=== PATIENT | female | born 1960 | race Caucasian/White ===

== ENCOUNTER 2016-09-01 09:23 | Day surgery (SDC) | payer BC ==
[2016-08-29 14:42] VITALS: BMI 29.2
[~2016-09-01 09:23] MED LIST: LACTATED RINGERS 1,000 ML IV SCH
[2016-09-01] MEDS ORDERED: LIDOCAINE 1% 20 ML VIAL (10MG/ML) FOR IV START INTRADERMA ONE (09:30)
[2016-09-01] MEDS ORDERED: LACTATED RINGERS 1,000 ML IV ONE (09:33)
[2016-09-01 09:34] VITALS: TEMP 97.8
[2016-09-01] MEDS ORDERED: LIDOCAINE 1% INJ 10MG/ML (20 ML MDV) ONE (10:17)
[2016-09-01] MEDS ORDERED: PROPOFOL 10 MG/ML 20 ML VIAL IV ONE (10:17)
--- NOTE | 2016-09-01 10:27 | P.GSHP ---
History of Present Illness H&P Date: 09/01/16 Chief Complaint: Change in bowel habits Patient here today for colonoscopy. She has been having thinner stools with some constipation. She underwent a recent exploratory laparotomy with lysis of adhesions in February of last year for adhesions. No rectal bleeding or melena. No family history of colon cancer. Last colonoscopy at age 39. Past Medical History Past Medical History: Hypertension, Osteoarthritis (OA), Thyroid Disorder Additional Past Medical History / Comment(s): change in bowel habits, hx. small bowel obstruction in February 2016 History of Any Multi-Drug Resistant Organisms: None Reported Past Surgical History: Back Surgery, Breast Surgery, Hysterectomy Additional Past Surgical History / Comment(s): neck surgery cervical decompression and neck fusion, lumbar laminectomy right breast biopsy, colonoscopy, laparoscopy & lysis of adhesions February 2016 Past Anesthesia/Blood Transfusion Reactions: Motion Sickness, Postoperative Nausea & Vomiting (PONV) Past Psychological History: No Psychological Hx Reported Smoking Status: Never smoker Past Alcohol Use History: None Reported Past Drug Use History: None Reported - Past Family History Mother Family Medical History: GI Bleed, Hypertension, Thyroid Disorder Father Family Medical History: Cancer, Coronary Artery Disease (CAD), CVA/TIA, Diabetes Mellitus, Neurologic Disorder Brother(s) Family Medical History: Hypertension Sister(s) Family Medical History: Hypertension, Thyroid Disorder Daughter(s) Family Medical History: No Reported History Son(s) Family Medical History: No Reported History Medications and Allergies Home Medications Medication Instructions Recorded Confirmed Type Cyanocobalamin [Vitamin B-12] 500 mcg PO DAILY 01/06/15 09/01/16 History Cyclobenzaprine [Flexeril] 10 mg PO TID PRN 01/06/15 09/01/16 History Levothyroxine Sodium [Synthroid] 75 mcg PO DAILY 01/06/15 09/01/16 History Multivitamins, Thera [Multivitamin] 1 tab PO DAILY 01/06/15 09/01/16 History [place]-3 Fatty Acids/Fish Oil [Fish 1 cap PO DAILY 01/06/15 09/01/16 History Oil 1,000 mg Softgel] Potassium Gluconate 99 mg PO DAILY 01/06/15 09/01/16 History amLODIPine BESYLATE/BENAZEPRIL 1 cap PO DAILY 01/06/15 09/01/16 History [Lotrel 5-10 mg Capsule] Hydrochlorothiazide [Hydrodiuril] 25 mg PO DAILY 08/29/16 09/01/16 History L.acidoph,Paracasei, B.lactis 1 each PO DAILY 08/29/16 09/01/16 History [Probiotic] Allergies Allergy/AdvReac Type Severity Reaction Status Date / Time No Known Allergies Allergy Verified 08/29/16 14:39 Surgical - Exam Vital Signs Temp Pulse Resp BP Pulse Ox 97.8 F 89 18 144/71 97 09/01/16 09:33 09/01/16 09:33 09/01/16 09:33 09/01/16 09:33 09/01/16 09:33 Physical exam: General: Well-developed, well-nourished HEENT: Normocephalic, sclerae nonicteric Abdomen: Nontender, nondistended Extremities: No edema Neuro: Alert and oriented Assessment and Plan (1) Change in bowel habits Narrative/Plan: Will proceed with colonoscopy at this time. Risks of bleeding about perforation were discussed. She understands and wishes to proceed. Status: Acute
--- NOTE | 2016-09-01 10:51 | P.PCN ---
Date of Procedure: 09/01/16 Procedure(s) Performed: PREOPERATIVE DIAGNOSIS: Change in bowel habits POSTOPERATIVE DIAGNOSIS: Tortuous colon PROCEDURE: Colonoscopy ANESTHESIA: MAC SURGEON: Bertin Gomez M.D. SPECIMENS: None ENDOSCOPIC PROCEDURE: The patient was placed on the endoscopy table in the left decubitus position. The Olympus colonoscope was inserted into the anus and passed under direct visualization to the base of the cecum. The appendiceal orifice was visualized. From that point the scope was slowly withdrawn inspecting all surfaces carefully. There were no neoplastic inflammatory or polypoid lesions throughout the cecum, ascending, transverse, descending, sigmoid and rectum. There was no diverticulosis noted. The patient 's colon was quite tortuous. Digital rectal examination was normal. The patient was taken to the recovery room in stable condition per anesthesia guidelines. RECOMMENDATIONS: Increase fiber. Follow-up colonoscopy in 10 years.
[2016-09-01 10:56] VITALS: RESP 16
[2016-09-01 11:20] VITALS: BP 114/77; PULSE 66
== END 2016-09-01 11:44 | disposition home or self-care (01) ==
LOC: ORWHC2ENDO 09:23
PROVIDERS: ATTEND Surgery
DX: K63.89 Other specified diseases of intestine (principal); I10 Essential (primary) hypertension; E07.9 Disorder of thyroid, unspecified; Z79.899 Other long term (current) drug therapy; Z90.710 Acquired absence of both cervix and uterus; Z98.1 Arthrodesis status; Z82.49 Family history of ischemic heart disease and other diseases of the circulatory system
CPT/HCPCS: 45378; J2001; J2704; 99153

== ENCOUNTER → 2016-09-04 | Outpatient (CLI) | payer BC ==
--- NOTE | 2016-09-04 16:50 | US ---
EXAMINATION TYPE: US mass soft tissue chest/back DATE OF EXAM: 09/04/2016 3:43 PM COMPARISON: NONE CLINICAL HISTORY: Pt states palpable rt lower flank area x 1 1/2 yrs TECHNOLOGIST IMPRESSION: Targeted ultrasound shows no solid or cystic mass or abnormal fluid collect ion visualized at pt's area of concern right flank. Comparative images of left flank appear similar. IMPRESSION: As above.
== END | disposition home or self-care (01) ==
LOC: RADUSWWP 15:15
PROVIDERS: ATTEND Family Medicine
DX: D17.9 Benign lipomatous neoplasm, unspecified (principal)

== ENCOUNTER → 2016-10-25 | Outpatient (CLI) | payer BC | END | disposition home or self-care (01) | LOC: RADECHMAIN 11:51 | PROVIDERS: ATTEND Family Medicine | DX: R00.2 Palpitations (principal) | CPT/HCPCS: 93270; 93271 ==

== ENCOUNTER → 2017-01-02 | Outpatient (CLI) | payer BC ==
[2017-01-02 08:29] LABS: ALT 32 U/L (9-52); AST 33 U/L (14-36); Alkaline Phosphatase 123 U/L (38-126); Anion Gap 11 mmol/L; Blood Urea Nitrogen 21 mg/dL (7-17); Calcium 9.6 mg/dL (8.4-10.2); Carbon Dioxide 31 mmol/L (22-30); Chloride 100 mmol/L (98-107); Glucose 100 mg/dL (74-99); Non-African American GFR(MDRD) >60 (>60 ml/min/1.73 sqM); Sodium 142 mmol/L (137-145); Total Bilirubin 0.6 mg/dL (0.2-1.3); Total Protein 8.2 g/dL (6.3-8.2)
== END | disposition home or self-care (01) ==
LOC: LABWHC1 06:56
PROVIDERS: ATTEND Internal Medicine
DX: I50.9 Heart failure, unspecified (principal)
CPT/HCPCS: 36415; 80053; 83880

== ENCOUNTER → 2017-01-30 | Outpatient (CLI) | payer BC ==
--- NOTE | 2017-01-30 18:36 | US ---
EXAMINATION TYPE: US venous doppler duplex LE DATE OF EXAM: 01/30/2017 6:15 PM COMPARISON: NONE CLINICAL HISTORY: R60.9 Edema. Edema bilateral legs, insufficiency SIDE PERFORMED: Bilateral LOWER EXTREMITY VENOUS INSUFFICIENCY SIDE PERFORMED: bilateral 1) Color flow is present and patency is documented in the following vessels. No DVT or SVT is noted . ? EIV ? Common Femoral Vein ? Deep Femoral Vein ? Femoral Vein ? Popliteal Vein ? Proximal Calf Veins ? Greater Saph Vein ? Upper Small Saph Vein 2) There is venous reflux noted at the following venous levels: no reflux noted IMPRESSION: TECHNIQUE: The lower extremity deep venous system is examined utilizing real time linear array sonog serge with graded compression, doppler sonography and color-flow sonography. VESSELS IMAGED: External Iliac Vein (EIV) Common Femoral Vein Deep Femoral Vein Greater Saphenous Vein * Femoral Vein Popliteal Vein Small Saphenous Vein * Proximal Calf Veins (* superficial vessels) Right Leg: Left Leg: IMPRESSION: Normal exam. No evidence of deep venous thrombosis. No evidence of reflux and venous insu fficiency.
== END | disposition home or self-care (01) ==
LOC: RADUSMAIN 17:33
PROVIDERS: ATTEND Internal Medicine
DX: R60.9 Edema, unspecified (principal); M79.604 Pain in right leg; M79.605 Pain in left leg
CPT/HCPCS: 93970

== ENCOUNTER → 2017-01-31 | Outpatient (CLI) | payer BC ==
[2017-01-31 11:43] LABS: Hemoglobin A1C 5.7 % (4.2-6.1)
[2017-01-31 11:45] LABS: Cholesterol 258 mg/dL (<200); HDL Cholesterol 68 mg/dL (40-60); Triglycerides 94 mg/dL (<150)
[2017-01-31 11:51] LABS: Rheumatoid Factor, Qnt <9 IU/mL (<12)
[2017-01-31 12:45] LABS: ANA w/Reflex to Titer NEGATIVE (NEGATIVE)
== END | disposition home or self-care (01) ==
LOC: LABWHC1 06:54
PROVIDERS: ATTEND Family Medicine
DX: E03.9 Hypothyroidism, unspecified (principal); R73.9 Hyperglycemia, unspecified; E78.5 Hyperlipidemia, unspecified
CPT/HCPCS: 36415; 80061; 83036; 84439; 84443; 84481; 85652; 86038; 86225; 86376; 86431; 86800

== ENCOUNTER → 2017-05-26 | Outpatient (CLI) | payer BC | END | disposition home or self-care (01) | LOC: LABWHC1 07:28 | PROVIDERS: ATTEND Family Medicine | DX: E78.5 Hyperlipidemia, unspecified (principal); E03.9 Hypothyroidism, unspecified | CPT/HCPCS: 36415; 80061; 84439; 84443; 84450; 84460 ==

== ENCOUNTER → 2017-06-14 | Outpatient (CLI) | payer BC ==
--- NOTE | 2017-06-15 07:11 | XR ---
EXAMINATION TYPE: XR abdomen 1V DATE OF EXAM: 06/14/2017 COMPARISON: 03/06/2016 HISTORY: Pain and constipation TECHNIQUE: One view abdominal series FINDINGS: The osseous structures are intact. The bowel gas pattern is nonspecific. Occasional air-fluid level noted. Arthropathy of the hips noted. Lung bases are clear. IMPRESSION: 1. Nonspecific abdomen. Bowel gas pattern is nonspecific with occasional air-fluid level. Ileus or e nteritis in the differential diagnosis. Partial obstruction felt less likely. Correlate clinically.
== END ==
LOC: RADXRMAIN 17:27
PROVIDERS: ATTEND Family Medicine
DX: K59.00 Constipation, unspecified (principal)
CPT/HCPCS: 74000

== ENCOUNTER → 2017-07-05 | Outpatient (CLI) | payer BC ==
--- NOTE | 2017-07-05 10:03 | CT ---
EXAMINATION TYPE: CT Enterography DATE OF EXAM: 07/05/2017 COMPARISON: 03/05/2016 HISTORY: 57-year-old female with abdominal bloating with cramping TECHNIQUE: Contiguous axial scanning of the abdomen and pelvis performed without and with IV Contrast , patient injected with 100 mL of Omnipaque 350. Arterial phase and portal venous phase imaging was p erformed. Patient ingested 3 bottles of Volumen. Coronal/sagittal reconstructions performed. CT DLP: 2220 mGycm Automated exposure control for dose reduction was used. FINDINGS: Heart is normal size with trace anterior basilar pericardial fluid. Small hiatal hernia. Some scarrin g at the peripheral left base without pleural effusion. No focal liver lesion or biliary ductal dilatation. The portal venous system is patent. Gallbladder, adrenal glands, and pancreas appear within normal limits. Stable 1.4 cm hypodense lesion lateral lower pole of the spleen shows progressive enhancement on delayed images, possible hemangiom a. Subcentimeter hypodensities in both kidneys, some of which may be larger/new on the right are too sma ll for accurate CT characterization, likely cysts. A couple cysts in the left kidney are slightly larger such as at the lower pole measuring 2.7 cm vers us 2.5 cm, previously. Of note, there is a heterogeneous exophytic fat density mass from the left renal upper pole measuring 6.6 X 4.8 cm, axial image 18 and sagittal image 71 versus 6.8 cm, previously. Internal strandy densi ties are present. There is a claw sign with the kidney, a renal lesion such as an AML is suggested. Additional heterogeneous fat density lesion at the lower pole may also be arising from the kidney and measures 2.9 x 3.0 cm versus 2.5 x 2.1 cm, previously in 2016. Given growth, retroperitoneal locatio n, and no clear claw sign, follow-up is recommended. Prominent fluid-filled small bowel loops relating to ingested Volumen. Some densities in right pelvic small bowel loops and within the cecum likely related to ingested medi cation tablets. There is combination of liquid and solid stool in the right hemicolon likely due to o ral contrast ingestion and moderate stool seen within the left hemicolon. There is no comb sign, abnormal wall thickening, or ileal hyperemia identified. The appendix is not clearly identified. There is a small right periumbilical Pineda hernia involving proximal third transverse colon. No obs tructive changes. Difficult to exclude some mild adjacent inflammation in the subcutaneous fat. No mesenteric or retroperitoneal lymphadenopathy seen. Bladder is urine distended. There seems to be pelvic floor relaxation with the bladder neck located b elow the popliteal coccygeal line. Uterus surgically absent. Neither ovary clearly seen. No abnormal fluid collection the pelvis or pelvic lymphadenopathy. Bones: Laminectomy changes in the lumbar spine. There is some interbody ankylosis of T11-T12. No osse ous destructive process. IMPRESSION: 1. NO SPECIFIC FINDINGS OF INFLAMMATORY ENTERITIS. NO BOWEL OBSTRUCTION. 2. EXOPHYTIC FAT DENSITY MASS MEASURING UP TO 6.6 CM IN THE UPPER POLE LEFT KIDNEY IS UNCHANGED. AN A ML IS SUSPECTED. NOTE THAT AML's LARGER THAN 4 CM ARE AT GREATER RISK FOR SPONTANEOUS HEMORRHAGE. 3. SLIGHTLY ENLARGING FAT DENSITY LESION IN THE LOWER LEFT RETROPERITONEUM BELOW THE KIDNEY MEASURES 2.9 X 2.0 CM VERSUS 2.5 X 2.1 CM IN 2016. A SECOND EXOPHYTIC AML IS SUSPECTED. HOWEVER, OTHER FATTY R ETROPERITONEAL LESION SUCH A LIPOSARCOMA IS NOT EXCLUDED FROM THE DIFFERENTIAL AT THIS TIME. 6 MON TH FOLLOW-UP CAN BE PERFORMED. 4. SMALL RIGHT-SIDED PERIUMBILICAL, PROBABLE INCISIONAL, PINEDA HERNIA INVOLVING A SHORT SEGMENT OF TRANSVERSE COLON. NO OBSTRUCTIVE CHANGES. THERE MAY BE MILD ADJACENT INFLAMMATION. CORRELATE FOR ANY FOCAL PAIN HERE. 5. PELVIC FLOOR RELAXATION WITH THE BLADDER NECK LOCATED BELOW THE PUBOCOCCYGEAL LINE. 6. SMALL HIATAL HERNIA.
== END | disposition home or self-care (01) ==
LOC: RADCTMAIN 07:15
PROVIDERS: ATTEND Internal Medicine Gastroenterology
DX: N28.89 Other specified disorders of kidney and ureter (principal); K44.9 Diaphragmatic hernia without obstruction or gangrene
CPT/HCPCS: 74177; Q9967

== ENCOUNTER → 2017-07-12 | Outpatient (CLI) | payer BC ==
--- NOTE | 2017-07-13 11:09 | MM ---
Reason for exam: screening (asymptomatic). Last mammogram was performed 1 year and 3 months ago. History: Patient is postmenopausal. Family history of breast cancer in paternal grandmother at age 65. Reductions of both breasts, February 2005. Benign excisional biopsy of the right breast, 1979. Took estrogen for 9 years 7 months beginning at age 41. Physical Findings: A clinical breast exam by your physician is recommended on an annual basis and results should be correlated with mammographic findings. MG 3D Screening Mammo W/Cad Bilateral CC and MLO view(s) were taken. Prior study comparison: April 14, 2016, bilateral MG 3d screening mammo w/cad. February 23, 2015, bilateral MG screening mammo w CAD. There are scattered fibroglandular densities. No suspicious abnormality. No significant changes when compared with prior studies. ASSESSMENT: Negative, BI-RAD 1 RECOMMENDATION: Routine screening mammogram of both breasts in 1 year.
== END | disposition home or self-care (01) ==
LOC: RADMAMWWP 09:23
PROVIDERS: ATTEND Family Medicine
DX: Z12.31 Encounter for screening mammogram for malignant neoplasm of breast (principal)
CPT/HCPCS: 77063; G0202

== ENCOUNTER 2017-08-21 20:45 | Emergency (ER) | payer BC ==
[2017-08-21] MEDS ORDERED: HYDROcodone/APAP 5-325MG 1 EACH TAB PO STA (20:57)
--- NOTE | 2017-08-21 20:59 | ED ---
Upper Extremity HPI - General Stated Complaint: wrist injury Time Seen by Provider: 08/21/17 20:50 - History of Present Illness Initial Comments: 57-year-old female patient presents to the emergency department today with complaints of left wrist pain after a fall. Patient states that she was up on a chair approximately 3 feet off the ground when she fell. States that she did fall on outstretched wrist. He states that she did ice the wrist however the pain persisted so she presented here for evaluation. States she did strike her head. She denies any loss of consciousness with this. Denies any headache, neck pain, or back pain. She denies any other injuries. She is able to ambulate. Patient denies any headache, neck pain, back pain, chest pain, shortness of breath, dizziness, weakness, visual disturbance, abdominal pain, nausea, vomiting, or difficulties with bowel movements or urination. - Related Data Home Medications Medication Instructions Recorded Confirmed Cyanocobalamin [Vitamin B-12] 500 mcg PO DAILY 01/06/15 09/01/16 Cyclobenzaprine [Flexeril] 10 mg PO TID PRN 01/06/15 09/01/16 Levothyroxine Sodium [Synthroid] 75 mcg PO DAILY 01/06/15 09/01/16 Multivitamins, Thera [Multivitamin 1 tab PO DAILY 01/06/15 09/01/16 (formulary)] [place]-3 Fatty Acids/Fish Oil [Fish 1 cap PO DAILY 01/06/15 09/01/16 Oil 1,000 mg Softgel] Potassium Gluconate 99 mg PO DAILY 01/06/15 09/01/16 amLODIPine BESYLATE/BENAZEPRIL 1 cap PO DAILY 01/06/15 09/01/16 [Lotrel 5-10 mg Capsule] Hydrochlorothiazide [Hydrodiuril] 25 mg PO DAILY 08/29/16 09/01/16 L.acidoph,Paracasei, B.lactis 1 each PO DAILY 08/29/16 09/01/16 [Probiotic] Previous Rx's Medication Instructions Recorded Hydrocodone/Acetaminophen [[place] 1 tab PO Q6HR PRN #20 tab 08/21/17 5-325] Allergies Allergy/AdvReac Type Severity Reaction Status Date / Time No Known Allergies Allergy Verified 08/21/17 20:55 Review of Systems ROS Statement: Those systems with pertinent positive or pertinent negative responses have been documented in the HPI. ROS Other: All systems not noted in ROS Statement are negative. Past Medical History Past Medical History: GERD/Reflux, Hypertension, Osteoarthritis (OA), Thyroid Disorder History of Any Multi-Drug Resistant Organisms: None Reported Past Surgical History: Back Surgery, Breast Surgery, Hysterectomy Additional Past Surgical History / Comment(s): neck surgery cervical decompression and neck fusion, lumbar laminectomy right breast lumpectomy benign reasons colonoscopy at age 44 completed hysterectomy Past Anesthesia/Blood Transfusion Reactions: Postoperative Nausea & Vomiting ( PONV) Past Psychological History: No Psychological Hx Reported Smoking Status: Never smoker Past Alcohol Use History: None Reported Past Drug Use History: None Reported - Past Family History Mother Family Medical History: GI Bleed, Hypertension, Thyroid Disorder Father Family Medical History: Cancer, Coronary Artery Disease (CAD), CVA/TIA, Diabetes Mellitus, Neurologic Disorder Brother(s) Family Medical History: Hypertension Sister(s) Family Medical History: Hypertension, Thyroid Disorder Daughter(s) Family Medical History: No Reported History Son(s) Family Medical History: No Reported History General Exam General appearance: alert, in no apparent distress, other (This is a well- developed, well-nourished adult female patient in no acute distress. Vital signs upon presentation are temperature 97.2F oral, pulse 87, respirations 18, blood pressure 160/71, pulse ox 98% on room air.) Eye exam: Present: normal appearance, PERRL, EOMI. Absent: scleral icterus, conjunctival injection, nystagmus, periorbital swelling ENT exam: Present: normal exam, normal oropharynx, mucous membranes moist, TM's normal bilaterally Neck exam: Present: normal inspection, full ROM, other (Nontender, no step-off, no deformity to firm midline palpation of the posterior cervical spine. Full range of motion without pain or limitation.). Absent: tenderness, meningismus, lymphadenopathy Respiratory exam: Present: normal lung sounds bilaterally. Absent: respiratory distress, wheezes, rales, rhonchi, stridor Cardiovascular Exam: Present: regular rate, normal rhythm, normal heart sounds. Absent: systolic murmur, diastolic murmur, rubs, gallop, clicks GI/Abdominal exam: Present: soft, normal bowel sounds. Absent: distended, tenderness, guarding, rebound, rigid Extremities exam: Present: tenderness (Wrist on the left wrist.), normal capillary refill, other (There is tissue swelling and probable deformity of the left wrist. Radial pulses 2+ and equal bilaterally. Skin is pink, warm, and dry. Cap refills less than 3 seconds.). Absent: full ROM (Decreased range of motion of the left wrist due to increased pain with movement.), pedal edema, joint swelling, calf tenderness Back exam: Present: normal inspection, other (Nontender, no step-off, no deformity to firm midline palpation of the thoracic and lumbar vertebrae. Full range of motion without pain or limitation.). Absent: vertebral tenderness Neurological exam: Present: alert, oriented X3, CN II-XII intact Psychiatric exam: Present: normal affect, normal mood Skin exam: Present: warm, dry, intact, normal color. Absent: rash Course Vital Signs 08/21/17 20:56 Temperature 97.2 F L Pulse Rate 87 Respiratory 18 Rate Blood Pressure 160/71 O2 Sat by Pulse 98 Oximetry Procedures - Orthopedic Splinting/Casting Injury #1 Side: left Upper Extremity Injury Location: short arm, wrist Upper Extremity Immobilizer: volar splint Additional Comments: Neurovascular status intact after splint application. Skin is pink, warm, and dry. Cap refill is less than 3 seconds. Patient denies numbness or tingling. Medical Decision Making - Medical Decision Making 57-year-old female patient percents to the emergency department today for evaluation of left wrist pain after a fall from a chair. Physical examination did reveal some mild deformity and soft tissue swelling of the left wrist. Neurovascular status was intact. X-ray did reveal a mildly displaced radial head fracture and a nondisplaced distal ulnar fracture. Patient was placed in a short arm volar splint. Neurovascular is intact after splint application. She'll be discharged with a prescription of pain medication. She is educated regarding icing and elevation. She is instructed to follow-up with the orthopedic physician as soon as possible. She requests Dr. Wallace. She is instructed to return here immediately for any new, worsening, or concerning symptoms. She verbalizes understanding and agrees with this plan. - Radiology Data Radiology results: report reviewed, image reviewed 3 views of the left wrist are obtained and showed mildly displaced transverse distal radius fracture entering the distal radial ulnar joint. The lateral view shows only minimal apex volar angulation. The oblique view shows involvement of the radiocarpal joint medially. There is also a nondisplaced vertically oriented oblique fracture of the distal ulna medially. Impression by Dr. Kiya Zarco shows distal radius complex fracture. Nondisplaced distal ulna fracture. Disposition Clinical Impression: Distal radial fracture, Distal end of ulna fracture, closed Disposition: HOME SELF-CARE Condition: Good Instructions: Wrist Fracture in Adults (ED), Splint Care (ED) Additional Instructions: Rest, ice, elevate the left. Apply ice 20 minutes at a time at least 4 times daily. Take medications as directed. Follow-up with the orthopedic physician as soon as possible. Return here immediately for any new, worsening, or concerning symptoms. Prescriptions: Hydrocodone/Acetaminophen [[place] 5-325] 1 tab PO Q6HR PRN #20 tab PRN Reason: Pain Referrals: Edmar Crsos DO [Primary Care Provider] - 1-2 days Dereje Wallace DO [Doctor of Osteopathic Medicine] - 1-2 days Time of Disposition: 21:40
[2017-08-21 21:03] VITALS: BP 160/71; PULSE 87; RESP 18; TEMP 97.2
--- NOTE | 2017-08-21 21:33 | XR ---
PROCEDURE: XR wrist complete LT DATE AND TIME: 08/21/2017 9:12 PM REFERRING PHYSICIAN: Citlaly Terrazas CLINICAL INDICATION: PHH, Pain TECHNIQUE: Department protocol. COMPARISON: 06/19/2016 FINDINGS: There is a mildly displaced transverse distal radius fracture entering the distal radioulnar joint. T he lateral view shows only minimal apex volar angulation. The oblique view shows involvement of the r adiocarpal joint medially. There is also a nondisplaced vertically-oriented oblique fracture of the distal ulna medially. IMPRESSION: DISTAL RADIUS COMPLEX FRACTURE. NONDISPLACED DISTAL ULNA FRACTURE.
== END 2017-08-21 21:46 | disposition home or self-care (01) ==
LOC: EC 20:45
DX: S52.502A Unspecified fracture of the lower end of left radius, initial encounter for closed fracture (principal); S52.602A Unspecified fracture of lower end of left ulna, initial encounter for closed fracture; I10 Essential (primary) hypertension; E07.9 Disorder of thyroid, unspecified; Z79.899 Other long term (current) drug therapy; W07.XXXA Fall from chair, initial encounter; Y93.89 Activity, other specified
CPT/HCPCS: 29125; 99283

== ENCOUNTER → 2017-11-29 | Outpatient (CLI) | payer BC ==
--- NOTE | 2017-11-29 23:28 | CT ---
EXAMINATION TYPE: CT abdomen pelvis wo con DATE OF EXAM: 11/29/2017 COMPARISON: 03/05/2016 HISTORY: 57-year-old female with abdominal pain, hernia repair 2 months ago. Nausea and reflux CT DLP: 379.9 mGycm. Automated exposure control for dose reduction was used. TECHNIQUE: Contiguous axial scanning of the abdomen and pelvis without IV contrast. Coronal and sagit bill reconstructions performed. FINDINGS: Heart is normal size without pericardial effusion. Band of atelectasis or scarring at the peripheral left base. No pleural effusion. Tiny hiatal hernia. Noncontrast appearance of the liver, gallbladder, adrenal glands, right kidney, spleen, and pancreas show no gross abnormality. Exophytic fat density lesion from the upper pole of the left kidney measures approximately 6.3 x 3.2 cm versus 6.6 x 3.4 cm on 03/05/2016, not significantly changed. However, a fluid density nodule withi n this lesion is larger measuring 1.7 cm versus 1.1 cm on 03/05/2016. Second exophytic fat density les ion below the left kidney measures 2.6 cm versus 2.5 cm on 03/05/2016, not significantly changed. No dilated small bowel, free fluid, or free air. No mesenteric or retroperitoneal lymphadenopathy see n. Postsurgical changes with a mesh repair along the ventral abdominal wall. There is mild soft tissue t hickening in this region likely postsurgical scar. No significant stool burden. Mild sigmoid diverticulosis. Bladder is markedly urine distended measuring 12.8 cm craniocaudal. Pelvic floor relaxation again dem onstrated. No abnormal fluid collection in the pelvis or pelvic lymphadenopathy seen. Uterus surgical ly absent. Bones: Mild degenerative changes of the hips. Postlaminectomy changes L4-S1. 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 IMPRESSION: 1. Ventral abdominal wall mesh repair with some associated scarring. 2. 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 However, a cystic nodule within is larger measuring 1.7 cm versus 1.1 cm on 03/05/2016. This is of questionable clinical significance. Consider a one-year follow-up to reassess. 3. Second fat density lesion lower pole left kidney measures 2.6 cm, unchanged from 03/05/2016 sugges ting a second AML. 4. Marked urinary bladder distention measuring up to 12.8 cm craniocaudal. Correlate to ensure that this represents voluntary retention. Redemonstrated pelvic floor relaxation. 5. Segmentation anomalies of T10 and T11 vertebra partially visualized.
== END | disposition home or self-care (01) ==
LOC: RADCTMAIN 16:20
PROVIDERS: ATTEND Family Medicine
DX: C92.00 Acute myeloblastic leukemia, not having achieved remission (principal); N28.89 Other specified disorders of kidney and ureter; N32.89 Other specified disorders of bladder; L90.5 Scar conditions and fibrosis of skin; Z98.890 Other specified postprocedural states
CPT/HCPCS: 74176

== ENCOUNTER → 2018-02-25 | Outpatient (CLI) | payer BC ==
--- NOTE | 2018-02-26 00:19 | MR ---
EXAMINATION TYPE: MR wrist LT wo con DATE OF EXAM: 02/25/2018 COMPARISON: NONE HISTORY: Pain and swelling Standard multiplanar, multisequence MRI departmental protocol Multiplanar, multisequence images of the left wrist were acquired. FINDINGS: There is narrowing of the radiocarpal joint space with mild spurring. There is narrowing of the scaphoid lunate joint space. There is some deformity of the distal radius related to old healed fracture. The triangular cartilage appears intact. The flexor and extensor tendons of the wrist appea r intact. Ulnar styloid process appears intact. There is some edema and cystic change in both sides o f the scaphoid trapezium joint space. I see no acute fracture. 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 Osteoarthritis in the scapholunate joint. Oste oarthritis in this [place] trapezium joint with subchondral cystic change and edema. Small wrist mary nt effusion. There is satisfactory healing of the distal radius fracture compared to 08/21/2017 exam.
== END | disposition home or self-care (01) ==
LOC: RADMRIMAIN 20:46
PROVIDERS: ATTEND Family Medicine
DX: M19.032 Primary osteoarthritis, left wrist (principal); S52.502A Unspecified fracture of the lower end of left radius, initial encounter for closed fracture; M25.832 Other specified joint disorders, left wrist; R60.0 Localized edema

== ENCOUNTER 2018-03-16 10:57 | Inpatient (IN) | payer BC ==
[2018-03-16] MEDS ORDERED: MORPHINE SULFATE 4 MG/ML SYRINGE IV STA (11:31)
[2018-03-16] MEDS ORDERED: PANTOPRAZOLE 40 MG/10 ML VIAL IVP STA (11:31)
[2018-03-16] MEDS ORDERED: ACETAMINOPHEN IV (For NPO) 1,000 MG in EMPTY BAG 1 BAG IVPB STA (11:31)
[2018-03-16] MEDS ORDERED: SODIUM CHLORIDE 0.9% 1,000 ML IV STA (11:31)
[2018-03-16] MEDS ORDERED: ONDANSETRON 4 MG/2 ML VIAL IVP STA (11:31)
--- NOTE | 2018-03-16 11:47 | ED ---
General Adult HPI - General Chief complaint: Abdominal Pain Stated complaint: Abd Pain Time Seen by Provider: 03/16/18 11:31 Source: patient, RN notes reviewed, old records reviewed Mode of arrival: ambulatory Limitations: no limitations - History of Present Illness Initial comments: This is a 58-year-old female the ER today. This patient presents for evaluation regards to abdominal pain. Patient admits to abdominal pain fevers of nausea and vomiting. Patient has positive history of bowel issue, hysterectomy, small bowel obstruction, otherwise no significant debris medical history. No recent travel history no diarrhea, no vomiting blood or stool with blood.. - Related Data Home Medications Medication Instructions Recorded Confirmed Cyanocobalamin [Vitamin B-12] 500 mcg PO DAILY 01/06/15 09/01/16 Cyclobenzaprine [Flexeril] 10 mg PO TID PRN 01/06/15 09/01/16 Levothyroxine Sodium [Synthroid] 75 mcg PO DAILY 01/06/15 09/01/16 Multivitamins, Thera [Multivitamin 1 tab PO DAILY 01/06/15 09/01/16 (formulary)] [place]-3 Fatty Acids/Fish Oil [Fish 1 cap PO DAILY 01/06/15 09/01/16 Oil 1,000 mg Softgel] Potassium Gluconate 99 mg PO DAILY 01/06/15 09/01/16 amLODIPine BESYLATE/BENAZEPRIL 1 cap PO DAILY 01/06/15 09/01/16 [Lotrel 5-10 mg Capsule] Hydrochlorothiazide [Hydrodiuril] 25 mg PO DAILY 08/29/16 09/01/16 L.acidoph,Paracasei, B.lactis 1 each PO DAILY 08/29/16 09/01/16 [Probiotic] Previous Rx's Medication Instructions Recorded Hydrocodone/Acetaminophen [[place] 1 tab PO Q6HR PRN #20 tab 08/21/17 5-325] Allergies Allergy/AdvReac Type Severity Reaction Status Date / Time No Known Allergies Allergy Verified 03/16/18 11:22 Review of Systems ROS Statement: Those systems with pertinent positive or pertinent negative responses have been documented in the HPI. ROS Other: All systems not noted in ROS Statement are negative. Past Medical History Past Medical History: GERD/Reflux, Hypertension, Osteoarthritis (OA), Thyroid Disorder Additional Past Medical History / Comment(s): twisted colon History of Any Multi-Drug Resistant Organisms: None Reported Past Surgical History: Back Surgery, Breast Surgery, Hysterectomy Additional Past Surgical History / Comment(s): neck surgery cervical decompression and neck fusion, lumbar laminectomy right breast lumpectomy benign reasons colonoscopy at age 44 completed hysterectomy, colon surgery fot twisting Past Anesthesia/Blood Transfusion Reactions: Postoperative Nausea & Vomiting ( PONV) Past Psychological History: No Psychological Hx Reported Smoking Status: Never smoker Past Alcohol Use History: None Reported Past Drug Use History: None Reported - Past Family History Mother Family Medical History: GI Bleed, Hypertension, Thyroid Disorder Father Family Medical History: Cancer, Coronary Artery Disease (CAD), CVA/TIA, Diabetes Mellitus, Neurologic Disorder Brother(s) Family Medical History: Hypertension Sister(s) Family Medical History: Hypertension, Thyroid Disorder Daughter(s) Family Medical History: No Reported History Son(s) Family Medical History: No Reported History General Exam Limitations: no limitations General appearance: alert, in no apparent distress Head exam: Present: atraumatic, normocephalic, normal inspection Eye exam: Present: normal appearance, PERRL, EOMI. Absent: scleral icterus, conjunctival injection, periorbital swelling ENT exam: Present: normal exam, mucous membranes moist Neck exam: Present: normal inspection. Absent: tenderness, meningismus, lymphadenopathy Respiratory exam: Present: normal lung sounds bilaterally. Absent: respiratory distress, wheezes, rales, rhonchi, stridor Cardiovascular Exam: Present: regular rate, normal rhythm, normal heart sounds. Absent: systolic murmur, diastolic murmur, rubs, gallop, clicks GI/Abdominal exam: Present: soft, normal bowel sounds. Absent: distended, tenderness, guarding, rebound, rigid Extremities exam: Present: normal inspection, full ROM, normal capillary refill. Absent: tenderness, pedal edema, joint swelling, calf tenderness Back exam: Present: normal inspection Neurological exam: Present: alert, oriented X3, CN II-XII intact Psychiatric exam: Present: normal affect, normal mood Skin exam: Present: warm, dry, intact, normal color. Absent: rash Course Vital Signs 03/16/18 03/16/18 11:20 12:23 Temperature 98.3 F Pulse Rate 101 H 85 Respiratory 18 20 Rate Blood Pressure 132/60 107/56 O2 Sat by Pulse 95 95 Oximetry - Reevaluation(s) Reevaluation #1: 03/16/18 13:45 Patient has adequate pain control currently Medical Decision Making - Medical Decision Making 58 female the ER with severe abdominal pain, elevated white count may be ileitis , patient be placed on antibiotics likely just underlying small bowel obstruction secondary to prior surgeries. Patient be admitted for nothing by mouth IV fluids resuscitation - Lab Data Result diagrams: 03/16/18 12:10 03/16/18 12:10 Lab Results 03/16/18 03/16/18 03/16/18 Range/Units 12:10 12:10 12:10 WBC 26.4 H* (3.8-10.6) k/uL RBC 4.97 (3.80-5.40) m/uL Hgb 14.2 (11.4-16.0) gm/dL Hct 42.0 (34.0-46.0) % MCV 84.4 (80.0-100.0) fL MCH 28.6 (25.0-35.0) pg MCHC 33.9 (31.0-37.0) g/dL RDW 13.7 (11.5-15.5) % Plt Count 310 (150-450) k/uL Neutrophils % (Manual) 85 % Lymphocytes % (Manual) 8 % Monocytes % (Manual) 6 % Eosinophils % (Manual) 1 % Neutrophils # (Manual) 22.44 H (1.3-7.7) k/uL Lymphocytes # (Manual) 2.11 (1.0-4.8) k/uL Monocytes # (Manual) 1.58 H (0-1.0) k/uL Eosinophils # (Manual) 0.26 (0-0.7) k/uL Nucleated RBCs 0 (0-0) /100 WBC Toxic Granulation Present Polychromasia Present Sodium 132 L (137-145) mmol/L Potassium 3.8 (3.5-5.1) mmol/L Chloride 93 L (98-107) mmol/L Carbon Dioxide 25 (22-30) mmol/L Anion Gap 14 mmol/L BUN 21 H (7-17) mg/dL Creatinine 0.70 (0.52-1.04) mg/dL Est GFR (CKD-EPI)AfAm >90 (>60 ml/min/1.73 sqM) Est GFR (CKD-EPI)NonAf >90 (>60 ml/min/1.73 sqM) Glucose 124 H (74-99) mg/dL Plasma Lactic Acid [place] (0.7-2.0) mmol/L Calcium 9.6 (8.4-10.2) mg/dL Total Bilirubin 0.7 (0.2-1.3) mg/dL AST 29 (14-36) U/L ALT 40 (9-52) U/L Alkaline Phosphatase 179 H (38-126) U/L Total Creatine Kinase 34 (30-135) U/L CK-MB (CK-2) 1.2 (0.0-2.4) ng/mL CK-MB (CK-2) Rel Index 3.5 Troponin I <0.012 (0.000-0.034) ng/mL Total Protein 7.2 (6.3-8.2) g/dL Albumin 4.2 (3.5-5.0) g/dL Amylase 53 (30-110) U/L Lipase 44 (23-300) U/L Urine Color Urine Appearance (Clear) Urine pH (5.0-8.0) Ur Specific [place] (1.001-1.035) Urine Protein (Negative) Urine Glucose (UA) (Negative) Urine Ketones (Negative) Urine Blood (Negative) Urine Nitrite (Negative) Urine Bilirubin (Negative) Urine Urobilinogen (<2.0) mg/dL Ur Leukocyte Esterase (Negative) Urine RBC (0-5) /hpf Urine WBC (0-5) /hpf Urine Bacteria (None) /hpf 03/16/18 03/16/18 Range/Units 12:10 13:05 WBC (3.8-10.6) k/uL RBC (3.80-5.40) m/uL Hgb (11.4-16.0) gm/dL Hct (34.0-46.0) % MCV (80.0-100.0) fL MCH (25.0-35.0) pg MCHC (31.0-37.0) g/dL RDW (11.5-15.5) % Plt Count (150-450) k/uL Neutrophils % (Manual) % Lymphocytes % (Manual) % Monocytes % (Manual) % Eosinophils % (Manual) % Neutrophils # (Manual) (1.3-7.7) k/uL Lymphocytes # (Manual) (1.0-4.8) k/uL Monocytes # (Manual) (0-1.0) k/uL Eosinophils # (Manual) (0-0.7) k/uL Nucleated RBCs (0-0) /100 WBC Toxic Granulation Polychromasia Sodium (137-145) mmol/L Potassium (3.5-5.1) mmol/L Chloride (98-107) mmol/L Carbon Dioxide (22-30) mmol/L Anion Gap mmol/L BUN (7-17) mg/dL Creatinine (0.52-1.04) mg/dL Est GFR (CKD-EPI)AfAm (>60 ml/min/1.73 sqM) Est GFR (CKD-EPI)NonAf (>60 ml/min/1.73 sqM) Glucose (74-99) mg/dL Plasma Lactic Acid [place] 1.1 (0.7-2.0) mmol/L Calcium (8.4-10.2) mg/dL Total Bilirubin (0.2-1.3) mg/dL AST (14-36) U/L ALT (9-52) U/L Alkaline Phosphatase (38-126) U/L Total Creatine Kinase (30-135) U/L CK-MB (CK-2) (0.0-2.4) ng/mL CK-MB (CK-2) Rel Index Troponin I (0.000-0.034) ng/mL Total Protein (6.3-8.2) g/dL Albumin (3.5-5.0) g/dL Amylase (30-110) U/L Lipase (23-300) U/L Urine Color Yellow Urine Appearance Clear (Clear) Urine pH 6.5 (5.0-8.0) Ur Specific [place] >1.050 H (1.001-1.035) Urine Protein 1+ H (Negative) Urine Glucose (UA) Negative (Negative) Urine Ketones Trace H (Negative) Urine Blood Negative (Negative) Urine Nitrite Negative (Negative) Urine Bilirubin Negative (Negative) Urine Urobilinogen <2.0 (<2.0) mg/dL Ur Leukocyte Esterase Negative (Negative) Urine RBC 1 (0-5) /hpf Urine WBC 5 (0-5) /hpf Urine Bacteria Rare H (None) /hpf - Radiology Data Radiology results: report reviewed (CT abdomen pelvis positive SBO), image reviewed Disposition Clinical Impression: Abdominal pain, SBO (small bowel obstruction) Disposition: ADMITTED IP TO THIS [facility] Condition: Good Is patient prescribed a controlled substance at d/c from ED?: No Referrals: Edmar Cross DO [Primary Care Provider] - 1-2 days
[2018-03-16] MEDS: SODIUM CHLORIDE 0.9% 1,000 ML IV STA ×3 (12:12→18:21)
[2018-03-16 12:40] LABS: ALT 40 U/L (9-52); AST 29 U/L (14-36); Albumin 4.2 g/dL (3.5-5.0); Alkaline Phosphatase 179 U/L (38-126); Amylase 53 U/L (30-110); Anion Gap 14 mmol/L; Blood Urea Nitrogen 21 mg/dL (7-17); Calcium 9.6 mg/dL (8.4-10.2); Carbon Dioxide 25 mmol/L (22-30); Chloride 93 mmol/L (98-107); Glucose 124 mg/dL (74-99); Lipase 44 U/L (23-300); Potassium 3.8 mmol/L (3.5-5.1); Sodium 132 mmol/L (137-145); Total Bilirubin 0.7 mg/dL (0.2-1.3); Total Protein 7.2 g/dL (6.3-8.2)
[2018-03-16 12:48] LABS: HGB 14.2 gm/dL (11.4-16.0); MCH 28.6 pg (25.0-35.0); MCHC 33.9 g/dL (31.0-37.0); MCV 84.4 fL (80.0-100.0); Mean Platelet Volume 6.7; Platelet Count 310 k/uL (150-450); RBC 4.97 m/uL (3.80-5.40); RDW 13.7 % (11.5-15.5)
[2018-03-16 12:53] LABS: WBC 26.4 k/uL (3.8-10.6)
[2018-03-16 13:00] LABS: Creatine Kinase 34 U/L (30-135)
[2018-03-16 13:02] LABS: Eosinophils # (M) 0.26 k/uL (0-0.7); Lymphocytes # (M) 2.11 k/uL (1.0-4.8); Monocytes # (M) 1.58 k/uL (0-1.0); Neutrophils # (M) 22.44 k/uL (1.3-7.7); Neutrophils % (M) 85 %; Nucleated Red Blood Cells 0 /100 WBC (0-0); Total Cells Counted 100
[2018-03-16 13:03] LABS: Polychromasia Present
[2018-03-16 13:04] LABS: Toxic Granulation Present
[2018-03-16 13:12] LABS: Creatine Kinase MB 1.2 ng/mL (0.0-2.4); Troponin I <0.012 ng/mL (0.000-0.034)
[2018-03-16 13:18] LABS: Appearance,Urine Clear (Clear); Bacteria,Urine Rare /hpf; Bilirubin,Urine Negative (Negative); Blood,Urine Negative (Negative); Color,Urine Yellow; Glucose,Urine (UA) Negative (Negative); Ketones,Urine Trace (Negative); Leukocyte Esterase,Urine Negative (Negative); Nitrite,Urine Negative (Negative); PH, Urine 6.5 (5.0-8.0); Protein,Urine 1+ (Negative); RBC,Urine 1 /hpf (0-5); Urobilinogen,Urine <2.0 mg/dL (<2.0); WBC,Urine 5 /hpf (0-5)
--- NOTE | 2018-03-16 13:19 | CT ---
EXAMINATION TYPE: CT abdomen pelvis w con DATE OF EXAM: 03/16/2018 REFERENCE: Previous study dated 11/29/2017. HISTORY: abdominal pain HISTORY: Patient complains of RUQ pain, nausea, vomiting, bloating, and constipation. REFERENCE: NONE CT DLP: 516 mGy Automated exposure control for dose reduction was used. TECHNIQUE: Helical acquisition through the abdomen and pelvis was obtained following the oral ingesti on of without Oral Contrast and following intravenous administration of 100 mL of Isovue 300. The graham a was reformatted in axial, coronal and sagittal projections. FINDINGS: There are areas of platelike atelectasis at the lung bases. There is no pleural or pericar dial fluid. Heart size is upper limits of normal. Within the abdomen, the liver is upper limits of normal in size measuring just over 17 cm. The spleen is normal. The gallbladder is unremarkable. Both adrenal glands appear normal. There is a simple appearing, 2.6 cm cyst in the lower pole of the left kidney. There is a smaller les ion measuring 7 mm the mid polar region of the right kidney, too small to accurately characterize. The pancreas is unremarkable. There are dilated loops of small bowel throughout the abdomen without a definite transition point. Th ere are air-fluid levels present. There is some fecal isolation of the distal small bowel. The colon is collapsed. There is no significant retroperitoneal, iliac or inguinal adenopathy. The bladder is unremarkable. The uterus and ovaries are not visualized. There is a lamellated calcification in what appears to be the distal small bowel. This has not change d appreciably from the previous study. It is several inches away from the ileocecal valve. There is no free fluid and no free air. There is mild facet arthropathy in the lower lumbar spine. IMPRESSION: 1. DISTAL SMALL BOWEL OBSTRUCTION. THE PRESENCE OF A CALCIFICATION WHICH IS LAMELLATED IN THE DISTAL ILEUM RAISES A POSSIBILITY OF GALLSTONE ILEUS BUT THERE ARE NO OTHER FINDINGS CONSISTENT W ITH GALLSTONE ILEUS. 2. PLATELIKE ATELECTASIS, BOTH LUNG BASES. 3. STABLE, 2.6 CM CYST IN THE LOWER POLE OF THE LEFT KIDNEY. 4. MILD DEGENERATIVE CHANGES WITHIN THE SPINE.
[2018-03-16 13:23] LABS: Specific Gravity,Urine >1.050 (1.001-1.035)
[2018-03-16] MEDS ORDERED: SODIUM CHLORIDE 0.9% 1,000 ML IV ONE (13:40)
[2018-03-16] MEDS ORDERED: AMPICILLIN-SULBACTAM 3 GM in SODIUM CHLORIDE 0.9% 100 ML IVPB STA (13:45)
[2018-03-16 15:13] VITALS: BMI 31.1
[2018-03-16] MEDS: ONDANSETRON 4 MG/2 ML VIAL IVP PRN (18:18)
[2018-03-16] MEDS: MORPHINE SULFATE 4 MG/ML SYRINGE IVP PRN (18:30)
[2018-03-16] MEDS: AMPICILLIN-SULBACTAM 3 GM in SODIUM CHLORIDE 0.9% 100 ML IVPB SCH (19:52)
[2018-03-17] MEDS: MORPHINE SULFATE 4 MG/ML SYRINGE IVP PRN ×2 (01:42→21:30)
[2018-03-17] MEDS: ONDANSETRON 4 MG/2 ML VIAL IVP PRN ×2 (01:42→19:14)
[2018-03-17] MEDS: AMPICILLIN-SULBACTAM 3 GM in SODIUM CHLORIDE 0.9% 100 ML IVPB SCH ×4 (01:42→21:29)
[2018-03-17] MEDS: PANTOPRAZOLE 40 MG/10 ML VIAL IVP SCH (08:24)
[2018-03-17] MEDS: ENOXAPARIN 40 MG/0.4 ML SYRINGE SQ SCH (08:25)
--- NOTE | 2018-03-17 09:15 | P.GSHP ---
History of Present Illness H&P Date: 03/17/18 Chief Complaint: Abdominal pain, nausea This a 58-year-old female who presented to the emergency room with complaints of abdominal pain and nausea. She is workup found have evidence of a small bowel obstruction CAT scan. The patient has a previous history of small bowel obstruction. She underwent exploratory laparotomy lysis of adhesions with Dr. Starks several years ago. She also had a ventral hernia repair by Dr. Starks. The patient describes crampy abdominal pain. She's had a nasogastric tube placed since last night. She's had no flatus. Past Medical History Past Medical History: GERD/Reflux, Hypertension, Osteoarthritis (OA), Thyroid Disorder Additional Past Medical History / Comment(s): Small bowel obstruction February 2016 and February 2018 History of Any Multi-Drug Resistant Organisms: None Reported Past Surgical History: Back Surgery, Breast Surgery, Hysterectomy Additional Past Surgical History / Comment(s): neck surgery cervical decompression and neck fusion, lumbar laminectomy right breast lumpectomy benign reasons colonoscopy at age 44 completed hysterectomy, laparoscopic followed by laparotomy and lysis of adhesions in February 2016 Past Anesthesia/Blood Transfusion Reactions: Postoperative Nausea & Vomiting ( PONV) Past Psychological History: No Psychological Hx Reported Smoking Status: Never smoker Past Alcohol Use History: None Reported Past Drug Use History: None Reported - Past Family History Mother Family Medical History: GI Bleed, Hypertension, Thyroid Disorder Additional Family Medical History / Comment(s): Mother has history of diverticular disease. Father Family Medical History: Cancer, Coronary Artery Disease (CAD), CVA/TIA, Diabetes Mellitus, Neurologic Disorder Additional Family Medical History / Comment(s): Other has history of prostate cancer and previous CVA and neuropathy. Brother(s) Family Medical History: Hypertension Sister(s) Family Medical History: Hypertension, Thyroid Disorder Daughter(s) Family Medical History: No Reported History Additional Family Medical History / Comment(s): Obstructive sleep apnea Son(s) Family Medical History: No Reported History Medications and Allergies Home Medications Medication Instructions Recorded Confirmed Type Cyanocobalamin [Vitamin B-12] 500 mcg PO DAILY 01/06/15 03/16/18 History Levothyroxine Sodium [Synthroid] 75 mcg PO DAILY 01/06/15 03/16/18 History Multivitamins, Thera [Multivitamin 1 tab PO DAILY 01/06/15 03/16/18 History (formulary)] [place]-3 Fatty Acids/Fish Oil [Fish 1 cap PO DAILY 01/06/15 03/16/18 History Oil 1,000 mg Softgel] Potassium Gluconate 99 mg PO DAILY 01/06/15 03/16/18 History amLODIPine BESYLATE/BENAZEPRIL 1 cap PO DAILY 01/06/15 03/16/18 History [Lotrel 5-10 mg Capsule] Hydrochlorothiazide [Hydrodiuril] 25 mg PO DAILY 08/29/16 03/16/18 History L.acidoph,Paracasei, B.lactis 1 cap PO DAILY 08/29/16 03/16/18 History [Probiotic] Allergies Allergy/AdvReac Type Severity Reaction Status Date / Time No Known Allergies Allergy Verified 03/16/18 14:09 Surgical - Exam Vital Signs Temp Pulse Resp BP Pulse Ox 98.3 F 101 H 18 132/60 95 03/16/18 11:20 03/16/18 11:20 03/16/18 11:20 03/16/18 11:20 03/16/18 11:20 - General well developed, no distress - Eyes PERRL - ENT normal pinna - Neck no masses - Respiratory normal expansion - Cardiovascular Rhythm: regular - Abdomen Minimal tenderness no rebound or guarding Abdomen: soft Results - Labs 03/16/18 12:10 03/16/18 12:10 Abnormal Lab Results - Last 24 Hours (Table) 03/16/18 03/16/18 03/16/18 Range/Units 12:10 12:10 13:05 WBC 26.4 H* (3.8-10.6) k/uL Neutrophils # (Manual) 22.44 H (1.3-7.7) k/uL Monocytes # (Manual) 1.58 H (0-1.0) k/uL Sodium 132 L (137-145) mmol/L Chloride 93 L (98-107) mmol/L BUN 21 H (7-17) mg/dL Glucose 124 H (74-99) mg/dL Alkaline Phosphatase 179 H (38-126) U/L Ur Specific [place] >1.050 H (1.001-1.035) Urine Protein 1+ H (Negative) Urine Ketones Trace H (Negative) Urine Bacteria Rare H (None) /hpf Microbiology - Last 24 Hours (Table) 03/16/18 13:05 Urine Culture - Preliminary Urine,Catheterized Diabetes panel 03/16/18 Range/Units 12:10 Sodium 132 L (137-145) mmol/L Potassium 3.8 (3.5-5.1) mmol/L Chloride 93 L (98-107) mmol/L Carbon Dioxide 25 (22-30) mmol/L BUN 21 H (7-17) mg/dL Creatinine 0.70 (0.52-1.04) mg/dL Glucose 124 H (74-99) mg/dL Calcium 9.6 (8.4-10.2) mg/dL AST 29 (14-36) U/L ALT 40 (9-52) U/L Alkaline Phosphatase 179 H (38-126) U/L Total Protein 7.2 (6.3-8.2) g/dL Albumin 4.2 (3.5-5.0) g/dL Calcium panel 03/16/18 Range/Units 12:10 Calcium 9.6 (8.4-10.2) mg/dL Albumin 4.2 (3.5-5.0) g/dL Pituitary panel 03/16/18 Range/Units 12:10 Sodium 132 L (137-145) mmol/L Potassium 3.8 (3.5-5.1) mmol/L Chloride 93 L (98-107) mmol/L Carbon Dioxide 25 (22-30) mmol/L BUN 21 H (7-17) mg/dL Creatinine 0.70 (0.52-1.04) mg/dL Glucose 124 H (74-99) mg/dL Calcium 9.6 (8.4-10.2) mg/dL Adrenal panel 03/16/18 Range/Units 12:10 Sodium 132 L (137-145) mmol/L Potassium 3.8 (3.5-5.1) mmol/L Chloride 93 L (98-107) mmol/L Carbon Dioxide 25 (22-30) mmol/L BUN 21 H (7-17) mg/dL Creatinine 0.70 (0.52-1.04) mg/dL Glucose 124 H (74-99) mg/dL Calcium 9.6 (8.4-10.2) mg/dL Total Bilirubin 0.7 (0.2-1.3) mg/dL AST 29 (14-36) U/L ALT 40 (9-52) U/L Alkaline Phosphatase 179 H (38-126) U/L Total Protein 7.2 (6.3-8.2) g/dL Albumin 4.2 (3.5-5.0) g/dL Assessment and Plan Plan: Small bowel obstruction. Patient's CAT scan was reviewed. There is questionable gallstone in the small bowel. Patient will continue NG tube decompression. Dr. Gomez will reevaluate her in the a.m.
[2018-03-17] MEDS: D5-0.9% NACL WITH KCL 20 MEQ/L 1,000 ML IV SCH ×2 (10:40→21:03)
[2018-03-17] MEDS: LEVOTHYROXINE IVP 100 MCG/5 ML VIAL IV SCH (10:40)
--- NOTE | 2018-03-17 10:52 | P.HPIM ---
History of Present Illness H&P Date: 03/17/18 This is a 58-year-old female patient of Dr. Cross and also Dr. Gomez with past medical history of hypertension, hypothyroidism, hysterectomy for benign reasons, previous small bowel obstruction secondary to intra- abdominal adhesions status post diagnostic laparoscopic followed by laparotomy and lysis of adhesions in February 2016. She has also had robotic incisional hernia repair done by Dr. Mack at [place] in September. Patient states that she had sudden onset of severe abdominal pain with nausea and vomiting and low- grade fever off and on up to 100.4 since Sunday. She states she was not passing gas and was not having a bowel movement. Patient came into [facility] emergency center for evaluation. She was afebrile, vital signs stable. She presented with leukocytosis of 26.4, creatinine 0.7 and BUN 21. Hemoglobin 14.2. Lactic acid 1.1, troponin negative. Urinalysis was clear with nitrate and leukoesterase negative. She underwent a CAT scan of the abdomen and pelvis with contrast that revealed distal small bowel obstruction, possibility of gallstone ileus, platelike atelectasis in both lung bases, stable cyst in the left kidney, degenerative changes within the spine. Patient was started on Unasyn, Zofran for nausea and morphine for pain control and admitted under the care of Dr. Uriarte. Patient is currently nothing by mouth with NG tube in place with a large amount of return fluid. Review of Systems All systems: negative Constitutional: Reports chills, Reports fever, Reports poor appetite Eyes: denies blurred vision, denies pain Ears, nose, mouth and throat: Denies dental pain, Denies headache, Denies mouth pain, Denies sore throat Cardiovascular: Denies chest pain, Denies decreased exercise tolerance, Denies dyspnea on exertion, Denies edema, Denies leg edema, Denies shortness of breath Respiratory: Denies cough, Denies cough with sputum, Denies dyspnea, Denies excessive sputum, Denies hemoptysis, Denies home oxygen, Denies wheezing Gastrointestinal: Reports abdominal pain, Reports bloating, Reports loss of appetite, Reports nausea, Reports vomiting, Denies diarrhea Genitourinary: Denies dysuria, Denies hematuria Musculoskeletal: Denies myalgias Integumentary: Denies pruritus, Denies rash Neurological: Denies numbness, Denies weakness Psychiatric: Denies anxiety, Denies depression Endocrine: Denies fatigue, Denies weight change Past Medical History Past Medical History: GERD/Reflux, Hypertension, Osteoarthritis (OA), Thyroid Disorder Additional Past Medical History / Comment(s): Small bowel obstruction February 2016 and February 2018 History of Any Multi-Drug Resistant Organisms: None Reported Past Surgical History: Back Surgery, Breast Surgery, Hysterectomy Additional Past Surgical History / Comment(s): neck surgery cervical decompression and neck fusion, lumbar laminectomy right breast lumpectomy benign reasons colonoscopy at age 44 completed hysterectomy, laparoscopic followed by laparotomy and lysis of adhesions by Dr. Gomez in February 2016, robotic incisional hernia repair done by Dr. Mack at [place] in September Past Anesthesia/Blood Transfusion Reactions: Postoperative Nausea & Vomiting ( PONV) Past Psychological History: No Psychological Hx Reported Smoking Status: Never smoker Past Alcohol Use History: None Reported Past Drug Use History: None Reported - Past Family History Mother Family Medical History: GI Bleed, Hypertension, Thyroid Disorder Additional Family Medical History / Comment(s): Mother has history of diverticular disease. Father Family Medical History: Cancer, Coronary Artery Disease (CAD), CVA/TIA, Diabetes Mellitus, Neurologic Disorder Additional Family Medical History / Comment(s): Other has history of prostate cancer and previous CVA and neuropathy. Brother(s) Family Medical History: Hypertension Sister(s) Family Medical History: Hypertension, Thyroid Disorder Daughter(s) Family Medical History: No Reported History Additional Family Medical History / Comment(s): Obstructive sleep apnea Son(s) Family Medical History: No Reported History Medications and Allergies Home Medications Medication Instructions Recorded Confirmed Type Cyanocobalamin [Vitamin B-12] 500 mcg PO DAILY 01/06/15 03/16/18 History Levothyroxine Sodium [Synthroid] 75 mcg PO DAILY 01/06/15 03/16/18 History Multivitamins, Thera [Multivitamin 1 tab PO DAILY 01/06/15 03/16/18 History (formulary)] Staples-3 Fatty Acids/Fish Oil [Fish 1 cap PO DAILY 01/06/15 03/16/18 History Oil 1,000 mg Softgel] Potassium Gluconate 99 mg PO DAILY 01/06/15 03/16/18 History amLODIPine BESYLATE/BENAZEPRIL 1 cap PO DAILY 01/06/15 03/16/18 History [Lotrel 5-10 mg Capsule] Hydrochlorothiazide [Hydrodiuril] 25 mg PO DAILY 08/29/16 03/16/18 History L.acidoph,Paracasei, B.lactis 1 cap PO DAILY 08/29/16 03/16/18 History [Probiotic] Allergies Allergy/AdvReac Type Severity Reaction Status Date / Time No Known Allergies Allergy Verified 03/16/18 14:09 Physical Exam Vitals: Vital Signs Temp Pulse Pulse Resp BP BP Pulse Ox 03/17/18 05:17 98.2 F 90 16 108/58 91 L 03/17/18 00:00 16 03/16/18 20:59 98.2 F 87 16 107/55 90 L 03/16/18 16:40 74 20 03/16/18 15:21 98 F 74 20 111/63 93 L 03/16/18 13:59 98.1 F 97 16 117/65 98 03/16/18 12:23 85 20 107/56 95 03/16/18 11:20 98.3 F 101 H 18 132/60 95 Intake and Output 03/16/18 03/17/18 03/17/18 22:59 06:59 14:59 Intake Total 1000 Output Total 650 Balance 350 Intake: Intake, IV Titration 1000 Amount Ampicillin-Sulbactam 3 gm 200 In Sodium Chloride 0.9% 100 ml @ 100 mls/hr IVPB Q6H [facility] Rx#:[id number] Sodium Chloride 0.9% 1, 800 000 ml @ 100 mls/hr IV . Q10H [facility] Rx#:[id number] Output: Gastric Drainage 650 Other: Voiding Method Toilet # Voids 1 2 Gen: This is a 58-year-old female. She is in bed and appears to be comfortable and in no acute distress. HEENT: Head is atraumatic, normocephalic. Pupils equal, round. Sclerae is anicteric. NG tube in place NECK: Supple. No JVD. No lymphadenopathy. No thyromegaly. LUNGS: Clear to auscultation. No wheezes or rhonchi. No intercostal retractions. HEART: Regular rate and rhythm. No murmur. ABDOMEN: Soft. Bowel sounds absent. No masses. Generalized mild tenderness. EXTREMITIES: No pedal edema. No calf tenderness. Dorsalis pedis palpable bilaterally. NEUROLOGICAL: Patient is awake, alert and oriented x3. Cranial nerves 2 through 12 are grossly intact. Results CBC & Chem 7: 03/16/18 12:10 03/16/18 12:10 Labs: Abnormal Lab Results - Last 24 Hours (Table) 03/16/18 03/16/18 03/16/18 Range/Units 12:10 12:10 13:05 WBC 26.4 H* (3.8-10.6) k/uL Neutrophils # (Manual) 22.44 H (1.3-7.7) k/uL Monocytes # (Manual) 1.58 H (0-1.0) k/uL Sodium 132 L (137-145) mmol/L Chloride 93 L (98-107) mmol/L BUN 21 H (7-17) mg/dL Glucose 124 H (74-99) mg/dL Alkaline Phosphatase 179 H (38-126) U/L Ur Specific [place] >1.050 H (1.001-1.035) Urine Protein 1+ H (Negative) Urine Ketones Trace H (Negative) Urine Bacteria Rare H (None) /hpf Microbiology - Last 24 Hours (Table) 03/16/18 13:05 Urine Culture - Preliminary Urine,Catheterized Thrombosis Risk Factor Assmnt - DVT/VTE Prophylaxis DVT/VTE Prophylaxis: Pharmacologic Prophylaxis ordered - Choose All That Apply Each Factor Represents 1 point: Age 41-60 years Thrombosis Risk Factor Assessment Total Risk Factor Score: 1 Thrombosis Risk Factor Assessment Level: Low Risk Assessment and Plan Plan: 1. Small bowel obstruction which/mL gallstone of small bowel. Continue conservative management, NG tube continue Zofran for nausea, morphine for pain, IV fluids. Continue Unasyn. 2. Hypertension. Patient is normally on Lotrel and hydrochlorothiazide. These are on hold. Patient currently on hypotensive side. 3. Hypothyroidism. Patient is normally on levothyroxine 75 g daily. This will be switched over to IV at 37.5 g daily. 4. Vitamin B12 deficiency and chronic anemia.. 5. Pulmonary prophylaxis and atelectasis. Incentive spirometry. 6. GI prophylaxis. Protonix. 7. DVT prophylaxis. Lovenox. Patient will be admitted to the hospital for a minimum of 2 night stay. Discharge plan: Return home Impression and plan of care have been directed as dictated by the signing physician. Tomasa Chi nurse practitioner acting as scribe for signing physician.
[2018-03-18] MEDS: AMPICILLIN-SULBACTAM 3 GM in SODIUM CHLORIDE 0.9% 100 ML IVPB SCH ×4 (02:10→20:56)
[2018-03-18] MEDS: MORPHINE SULFATE 4 MG/ML SYRINGE IVP PRN ×5 (03:11→23:07)
[2018-03-18] MEDS: D5-0.9% NACL WITH KCL 20 MEQ/L 1,000 ML IV SCH ×3 (03:17→17:42)
[2018-03-18 05:49] LABS: HCT 29.9 % (34.0-46.0); MCV 85.1 fL (80.0-100.0); Mean Platelet Volume 7.5; Platelet Count 316 k/uL (150-450); RBC 3.51 m/uL (3.80-5.40); RDW 14.2 % (11.5-15.5); WBC 12.3 k/uL (3.8-10.6)
[2018-03-18 05:53] LABS: HGB 10.2 gm/dL (11.4-16.0)
[2018-03-18 05:59] LABS: ALT 29 U/L (9-52); AST 16 U/L (14-36); Albumin 2.9 g/dL (3.5-5.0); Alkaline Phosphatase 104 U/L (38-126); Anion Gap 5 mmol/L; Blood Urea Nitrogen 12 mg/dL (7-17); Calcium 7.9 mg/dL (8.4-10.2); Carbon Dioxide 28 mmol/L (22-30); Chloride 107 mmol/L (98-107); Glucose 133 mg/dL (74-99); Magnesium 2.3 mg/dL (1.6-2.3); Phosphorus 2.1 mg/dL (2.5-4.5); Potassium 3.9 mmol/L (3.5-5.1); Sodium 140 mmol/L (137-145); Total Bilirubin 0.2 mg/dL (0.2-1.3); Total Protein 5.3 g/dL (6.3-8.2)
[2018-03-18] MEDS: ENOXAPARIN 40 MG/0.4 ML SYRINGE SQ SCH (08:30)
[2018-03-18] MEDS: LEVOTHYROXINE IVP 100 MCG/5 ML VIAL IV SCH (08:30)
[2018-03-18] MEDS: PANTOPRAZOLE 40 MG/10 ML VIAL IVP SCH (08:30)
[2018-03-18] MEDS: ONDANSETRON 4 MG/2 ML VIAL IVP PRN ×2 (12:07→17:43)
--- NOTE | 2018-03-18 13:59 | P.PN ---
Subjective Progress Note Date: 03/18/18 This is a 58-year-old female patient of Dr. Cross and also Dr. Gomez with past medical history of hypertension, hypothyroidism, hysterectomy for benign reasons, previous small bowel obstruction secondary to intra- abdominal adhesions status post diagnostic laparoscopic followed by laparotomy and lysis of adhesions in February 2016. She has also had robotic incisional hernia repair done by Dr. Mack at [place] in September. Patient states that she had sudden onset of severe abdominal pain with nausea and vomiting and low- grade fever off and on up to 100.4 since Sunday. She states she was not passing gas and was not having a bowel movement. Patient came into [facility] emergency center for evaluation. She was afebrile, vital signs stable. She presented with leukocytosis of 26.4, creatinine 0.7 and BUN 21. Hemoglobin 14.2. Lactic acid 1.1, troponin negative. Urinalysis was clear with nitrate and leukoesterase negative. She underwent a CAT scan of the abdomen and pelvis with contrast that revealed distal small bowel obstruction, possibility of gallstone ileus, platelike atelectasis in both lung bases, stable cyst in the left kidney, degenerative changes within the spine. Patient was started on Unasyn, Zofran for nausea and morphine for pain control and admitted under the care of Dr. Uriarte. Patient is currently nothing by mouth with NG tube in place with a large amount of return fluid. 03/18: Patient remains with NG tube in place draining dark green liquid. We have asked for repeat abdominal x-ray. Patient is using her incentive spirometry at 1250 ML's. Objective - Vital Signs Vital signs: Vital Signs Temp 97.8 F 03/18/18 05:00 Pulse 94 03/18/18 08:00 Resp 16 03/18/18 08:00 BP 139/71 03/18/18 05:00 Pulse Ox 91 L 03/18/18 05:00 Intake & Output 03/17/18 03/18/18 03/18/18 18:59 06:59 18:59 Intake Total 1070 Output Total 50 650 750 Balance -50 420 -750 Intake: Intake, IV Titration 950 Amount Ampicillin-Sulbactam 3 gm 100 In Sodium Chloride 0.9% 100 ml @ 100 mls/hr IVPB Q6H [facility] Rx#:[id number] D5-0.9% NaCl with KCl 20 850 Meq/l 1,000 ml @ 125 mls/ hr IV .Q8H [facility] Rx#: [id number] Oral 120 Output: Gastric Drainage 650 750 Stool 50 Other: Voiding Method Toilet Toilet Toilet # Voids 2 4 - Exam Gen: This is a 58-year-old female. She is in bed and appears to be comfortable and in no acute distress. HEENT: Head is atraumatic, normocephalic. Pupils equal, round. Sclerae is anicteric. NG tube in place NECK: Supple. No JVD. No lymphadenopathy. No thyromegaly. LUNGS: Clear to auscultation. No wheezes or rhonchi. No intercostal retractions. HEART: Regular rate and rhythm. No murmur. ABDOMEN: Soft. Bowel sounds absent. No masses. Generalized mild tenderness. EXTREMITIES: No pedal edema. No calf tenderness. Dorsalis pedis palpable bilaterally. NEUROLOGICAL: Patient is awake, alert and oriented x3. Cranial nerves 2 through 12 are grossly intact. - Labs CBC & Chem 7: 03/18/18 05:37 03/18/18 05:37 Labs: Abnormal Lab Results - Last 24 Hours (Table) 03/18/18 03/18/18 Range/Units 05:37 05:37 WBC 12.3 H (3.8-10.6) k/uL RBC 3.51 L (3.80-5.40) m/uL Hgb 10.2 L D (11.4-16.0) gm/dL Hct 29.9 L (34.0-46.0) % Glucose 133 H (74-99) mg/dL Calcium 7.9 L (8.4-10.2) mg/dL Phosphorus 2.1 L (2.5-4.5) mg/dL Total Protein 5.3 L (6.3-8.2) g/dL Albumin 2.9 L (3.5-5.0) g/dL Microbiology - Last 24 Hours (Table) 03/16/18 13:05 Urine Culture - Final Urine,Catheterized Assessment and Plan Plan: 1. Small bowel obstruction with questionable gallstones in the small bowel. Continue conservative management, NG tube continue Zofran for nausea, morphine for pain, IV fluids. Continue Unasyn. Repeat abdominal x-rays. 2. Hypertension. Patient is normally on Lotrel and hydrochlorothiazide. These are on hold. Patient currently on hypotensive side. 3. Hypothyroidism. Patient is normally on levothyroxine 75 g daily. This will be switched over to IV at 37.5 g daily. 4. Vitamin B12 deficiency and chronic anemia.. 5. Pulmonary prophylaxis and atelectasis. Incentive spirometry. 6. GI prophylaxis. Protonix. 7. DVT prophylaxis. Lovenox. Discharge plan: Return home Impression and plan of care have been directed as dictated by the signing physician. Tomasa Chi nurse practitioner acting as scribe for signing physician.
--- NOTE | 2018-03-18 15:08 | XR ---
EXAMINATION TYPE: XR abdomen 1V DATE OF EXAM: 03/18/2018 CLINICAL DATA: 58-year-old female small bowel obstruction, [facility] COMPARISON: 06/14/2017 FINDINGS: Lung bases excluded. NG tube is satisfactory in the stomach. Nonobstructive bowel gas pattern. Scatte red mild stool in the left side of the abdomen. Air extends distally into the rectum. No suspicious calcifications. IMPRESSION: Nonobstructive bowel gas pattern. Only mild stool on the left. NG tube is satisfactory.
--- NOTE | 2018-03-18 17:47 | P.PN ---
Subjective Progress Note Date: 03/18/18 Principal diagnosis: Small bowel obstruction Patient is well known to our service. She underwent previous exploratory laparotomy with lysis of adhesions in 2016 for small bowel obstruction related to adhesions. She says that over the last 6 months she has had intermittent episodes of bloating and nausea and pain. She describes her stools as being less frequent. She did have a colonoscopy last year that was normal. She underwent a robotic repair of a incisional hernia at [facility] earlier this year. It sounds like her symptoms did proceed that operative intervention. She came to the hospital with complaints of intractable nausea, vomiting, bloating and concern regarding recurrent obstruction. CAT scan shows an area of calcification thought to be present just proximal to the distal small bowel obstruction. No evidence of pneumobilia or right upper quadrant inflammation is seen. The patient has no history of known gallbladder problems. Today's x-rays show improvement. Her white blood cell count was elevated although improved today. She is afebrile. Some mild tachycardia. Objective - Vital Signs Vital signs: Vital Signs Temp 98.2 F 03/18/18 14:40 Pulse 105 H 03/18/18 15:40 Resp 18 03/18/18 15:40 BP 178/77 03/18/18 14:40 Pulse Ox 90 L 03/18/18 14:40 Intake & Output 03/17/18 03/18/18 03/18/18 18:59 06:59 18:59 Intake Total 1070 Output Total 50 650 775 Balance -50 420 -775 Intake: Intake, IV Titration 950 Amount Ampicillin-Sulbactam 3 gm 100 In Sodium Chloride 0.9% 100 ml @ 100 mls/hr IVPB Q6H [facility] Rx#:[id number] D5-0.9% NaCl with KCl 20 850 Meq/l 1,000 ml @ 125 mls/ hr IV .Q8H [facility] Rx#: [id number] Oral 120 Output: Gastric Drainage 650 750 Stool 50 25 Other: Voiding Method Toilet Toilet Toilet # Voids 2 4 3 - Exam Abdomen: Soft, mild distention, mild right-sided tenderness - Labs CBC & Chem 7: 03/18/18 05:37 03/18/18 05:37 Labs: Abnormal Lab Results - Last 24 Hours (Table) 03/18/18 03/18/18 Range/Units 05:37 05:37 WBC 12.3 H (3.8-10.6) k/uL RBC 3.51 L (3.80-5.40) m/uL Hgb 10.2 L D (11.4-16.0) gm/dL Hct 29.9 L (34.0-46.0) % Glucose 133 H (74-99) mg/dL Calcium 7.9 L (8.4-10.2) mg/dL Phosphorus 2.1 L (2.5-4.5) mg/dL Total Protein 5.3 L (6.3-8.2) g/dL Albumin 2.9 L (3.5-5.0) g/dL Microbiology - Last 24 Hours (Table) 03/16/18 13:05 Urine Culture - Final Urine,Catheterized Assessment and Plan (1) SBO (small bowel obstruction) Narrative/Plan: Clinical scenario discussed in detail with the patient. At this time we'll proceed with small bowel series to evaluate for distal small bowel foreign body or obstruction. Further recommendations will follow. Keep the NG tube to suction for now. Current Visit: Yes Status: Acute Code(s): K56.609 - UNSP INTESTNL OBST, UNSP TO PARTIAL VERSUS COMPLETE OBST SNOMED Code(s): 522503505
[2018-03-19] MEDS: AMPICILLIN-SULBACTAM 3 GM in SODIUM CHLORIDE 0.9% 100 ML IVPB SCH ×4 (02:03→20:41)
[2018-03-19] MEDS: D5-0.9% NACL WITH KCL 20 MEQ/L 1,000 ML IV SCH ×3 (02:55→17:19)
[2018-03-19] MEDS: ENOXAPARIN 40 MG/0.4 ML SYRINGE SQ SCH (10:37)
[2018-03-19] MEDS: LEVOTHYROXINE IVP 100 MCG/5 ML VIAL IV SCH (10:38)
[2018-03-19] MEDS: PANTOPRAZOLE 40 MG/10 ML VIAL IVP SCH (10:38)
[2018-03-19 11:23] LABS: HCT 32.4 % (34.0-46.0); HGB 10.5 gm/dL (11.4-16.0); MCH 28.2 pg (25.0-35.0); MCHC 32.5 g/dL (31.0-37.0); MCV 86.8 fL (80.0-100.0); Mean Platelet Volume 6.9; Platelet Count 333 k/uL (150-450); RBC 3.73 m/uL (3.80-5.40); RDW 14.5 % (11.5-15.5); WBC 14.4 k/uL (3.8-10.6)
[2018-03-19 11:42] LABS: ALT 31 U/L (9-52); AST 22 U/L (14-36); Albumin 3.5 g/dL (3.5-5.0); Alkaline Phosphatase 121 U/L (38-126); Anion Gap 8 mmol/L; Blood Urea Nitrogen 6 mg/dL (7-17); Calcium 8.7 mg/dL (8.4-10.2); Carbon Dioxide 27 mmol/L (22-30); Chloride 106 mmol/L (98-107); Glucose 107 mg/dL (74-99); Potassium 4.2 mmol/L (3.5-5.1); Sodium 141 mmol/L (137-145); Total Bilirubin 0.3 mg/dL (0.2-1.3); Total Protein 6.2 g/dL (6.3-8.2)
--- NOTE | 2018-03-19 12:08 | P.PN ---
Subjective Progress Note Date: 03/19/18 This is a 58-year-old female patient of Dr. Cross and also Dr. Gomez with past medical history of hypertension, hypothyroidism, hysterectomy for benign reasons, previous small bowel obstruction secondary to intra- abdominal adhesions status post diagnostic laparoscopic followed by laparotomy and lysis of adhesions in February 2016. She has also had robotic incisional hernia repair done by Dr. Mack at [place] in September. Patient states that she had sudden onset of severe abdominal pain with nausea and vomiting and low- grade fever off and on up to 100.4 since Sunday. She states she was not passing gas and was not having a bowel movement. Patient came into [facility] emergency center for evaluation. She was afebrile, vital signs stable. She presented with leukocytosis of 26.4, creatinine 0.7 and BUN 21. Hemoglobin 14.2. Lactic acid 1.1, troponin negative. Urinalysis was clear with nitrate and leukoesterase negative. She underwent a CAT scan of the abdomen and pelvis with contrast that revealed distal small bowel obstruction, possibility of gallstone ileus, platelike atelectasis in both lung bases, stable cyst in the left kidney, degenerative changes within the spine. Patient was started on Unasyn, Zofran for nausea and morphine for pain control and admitted under the care of Dr. Uriarte. Patient is currently nothing by mouth with NG tube in place with a large amount of return fluid. 03/18: Patient remains with NG tube in place draining dark green liquid. We have asked for repeat abdominal x-ray. Patient is using her incentive spirometry at 1250 ML's. 03/19: Patient has been afebrile. Noted the patient drop her pulse ox in the 80s and is on O2 at 2 L nasal cannula. Patient denies any shortness of breath. She did have a bowel movement this morning. NG tube remains in place with decreased output. IV fluids will be decreased to 75 mL. Patient is stating that she is having trouble using the incentive spirometry. Slight elevated heart rate. She is scheduled for small bowel follow-through today. Objective - Vital Signs Vital signs: Vital Signs Temp 98.1 F 03/19/18 05:30 Pulse 76 03/19/18 05:30 Resp 16 03/19/18 05:30 BP 147/71 03/19/18 05:30 Pulse Ox 93 L 03/19/18 05:30 Intake & Output 03/18/18 03/19/18 03/19/18 18:59 06:59 18:59 Output Total 1200 550 Balance -1200 -550 Output: Gastric Drainage 1175 550 Stool 25 Other: Voiding Method Toilet Toilet Toilet # Voids 3 1 # Bowel Movements 1 - Exam Gen: This is a 58-year-old female. She is in bed and appears to be comfortable and in no acute distress. HEENT: Head is atraumatic, normocephalic. Pupils equal, round. Sclerae is anicteric. NG tube in place NECK: Supple. No JVD. No lymphadenopathy. No thyromegaly. LUNGS: Clear to auscultation. No wheezes or rhonchi. No intercostal retractions. HEART: Regular rate and rhythm. No murmur. ABDOMEN: Soft. Bowel sounds absent. No masses. Generalized mild tenderness. EXTREMITIES: No pedal edema. No calf tenderness. Dorsalis pedis palpable bilaterally. NEUROLOGICAL: Patient is awake, alert and oriented x3. Cranial nerves 2 through 12 are grossly intact. - Labs CBC & Chem 7: 03/19/18 10:58 03/19/18 10:58 Assessment and Plan Plan: 1. Small bowel obstruction with questionable gallstones in the small bowel. Continue conservative management, NG tube continue Zofran for nausea, morphine for pain, IV fluids. Continue Unasyn. Small bowel follow-through. IV fluids decreased to 75 mL per hour.. 2. Hypertension. Patient is normally on Lotrel and hydrochlorothiazide. These are on hold. Patient currently on hypotensive side. 3. Hypothyroidism. Patient is normally on levothyroxine 75 g daily. This will be switched over to IV at 37.5 g daily. 4. Vitamin B12 deficiency and chronic anemia.. 5. Pulmonary prophylaxis and atelectasis. Incentive spirometry. 6. GI prophylaxis. Protonix. 7. DVT prophylaxis. Lovenox. Discharge plan: Return home Impression and plan of care have been directed as dictated by the signing physician. Tomasa Chi nurse practitioner acting as scribe for signing physician.
[2018-03-19] MEDS: MORPHINE SULFATE 4 MG/ML SYRINGE IVP PRN ×2 (13:42→20:41)
--- NOTE | 2018-03-19 13:52 | FL ---
EXAMINATION TYPE: FL small bowel follow through DATE OF EXAM: 03/19/2018 1:32 PM COMPARISON: CT abdomen 03/16/2018 and abdomen plain film of 03/18/2018 HISTORY: Abdominal Pain Pulmonary film of the abdomen demonstrates NG tube. Small bowel loops appear to be improved with rega rds to overall caliber. There is vague calcific density right lower quadrant just caudal to the right SI joint measuring 1.7 cm. The patient ingested thin liquid barium without difficulty. Small bowel follow-through was performed with transit time of 4 hours 45 minutes. No evidence for intrinsic or extrinsic mass. No filling d efect identified at this time corresponding to the aforementioned calcification. There is thickening of the terminal ileum which may reflect changes of terminal ileitis. Remaining Small bowel loops appe ar to be of normal caliber and demonstrate normal mucosal fold pattern. IMPRESSION: 1. Normal small bowel transit time with the normalization of the small bowel loops relative to the pr ior study. No definitive filling defect is reproduced at this time. There is narrowing at the termina l ileum which could reflect changes of the terminal ileitis or Crohn's disease.
--- NOTE | 2018-03-19 16:30 | P.PN ---
Subjective Progress Note Date: 03/19/18 Principal diagnosis: Small bowel obstruction Patient feels better today. She is having some bowel movements. Small bowel series was performed. These films were reviewed with Dr. Oakley. There was evidence of some narrowing of the terminal ileum however no definite obstruction is seen. There is no small bowel foreign body identified at this time. Passage into the colon was appreciated. Patient has no family history of inflammatory bowel disease. Objective - Vital Signs Vital signs: Vital Signs Temp 98.5 F 03/19/18 15:00 Pulse 93 03/19/18 15:00 Resp 18 03/19/18 15:00 BP 156/73 03/19/18 15:00 Pulse Ox 95 03/19/18 15:05 Intake & Output 03/18/18 03/19/18 03/19/18 18:59 06:59 18:59 Intake Total 400 Output Total 1200 550 Balance -1200 -550 400 Intake: Intake, IV Titration 400 Amount Ampicillin-Sulbactam 3 gm 100 In Sodium Chloride 0.9% 100 ml @ 100 mls/hr IVPB Q6H [facility] Rx#:[id number] D5-0.9% NaCl with KCl 20 300 Meq/l 1,000 ml @ 75 mls/ hr IV .[id number] [facility] Rx#: [id number] Output: Gastric Drainage 1175 550 Stool 25 Other: Voiding Method Toilet Toilet Toilet # Voids 3 1 2 # Bowel Movements 1 1 - Exam Abdomen: Soft, nondistended, mild right mid abdominal tenderness - Labs CBC & Chem 7: 03/19/18 10:58 03/19/18 10:58 Labs: Abnormal Lab Results - Last 24 Hours (Table) 03/19/18 03/19/18 Range/Units 10:58 10:58 WBC 14.4 H (3.8-10.6) k/uL RBC 3.73 L (3.80-5.40) m/uL Hgb 10.5 L (11.4-16.0) gm/dL Hct 32.4 L (34.0-46.0) % BUN 6 L (7-17) mg/dL Glucose 107 H (74-99) mg/dL Total Protein 6.2 L (6.3-8.2) g/dL Assessment and Plan (1) SBO (small bowel obstruction) Narrative/Plan: Case was discussed with the patient after the study was completed. We'll remove the nasogastric tube at this time and start clears. I will consult GI to evaluate for possible Crohn's disease. Will tentatively plan outpatient MR enterography to better evaluate the terminal ileum and to reevaluate for small bowel foreign body. Current Visit: Yes Status: Acute Code(s): K56.609 - UNSP INTESTNL OBST, UNSP TO PARTIAL VERSUS COMPLETE OBST SNOMED Code(s): 429788644
[2018-03-20] MEDS: AMPICILLIN-SULBACTAM 3 GM in SODIUM CHLORIDE 0.9% 100 ML IVPB SCH ×4 (02:32→19:48)
[2018-03-20] MEDS: MORPHINE SULFATE 4 MG/ML SYRINGE IVP PRN ×2 (05:34→13:02)
[2018-03-20 08:09] LABS: HCT 30.1 % (34.0-46.0); HGB 9.6 gm/dL (11.4-16.0); MCH 27.5 pg (25.0-35.0); Mean Platelet Volume 6.4; Platelet Count 362 k/uL (150-450); RDW 14.3 % (11.5-15.5); WBC 11.7 k/uL (3.8-10.6)
[2018-03-20] MEDS: LEVOTHYROXINE IVP 100 MCG/5 ML VIAL IV SCH (08:25)
[2018-03-20] MEDS: D5-0.9% NACL WITH KCL 20 MEQ/L 1,000 ML IV SCH (08:25)
[2018-03-20 08:26] LABS: ALT 35 U/L (9-52); AST 22 U/L (14-36); Alkaline Phosphatase 105 U/L (38-126); Anion Gap 8 mmol/L; Blood Urea Nitrogen 5 mg/dL (7-17); Calcium 8.3 mg/dL (8.4-10.2); Carbon Dioxide 26 mmol/L (22-30); Chloride 103 mmol/L (98-107); Glucose 109 mg/dL (74-99); Magnesium 1.8 mg/dL (1.6-2.3); Potassium 3.9 mmol/L (3.5-5.1); Sodium 137 mmol/L (137-145); Total Bilirubin 0.3 mg/dL (0.2-1.3); Total Protein 5.5 g/dL (6.3-8.2)
[2018-03-20] MEDS: PANTOPRAZOLE 40 MG/10 ML VIAL IVP SCH (08:26)
[2018-03-20] MEDS: ENOXAPARIN 40 MG/0.4 ML SYRINGE SQ SCH (08:26)
--- NOTE | 2018-03-20 09:59 | P.CONS ---
History of Present Illness - Reason for Consult Consult date: 03/20/18 Partial small bowel obstruction evaluation for inflammatory bowel disease Requesting physician: Bertin Gomez - History of Present Illness 58-year-old female with no personal or familial history of inflammatory bowel disease presented with acute partial small bowel obstruction. She has a past medical history of abdominal hernia, hysterectomy, GERD, hypertension, osteoarthritis, and previous partial small bowel obstruction summer 2015 requiring exploratory surgery lysis of adhesions. CT of the abdomen at that time reported partial small bowel obstruction the mid to distal ileum. Prior to 2016 patient had no episodes of bowel obstructions or hospitalizations. No changes in bowel function. She reports undergoing a colonoscopy August 2016 that was reported as normal however according to Dr. Gomez's conversation with Dr. Arceo terminal ileum was not intubated. Prior to admission she was noticing more constipated features increased abdominal discomfort in the right lower quadrant, bloatedness nausea and vomiting. Denies fever chills hematemesis hematochezia or melena. Symptoms were similar to her hospitalization in 2016. Denies changes in vision, skin, or joints. CT abdomen and pelvis reported dilated loops of small bowel throughout the abdomen without a definite transition point. Some fecal isolation of the distal small bowel presence of a calcification which is laminated in the distal ileum raised the possibility of gallstone ileus but no other radiographic findings consistent with gallstone ileus. Gallbladder on CT appeared unremarkable. Small bowel follow-through yesterday reported normal transit time with normalization of the small bowel loops. No definite filling defect was reproducible. There was some narrowing at the terminal ileum which could reflect changes of terminal ileitis or Crohn's disease. Admission white count 26.4 presently 11.7. Hemoglobin of 14.2 presently 9.6. MCV 84-86. Platelet 362. LFTs within normal limits. She is presently feeling well passing flatus small bowel movement this morning NG tube was removed yesterday she was started on clear liquids; tolerating well. Review of Systems Constitutional: Denies fever, chills, sweats, weight gain, or loss. HEENT: Negative for migraines, blurred vision or loss, earaches, drainage, tinnitus, oral mucosal lesions, dysphagia, or odynophagia. CARDIAC: Negative for chest pain, arrhythmias, or palpitation. RESPIRATORY: Negative for shortness of breath, hemoptysis, cough, or sputum production. GI: See HPI for pertinent findings. : Negative for hematuria, urgency, frequency, polyuria, or dysuria. GYNc: Negative vaginal discharge. MUSCULOSKELETAL: Negative for muscle aches, swelling, arthritis, and arthralgias. NEUROLOGIC: Negative for stroke or TIA. ENDOCRINE: Negative for thyroid problems. SKIN: Negative for rash or itching. PSYCHIATRIC: Negative history for depression and anxiety Past Medical History Past Medical History: GERD/Reflux, Hypertension, Osteoarthritis (OA), Thyroid Disorder Additional Past Medical History / Comment(s): Small bowel obstruction February 2016 and February 2018 History of Any Multi-Drug Resistant Organisms: None Reported Past Surgical History: Back Surgery, Breast Surgery, Hysterectomy Additional Past Surgical History / Comment(s): neck surgery cervical decompression and neck fusion, lumbar laminectomy right breast lumpectomy benign reasons colonoscopy at age 44 completed hysterectomy, laparoscopic followed by laparotomy and lysis of adhesions by Dr. Gomez in February 2016, robotic incisional hernia repair done by Dr. Mack at [place] in September Past Anesthesia/Blood Transfusion Reactions: Postoperative Nausea & Vomiting ( PONV) Past Psychological History: No Psychological Hx Reported Smoking Status: Never smoker Past Alcohol Use History: None Reported Past Drug Use History: None Reported - Past Family History Mother Family Medical History: GI Bleed, Hypertension, Thyroid Disorder Additional Family Medical History / Comment(s): Mother has history of diverticular disease. Father Family Medical History: Cancer, Coronary Artery Disease (CAD), CVA/TIA, Diabetes Mellitus, Neurologic Disorder Additional Family Medical History / Comment(s): Other has history of prostate cancer and previous CVA and neuropathy. Brother(s) Family Medical History: Hypertension Sister(s) Family Medical History: Hypertension, Thyroid Disorder Daughter(s) Family Medical History: No Reported History Additional Family Medical History / Comment(s): Obstructive sleep apnea Son(s) Family Medical History: No Reported History Medications and Allergies Home Medications Medication Instructions Recorded Confirmed Type Cyanocobalamin [Vitamin B-12] 500 mcg PO DAILY 01/06/15 03/16/18 History Levothyroxine Sodium [Synthroid] 75 mcg PO DAILY 01/06/15 03/16/18 History Multivitamins, Thera [Multivitamin 1 tab PO DAILY 01/06/15 03/16/18 History (formulary)] [place]-3 Fatty Acids/Fish Oil [Fish 1 cap PO DAILY 01/06/15 03/16/18 History Oil 1,000 mg Softgel] Potassium Gluconate 99 mg PO DAILY 01/06/15 03/16/18 History amLODIPine BESYLATE/BENAZEPRIL 1 cap PO DAILY 01/06/15 03/16/18 History [Lotrel 5-10 mg Capsule] Hydrochlorothiazide [Hydrodiuril] 25 mg PO DAILY 08/29/16 03/16/18 History L.acidoph,Paracasei, B.lactis 1 cap PO DAILY 08/29/16 03/16/18 History [Probiotic] Allergies Allergy/AdvReac Type Severity Reaction Status Date / Time No Known Allergies Allergy Verified 03/16/18 14:09 Physical Exam Vitals: Vital Signs Temp Pulse Resp BP Pulse Ox 03/20/18 05:23 98.2 F 82 16 146/75 92 L 03/19/18 20:58 98.0 F 85 16 189/89 95 03/19/18 15:05 95 03/19/18 15:00 98.5 F 93 18 156/73 86 L Intake and Output 03/19/18 03/20/18 03/20/18 22:59 06:59 14:59 Other: Voiding Method Toilet Toilet # Voids 1 2 General appearance: The patient is alert, oriented, in no acute distress. HET: Head is normocephalic and atraumatic. Pupils are equal and reactive. Oropharynx is clear without lesions. Neck: Supple without lymphadenopathy. Trachea midline. Heart: S1 S2. Regular rate and rhythm. Lungs: No crackles or wheezes are heard. Abdomen: Soft, nontender, nondistended with bowel sounds. No peritoneal signs. No palpable organomegaly or masses. Extremities: Normal skin color and turgor. No cyanosis, rash, ulceration, clubbing, or edema. Radial and pedal pulses are 2/4 bilaterally. Neurological: No focal deficits. Strength and sensation are grossly intact. Results CBC & Chem 7: 03/25/18 08:17 03/25/18 08:17 Labs: Abnormal Lab Results - Last 24 Hours (Table) 03/19/18 03/19/18 03/20/18 Range/Units 10:58 10:58 07:34 WBC 14.4 H 11.7 H (3.8-10.6) k/uL RBC 3.73 L 3.50 L (3.80-5.40) m/uL Hgb 10.5 L 9.6 L (11.4-16.0) gm/dL Hct 32.4 L 30.1 L (34.0-46.0) % BUN 6 L (7-17) mg/dL Glucose 107 H (74-99) mg/dL Calcium (8.4-10.2) mg/dL Total Protein 6.2 L (6.3-8.2) g/dL Albumin (3.5-5.0) g/dL 03/20/18 Range/Units 07:34 WBC (3.8-10.6) k/uL RBC (3.80-5.40) m/uL Hgb (11.4-16.0) gm/dL Hct (34.0-46.0) % BUN 5 L (7-17) mg/dL Glucose 109 H (74-99) mg/dL Calcium 8.3 L (8.4-10.2) mg/dL Total Protein 5.5 L (6.3-8.2) g/dL Albumin 3.0 L (3.5-5.0) g/dL CT scan - abdomen: report reviewed (Dr. Arceo) Assessment and Plan (1) Abdominal pain Narrative/Plan: 58-year-old female with a history of partial small bowel obstruction summer 2015 status post exploratory laparotomy lysis of adhesions admitted with partial small bowel obstruction etiology unclear with features of terminal ileum narrowing, radiographic imaging could not exclude gallstone ileus possible bezoar secondary to presence of the calcification seen in the distal ileum. Follow-up small bowel follow-through reported normal transit time with no evidence of foreign body in the distal ileum however narrowing of the terminal ileum was identified possible reflective changes of terminal ileitis Crohn's disease. Current Visit: Yes Status: Acute Code(s): R10.9 - UNSPECIFIED ABDOMINAL PAIN SNOMED Code(s): 02537061 (2) Partial small bowel obstruction Current Visit: No Status: Acute Code(s): K56.69 - OTHER INTESTINAL OBSTRUCTION * DO NOT USE * SNOMED Code(s): 438729215 Plan: 1. MR enterography recommended prescription provided. Return to office 1-2 weeks after MRI is completed for reevaluation. Pending MRI results patient may require outpatient endoscopy screening. CRP/sed rate, pANCA/ASCA serology requested. Lactoferrin stool analysis. 2. Diet advancement per general surgery. Discharge per medicine and surgery. Follow-up with PCP/general surgery as advised. Thank you for this kind referral and the opportunity to participate in the care of your patient. This consultation was discussed with Dr. Arceo. The impression and plan of care have been directed as dictated.
[2018-03-20] MEDS ORDERED: FUROSEMIDE 10 MG/ML 2 ML VIAL IV ONE (11:37)
[2018-03-20] MEDS: LEVOTHYROXINE 75 MCG TAB PO SCH (11:43)
[2018-03-20] MEDS: LISINOPRIL 10 MG TAB PO SCH (11:43)
[2018-03-20] MEDS: LACTOBACILLUS ACIDOPH & BULGAR 1 EACH PACKET PO SCH (11:43)
[2018-03-20] MEDS: amLODIPine 5 MG TAB PO SCH (11:43)
[2018-03-20] MEDS: MULTIVITAMINS, THERA 1 EACH TAB PO SCH (11:44)
--- NOTE | 2018-03-20 12:32 | P.PN ---
Subjective Progress Note Date: 03/20/18 This is a 58-year-old female patient of Dr. Cross and also Dr. Gomez with past medical history of hypertension, hypothyroidism, hysterectomy for benign reasons, previous small bowel obstruction secondary to intra- abdominal adhesions status post diagnostic laparoscopic followed by laparotomy and lysis of adhesions in February 2016. She has also had robotic incisional hernia repair done by Dr. Mack at [place] in September. Patient states that she had sudden onset of severe abdominal pain with nausea and vomiting and low- grade fever off and on up to 100.4 since Sunday. She states she was not passing gas and was not having a bowel movement. Patient came into [facility] emergency center for evaluation. She was afebrile, vital signs stable. She presented with leukocytosis of 26.4, creatinine 0.7 and BUN 21. Hemoglobin 14.2. Lactic acid 1.1, troponin negative. Urinalysis was clear with nitrate and leukoesterase negative. She underwent a CAT scan of the abdomen and pelvis with contrast that revealed distal small bowel obstruction, possibility of gallstone ileus, platelike atelectasis in both lung bases, stable cyst in the left kidney, degenerative changes within the spine. Patient was started on Unasyn, Zofran for nausea and morphine for pain control and admitted under the care of Dr. Uriarte. Patient is currently nothing by mouth with NG tube in place with a large amount of return fluid. 03/18: Patient remains with NG tube in place draining dark green liquid. We have asked for repeat abdominal x-ray. Patient is using her incentive spirometry at 1250 ML's. 03/19: Patient has been afebrile. Noted the patient drop her pulse ox in the 80s and is on O2 at 2 L nasal cannula. Patient denies any shortness of breath. She did have a bowel movement this morning. NG tube remains in place with decreased output. IV fluids will be decreased to 75 mL. Patient is stating that she is having trouble using the incentive spirometry. Slight elevated heart rate. She is scheduled for small bowel follow-through today. 03/20: Dr. Gomez has had NG tube removed and started on clear liquids. GI consult was admitted to evaluate for possible Crohn's disease. Tentative plan for outpatient MR enterography to evaluate terminal ileum and reevaluate for small bowel foreign-body. Home medication list reviewed and patient placed back on some of her home meds. Patient has been ambulating well in the hallway. Her pulse ox did drop down to 88%. Her incentive spirometry is only 500 and then she developed pressure in the middle of her abdomen and pain in the right side. Repeat chest x-ray will be ordered. IV fluids have been discontinued and patient will be given 1 dose of IV Lasix. She does not appear to be hypoxic or in any respiratory distress. Objective - Vital Signs Vital signs: Vital Signs Temp 98.2 F 03/20/18 05:23 Pulse 82 03/20/18 05:23 Resp 16 03/20/18 05:23 BP 146/75 03/20/18 05:23 Pulse Ox 92 L 03/20/18 05:23 Intake & Output 03/19/18 03/20/18 03/20/18 18:59 06:59 18:59 Intake Total 400 Balance 400 Intake: Intake, IV Titration 400 Amount Ampicillin-Sulbactam 3 gm 100 In Sodium Chloride 0.9% 100 ml @ 100 mls/hr IVPB Q6H [facility] Rx#:[id number] D5-0.9% NaCl with KCl 20 300 Meq/l 1,000 ml @ 75 mls/ hr IV .[id number] [facility] Rx#: [id number] Other: Voiding Method Toilet Toilet # Voids 2 2 # Bowel Movements 1 - Exam Gen: This is a 58-year-old female. She is in bed and appears to be comfortable and in no acute distress. HEENT: Head is atraumatic, normocephalic. Pupils equal, round. Sclerae is anicteric. NECK: Supple. No JVD. No lymphadenopathy. No thyromegaly. LUNGS: Clear to auscultation. No wheezes or rhonchi. No intercostal retractions. HEART: Regular rate and rhythm. No murmur. ABDOMEN: Soft. Bowel sounds present. No masses. No tenderness. EXTREMITIES: No pedal edema. No calf tenderness. Dorsalis pedis palpable bilaterally. NEUROLOGICAL: Patient is awake, alert and oriented x3. Cranial nerves 2 through 12 are grossly intact. - Labs CBC & Chem 7: 03/20/18 07:34 03/20/18 07:34 Labs: Abnormal Lab Results - Last 24 Hours (Table) 07/24/18 07/24/18 07/25/18 Range/Units 10:58 10:58 07:34 WBC 14.4 H 11.7 H (3.8-10.6) k/uL RBC 3.73 L 3.50 L (3.80-5.40) m/uL Hgb 10.5 L 9.6 L (11.4-16.0) gm/dL Hct 32.4 L 30.1 L (34.0-46.0) % BUN 6 L (7-17) mg/dL Glucose 107 H (74-99) mg/dL Calcium (8.4-10.2) mg/dL Total Protein 6.2 L (6.3-8.2) g/dL Albumin (3.5-5.0) g/dL 03/20/18 Range/Units 07:34 WBC (3.8-10.6) k/uL RBC (3.80-5.40) m/uL Hgb (11.4-16.0) gm/dL Hct (34.0-46.0) % BUN 5 L (7-17) mg/dL Glucose 109 H (74-99) mg/dL Calcium 8.3 L (8.4-10.2) mg/dL Total Protein 5.5 L (6.3-8.2) g/dL Albumin 3.0 L (3.5-5.0) g/dL Assessment and Plan Plan: 1. Small bowel obstruction. Continue conservative management, NG tube removed , continue Zofran for nausea, morphine for pain, IV fluids. Continue Unasyn. Small bowel follow-through as above. IV fluids discontinued and one dose of IV Lasix. GI consult in place to evaluate for possible Crohn's disease. 2. Hypertension. Resume Lotrel and hold hydrochlorothiazide. 3. Hypothyroidism. Resume levothyroxine 75 g daily. 4. Vitamin B12 deficiency and chronic anemia.. 5. Pulmonary prophylaxis and atelectasis. Incentive spirometry. 6. Hypoxemia with no acute distress. Chest x-ray and IV Lasix given. Patient to increase use of incentive spirometry. 7. GI prophylaxis. Protonix. 8. DVT prophylaxis. Lovenox. Discharge plan: Return home Impression and plan of care have been directed as dictated by the signing physician. Tomasa Chi nurse practitioner acting as scribe for signing physician.
--- NOTE | 2018-03-20 12:37 | P.PN ---
Subjective Progress Note Date: 03/20/18 Principal diagnosis: Small bowel obstruction Patient still having some mild right-sided pain. She admits this pain is somewhat chronic in nature. White blood cell count is down today. C-reactive protein was quite elevated when drawn. GI evaluation noted and appreciated. Objective - Vital Signs Vital signs: Vital Signs Temp 98.2 F 03/20/18 05:23 Pulse 82 03/20/18 05:23 Resp 16 03/20/18 05:23 BP 146/75 03/20/18 05:23 Pulse Ox 92 L 03/20/18 05:23 Intake & Output 03/19/18 03/20/18 03/20/18 18:59 06:59 18:59 Intake Total 400 Balance 400 Weight 65.2 kg Intake: Intake, IV Titration 400 Amount Ampicillin-Sulbactam 3 gm 100 In Sodium Chloride 0.9% 100 ml @ 100 mls/hr IVPB Q6H [facility] Rx#:[id number] D5-0.9% NaCl with KCl 20 300 Meq/l 1,000 ml @ 75 mls/ hr IV .[id number] [facility] Rx#: [id number] Other: Voiding Method Toilet Toilet Toilet # Voids 2 2 # Bowel Movements 1 - Exam Abdomen: Soft, minimal distention, mild right-sided tenderness - Labs CBC & Chem 7: 03/20/18 07:34 03/20/18 07:34 Labs: Abnormal Lab Results - Last 24 Hours (Table) 03/20/18 03/20/18 03/20/18 Range/Units 07:34 07:34 07:34 WBC 11.7 H (3.8-10.6) k/uL RBC 3.50 L (3.80-5.40) m/uL Hgb 9.6 L (11.4-16.0) gm/dL Hct 30.1 L (34.0-46.0) % ESR 60 H (0-20) mm/hr BUN 5 L (7-17) mg/dL Glucose 109 H (74-99) mg/dL Calcium 8.3 L (8.4-10.2) mg/dL C-Reactive Protein (<10.0) mg/L Total Protein 5.5 L (6.3-8.2) g/dL Albumin 3.0 L (3.5-5.0) g/dL 03/20/ Range/Units 07:34 WBC (3.8-10.6) k/uL RBC (3.80-5.40) m/uL Hgb (11.4-16.0) gm/dL Hct (34.0-46.0) % ESR (0-20) mm/hr BUN (7-17) mg/dL Glucose (74-99) mg/dL Calcium (8.4-10.2) mg/dL C-Reactive Protein 175.9 H (<10.0) mg/L Total Protein (6.3-8.2) g/dL Albumin (3.5-5.0) g/dL Assessment and Plan (1) SBO (small bowel obstruction) Narrative/Plan: Will increase diet at this time. Ambulate. Current Visit: Yes Status: Acute Code(s): K56.609 - UNSP INTESTNL OBST, UNSP TO PARTIAL VERSUS COMPLETE OBST SNOMED Code(s): 149987839
--- NOTE | 2018-03-20 15:28 | XR ---
EXAMINATION TYPE: XR chest 2V DATE OF EXAM: 03/20/2018 COMPARISON: 03/12/2016 INDICATION: Hypoxia TECHNIQUE: Frontal and lateral views of the chest are obtained. FINDINGS: The heart size is normal. The pulmonary vasculature is prominent. There is diffuse increased lung markings. A left lower lobe infiltrate is present. Correlate for pulm onary edema. This may be improving at the left base. IMPRESSION: 1. Findings suggestive for pulmonary edema.
[2018-03-20] MEDS ORDERED: MORPHINE SULFATE 4 MG/ML SYRINGE ONE (22:20)
[2018-03-21] MEDS ORDERED: MORPHINE SULFATE 4 MG/ML SYRINGE ONE (02:25)
[2018-03-21] MEDS: AMPICILLIN-SULBACTAM 3 GM in SODIUM CHLORIDE 0.9% 100 ML IVPB SCH ×4 (05:18→20:30)
[2018-03-21] MEDS: D5-0.9% NACL WITH KCL 20 MEQ/L 1,000 ML IV SCH (05:18)
[2018-03-21] MEDS: LEVOTHYROXINE 75 MCG TAB PO SCH (06:15)
[2018-03-21] MEDS: LACTOBACILLUS ACIDOPH & BULGAR 1 EACH PACKET PO SCH (07:57)
[2018-03-21] MEDS: LISINOPRIL 10 MG TAB PO SCH (07:58)
[2018-03-21] MEDS: amLODIPine 5 MG TAB PO SCH (07:58)
[2018-03-21] MEDS: ENOXAPARIN 40 MG/0.4 ML SYRINGE SQ SCH (07:58)
[2018-03-21] MEDS: PANTOPRAZOLE 40 MG/10 ML VIAL IVP SCH (07:58)
--- NOTE | 2018-03-21 11:17 | P.PN ---
Subjective Progress Note Date: 03/21/18 Principal diagnosis: PSBO Increased abdominal pain right lower quadrant retroperitoneal region after diet advanced to yesterday. Very small bowel movement this morning. Reports pain 6 out of 10 presently. No nausea vomiting. Afebrile. CRP 175. Objective - Vital Signs Vital signs: Vital Signs Temp 98.1 F 03/21/18 05:00 Pulse 95 03/21/18 09:31 Resp 16 03/21/18 09:31 BP 163/63 03/21/18 05:00 Pulse Ox 94 L 03/21/18 05:00 Intake & Output 03/20/18 03/21/18 03/21/18 18:59 06:59 18:59 Intake Total 225 1790 Balance 225 1790 Weight 65.2 kg 65.2 kg Intake: Intake, IV Titration 225 Amount D5-0.9% NaCl with KCl 20 225 Meq/l 1,000 ml @ 75 mls/ hr IV .[id number] [facility] Rx#: [id number] Oral 1790 Other: Voiding Method Toilet Toilet Toilet # Voids 2 - Exam General appearance: The patient is alert, oriented, in no acute distress. HET: Head is normocephalic and atraumatic. Pupils are equal and reactive. Oropharynx is clear without lesions. Neck: Supple without lymphadenopathy. Trachea midline. Heart: S1 S2. Regular rate and rhythm. Lungs: No crackles or wheezes are heard. Abdomen: Soft, mildly bloated tenderness right lower quadrant with bowel sounds. No peritoneal signs. No palpable organomegaly or masses. Extremities: Normal skin color and turgor. No cyanosis, rash, ulceration, clubbing, or edema. Radial and pedal pulses are 2/4 bilaterally. Neurological: No focal deficits. Strength and sensation are grossly intact. - Labs CBC & Chem 7: 03/25/18 08:17 03/25/18 08:17 Labs: Abnormal Lab Results - Last 24 Hours (Table) 03/20/18 03/20/18 Range/Units 07:34 07:34 ESR 60 H (0-20) mm/hr C-Reactive Protein 175.9 H (<10.0) mg/L Assessment and Plan (1) Abdominal pain Narrative/Plan: 58-year-old female with a history of partial small bowel obstruction summer 2015 status post exploratory laparotomy lysis of adhesions admitted with partial small bowel obstruction etiology unclear with features of terminal ileum narrowing, radiographic imaging could not exclude gallstone ileus secondary to presence of the calcification seen in the distal ileum possible bezoar. Follow-up small bowel follow-through reported normal transit time with no evidence of foreign body in the distal ileum however narrowing of the terminal ileum was identified possible reflective changes of terminal ileitis Crohn's disease. Current Visit: Yes Status: Acute Code(s): R10.9 - UNSPECIFIED ABDOMINAL PAIN SNOMED Code(s): 62185353 (2) Partial small bowel obstruction Current Visit: No Status: Acute Code(s): K56.69 - OTHER INTESTINAL OBSTRUCTION * DO NOT USE * SNOMED Code(s): 100457127 (3) Elevated C-reactive protein (CRP) Current Visit: Yes Status: Acute Code(s): R79.82 - ELEVATED C-REACTIVE PROTEIN (CRP) SNOMED Code(s): 039522746405635 Plan: 1. Considering patient is having increased abdominal pain with diet advancement not passing much flatus or bowel movements as well as elevated CRP will proceed with inpatient MR enterography. Case was discussed with general surgeon and he is in agreement. Nothing by mouth except medications. We'll continue to follow with you. Assessment and plan a care discussed with Dr. Arceo
[2018-03-21] MEDS: POTASSIUM CHLORIDE ER 20 MEQ TAB.ER PO SCH (11:42)
[2018-03-21] MEDS: MULTIVITAMINS, THERA 1 EACH TAB PO SCH (11:42)
[2018-03-21] MEDS: MORPHINE SULFATE 4 MG/ML SYRINGE IVP PRN ×3 (12:39→20:47)
[2018-03-21] MEDS: FUROSEMIDE 10 MG/ML 2 ML VIAL IV SCH ×2 (12:43→20:30)
--- NOTE | 2018-03-21 13:05 | P.PN ---
Subjective Progress Note Date: 03/21/18 This is a 58-year-old female patient of Dr. Cross and also Dr. Gomez with past medical history of hypertension, hypothyroidism, hysterectomy for benign reasons, previous small bowel obstruction secondary to intra- abdominal adhesions status post diagnostic laparoscopic followed by laparotomy and lysis of adhesions in February 2016. She has also had robotic incisional hernia repair done by Dr. Mack at [place] in September. Patient states that she had sudden onset of severe abdominal pain with nausea and vomiting and low- grade fever off and on up to 100.4 since Sunday. She states she was not passing gas and was not having a bowel movement. Patient came into [facility] emergency center for evaluation. She was afebrile, vital signs stable. She presented with leukocytosis of 26.4, creatinine 0.7 and BUN 21. Hemoglobin 14.2. Lactic acid 1.1, troponin negative. Urinalysis was clear with nitrate and leukoesterase negative. She underwent a CAT scan of the abdomen and pelvis with contrast that revealed distal small bowel obstruction, possibility of gallstone ileus, platelike atelectasis in both lung bases, stable cyst in the left kidney, degenerative changes within the spine. Patient was started on Unasyn, Zofran for nausea and morphine for pain control and admitted under the care of Dr. Uriarte. Patient is currently nothing by mouth with NG tube in place with a large amount of return fluid. 03/18: Patient remains with NG tube in place draining dark green liquid. We have asked for repeat abdominal x-ray. Patient is using her incentive spirometry at 1250 ML's. 03/19: Patient has been afebrile. Noted the patient drop her pulse ox in the 80s and is on O2 at 2 L nasal cannula. Patient denies any shortness of breath. She did have a bowel movement this morning. NG tube remains in place with decreased output. IV fluids will be decreased to 75 mL. Patient is stating that she is having trouble using the incentive spirometry. Slight elevated heart rate. She is scheduled for small bowel follow-through today. 03/20: Dr. Gomez has had NG tube removed and started on clear liquids. GI consult was admitted to evaluate for possible Crohn's disease. Tentative plan for outpatient MR enterography to evaluate terminal ileum and reevaluate for small bowel foreign-body. Home medication list reviewed and patient placed back on some of her home meds. Patient has been ambulating well in the hallway. Her pulse ox did drop down to 88%. Her incentive spirometry is only 500 and then she developed pressure in the middle of her abdomen and pain in the right side. Repeat chest x-ray will be ordered. IV fluids have been discontinued and patient will be given 1 dose of IV Lasix. She does not appear to be hypoxic or in any respiratory distress. 03/21: Repeat pulse ox yesterday afternoon from her ear revealed 94-95%. Patient again has no respiratory distress. She states she is using her incentive spirometry but mostly only reaching 500 and sometimes up 1000. Her lower extremity edema is improved. We will continue her on IV Lasix and potassium. Chest x-ray from yesterday showed pulmonary edema. She continues to have right sided abdominal sharp pain that comes and goes and feels better when she applies pressure. She is currently tolerating a full liquid diet. C- reactive protein is elevated at 175.9, sed rate elevated at 60. Other lab work pending. GI has ordered MR enterography. Objective - Vital Signs Vital signs: Vital Signs Temp 98.1 F 03/21/18 05:00 Pulse 95 03/21/18 05:00 Resp 16 03/21/18 05:00 BP 163/63 03/21/18 05:00 Pulse Ox 94 L 03/21/18 05:00 Intake & Output 03/20/18 03/21/18 03/21/18 18:59 06:59 18:59 Intake Total 225 1790 Balance 225 1790 Weight 65.2 kg Intake: Intake, IV Titration 225 Amount D5-0.9% NaCl with KCl 20 225 Meq/l 1,000 ml @ 75 mls/ hr IV .[id number] [facility] Rx#: [id number] Oral 1790 Other: Voiding Method Toilet Toilet # Voids 2 - Exam Gen: This is a 58-year-old female. Patient walking in her room and appears to be comfortable and in no acute distress. HEENT: Head is atraumatic, normocephalic. Pupils equal, round. Sclerae is anicteric. NECK: Supple. No JVD. No lymphadenopathy. No thyromegaly. LUNGS: Clear to auscultation. No wheezes or rhonchi. No intercostal retractions. HEART: Regular rate and rhythm. No murmur. ABDOMEN: Soft. Bowel sounds present. No masses. No tenderness. EXTREMITIES: No pedal edema. No calf tenderness. Dorsalis pedis palpable bilaterally. NEUROLOGICAL: Patient is awake, alert and oriented x3. Cranial nerves 2 through 12 are grossly intact. - Labs CBC & Chem 7: 03/20/18 07:34 03/20/18 07:34 Labs: Abnormal Lab Results - Last 24 Hours (Table) 03/20/18 03/20/18 Range/Units 07:34 07:34 ESR 60 H (0-20) mm/hr C-Reactive Protein 175.9 H (<10.0) mg/L Assessment and Plan Plan: 1. Small bowel obstruction. Continue conservative management, NG tube removed , continue Zofran for nausea, morphine for pain, IV fluids. Continue Unasyn. Small bowel follow-through as above. Diet is full liquid.GI consult in place to evaluate for possible Crohn's disease. GI is planning for MR enterography. 2. Hypertension. Resume Lotrel and hold hydrochlorothiazide. 3. Hypothyroidism. Resume levothyroxine 75 g daily. 4. Vitamin B12 deficiency and chronic anemia.. 5. Pulmonary prophylaxis and atelectasis. Incentive spirometry. 6. Hypoxemia secondary to atelectasis and pulmonary edema from IV fluids. No history of heart failure. IV Lasix ordered. 7. GI prophylaxis. Protonix. 8. DVT prophylaxis. Lovenox. Discharge plan: Return home Impression and plan of care have been directed as dictated by the signing physician. Tomasa Chi nurse practitioner acting as scribe for signing physician.
[2018-03-21] MEDS ORDERED: GLUCAGON 1 MG/ML VIAL IM STA (13:36)
[2018-03-21 15:09] LABS: C-ANCA <1:20 Titer (<1:20); P-ANCA <1:20 Titer (<1:20)
--- NOTE | 2018-03-21 15:53 | MR ---
EXAMINATION TYPE: MR Enterography DATE OF EXAM: 03/21/2018 COMPARISON: CT abdomen pelvis dated 03/15/2018 and small bowel follow-through dated 03/19/2018. HISTORY: Abdominal pain; Gadavist 6.5ml, Volumen 350ml x 3 CONTRAST: Standard multiplanar, multisequence imaging of the abdomen is performed without and with IV contrast, patient is injected with 6.5ml mL intravenous Gadavist gadolinium contrast. Oral Volumen and Water w as given as per enterography protocol. FINDINGS: There is extensive motion artifact extremely limiting the examination. The previously seen lamellated calcified structure within the distal ileum on the low right hemipelvi s was present on exams dating back to 07/05/2017 and therefore findings are not compatible with gallst one ileus on the current examination this structure was not present on the exam of 03/05/2016. There is dilation of the small bowel throughout and although the small bowel has decreased in caliber from the prior most recent exams the distal ileum measures up to 5.1 cm and there is extensive surro unding mucosal enhancement and inflammatory fat stranding. No focal bowel wall thickening is apprecia tatiana. Enhancement and inflammatory fat stranding extend into the pelvis with likely reactive adjacent distal colonic enhancement. Additionally there is narrowing and stricturing at the terminal ileum wit h mucosal hyperemia and enhancement indicative of active acute inflammatory change. Fluid fluid level is noted of the distal ileum representing some internal debris. Or proximal small bowel loops are on ly upper limits of normal in size measuring up to 3.0 cm. There is diffuse moderate body wall edema. No cholelithiasis. Bilateral T2 hyperintense renal cysts a nd other renal lesions that are too small to accurately characterize are redemonstrated. Very minimal ductal prominence is seen within the liver. No focal hepatic lesion is identified. Spleen is grossly unremarkable. Ventral abdominal hernia repair is again seen. No gross evidence of greater than 1 cm short axis lymph node within the abdomen or pelvis. IMPRESSION: 1. Extensive inflammatory change in bowel wall hyperemia of the distal and terminal ileum with proxim al dilatation of the distal ileum secondary to an incompletely obstructive terminal ileal stricture m easuring approximately 3 cm in length. Evaluation for fistula is markedly limited secondary to extens cortney patient motion. 2. Foreign body within the distal ileum has retrospectively been present on prior exams dating back t o 07/05/2017 and could represent calcified ingested substance or calcified inspissated secretions with in a diverticulum. Considering its presence on retrospective exams gallstone ileus is excluded.
[2018-03-21] MEDS: ONDANSETRON 4 MG/2 ML VIAL IVP PRN (16:48)
--- NOTE | 2018-03-21 17:01 | P.PN ---
Subjective Progress Note Date: 03/21/18 Principal diagnosis: Small bowel obstruction Patient this morning was having increased pain. For that reason the MR enterography was completed. Case was reviewed with Dr. Ahmadi. Patient has evidence of a stricture at the terminal ileum with proximal small bowel dilation. The calcified intraluminal foreign body is present just proximal to the stricture site. This seems to be causing intermittent obstruction. There is inflammatory changes in the pelvis as well. Objective - Vital Signs Vital signs: Vital Signs Temp 98.0 F 03/21/18 16:49 Pulse 95 03/21/18 16:49 Resp 16 03/21/18 16:49 BP 134/86 03/21/18 16:49 Pulse Ox 97 03/21/18 16:49 Intake & Output 03/20/18 03/21/18 03/21/18 18:59 06:59 18:59 Intake Total 225 1790 Balance 225 1790 Weight 65.2 kg 65.2 kg Intake: Intake, IV Titration 225 Amount D5-0.9% NaCl with KCl 20 225 Meq/l 1,000 ml @ 75 mls/ hr IV .[id number] [facility] Rx#: [id number] Oral 1790 Other: Voiding Method Toilet Toilet Toilet # Voids 2 2 - Exam Abdomen: Soft, mild distention, mild right-sided tenderness - Labs CBC & Chem 7: 03/20/18 07:34 03/20/18 07:34 Labs: Abnormal Lab Results - Last 24 Hours (Table) 03/20/18 Range/Units 18:00 Stool Lactoferrin POSITIVE H (NEGATIVE) Assessment and Plan (1) SBO (small bowel obstruction) Narrative/Plan: MRI results reviewed with the patient. We'll discuss case further with GI but favor at this time probable exploratory laparotomy with resection of terminal ileum and removal small bowel foreign body. Risks of bleeding, infection, leak , abscess, fistula formation, recurrent obstruction, recurrent hernia, MO, PE, DVT, and were reviewed. She understands if we believe that is in her best interest to proceed.. Current Visit: Yes Status: Acute Code(s): K56.609 - UNSP INTESTNL OBST, UNSP TO PARTIAL VERSUS COMPLETE OBST SNOMED Code(s): 433871893
[2018-03-22] MEDS: MORPHINE SULFATE 4 MG/ML SYRINGE IVP PRN ×2 (02:57→08:35)
[2018-03-22] MEDS: AMPICILLIN-SULBACTAM 3 GM in SODIUM CHLORIDE 0.9% 100 ML IVPB SCH ×4 (02:59→21:01)
[2018-03-22] MEDS: LEVOTHYROXINE 75 MCG TAB PO SCH (06:07)
[2018-03-22 07:39] LABS: HCT 29.2 % (34.0-46.0); HGB 9.6 gm/dL (11.4-16.0); MCH 28.1 pg (25.0-35.0); MCHC 32.8 g/dL (31.0-37.0); MCV 85.6 fL (80.0-100.0); Mean Platelet Volume 6.5; Platelet Count 368 k/uL (150-450); RBC 3.41 m/uL (3.80-5.40); RDW 14.1 % (11.5-15.5); WBC 10.6 k/uL (3.8-10.6)
[2018-03-22 08:11] LABS: Anion Gap 12 mmol/L; Blood Urea Nitrogen 8 mg/dL (7-17); Carbon Dioxide 27 mmol/L (22-30); Chloride 96 mmol/L (98-107); Glucose 93 mg/dL (74-99); Potassium 3.7 mmol/L (3.5-5.1); Sodium 135 mmol/L (137-145)
[2018-03-22] MEDS: ENOXAPARIN 40 MG/0.4 ML SYRINGE SQ SCH (08:12)
[2018-03-22] MEDS: LACTOBACILLUS ACIDOPH & BULGAR 1 EACH PACKET PO SCH (08:14)
[2018-03-22] MEDS: PANTOPRAZOLE 40 MG/10 ML VIAL IVP SCH (08:15)
[2018-03-22] MEDS: amLODIPine 5 MG TAB PO SCH (08:15)
[2018-03-22] MEDS: POTASSIUM CHLORIDE ER 20 MEQ TAB.ER PO SCH (08:15)
[2018-03-22] MEDS: LISINOPRIL 10 MG TAB PO SCH (08:15)
[2018-03-22] MEDS: FUROSEMIDE 10 MG/ML 2 ML VIAL IV SCH ×2 (08:19→21:43)
[2018-03-22] MEDS: MULTIVITAMINS, THERA 1 EACH TAB PO SCH (11:38)
[2018-03-22] MEDS ORDERED: LACTATED RINGERS 1,000 ML IV ONE ×3 (12:57→18:15)
[2018-03-22] MEDS ORDERED: fentaNYL (PF) 50 MCG/ML 2 ML AMP IVP ONE ×2 (13:30→14:02)
[2018-03-22] MEDS ORDERED: MIDAZOLAM 2 MG/2 ML VIAL IVP ONE ×2 (13:30→14:02)
[2018-03-22] MEDS: ONDANSETRON 4 MG/2 ML VIAL IVP PRN (14:01)
[2018-03-22] MEDS ORDERED: DEXAMETHASONE SOD PHOSPHATE 10 MG/ML 1 ML VIAL IV ONE (14:01)
[2018-03-22] MEDS ORDERED: SCOPOLAMINE 1.5MG/72HR PATCH TRANSDERM ONE (14:02)
[2018-03-22 14:17] LABS: Saccharomyces cerevisiae IgA 3.2 UNITS (<=20)
[2018-03-22] MEDS ORDERED: diphenhydrAMINE 50 MG/ML 1 ML VIAL IVP PRN (14:19)
[2018-03-22] MEDS ORDERED: NALBUPHINE 10 MG/ML VIAL (10ML MDV) IV PRN (14:19)
[2018-03-22] MEDS ORDERED: NALOXONE 0.4 MG/ML 1 ML VIAL IV PRN (14:19)
[2018-03-22] MEDS ORDERED: HEPARIN SODIUM,PORCINE 5,000 UNIT/ML 1 ML VIAL SQ ONE (14:35)
[2018-03-22] MEDS ORDERED: fentaNYL (PF) 50 MCG/ML 2 ML AMP ONE (15:33)
[2018-03-22] MEDS ORDERED: LIDOCAINE 1% INJ 10MG/ML (20 ML MDV) ONE (15:33)
[2018-03-22] MEDS ORDERED: ePHEDrine SULFATE/0.9% NACL/PF 50 MG/5 ML SYRINGE IV ONE (15:33)
[2018-03-22] MEDS ORDERED: GLYCOPYRROLATE 0.2 MG/ML 2 ML VIAL ONE (15:33)
[2018-03-22] MEDS ORDERED: ROCURONIUM BROMIDE 10 MG/ML 10 ML VIAL IV ONE (15:33)
[2018-03-22] MEDS ORDERED: NEOSTIGMINE 1 MG/ML 10 ML VIAL ONE (15:33)
[2018-03-22] MEDS ORDERED: SUCCINYLCHOLINE CHLORIDE 100 MG/5 ML SYR IV ONE (15:33)
[2018-03-22] MEDS ORDERED: PHENYLEPHRINE-0.9% NACL SYG 1 MG/10 ML SYRINGE ONE (15:33)
[2018-03-22] MEDS ORDERED: PROPOFOL 10 MG/ML 20 ML VIAL IV ONE (15:33)
[2018-03-22] MEDS ORDERED: MIDAZOLAM 2 MG/2 ML VIAL ONE (15:33)
[2018-03-22] MEDS ORDERED: SODIUM CHLORIDE 0.9% 100 ML with ceFAZolin 2,000 MG IV ONE ×2 (16:00)
[2018-03-22] MEDS ORDERED: metroNIDAZOLE-NS PMX 500 MG in SALINE 1 100ML.BAG IVPB STA (16:01)
[2018-03-22] MEDS: ROPIVACAINE 300 MG, HYDROMORPHONE (PF) 5 MG in SODIUM CHLORIDE 0.9% 190 ML EPIDURAL PRN (19:24)
--- NOTE | 2018-03-22 19:55 | P.OP ---
Date of Procedure: 03/22/18 Procedure(s) Performed: PREOPERATIVE DIAGNOSIS: Distal small bowel stricture with obstruction POSTOPERATIVE DIAGNOSIS: Extensive intra-abdominal adhesions, pelvic abscess, terminal ileal stricture PROCEDURE: Exploratory laparotomy with extensive lysis of adhesions (90 minute) , resection terminal ileum and right colon with ileocolostomy SURGEON: Jason EBL: See anesthesia records ANESTHESIA: General COMPLICATIONS: None OPERATIVE PROCEDURE: Patient place never table in the supine position. The patient was placed under general anesthesia. The abdomen was prepped and draped in usual sterile fashion. The previous incision was re-incised. The subcutaneous fat was divided using cautery. The fascia was divided using both sharp dissection and cautery. There were adhesions to the recently placed subfascial mesh. The patient had extensive intra-abdominal adhesions with all bowel loops matted together. This required painstaking lysis of adhesions which took 90-120 minutes. In the pelvis the patient was noted to have inflammatory changes. As I was bluntly dissecting the small bowel loops from the pelvis I encountered an abscess cavity in the right hemipelvis. Cultures were taken. This appeared to be related to a perforation of the ileum in that location. The bezoar that was present on recent studies was removed. Once I had full mobilization of the bowel I decided to proceed with resection of the terminal ileum and right colon. The bowel was divided proximally and distally using a linear 75 stapler. The mesentery was divided using both 0 silk ties and the LigaSure device. A jgak-ys-jcbo anastomosis then took place by removing the antimesenteric staple line and firing the linear stapler along the antimesenteric border. The remaining defect was closed using a TX 60 device. The TX 60 stapling was imbricated using interrupted 3-0 GI silk sutures. A 3-0 GI silk crotch stitch was also placed. The abdomen was copiously irrigated with saline. No bleeding or further purulence was seen. It should be noted that the sigmoid colon was adjacent to the inflammatory changes although appeared free of any fistula, neoplastic, or stricture formation. The midline fascia was then reapproximated using 3 separate double-stranded #1 PDS sutures. The subcutaneous tissues were closed using 3-0 Vicryl sutures and the skin using monika. 3 separate Telfa beth were utilized. A sterile dressing was applied. DISPOSITION: Stable to recovery room
[2018-03-22] MEDS: FAMOTIDINE 20 MG/2 ML VIAL IV SCH (21:38)
[2018-03-23] MEDS: AMPICILLIN-SULBACTAM 3 GM in SODIUM CHLORIDE 0.9% 100 ML IVPB SCH ×4 (03:40→21:03)
[2018-03-23] MEDS: LEVOTHYROXINE 75 MCG TAB PO SCH (06:10)
--- NOTE | 2018-03-23 06:10 | P.PN ---
Subjective Progress Note Date: 03/22/18 This is a 58-year-old female patient of Dr. Cross and also Dr. Gomez with past medical history of hypertension, hypothyroidism, hysterectomy for benign reasons, previous small bowel obstruction secondary to intra- abdominal adhesions status post diagnostic laparoscopic followed by laparotomy and lysis of adhesions in February 2016. She has also had robotic incisional hernia repair done by Dr. Mack at [place] in September. Patient states that she had sudden onset of severe abdominal pain with nausea and vomiting and low- grade fever off and on up to 100.4 since Sunday. She states she was not passing gas and was not having a bowel movement. Patient came into [facility] emergency center for evaluation. She was afebrile, vital signs stable. She presented with leukocytosis of 26.4, creatinine 0.7 and BUN 21. Hemoglobin 14.2. Lactic acid 1.1, troponin negative. Urinalysis was clear with nitrate and leukoesterase negative. She underwent a CAT scan of the abdomen and pelvis with contrast that revealed distal small bowel obstruction, possibility of gallstone ileus, platelike atelectasis in both lung bases, stable cyst in the left kidney, degenerative changes within the spine. Patient was started on Unasyn, Zofran for nausea and morphine for pain control and admitted under the care of Dr. Uriarte. Patient is currently nothing by mouth with NG tube in place with a large amount of return fluid. 03/18: Patient remains with NG tube in place draining dark green liquid. We have asked for repeat abdominal x-ray. Patient is using her incentive spirometry at 1250 ML's. 03/19: Patient has been afebrile. Noted the patient drop her pulse ox in the 80s and is on O2 at 2 L nasal cannula. Patient denies any shortness of breath. She did have a bowel movement this morning. NG tube remains in place with decreased output. IV fluids will be decreased to 75 mL. Patient is stating that she is having trouble using the incentive spirometry. Slight elevated heart rate. She is scheduled for small bowel follow-through today. 03/20: Dr. Goemz has had NG tube removed and started on clear liquids. GI consult was admitted to evaluate for possible Crohn's disease. Tentative plan for outpatient MR enterography to evaluate terminal ileum and reevaluate for small bowel foreign-body. Home medication list reviewed and patient placed back on some of her home meds. Patient has been ambulating well in the hallway. Her pulse ox did drop down to 88%. Her incentive spirometry is only 500 and then she developed pressure in the middle of her abdomen and pain in the right side. Repeat chest x-ray will be ordered. IV fluids have been discontinued and patient will be given 1 dose of IV Lasix. She does not appear to be hypoxic or in any respiratory distress. 03/21: Repeat pulse ox yesterday afternoon from her ear revealed 94-95%. Patient again has no respiratory distress. She states she is using her incentive spirometry but mostly only reaching 500 and sometimes up 1000. Her lower extremity edema is improved. We will continue her on IV Lasix and potassium. Chest x-ray from yesterday showed pulmonary edema. She continues to have right sided abdominal sharp pain that comes and goes and feels better when she applies pressure. She is currently tolerating a full liquid diet. C- reactive protein is elevated at 175.9, sed rate elevated at 60. Other lab work pending. GI has ordered MRI enterography. 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 Evaluation for fistula is markedly limited secondary to extensive patient motion. Foreign body within the distal ileum has retrospectively been present on prior exams dating back to 07/05/2017 and could represent calcified ingested substance or calcified inspissated secretions within the diverticulum. Considering its presence on retrospective exams gallstone ileus is excluded. Dr. Gomez is planning for exploratory laparotomy with resection of the terminal ileum and remove small bowel foreign- body. Objective - Vital Signs Vital signs: Vital Signs Temp 98 F 03/22/18 06:07 Pulse 87 03/22/18 06:07 Resp 16 03/22/18 06:07 BP 138/63 03/22/18 06:07 Pulse Ox 92 L 03/22/18 06:07 Intake & Output 03/21/18 03/22/18 03/22/18 18:59 06:59 18:59 Intake Total 100 Balance 100 Weight 65.2 kg Intake: Intake, IV Titration 100 Amount Ampicillin-Sulbactam 3 gm 100 In Sodium Chloride 0.9% 100 ml @ 100 mls/hr IVPB Q6H [facility] Rx#:[id number] Other: Voiding Method Toilet Toilet Toilet # Voids 2 3 - Exam Gen: This is a 58-year-old female. Patient walking in her room and appears to be comfortable and in no acute distress. HEENT: Head is atraumatic, normocephalic. Pupils equal, round. Sclerae is anicteric. NECK: Supple. No JVD. No lymphadenopathy. No thyromegaly. LUNGS: Clear to auscultation. No wheezes or rhonchi. No intercostal retractions. HEART: Regular rate and rhythm. No murmur. ABDOMEN: Soft. Bowel sounds present. No masses. No tenderness. EXTREMITIES: No pedal edema. No calf tenderness. Dorsalis pedis palpable bilaterally. NEUROLOGICAL: Patient is awake, alert and oriented x3. Cranial nerves 2 through 12 are grossly intact. - Labs CBC & Chem 7: 03/22/18 07:21 03/22/18 07:21 Labs: Abnormal Lab Results - Last 24 Hours (Table) 03/20/18 03/22/18 03/22/18 Range/Units 18:00 07:21 07:21 RBC 3.41 L (3.80-5.40) m/uL Hgb 9.6 L (11.4-16.0) gm/dL Hct 29.2 L (34.0-46.0) % Sodium 135 L (137-145) mmol/L Chloride 96 L (98-107) mmol/L Calcium 8.0 L (8.4-10.2) mg/dL Stool Lactoferrin POSITIVE H (NEGATIVE) Assessment and Plan Plan: 1. Small bowel obstruction secondary to foreign body with plan for surgical intervention. Continue conservative management, NG tube removed, continue Zofran for nausea, morphine for pain, IV fluids. Continue Unasyn. Small bowel follow-through as above. GI consult in place to evaluate for possible Crohn's disease. MR enterography as above. Dr. Gomez is planning for exploratory laparotomy with resection of the terminal ileum and remove small bowel foreign- body 2. Hypertension. Resume Lotrel and hold hydrochlorothiazide. 3. Hypothyroidism. Resume levothyroxine 75 g daily. 4. Vitamin B12 deficiency and chronic anemia.. 5. Pulmonary prophylaxis and atelectasis. Incentive spirometry. 6. Hypoxemia secondary to atelectasis and pulmonary edema from IV fluids. No history of heart failure. IV Lasix ordered. 7. GI prophylaxis. Protonix. 8. DVT prophylaxis. Lovenox. Discharge plan: Return home Impression and plan of care have been directed as dictated by the signing physician. Tomasa Chi nurse practitioner acting as scribe for signing physician.
[2018-03-23 06:46] LABS: Basophils # (A) 0.1 k/uL (0-0.2); Basophils % (A) 0 %; Eosinophils % (A) 0 %; HCT 32.8 % (34.0-46.0); HGB 10.5 gm/dL (11.4-16.0); Lymphocytes # (A) 1.2 k/uL (1.0-4.8); Lymphocytes % (A) 5 %; MCH 27.9 pg (25.0-35.0); MCV 87.1 fL (80.0-100.0); Mean Platelet Volume 6.5; Monocytes # (A) 0.7 k/uL (0-1.0); Monocytes % (A) 3 %; Neutrophils # (A) 21.3 k/uL (1.3-7.7); Neutrophils % (A) 90 %; Platelet Count 489 k/uL (150-450); RBC 3.76 m/uL (3.80-5.40); RDW 14.4 % (11.5-15.5); WBC 23.7 k/uL (3.8-10.6)
[2018-03-23 07:09] LABS: Calcium 7.4 mg/dL (8.4-10.2); Potassium 4.4 mmol/L (3.5-5.1)
[2018-03-23] MEDS: LISINOPRIL 10 MG TAB PO SCH (08:10)
[2018-03-23] MEDS: amLODIPine 5 MG TAB PO SCH (08:10)
[2018-03-23] MEDS: ENOXAPARIN 40 MG/0.4 ML SYRINGE SQ SCH (08:30)
[2018-03-23] MEDS: FAMOTIDINE 20 MG/2 ML VIAL IV SCH ×2 (08:30→21:04)
[2018-03-23] MEDS ORDERED: PANTOPRAZOLE 40 MG TABLET PO SCH (09:00)
[2018-03-23] MEDS: POTASSIUM CHLORIDE ER 20 MEQ TAB.ER PO SCH (09:24)
[2018-03-23] MEDS: FUROSEMIDE 10 MG/ML 2 ML VIAL IV SCH ×2 (09:24→21:37)
[2018-03-23] MEDS ORDERED: DEXTROSE 5%-0.45% NACL 1,000 ML with POTASSIUM CHLORIDE 20 MEQ IV SCH ×2 (09:30)
--- NOTE | 2018-03-23 10:22 | P.PN ---
Subjective Progress Note Date: 03/23/18 Principal diagnosis: Small bowel obstruction Patient doing relatively well this morning. Pain is well-controlled. She did have an episode of hypotension but was found to have no fluids running for the majority of the evening. Nasogastric tube output is minimal. Labs reveal increased leukocytosis that is not surprising given the operative findings. Creatinine did climb somewhat to 1.5 today. Low-grade temp of 99.5. Objective - Vital Signs Vital signs: Vital Signs Temp 97.5 F L 03/23/18 07:49 Pulse 75 03/23/18 08:06 Resp 18 03/23/18 08:06 BP 86/53 03/23/18 08:06 Pulse Ox 96 03/23/18 08:06 Intake & Output 03/22/18 03/23/18 03/23/18 18:59 06:59 18:59 Intake Total 2700 340 Output Total 350 350 Balance 2350 -10 Intake: IV 2700 200 Ampicillin-Sulbactam 3 gm 200 In Sodium Chloride 0.9% 100 ml @ 100 mls/hr IVPB Q6H [facility] Rx#:[id number] Intake, IV Titration 140 Amount Lactated Ringers 1,000 ml 140 @ 0 mls/hr IV .[facility] Rx#:[id number] Output: Urine 350 Estimated Blood Loss 350 Other: Voiding Method Toilet Indwelling Catheter Indwelling Catheter # Voids 2 - Exam Abdomen: Soft, nondistended, incision clean and dry, mild tenderness - Labs CBC & Chem 7: 03/23/18 05:50 03/23/18 05:50 Labs: Abnormal Lab Results - Last 24 Hours (Table) 03/22/18 03/23/18 03/23/18 Range/Units 09:32 05:50 05:50 WBC 23.7 H (3.8-10.6) k/uL RBC 3.76 L (3.80-5.40) m/uL Hgb 10.5 L (11.4-16.0) gm/dL Hct 32.8 L (34.0-46.0) % Plt Count 489 H (150-450) k/uL Neutrophils # 21.3 H (1.3-7.7) k/uL BUN 18 H (7-17) mg/dL Creatinine 1.50 H (0.52-1.04) mg/dL Glucose 154 H (74-99) mg/dL Calcium 7.4 L (8.4-10.2) mg/dL Crossmatch See Detail Microbiology - Last 24 Hours (Table) 03/22/18 19:00 Gram Stain - Preliminary Peritoneal Fluid Body Fluid Culture - Preliminary 03/22/18 19:00 Anaerobic Culture - Preliminary Peritoneal Fluid Assessment and Plan (1) SBO (small bowel obstruction) Narrative/Plan: IV fluid bolus this morning. Continue nothing by mouth and nasogastric tube to suction. Repeat labs tomorrow. Continue antibiotics. Gradually increase activity. Keep epidural. Current Visit: Yes Status: Acute Code(s): K56.609 - UNSP INTESTNL OBST, UNSP TO PARTIAL VERSUS COMPLETE OBST SNOMED Code(s): 412142826
[2018-03-23] MEDS: D5-0.45% NACL WITH KCL 20MEQ/L 1,000 ML IV SCH ×2 (10:40→21:35)
[2018-03-23] MEDS: MULTIVITAMINS, THERA 1 EACH TAB PO SCH (10:41)
--- NOTE | 2018-03-23 12:13 | P.PN ---
Progress Note - Text Anesthesia POD 1. Status Post exploratory laparotomy, lysis of adhesions, and ileocolostomy under general endotracheal anesthesia with an epidrual catheter placed at approximately T10 for post surgical pain releif. VAS (1, 3) with Ropivicaine 0.12 % and Dilaudid 20 mcg / cc running at 7 cc / hr. Lower extremity strength ([]/4). Minimal sedation. Site looks OK.
--- NOTE | 2018-03-23 13:16 | P.PN ---
Subjective Progress Note Date: 03/23/18 Principal diagnosis: Severe abdominal pain, partial bowel obstruction, post exploratory surgery with right sided colectomy. Acute kidney injury, mild anemia. This is a 58-year-old female patient of Dr. Cross and also Dr. Gomez with past medical history of hypertension, hypothyroidism, hysterectomy for benign reasons, previous small bowel obstruction secondary to intra- abdominal adhesions status post diagnostic laparoscopic followed by laparotomy and lysis of adhesions in February 2016. She has also had robotic incisional hernia repair done by Dr. Mack at [place] in September. Patient states that she had sudden onset of severe abdominal pain with nausea and vomiting and low- grade fever off and on up to 100.4 since Sunday. She states she was not passing gas and was not having a bowel movement. Patient came into [facility] emergency center for evaluation. She was afebrile, vital signs stable. She presented with leukocytosis of 26.4, creatinine 0.7 and BUN 21. Hemoglobin 14.2. Lactic acid 1.1, troponin negative. Urinalysis was clear with nitrate and leukoesterase negative. She underwent a CAT scan of the abdomen and pelvis with contrast that revealed distal small bowel obstruction, possibility of gallstone ileus, platelike atelectasis in both lung bases, stable cyst in the left kidney, degenerative changes within the spine. Patient was started on Unasyn, Zofran for nausea and morphine for pain control and admitted under the care of Dr. Uriarte. Patient is currently nothing by mouth with NG tube in place with a large amount of return fluid. 03/18: Patient remains with NG tube in place draining dark green liquid. We have asked for repeat abdominal x-ray. Patient is using her incentive spirometry at 1250 ML's. 03/19: Patient has been afebrile. Noted the patient drop her pulse ox in the 80s and is on O2 at 2 L nasal cannula. Patient denies any shortness of breath. She did have a bowel movement this morning. NG tube remains in place with decreased output. IV fluids will be decreased to 75 mL. Patient is stating that she is having trouble using the incentive spirometry. Slight elevated heart rate. She is scheduled for small bowel follow-through today. 03/20: Dr. Gomez has had NG tube removed and started on clear liquids. GI consult was admitted to evaluate for possible Crohn's disease. Tentative plan for outpatient MR enterography to evaluate terminal ileum and reevaluate for small bowel foreign-body. Home medication list reviewed and patient placed back on some of her home meds. Patient has been ambulating well in the hallway. Her pulse ox did drop down to 88%. Her incentive spirometry is only 500 and then she developed pressure in the middle of her abdomen and pain in the right side. Repeat chest x-ray will be ordered. IV fluids have been discontinued and patient will be given 1 dose of IV Lasix. She does not appear to be hypoxic or in any respiratory distress. 03/21: Repeat pulse ox yesterday afternoon from her ear revealed 94-95%. Patient again has no respiratory distress. She states she is using her incentive spirometry but mostly only reaching 500 and sometimes up 1000. Her lower extremity edema is improved. We will continue her on IV Lasix and potassium. Chest x-ray from yesterday showed pulmonary edema. She continues to have right sided abdominal sharp pain that comes and goes and feels better when she applies pressure. She is currently tolerating a full liquid diet. C- reactive protein is elevated at 175.9, sed rate elevated at 60. Other lab work pending. GI has ordered MRI enterography. 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 Evaluation for fistula is markedly limited secondary to extensive patient motion. Foreign body within the distal ileum has retrospectively been present on prior exams dating back to 07/05/2017 and could represent calcified ingested substance or calcified inspissated secretions within the diverticulum. Considering its presence on retrospective exams gallstone ileus is excluded. Dr. Gomez is planning for exploratory laparotomy with resection of the terminal ileum and remove small bowel foreign- body. 03/23: Patient went for surgery yesterday with Dr. Starks ended up having right- sided partial colectomy with mild many adhesion and few complication during surgery. According to him highly suspected for Crohn disease of the biopsies back will continue current management for now. Also patient had acute kidney injury with creatinine climb up through the night will continue hydration continue to watch her urine output for now. Objective - Vital Signs Vital signs: Vital Signs Temp 97.5 F L 03/23/18 07:49 Pulse 75 03/23/18 08:06 Resp 18 03/23/18 08:06 BP 86/53 03/23/18 08:06 Pulse Ox 96 03/23/18 08:06 Intake & Output 03/22/18 03/23/18 03/23/18 18:59 06:59 18:59 Intake Total 2700 340 Output Total 350 350 Balance 2350 -10 Intake: IV 2700 200 Ampicillin-Sulbactam 3 gm 200 In Sodium Chloride 0.9% 100 ml @ 100 mls/hr IVPB Q6H [facility] Rx#:[id number] Intake, IV Titration 140 Amount Lactated Ringers 1,000 ml 140 @ 0 mls/hr IV .[facility] [facility] Rx#:[id number] Output: Urine 350 Estimated Blood Loss 350 Other: Voiding Method Toilet Indwelling Catheter # Voids 2 - Exam ROS: CONSTITUTIONAL: Well-developed no acute respiratory distress. EYES: No icterus sclerae, no conjunctivitis. EARS, NOSE, MOUTH, THROAT, and FACE: No sore throat, lymphadenopathy, carotid bruits or deformity. RESPIRATORY: No SOB cough or wheezes. CARDIOVASCULAR: No CP, Palpitation, PND, Orthopnea, or angina. GASTROINTESTINAL: Abdominal pain since her surgery, mild nausea with no vomiting. GENITOURINARY: Negative for Hematuria or UTI, no kidney stones. INTEGUMENT/BREAST: Negative for any muscular injury with mild osteoarthritis.. HEMATOLOGIC/LYMPHATIC: Negative for bleed or purpura. MUSCULOSKELTAL: Negative for Myalgia or arthralgia. NEURLOGICAL: No LOC, Sz or syncope, blurred vision dizziness or abnormality.. BEHAVIORAL/PSYCH: Negative. ENDOCRINE: Negative. Physical Exam: General Appearance: Alert, cooperative, no distress, appears stated age. Neck HEENT: Supple, no lymphadenopathy, no thyroid enlargement, no carotid bruits. Lungs: Clear to auscultation without crackles or wheezes no rhonchi, no deformity. Chest Wall: Decrease expansion with deep inspiration, lung decreased breaths on bilaterally with fine rhonchi. Heart: Regular rate and rhythm, S1, S2 normal, no murmur, rub or gallop. Back: Symmetric, no curvature, ROM normal, no CVA tenderness. Abdomen: Surgical site area looks fine with no sign of hematoma or infection, positive slight tenderness no rebound or rigidity no bowel sound. Extremities: Extremities normal, atraumatic, no cyanosis or edema. Pulses: 2+ and symmetric. Skin: Skin color, texture, tugor normal, no rashes or lesions. Neurologic: Alert oriented x3 cranial nerves II through XII intact, no motor deficit, no abnormal balance or gait. - Labs CBC & Chem 7: 03/23/18 05:50 03/23/18 05:50 Labs: Abnormal Lab Results - Last 24 Hours (Table) 03/22/18 03/23/18 03/23/18 Range/Units 09:32 05:50 05:50 WBC 23.7 H (3.8-10.6) k/uL RBC 3.76 L (3.80-5.40) m/uL Hgb 10.5 L (11.4-16.0) gm/dL Hct 32.8 L (34.0-46.0) % Plt Count 489 H (150-450) k/uL Neutrophils # 21.3 H (1.3-7.7) k/uL BUN 18 H (7-17) mg/dL Creatinine 1.50 H (0.52-1.04) mg/dL Glucose 154 H (74-99) mg/dL Calcium 7.4 L (8.4-10.2) mg/dL Crossmatch See Detail Microbiology - Last 24 Hours (Table) 03/22/18 19:00 Gram Stain - Preliminary Peritoneal Fluid Body Fluid Culture - Preliminary 03/22/18 19:00 Anaerobic Culture - Preliminary Peritoneal Fluid Assessment and Plan Plan: 1. Severe abdominal pain: Combination of small bowel obstruction along with adhesion along with possible if infection. Patient had intervention with exploratory surgery and found multiple adhesion along with bowel obstruction requiring her right-sided colectomy. 2. Small bowel obstruction secondary to foreign body with plan for surgical intervention. Continue conservative management, NG tube removed, continue Zofran for nausea, morphine for pain, IV fluids. Continue Unasyn. Small bowel follow-through as above. GI consult in place to evaluate for possible Crohn's disease. MR enterography as above. Dr. Gomez is planning for exploratory laparotomy with resection of the terminal ileum and remove small bowel foreign- body 3. Hypertension. Resume Lotrel and hold hydrochlorothiazide. If needed IV lisinopril can be used to control the blood pressure. 4. Hypothyroidism. Resume levothyroxine 75 g daily. If still nothing by mouth half dose of levothyroxine IV can be use. 5. Vitamin B12 deficiency and chronic anemia.. 6. Pulmonary prophylaxis and atelectasis. Incentive spirometry. 7. Hypoxemia secondary to atelectasis and pulmonary edema from IV fluids. No history of heart failure. IV Lasix ordered. 8. GI prophylaxis. Protonix. 9. DVT prophylaxis. Lovenox.
[2018-03-23 15:21] LABS: Albumin 2.3 g/dL (3.5-5.0); Potassium 4.4 mmol/L (3.5-5.1); Total Bilirubin 0.2 mg/dL (0.2-1.3); Total Protein 4.7 g/dL (6.3-8.2)
[2018-03-24] MEDS: AMPICILLIN-SULBACTAM 3 GM in SODIUM CHLORIDE 0.9% 100 ML IVPB SCH ×3 (02:20→14:06)
[2018-03-24] MEDS: D5-0.45% NACL WITH KCL 20MEQ/L 1,000 ML IV SCH ×2 (05:04→06:58)
[2018-03-24] MEDS: LEVOTHYROXINE 75 MCG TAB PO SCH (06:24)
[2018-03-24] MEDS: amLODIPine 5 MG TAB PO SCH (07:02)
[2018-03-24] MEDS: LISINOPRIL 10 MG TAB PO SCH (07:02)
[2018-03-24] MEDS: FAMOTIDINE 20 MG/2 ML VIAL IV SCH ×2 (07:03→21:39)
[2018-03-24] MEDS: ENOXAPARIN 40 MG/0.4 ML SYRINGE SQ SCH (07:04)
[2018-03-24] MEDS: FUROSEMIDE 10 MG/ML 2 ML VIAL IV SCH ×2 (08:40→21:50)
[2018-03-24] MEDS: ROPIVACAINE 300 MG, HYDROMORPHONE (PF) 5 MG in SODIUM CHLORIDE 0.9% 190 ML EPIDURAL PRN (09:10)
[2018-03-24 09:28] LABS: Albumin 2.4 g/dL (3.5-5.0); Calcium 7.1 mg/dL (8.4-10.2); Potassium 4.1 mmol/L (3.5-5.1); Total Bilirubin 0.2 mg/dL (0.2-1.3); Total Protein 4.8 g/dL (6.3-8.2)
[2018-03-24 09:32] LABS: Basophils % (A) 0 %; Eosinophils # (A) 0.1 k/uL (0-0.7); Eosinophils % (A) 1 %; HCT 26.6 % (34.0-46.0); HGB 8.4 gm/dL (11.4-16.0); Lymphocytes % (A) 7 %; MCH 27.8 pg (25.0-35.0); MCHC 31.7 g/dL (31.0-37.0); MCV 87.9 fL (80.0-100.0); Mean Platelet Volume 7.2; Monocytes # (A) 0.5 k/uL (0-1.0); Monocytes % (A) 4 %; Neutrophils # (A) 11.3 k/uL (1.3-7.7); Neutrophils % (A) 87 %; Platelet Count 410 k/uL (150-450); RBC 3.03 m/uL (3.80-5.40); RDW 14.7 % (11.5-15.5)
--- NOTE | 2018-03-24 10:07 | P.PN ---
Subjective Progress Note Date: 03/24/18 Principal diagnosis: Severe abdominal pain, partial bowel obstruction, post exploratory surgery with right sided colectomy. Acute kidney injury, mild anemia. Worsening kidney failure This is a 58-year-old female patient of Dr. Cross and also Dr. Gomez with past medical history of hypertension, hypothyroidism, hysterectomy for benign reasons, previous small bowel obstruction secondary to intra- abdominal adhesions status post diagnostic laparoscopic followed by laparotomy and lysis of adhesions in February 2016. She has also had robotic incisional hernia repair done by Dr. Mack at [place] in September. Patient states that she had sudden onset of severe abdominal pain with nausea and vomiting and low- grade fever off and on up to 100.4 since Sunday. She states she was not passing gas and was not having a bowel movement. Patient came into [facility] emergency center for evaluation. She was afebrile, vital signs stable. She presented with leukocytosis of 26.4, creatinine 0.7 and BUN 21. Hemoglobin 14.2. Lactic acid 1.1, troponin negative. Urinalysis was clear with nitrate and leukoesterase negative. She underwent a CAT scan of the abdomen and pelvis with contrast that revealed distal small bowel obstruction, possibility of gallstone ileus, platelike atelectasis in both lung bases, stable cyst in the left kidney, degenerative changes within the spine. Patient was started on Unasyn, Zofran for nausea and morphine for pain control and admitted under the care of Dr. Uriarte. Patient is currently nothing by mouth with NG tube in place with a large amount of return fluid. 03/18: Patient remains with NG tube in place draining dark green liquid. We have asked for repeat abdominal x-ray. Patient is using her incentive spirometry at 1250 ML's. 03/19: Patient has been afebrile. Noted the patient drop her pulse ox in the 80s and is on O2 at 2 L nasal cannula. Patient denies any shortness of breath. She did have a bowel movement this morning. NG tube remains in place with decreased output. IV fluids will be decreased to 75 mL. Patient is stating that she is having trouble using the incentive spirometry. Slight elevated heart rate. She is scheduled for small bowel follow-through today. 03/20: Dr. Gomez has had NG tube removed and started on clear liquids. GI consult was admitted to evaluate for possible Crohn's disease. Tentative plan for outpatient MR enterography to evaluate terminal ileum and reevaluate for small bowel foreign-body. Home medication list reviewed and patient placed back on some of her home meds. Patient has been ambulating well in the hallway. Her pulse ox did drop down to 88%. Her incentive spirometry is only 500 and then she developed pressure in the middle of her abdomen and pain in the right side. Repeat chest x-ray will be ordered. IV fluids have been discontinued and patient will be given 1 dose of IV Lasix. She does not appear to be hypoxic or in any respiratory distress. 03/21: Repeat pulse ox yesterday afternoon from her ear revealed 94-95%. Patient again has no respiratory distress. She states she is using her incentive spirometry but mostly only reaching 500 and sometimes up 1000. Her lower extremity edema is improved. We will continue her on IV Lasix and potassium. Chest x-ray from yesterday showed pulmonary edema. She continues to have right sided abdominal sharp pain that comes and goes and feels better when she applies pressure. She is currently tolerating a full liquid diet. C- reactive protein is elevated at 175.9, sed rate elevated at 60. Other lab work pending. GI has ordered MRI enterography. 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 Evaluation for fistula is markedly limited secondary to extensive patient motion. Foreign body within the distal ileum has retrospectively been present on prior exams dating back to 07/05/2017 and could represent calcified ingested substance or calcified inspissated secretions within the diverticulum. Considering its presence on retrospective exams gallstone ileus is excluded. Dr. Gomez is planning for exploratory laparotomy with resection of the terminal ileum and remove small bowel foreign- body. 03/23: Patient went for surgery yesterday with Dr. Starks ended up having right- sided partial colectomy with mild many adhesion and few complication during surgery. According to him highly suspected for Crohn disease of the biopsies back will continue current management for now. Also patient had acute kidney injury with creatinine climb up through the night will continue hydration continue to watch her urine output for now. 03/24: Patient is feeling slightly but better, much worse kidney function compared to yesterday despite the hydration full catheter she is not making much urine. We'll consult nephrology and if need urology can be involved especially of this is for any reason surgical-related complication. We discussed with Dr. Gomez whether patient need to go for a CAT scan of the abdomen for further diagnosis of the reason why this acute kidney failure to place beside having a prerenal condition with the complication related to sepsis , hypotension and, surgery. Nephrology were notified of the consult and if the general opinion that we need to see urology will do the consult Objective - Vital Signs Vital signs: Vital Signs Temp 98.0 F 03/24/18 05:41 Pulse 86 03/24/18 05:41 Resp 18 03/24/18 05:41 BP 86/48 03/24/18 05:41 Pulse Ox 96 03/24/18 05:41 Intake & Output 03/23/18 03/24/18 03/24/18 18:59 06:59 18:59 Intake Total 1534 1025 Output Total 950 100 Balance 584 925 Weight 65.2 kg Intake: IV 200 100 Ampicillin-Sulbactam 3 gm 200 100 In Sodium Chloride 0.9% 100 ml @ 100 mls/hr IVPB Q6H [facility] Rx#:[id number] Intake, IV Titration 1334 875 Amount D5-0.45% NaCl with KCl 750 875 20Meq/l 1,000 ml @ 125 mls/hr IV .Q8H [facility] Rx#: [id number] Ropivacaine 300 mg 84 Hydromorphone (Pf) 5 mg In Sodium Chloride 0.9% 190 ml @ Per Protocol EPIDURAL .Q0M PRN Rx#: [id number] Sodium Chloride 0.9% 100 500 ml @ 0 mls/hr IV [facility] with ceFAZolin 2,000 mg Rx#:[id number] Oral 0 50 Output: Gastric Drainage 100 Drainage 100 Right 100 Urine 850 Other: Voiding Method Indwelling Catheter Indwelling Catheter # Voids 1 1 - Exam ROS: CONSTITUTIONAL: Well-developed no acute respiratory distress. EYES: No icterus sclerae, no conjunctivitis. Still have an NG tube and EARS, NOSE, MOUTH, THROAT, and FACE: No sore throat, lymphadenopathy, carotid bruits or deformity. RESPIRATORY: No SOB cough or wheezes. CARDIOVASCULAR: No CP, Palpitation, PND, Orthopnea, or angina. GASTROINTESTINAL: Significant abdominal discomfort nausea. GENITOURINARY: Decreased urine output still have fully catheter and. INTEGUMENT/BREAST: Negative for any muscular injury with mild osteoarthritis.. HEMATOLOGIC/LYMPHATIC: Negative for bleed or purpura. MUSCULOSKELTAL: Negative for Myalgia or arthralgia. NEURLOGICAL: No LOC, Sz or syncope, blurred vision dizziness or abnormality.. BEHAVIORAL/PSYCH: Negative. ENDOCRINE: Negative. Physical Exam: General Appearance: Alert, cooperative, no distress, appears stated age. Neck HEENT: Supple, no lymphadenopathy, no thyroid enlargement, no carotid bruits. NG tube in. Lungs: Clear to auscultation without crackles or wheezes no rhonchi, no deformity. Chest Wall: Decrease expansion with deep inspiration, lung decreased breaths on bilaterally with fine rhonchi. Heart: Regular rate and rhythm, S1, S2 normal, no murmur, rub or gallop. Back: Symmetric, no curvature, ROM normal, no CVA tenderness. Abdomen: Surgical site area looks fine with no sign of hematoma or infection, positive slight tenderness no rebound or rigidity no bowel sound. Extremities: Extremities normal, atraumatic, no cyanosis or edema. Pulses: 2+ and symmetric. Skin: Skin color, texture, tugor normal, no rashes or lesions. Neurologic: Alert oriented x3 cranial nerves II through XII intact, no motor deficit, no abnormal balance or gait. - Labs CBC & Chem 7: 03/24/18 08:58 03/24/18 08:58 Labs: Abnormal Lab Results - Last 24 Hours (Table) 03/22/18 03/23/18 Range/Units 09:32 14:48 BUN 24 H (7-17) mg/dL Creatinine 2.20 H (0.52-1.04) mg/dL Glucose 150 H (74-99) mg/dL Calcium 7.0 L (8.4-10.2) mg/dL Total Protein 4.7 L (6.3-8.2) g/dL Albumin 2.3 L (3.5-5.0) g/dL Crossmatch See Detail Microbiology - Last 24 Hours (Table) 03/22/18 19:00 Gram Stain - Preliminary Peritoneal Fluid Body Fluid Culture - Preliminary Gram Neg Bacilli Assessment and Plan Plan: 1. Severe abdominal pain: Combination of small bowel obstruction along with adhesion along with possible if infection. Patient had intervention with exploratory surgery and found multiple adhesion along with bowel obstruction requiring her right-sided colectomy. Abdominal pain has improved, patient still using epidural for pain management currently. 2. Small bowel obstruction secondary post partial colectomy with right sided hemicolectomy, 3. Hypotension. Continue fluid resuscitation for now keep watching the blood pressure, hopefully improving the blood pressure will improve the kidney function as well. 4. Hypothyroidism. Resume levothyroxine 75 g daily. If still nothing by mouth half dose of levothyroxine IV can be use. 5. Vitamin B12 deficiency and chronic anemia.. 6. Pulmonary prophylaxis and atelectasis. Incentive spirometry. 7. Hypoxemia secondary to atelectasis and pulmonary edema from IV fluids. No history of heart failure. IV Lasix ordered. 8. GI prophylaxis. Protonix. 9. DVT prophylaxis. Lovenox. CODE STATUS: Full code.
[2018-03-24] MEDS ORDERED: SODIUM CHLORIDE 0.9% 500 ML IV ONE (10:32)
--- NOTE | 2018-03-24 10:39 | P.PN ---
Subjective Progress Note Date: 03/24/18 Principal diagnosis: Small bowel obstruction Patient with some relative hypotension. Today's white blood cell count improved to 13. Hemoglobin is 8.4. Creatinine yesterday when from 1.5-2.2 today is 2.3. Urine output has been adequate although somewhat on the low side. Nephrology was consulted and we have discussed the ongoing management. Patient's epidural catheter was decreased in rate and she started having some lower abdominal discomfort. Overall she says she feels relatively well however. Despite her hypotension she has been asymptomatic. Objective - Vital Signs Vital signs: Vital Signs Temp 98.0 F 03/24/18 05:41 Pulse 70 03/24/18 08:39 Resp 18 03/24/18 05:41 BP 84/53 03/24/18 08:39 Pulse Ox 96 03/24/18 05:41 Intake & Output 03/23/18 03/24/18 03/24/18 18:59 06:59 18:59 Intake Total 1534 1025 0 Output Total 950 100 Balance 584 925 0 Weight 65.2 kg Intake: IV 200 100 Ampicillin-Sulbactam 3 gm 200 100 In Sodium Chloride 0.9% 100 ml @ 100 mls/hr IVPB [facility]H [facility] Rx#:[id number] Intake, IV Titration 1334 875 0 Amount D5-0.45% NaCl with KCl 750 875 20Meq/l 1,000 ml @ 125 mls/hr IV .[facility] Rx#: [id number] Ropivacaine 300 mg 84 0 Hydromorphone (Pf) 5 mg In Sodium Chloride 0.9% 190 ml @ Per Protocol EPIDURAL .Q0M [facility]N Rx#: [id number] Sodium Chloride 0.9% 100 500 ml @ 0 mls/hr IV [facility] with ceFAZolin 2,000 mg Rx#:[id number] Oral 0 50 Output: Gastric Drainage 100 Drainage 100 Right 100 Urine 850 Other: Voiding Method Indwelling Catheter Indwelling Catheter # Voids 1 1 - Exam Abdomen: Soft, mild distention, mild incisional tenderness, dressing intact - Labs CBC & Chem 7: 03/24/18 08:58 03/24/18 08:58 Labs: Abnormal Lab Results - Last 24 Hours (Table) 03/22/18 03/23/18 03/24/18 Range/Units 09:32 14:48 08:58 WBC 13.0 H (3.8-10.6) k/uL RBC 3.03 L (3.80-5.40) m/uL Hgb 8.4 L D (11.4-16.0) gm/dL Hct 26.6 L (34.0-46.0) % Neutrophils # 11.3 H (1.3-7.7) k/uL BUN 24 H (7-17) mg/dL Creatinine 2.20 H (0.52-1.04) mg/dL Glucose 150 H (74-99) mg/dL Calcium 7.0 L (8.4-10.2) mg/dL Total Protein 4.7 L (6.3-8.2) g/dL Albumin 2.3 L (3.5-5.0) g/dL Crossmatch See Detail 03/24/18 Range/Units 08:58 WBC (3.8-10.6) k/uL RBC (3.80-5.40) m/uL Hgb (11.4-16.0) gm/dL Hct (34.0-46.0) % Neutrophils # (1.3-7.7) k/uL BUN 27 H (7-17) mg/dL Creatinine 2.30 H (0.52-1.04) mg/dL Glucose 124 H (74-99) mg/dL Calcium 7.1 L (8.4-10.2) mg/dL Total Protein 4.8 L (6.3-8.2) g/dL Albumin 2.4 L (3.5-5.0) g/dL Crossmatch Microbiology - Last 24 Hours (Table) 03/22/18 19:00 Gram Stain - Preliminary Peritoneal Fluid Body Fluid Culture - Preliminary Gram Neg Bacilli Assessment and Plan (1) SBO (small bowel obstruction) Narrative/Plan: Continue fluid hydration. Monitor labs. Continue IV antibiotics. Keep nothing by mouth with nasogastric tube to suction. Current Visit: Yes Status: Acute Code(s): K56.609 - UNSP INTESTNL OBST, UNSP TO PARTIAL VERSUS COMPLETE OBST SNOMED Code(s): 980092602
--- NOTE | 2018-03-24 10:44 | P.NPCON ---
History of Present Illness - Reason for Consult Consult date: 03/24/18 acute renal failure - Chief Complaint Acute kidney injury post bowel resection - History of Present Illness This is a 58-year-old female seen in consultation because of acute kidney injury. She has hypotension with blood pressure in the 70s to 80s since she underwent surgery late 03/22/2018 2 days ago. She was admitted with abdominal pain nausea vomiting and a low-grade fever and was found to have small bowel obstruction. She has had previous bowel obstruction and laparoscopic lysis of adhesion in 2015. Further she had robotic incisional hernia repair in September 2017. 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 She denies any fever chills. Fairly comfortable. Denies any significant abdominal pain. She has an NG tube suction. She has received IV fluids D5 half -normal saline with 20 of KCl at 1 25 mL an hour for the last 24 hours approximately. Her blood pressure is slightly better in the 100 range. She additionally received 500 mL of saline just a few minutes ago. Her urine output is down 200 mL for the last 8 hour shift Past Medical History Past Medical History: GERD/Reflux, Hypertension, Osteoarthritis (OA), Thyroid Disorder Additional Past Medical History / Comment(s): Small bowel obstruction February 2016 and February 2018 History of Any Multi-Drug Resistant Organisms: None Reported Past Surgical History: Back Surgery, Breast Surgery, Hysterectomy Additional Past Surgical History / Comment(s): neck surgery cervical decompression and neck fusion, lumbar laminectomy right breast lumpectomy benign reasons colonoscopy at age 44 completed hysterectomy, laparoscopic followed by laparotomy and lysis of adhesions by Dr. Gomez in February 2016, robotic incisional hernia repair done by Dr. Mack at [place] in September Past Anesthesia/Blood Transfusion Reactions: Postoperative Nausea & Vomiting ( PONV) Past Psychological History: No Psychological Hx Reported Smoking Status: Never smoker Past Alcohol Use History: None Reported Past Drug Use History: None Reported - Past Family History Mother Family Medical History: GI Bleed, Hypertension, Thyroid Disorder Additional Family Medical History / Comment(s): Mother has history of diverticular disease. Father Family Medical History: Cancer, Coronary Artery Disease (CAD), CVA/TIA, Diabetes Mellitus, Neurologic Disorder Additional Family Medical History / Comment(s): Other has history of prostate cancer and previous CVA and neuropathy. Brother(s) Family Medical History: Hypertension Sister(s) Family Medical History: Hypertension, Thyroid Disorder Daughter(s) Family Medical History: No Reported History Additional Family Medical History / Comment(s): Obstructive sleep apnea Son(s) Family Medical History: No Reported History Medications and Allergies Home Medications Medication Instructions Recorded Confirmed Type Cyanocobalamin [Vitamin B-12] 500 mcg PO DAILY 01/06/15 03/16/18 History Levothyroxine Sodium [Synthroid] 75 mcg PO DAILY 01/06/15 03/16/18 History Multivitamins, Thera [Multivitamin 1 tab PO DAILY 01/06/15 03/16/18 History (formulary)] [place]-3 Fatty Acids/Fish Oil [Fish 1 cap PO DAILY 01/06/15 03/16/18 History Oil 1,000 mg Softgel] Potassium Gluconate 99 mg PO DAILY 01/06/15 03/16/18 History amLODIPine BESYLATE/BENAZEPRIL 1 cap PO DAILY 01/06/15 03/16/18 History [Lotrel 5-10 mg Capsule] Hydrochlorothiazide [Hydrodiuril] 25 mg PO DAILY 08/29/16 03/16/18 History L.acidoph,Paracasei, B.lactis 1 cap PO DAILY 08/29/16 03/16/18 History [Probiotic] Allergies Allergy/AdvReac Type Severity Reaction Status Date / Time No Known Allergies Allergy Verified 03/16/18 14:09 Physical Exam Vitals: Vital Signs Temp Pulse Resp BP BP Pulse Ox 03/24/18 08:39 70 84/53 03/24/18 05:41 98.0 F 86 18 86/48 96 03/24/18 02:20 64 14 89/46 03/24/18 01:03 68 74/44 03/23/18 23:14 71 74/47 03/23/18 22:20 71 74/50 95 03/23/18 21:07 97.0 F L 73 16 70/38 97 03/23/18 18:23 67 17 92/59 96 03/23/18 14:53 97.8 F 72 16 88/52 95 03/23/18 12:39 72 16 88/52 95 Intake and Output 07/03/24/18 03/24/18 22:59 06:59 14:59 Intake Total 1025 0 Output Total 425 100 Balance -425 925 0 Intake: IV 100 Ampicillin-Sulbactam 3 gm 100 In Sodium Chloride 0.9% 100 ml @ 100 mls/hr IVPB Q6H [facility] Rx#:[id number] Intake, IV Titration 875 0 Amount D5-0.45% NaCl with KCl 875 20Meq/l 1,000 ml @ 125 mls/hr IV .Q8H [facility] Rx#: [id number] Ropivacaine 300 mg 0 Hydromorphone (Pf) 5 mg In Sodium Chloride 0.9% 190 ml @ Per Protocol EPIDURAL .Q0M PRN Rx#: [id number] Oral 50 Output: Gastric Drainage 100 Urine 425 Other: Voiding Method Indwelling Catheter # Voids 1 Weight 65.2 kg On examination is she is awake alert oriented comfortable doesn't seem to be in any pain of course she has epidural still being maintained. HEENT exam JVP is noted about 3-4 cm about sternal angle no nodes neck is supple no facial asymmetry Heart sounds are unremarkable for any murmur rub gallop Lungs are clear to auscultation but her air entry is less than optimal no dullness to percussion. There may be an occasional coarse crackle at bases Abdomen is soft and nontender bowel sounds are absent Extreme exam was no edema Neurologically awake alert oriented. She is warm to touch in spite of pressure being in the 100 range. Results - Lab Results Most recent lab results Calcium 7.1 mg/dL (8.4-10.2) L 03/24/18 08:58 Phosphorus 2.1 mg/dL (2.5-4.5) L 03/18/18 05:37 Magnesium 1.8 mg/dL (1.6-2.3) 03/20/18 07:34 03/24/18 08:58 03/24/18 08:58 Assessment and Plan Assessment: Impression 1. Acute kidney injury secondary to hypotension, possibly volume depletion versus vasodilatory state from sepsis. 2. Rule out acute MA although doubt it. 3. Possibility of ureteral injury considered but unlikely. 4. Status post small bowel obstruction from adhesions, postop laparotomy with extensive lysis of adhesion, resection of terminal ileum and right colon and ileocolic colostomy. 5. Pelvic abscess per surgical note. 6. Likely atelectasis causing coarse crackles 7. 2.6 and mL cyst lower pole of the left kidney and a 7 mm midpole her right kidney lesion noted before supposedly per patient Recommendation. 1. We will change IV fluids to Ringer's lactate at 150 an hour with careful monitoring of lung status. 2. Will obtain chest x-ray to make sure there is no congestive changes as she has few crackles at bases but she is not breathing deeply enough for me to be comfortable. 3. Obtain 1 set of troponin to make sure there is no myocardial infarction to explain her low blood pressure 4. Continue antibiotics as per surgical and primary care for the pelvic abscess 5. Hold any blood pressure medication including the lisinopril 6. Bolus with normal saline 500 mL. 7. Check serum magnesium. 8. If she does not respond with improvement in her blood pressure and urine output will proceed with ultrasound of the kidneys to ensure there is no hydronephrosis Thank you for this consultation and will continue to follow.
--- NOTE | 2018-03-24 11:02 | XR ---
EXAMINATION TYPE: XR chest 1V DATE OF EXAM: 03/24/2018 HISTORY: fluid overload. REFERENCE: Previous study dated 03/20/2018. FINDINGS: There is been a previous ACDF in the lower cervical spine. An NG tube is been passed and its tip is in the stomach. The heart is mildly enlarged. There is minimal atelectasis in the left midlung. The right lung is nydia ar. Pleural spaces are clear. IMPRESSION: 1. MILD CARDIOMEGALY. 2. PLATELIKE ATELECTASIS, LEFT MIDLUNG.
[2018-03-24] MEDS: LACTATED RINGERS 1,000 ML IV SCH ×2 (11:44→19:30)
--- NOTE | 2018-03-24 12:19 | P.PN ---
Progress Note - Text Anesthesia POD 2. Status Post exploratory laparotomy, lysis of adhesions, and ileocolostomy under general endotracheal anesthesia with an epidrual catheter placed at T10 for post surgical pain releif. VAS (0, 3) with Ropivicaine 0.1 % and Dilaudid 20 mcg / cc running at 7 cc / hr. Lower extremity strength (4/4). Minimal sedation. Site looks OK.
[2018-03-24] MEDS: MULTIVITAMINS, THERA 1 EACH TAB PO SCH (13:35)
[2018-03-24] MEDS: PIPERACILLIN-TAZOBACTAM 3.375 GM in DEXTROSE/WATER 1 50ML.BAG IVPB SCH (19:30)
[2018-03-24] MEDS ORDERED: PIPERACILLIN-TAZOBACTAM 3.375 GM VIAL IVPB SCH (20:00)
[2018-03-25] MEDS: LACTATED RINGERS 1,000 ML IV SCH ×4 (06:06→15:33)
[2018-03-25] MEDS: LEVOTHYROXINE 75 MCG TAB PO SCH (06:58)
[2018-03-25 08:45] LABS: Basophils % (A) 1 %; Eosinophils # (A) 0.2 k/uL (0-0.7); Eosinophils % (A) 2 %; HCT 24.6 % (34.0-46.0); HGB 7.9 gm/dL (11.4-16.0); Hypochromasia Slight; Lymphocytes # (A) 1.3 k/uL (1.0-4.8); Lymphocytes % (A) 16 %; MCH 28.7 pg (25.0-35.0); MCHC 32.3 g/dL (31.0-37.0); MCV 88.8 fL (80.0-100.0); Mean Platelet Volume 6.3; Monocytes # (A) 0.4 k/uL (0-1.0); Monocytes % (A) 5 %; Neutrophils % (A) 73 %; Platelet Count 396 k/uL (150-450); RBC 2.77 m/uL (3.80-5.40); RDW 14.7 % (11.5-15.5); WBC 8.2 k/uL (3.8-10.6)
[2018-03-25] MEDS: FUROSEMIDE 10 MG/ML 2 ML VIAL IV SCH ×2 (08:51→20:32)
[2018-03-25] MEDS: PIPERACILLIN-TAZOBACTAM 3.375 GM in DEXTROSE/WATER 1 50ML.BAG IVPB SCH ×2 (08:54→20:32)
[2018-03-25] MEDS: amLODIPine 5 MG TAB PO SCH (08:57)
[2018-03-25 08:58] LABS: ALT 38 U/L (9-52); AST 27 U/L (14-36); Albumin 2.2 g/dL (3.5-5.0); Alkaline Phosphatase 63 U/L (38-126); Anion Gap 4 mmol/L; Blood Urea Nitrogen 16 mg/dL (7-17); Calcium 7.5 mg/dL (8.4-10.2); Carbon Dioxide 26 mmol/L (22-30); Chloride 107 mmol/L (98-107); Glucose 90 mg/dL (74-99); Potassium 4.3 mmol/L (3.5-5.1); Sodium 137 mmol/L (137-145); Total Bilirubin <0.1 mg/dL (0.2-1.3); Total Protein 4.4 g/dL (6.3-8.2)
[2018-03-25] MEDS: FAMOTIDINE 20 MG/2 ML VIAL IV SCH ×2 (08:59→20:32)
[2018-03-25] MEDS: ENOXAPARIN 40 MG/0.4 ML SYRINGE SQ SCH (09:00)
--- NOTE | 2018-03-25 09:41 | P.PN ---
Progress Note - Text Anesthesia POD 3. Status Post exploratory laparotomy, lysis of adhesions, and ileocolostomy under general endotracheal anesthesia with an epidrual catheter placed at T10 for post surgical pain releif. VAS (0, 3) with Ropivicaine 0.1 % and Dilaudid 20 mcg / cc running at 7 cc / hr. Lower extremity strength (4/4). No sedation. Site looks OK. Plan to discontinue the epidural this morning and institute alternative analgesia.
--- NOTE | 2018-03-25 10:01 | P.PN ---
Subjective Patient is seen in follow-up for acute kidney injury. Renal function is improved with creatinine of 0.9 today. Patient presented with abdominal pain and was noted to have small bowel obstruction. She underwent exploratory laparotomy with resection of terminal ileum and right colon with ileocolostomy in March 22. She still has an NG tube in place. Denies abdominal pain. She is nonoliguric. Vital signs are stable. General: The patient appeared well nourished and normally developed. HEENT: Head exam is unremarkable. Neck is without jugular venous distension. NG tube in place. LUNGS: Lungs are clear to auscultation and percussion. Breath sounds decreased. HEART: Rate and Rhythm are regular. First and second heart sounds normal. No murmurs, rubs or gallops. ABDOMEN: Decreased bowel sounds. EXTREMITITES: No clubbing, cyanosis, or edema. Objective - Vital Signs Vital signs: Vital Signs Temp 97.1 F L 03/25/18 05:00 Pulse 77 03/25/18 05:00 Resp 16 03/25/18 05:00 BP 129/62 03/25/18 05:00 Pulse Ox 96 03/25/18 05:00 Intake & Output 03/24/18 03/25/18 03/25/18 18:59 06:59 18:59 Intake Total 1903.2 525 Output Total 1475 250 Balance 428.2 275 Weight 65.2 kg Intake: IV 200 Ampicillin-Sulbactam 3 gm 200 In Sodium Chloride 0.9% 100 ml @ 100 mls/hr IVPB Q6H [facility] Rx#:[id number] Intake, IV Titration 1703.2 525 Amount D5-0.45% NaCl with KCl 250 20Meq/l 1,000 ml @ 125 mls/hr IV .Q8H [facility] Rx#: [id number] Lactated Ringers 1,000 ml 450 525 @ 150 mls/hr IV .Q6H40M [facility] Rx#:[id number] Ropivacaine 300 mg 3.2 Hydromorphone (Pf) 5 mg In Sodium Chloride 0.9% 190 ml @ Per Protocol EPIDURAL .Q0M PRN Rx#: [id number] Sodium Chloride 0.9% 500 1000 ml @ 999 mls/hr IV .Q31M [facility] Rx#:[id number] Output: Gastric Drainage 50 Urine 1475 200 Other: Voiding Method Indwelling Catheter Indwelling Catheter # Voids 1 - Labs CBC & Chem 7: 03/25/18 08:17 03/25/18 08:17 Labs: Abnormal Lab Results - Last 24 Hours (Table) 03/25/18 03/25/18 Range/Units 08:17 08:17 RBC 2.77 L (3.80-5.40) m/uL Hgb 7.9 L (11.4-16.0) gm/dL Hct 24.6 L (34.0-46.0) % Calcium 7.5 L (8.4-10.2) mg/dL Total Bilirubin <0.1 L (0.2-1.3) mg/dL Total Protein 4.4 L (6.3-8.2) g/dL Albumin 2.2 L (3.5-5.0) g/dL Microbiology - Last 24 Hours (Table) 03/22/18 19:00 Gram Stain - Preliminary Peritoneal Fluid Body Fluid Culture - Preliminary Escherichia coli Pseudomonas aeruginosa Assessment and Plan Plan: Assessment: 1. Nonoliguric acute kidney injury mostly prerenal secondary to hypotension. Resolved. 2. Small bowel obstruction status post exploratory laparotomy with resection of terminal ileum and right colon with ileocolostomy in March 22. 3. Hypotension related to hypovolemia. Improved with IV fluids. Plan: Decrease rate of LR to 100 mL an hour. Avoid nephrotoxins. Continue to hold antihypertensives and diuretics for now. Repeat electrolytes in the morning.
[2018-03-25] MEDS: MULTIVITAMINS, THERA 1 EACH TAB PO SCH (12:14)
--- NOTE | 2018-03-25 12:34 | P.PN ---
Subjective Progress Note Date: 03/25/18 Principal diagnosis: Small bowel obstruction Patient doing well today. Pain is well controlled with epidural. Creatinine is back to normal. She did have a small amount of flatus. She has ambulated. White blood cell count normal. Hemoglobin 7.9. Objective - Vital Signs Vital signs: Vital Signs Temp 97.1 F L 03/25/18 05:00 Pulse 77 03/25/18 07:55 Resp 16 03/25/18 07:55 BP 129/62 03/25/18 05:00 Pulse Ox 96 03/25/18 05:00 Intake & Output 03/24/18 03/25/18 03/25/18 18:59 06:59 18:59 Intake Total 1903.2 525 196.8 Output Total 1475 250 Balance 428.2 275 196.8 Weight 65.2 kg 65.2 kg Intake: IV 200 Ampicillin-Sulbactam 3 gm 200 In Sodium Chloride 0.9% 100 ml @ 100 mls/hr IVPB Q6H [facility] Rx#:[id number] Intake, IV Titration 1703.2 525 196.8 Amount D5-0.45% NaCl with KCl 250 20Meq/l 1,000 ml @ 125 mls/hr IV .Q8H [facility] Rx#: [id number] Lactated Ringers 1,000 ml 450 525 @ 150 mls/hr IV .Q6H40M [facility] Rx#:[id number] Ropivacaine 300 mg 3.2 196.8 Hydromorphone (Pf) 5 mg In Sodium Chloride 0.9% 190 ml @ Per Protocol EPIDURAL .Q0M PRN Rx#: [id number] Sodium Chloride 0.9% 500 1000 ml @ 999 mls/hr IV .Q31M [facility] Rx#:[id number] Output: Gastric Drainage 50 Urine 1475 200 Other: Voiding Method Indwelling Catheter Indwelling Catheter Indwelling Catheter # Voids 1 - Exam Abdomen: Soft, nondistended, incision clean and dry - Labs CBC & Chem 7: 03/25/18 08:17 03/25/18 08:17 Labs: Abnormal Lab Results - Last 24 Hours (Table) 03/25/18 03/25/18 Range/Units 08:17 08:17 RBC 2.77 L (3.80-5.40) m/uL Hgb 7.9 L (11.4-16.0) gm/dL Hct 24.6 L (34.0-46.0) % Calcium 7.5 L (8.4-10.2) mg/dL Total Bilirubin <0.1 L (0.2-1.3) mg/dL Total Protein 4.4 L (6.3-8.2) g/dL Albumin 2.2 L (3.5-5.0) g/dL Microbiology - Last 24 Hours (Table) 03/22/18 19:00 Gram Stain - Preliminary Peritoneal Fluid Body Fluid Culture - Preliminary Escherichia coli Pseudomonas aeruginosa Assessment and Plan (1) SBO (small bowel obstruction) Narrative/Plan: Continue IV antibiotics. We'll remove epidural. Keep [place] for now. Ambulate. Keep nasogastric tube. Current Visit: Yes Status: Acute Code(s): K56.609 - UNSP INTESTNL OBST, UNSP TO PARTIAL VERSUS COMPLETE OBST SNOMED Code(s): 483616964
--- NOTE | 2018-03-25 15:20 | P.CONS ---
History of Present Illness - Reason for Consult Consult date: 03/25/18 Infection in the peritoneum - History of Present Illness This is a 58-year-old female patient who initially was admitted on March 16 with complaints of nausea vomiting, low-grade fever on and off and not passing gas and no bowel movement. She was treated for a small bowel obstruction which was found on CT of the abdomen and pelvis. Patient was treated with conservative management with NG tube and had initially large amount of return of fluid. She was gradually progressed to have NG tube removed and clear liquids were started. She underwent a small bowel follow- through and subsequently an MR enterography to evaluate the terminal ileum and small bowel foreign body. 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 Evaluation for fistula is markedly limited secondary to extensive patient motion. Foreign body within the distal ileum was retrospectively been present on prior exams dating back to 2016 and couldn't represent a calcified ingestion substance patient then went for exploratory laparotomy with extensive lysis of adhesions and resection of the terminal terminal ileum with Dr. Gomez on Sunday, March 22. Over the weekend, patient developed acute kidney injury with a rise in her creatinine to 2.3 and subsequently down to 0.9. She was followed by nephrology. She had hypotension over the weekend as well that is also resolved. Her white count jumped up to 23.7 and repeat today is at 8.2. Chest x-ray done on March 24 showed mild cardiomegaly with platelike atelectasis. She had a drop in her hemoglobin from 14-7.9 and has not been transfused. Patient is using incentive spirometry to but only reaching 500. The abdominal pain that she had prior to the surgery is now gone. She has a epidural in place which she expects to have removed today. She states she ambulated in the hallway twice yesterday. She is passing gas but no bowel movement at this time. As a Davis catheter in place and has been voiding adequately. Antibiotics have been changed from Unasyn to Zosyn. Peritoneal fluid culture is positive for E. coli and Pseudomonas. Review of Systems All systems: negative Constitutional: Denies chills, Denies fever, Denies poor appetite Eyes: denies blurred vision, denies pain Ears, nose, mouth and throat: Denies headache, Denies sore throat Cardiovascular: Denies chest pain, Denies dyspnea on exertion, Denies shortness of breath Respiratory: Denies cough Gastrointestinal: Denies abdominal pain, Denies diarrhea, Denies nausea, Denies vomiting Genitourinary: Denies dysuria, Denies hematuria Musculoskeletal: Denies myalgias Integumentary: Denies pruritus, Denies rash Neurological: Denies numbness, Denies weakness Psychiatric: Denies anxiety, Denies depression Endocrine: Denies fatigue, Denies weight change Past Medical History Past Medical History: GERD/Reflux, Hypertension, Osteoarthritis (OA), Thyroid Disorder Additional Past Medical History / Comment(s): Small bowel obstruction February 2016 and February 2018 History of Any Multi-Drug Resistant Organisms: None Reported Past Surgical History: Back Surgery, Breast Surgery, Hysterectomy Additional Past Surgical History / Comment(s): neck surgery cervical decompression and neck fusion, lumbar laminectomy right breast lumpectomy benign reasons colonoscopy at age 44 completed hysterectomy, laparoscopic followed by laparotomy and lysis of adhesions by Dr. Gomez in February 2016, robotic incisional hernia repair done by Dr. Mack at [place] in September, exploratory laparotomy with extensive lysis of adhesions, resection of terminal ileum done February [address] Gomez Past Anesthesia/Blood Transfusion Reactions: Postoperative Nausea & Vomiting ( PONV) Past Psychological History: No Psychological Hx Reported Smoking Status: Never smoker Past Alcohol Use History: None Reported Past Drug Use History: None Reported - Past Family History Mother Family Medical History: GI Bleed, Hypertension, Thyroid Disorder Additional Family Medical History / Comment(s): Mother has history of diverticular disease. Father Family Medical History: Cancer, Coronary Artery Disease (CAD), CVA/TIA, Diabetes Mellitus, Neurologic Disorder Additional Family Medical History / Comment(s): Other has history of prostate cancer and previous CVA and neuropathy. Brother(s) Family Medical History: Hypertension Sister(s) Family Medical History: Hypertension, Thyroid Disorder Daughter(s) Family Medical History: No Reported History Additional Family Medical History / Comment(s): Obstructive sleep apnea Son(s) Family Medical History: No Reported History Medications and Allergies Home Medications Medication Instructions Recorded Confirmed Type Cyanocobalamin [Vitamin B-12] 500 mcg PO DAILY 01/06/15 03/16/18 History Levothyroxine Sodium [Synthroid] 75 mcg PO DAILY 01/06/15 03/16/18 History Multivitamins, Thera [Multivitamin 1 tab PO DAILY 01/06/15 03/16/18 History (formulary)] [place]-3 Fatty Acids/Fish Oil [Fish 1 cap PO DAILY 01/06/15 03/16/18 History Oil 1,000 mg Softgel] Potassium Gluconate 99 mg PO DAILY 01/06/15 03/16/18 History amLODIPine BESYLATE/BENAZEPRIL 1 cap PO DAILY 01/06/15 03/16/18 History [Lotrel 5-10 mg Capsule] Hydrochlorothiazide [Hydrodiuril] 25 mg PO DAILY 08/29/16 03/16/18 History L.acidoph,Paracasei, B.lactis 1 cap PO DAILY 08/29/16 03/16/18 History [Probiotic] Allergies Allergy/AdvReac Type Severity Reaction Status Date / Time No Known Allergies Allergy Verified 03/16/18 14:09 Physical Exam Vitals: Vital Signs Temp Pulse Resp BP BP Pulse Ox 03/25/18 07:55 77 16 03/25/18 05:00 97.1 F L 77 16 129/62 96 03/25/18 02:01 73 129/73 03/24/18 22:24 98 F 74 16 109/60 100 03/24/18 15:08 98.2 F 80 16 109/59 98 Intake and Output 03/24/18 03/25/18 03/25/18 22:59 06:59 14:59 Intake Total 525 196.8 Output Total 1000 50 Balance -475 -50 196.8 Intake: Intake, IV Titration 525 196.8 Amount Lactated Ringers 1,000 ml 525 @ 150 mls/hr IV .Q6H40M [facility] Rx#:[id number] Ropivacaine 300 mg 196.8 Hydromorphone (Pf) 5 mg In Sodium Chloride 0.9% 190 ml @ Per Protocol EPIDURAL .Q0M PRN Rx#: [id number] Output: Gastric Drainage 50 Urine 1000 Other: Voiding Method Indwelling Catheter Indwelling Catheter Indwelling Catheter # Voids 1 Weight 65.2 kg 65.2 kg Gen: This is a 58-year-old female. She is seen in bed and appears to be comfortable and in no acute distress. No respiratory distress is noted. HEENT: Head is atraumatic, normocephalic. Pupils equal, round. Sclerae is anicteric. Conjunctiva pink. Mucous membranes of the mouth are slightly dry. Dentition is in good order. NG tube in place. NECK: Supple. No JVD. No lymphadenopathy. No thyromegaly. LUNGS: Clear to auscultation. No wheezes or rhonchi. No intercostal retractions. HEART: Regular rate and rhythm. No murmur. ABDOMEN: Soft. Bowel sounds are present. No masses. No significant tenderness. Dressing in place to the midline with dried breakthrough bleeding. This is the initial dressing. No surrounding erythema. Davis catheter in place draining annmarie urine. EXTREMITIES: No pedal edema. No calf tenderness. Dorsalis pedis is +2 bilaterally. NEUROLOGICAL: Patient is awake, alert and oriented x3. Cranial nerves 2 through 12 are grossly intact. Results Results: Laboratory Results WBC 8.2 k/uL (3.8-10.6) 03/25/18 08:17 RBC 2.77 m/uL (3.80-5.40) L 03/25/18 08:17 Hgb 7.9 gm/dL (11.4-16.0) L 03/25/18 08:17 Hct 24.6 % (34.0-46.0) L 03/25/18 08:17 MCV 88.8 fL (80.0-100.0) 03/25/18 08:17 MCH 28.7 pg (25.0-35.0) 03/25/18 08:17 MCHC 32.3 g/dL (31.0-37.0) 03/25/18 08:17 RDW 14.7 % (11.5-15.5) 03/25/18 08:17 Plt Count 396 k/uL (150-450) 03/25/18 08:17 Neutrophils % (Manual) 85 % 03/16/18 12:10 Lymphocytes % (Manual) 8 % 03/16/18 12:10 Monocytes % (Manual) 6 % 03/16/18 12:10 Eosinophils % (Manual) 1 % 03/16/18 12:10 Neutrophils % 73 % 03/25/18 08:17 Lymphocytes % 16 % 03/25/18 08:17 Monocytes % 5 % 03/25/18 08:17 Neutrophils # (Manual) 22.44 k/uL (1.3-7.7) H 03/16/18 12:10 Eosinophils % 2 % 03/25/18 08:17 Basophils % 1 % 03/25/18 08:17 Lymphocytes # (Manual) 2.11 k/uL (1.0-4.8) 03/16/18 12:10 Neutrophils # 6.0 k/uL (1.3-7.7) 03/25/18 08:17 Monocytes # (Manual) 1.58 k/uL (0-1.0) H 03/16/18 12:10 Eosinophils # (Manual) 0.26 k/uL (0-0.7) 03/16/18 12:10 Lymphocytes # 1.3 k/uL (1.0-4.8) 03/25/18 08:17 Monocytes # 0.4 k/uL (0-1.0) 03/25/18 08:17 Eosinophils # 0.2 k/uL (0-0.7) 03/25/18 08:17 Basophils # 0.0 k/uL (0-0.2) 03/25/18 08:17 Nucleated RBCs 0 /100 WBC (0-0) 03/16/18 12:10 Toxic Granulation Present 03/16/18 12:10 Polychromasia Present 03/16/18 12:10 Hypochromasia Slight 03/25/18 08:17 ESR 60 mm/hr (0-20) H 03/20/18 07:34 Sodium 137 mmol/L (137-145) 03/25/18 08:17 Potassium 4.3 mmol/L (3.5-5.1) 03/25/18 08:17 Chloride 107 mmol/L (98-107) 03/25/18 08:17 Carbon Dioxide 26 mmol/L (22-30) 03/25/18 08:17 Anion Gap 4 mmol/L 03/25/18 08:17 BUN 16 mg/dL (7-17) 03/25/18 08:17 Creatinine 0.91 mg/dL (0.52-1.04) 03/25/18 08:17 Est GFR (CKD-EPI)AfAm 80 (>60 ml/min/1.73 sqM) 03/25/18 08:17 Est GFR (CKD-EPI)NonAf 69 (>60 ml/min/1.73 sqM) 03/25/18 08:17 Glucose 90 mg/dL (74-99) 03/25/18 08:17 Plasma Lactic Acid Adam 1.1 mmol/L (0.7-2.0) 03/16/18 12:10 Calcium 7.5 mg/dL (8.4-10.2) L 03/25/18 08:17 Phosphorus 2.1 mg/dL (2.5-4.5) L 03/18/18 05:37 Magnesium 1.9 mg/dL (1.6-2.3) 03/24/18 08:58 Total Bilirubin <0.1 mg/dL (0.2-1.3) L 03/25/18 08:17 AST 27 U/L (14-36) 03/25/18 08:17 ALT 38 U/L (9-52) 03/25/18 08:17 Alkaline Phosphatase 63 U/L (38-126) 03/25/18 08:17 Total Creatine Kinase 34 U/L (30-135) 03/16/18 12:10 CK-MB (CK-2) 1.2 ng/mL (0.0-2.4) 03/16/18 12:10 CK-MB (CK-2) Rel Index 3.5 03/16/18 12:10 Troponin I <0.012 ng/mL (0.000-0.034) 03/24/18 08:58 C-Reactive Protein 175.9 mg/L (<10.0) H 03/20/18 07:34 Total Protein 4.4 g/dL (6.3-8.2) L 03/25/18 08:17 Albumin 2.2 g/dL (3.5-5.0) L 03/25/18 08:17 Amylase 53 U/L (30-110) 03/16/18 12:10 Lipase 44 U/L (23-300) 03/16/18 12:10 Urine Color Yellow 03/16/18 13:05 Urine Appearance Clear (Clear) 03/16/18 13:05 Urine pH 6.5 (5.0-8.0) 03/16/18 13:05 Ur Specific [place] >1.050 (1.001-1.035) H 03/16/18 13:05 Urine Protein 1+ (Negative) H 03/16/18 13:05 Urine Glucose (UA) Negative (Negative) 03/16/18 13:05 Urine Ketones Trace (Negative) H 03/16/18 13:05 Urine Blood Negative (Negative) 03/16/18 13:05 Urine Nitrite Negative (Negative) 03/16/18 13:05 Urine Bilirubin Negative (Negative) 03/16/18 13:05 Urine Urobilinogen <2.0 mg/dL (<2.0) 03/16/18 13:05 Ur Leukocyte Esterase Negative (Negative) 03/16/18 13:05 Urine RBC 1 /hpf (0-5) 03/16/18 13:05 Urine WBC 5 /hpf (0-5) 03/16/18 13:05 Urine Bacteria Rare /hpf (None) H 03/16/18 13:05 Stool Lactoferrin POSITIVE (NEGATIVE) H 03/20/18 18:00 c-ANCA <1:20 Titer (<1:20) 03/20/18 07:34 p-ANCA <1:20 Titer (<1:20) 03/20/18 07:34 S.cerevisiae IgG Ab 4.2 UNITS (<=20) 03/20/18 07:34 S.cerevisiae IgA Ab 3.2 UNITS (<=20) 03/20/18 07:34 Blood Type A Negative 03/22/18 09:32 Blood Type Recheck No 03/22/18 09:32 Antibody Screen NEGATIVE 03/22/18 09:32 Crossmatch See Detail 03/22/18 09:32 Spec Expiration Date 03/25/2018233103/22/18 09:32 CBC & Chem 7: 03/25/18 08:17 03/25/18 08:17 Labs: Abnormal Lab Results - Last 24 Hours (Table) 03/25/18 03/25/18 Range/Units 08:17 08:17 RBC 2.77 L (3.80-5.40) m/uL Hgb 7.9 L (11.4-16.0) gm/dL Hct 24.6 L (34.0-46.0) % Calcium 7.5 L (8.4-10.2) mg/dL Total Bilirubin <0.1 L (0.2-1.3) mg/dL Total Protein 4.4 L (6.3-8.2) g/dL Albumin 2.2 L (3.5-5.0) g/dL Microbiology - Last 24 Hours (Table) 03/22/18 19:00 Gram Stain - Preliminary Peritoneal Fluid Body Fluid Culture - Preliminary Escherichia coli Pseudomonas aeruginosa Assessment and Plan Plan: This is a 58-year-old female patient who presented with bowel obstruction is now status post exploratory laparotomy with extensive lysis of adhesions and resection of the terminal ileum with concern for peritonitis. Antibiotics have been changed from Unasyn to Zosyn which will be continued. Fluid culture was positive for E. coli and pseudomonas aeruginosa. Patient showing improvement of her sepsis with normal white count and blood pressure. Patient has also recovered from acute kidney injury. She is noted to have some acute blood loss anemia which is being monitored. Chest x-ray does show a platelike atelectasis and patient is aware she needs to continue to frequently use incentive spirometry. Continue supportive care. Further recommendations as patient progresses. The above dictated assessment and findings were discussed with Dr. Parker. The impression and plan of care have been directed as dictated. Tomasa Chi nurse practitioner acting as scribe for Dr. Parker.
[2018-03-25] MEDS: MORPHINE SULFATE 4 MG/ML SYRINGE IVP PRN ×2 (15:32→20:32)
--- NOTE | 2018-03-25 15:32 | P.PN ---
Subjective Progress Note Date: 03/25/18 This is a 58-year-old female patient of Dr. Cross and also Dr. Gomez with past medical history of hypertension, hypothyroidism, hysterectomy for benign reasons, previous small bowel obstruction secondary to intra- abdominal adhesions status post diagnostic laparoscopic followed by laparotomy and lysis of adhesions in February 2016. She has also had robotic incisional hernia repair done by Dr. Mack at [place] in September. Patient states that she had sudden onset of severe abdominal pain with nausea and vomiting and low- grade fever off and on up to 100.4 since Sunday. She states she was not passing gas and was not having a bowel movement. Patient came into [facility] emergency center for evaluation. She was afebrile, vital signs stable. She presented with leukocytosis of 26.4, creatinine 0.7 and BUN 21. Hemoglobin 14.2. Lactic acid 1.1, troponin negative. Urinalysis was clear with nitrate and leukoesterase negative. She underwent a CAT scan of the abdomen and pelvis with contrast that revealed distal small bowel obstruction, possibility of gallstone ileus, platelike atelectasis in both lung bases, stable cyst in the left kidney, degenerative changes within the spine. Patient was started on Unasyn, Zofran for nausea and morphine for pain control and admitted under the care of Dr. Uriarte. Patient is currently nothing by mouth with NG tube in place with a large amount of return fluid. 03/18: Patient remains with NG tube in place draining dark green liquid. We have asked for repeat abdominal x-ray. Patient is using her incentive spirometry at 1250 ML's. 03/19: Patient has been afebrile. Noted the patient drop her pulse ox in the 80s and is on O2 at 2 L nasal cannula. Patient denies any shortness of breath. She did have a bowel movement this morning. NG tube remains in place with decreased output. IV fluids will be decreased to 75 mL. Patient is stating that she is having trouble using the incentive spirometry. Slight elevated heart rate. She is scheduled for small bowel follow-through today. 03/20: Dr. Gomez has had NG tube removed and started on clear liquids. GI consult was admitted to evaluate for possible Crohn's disease. Tentative plan for outpatient MR enterography to evaluate terminal ileum and reevaluate for small bowel foreign-body. Home medication list reviewed and patient placed back on some of her home meds. Patient has been ambulating well in the hallway. Her pulse ox did drop down to 88%. Her incentive spirometry is only 500 and then she developed pressure in the middle of her abdomen and pain in the right side. Repeat chest x-ray will be ordered. IV fluids have been discontinued and patient will be given 1 dose of IV Lasix. She does not appear to be hypoxic or in any respiratory distress. 03/21: Repeat pulse ox yesterday afternoon from her ear revealed 94-95%. Patient again has no respiratory distress. She states she is using her incentive spirometry but mostly only reaching 500 and sometimes up 1000. Her lower extremity edema is improved. We will continue her on IV Lasix and potassium. Chest x-ray from yesterday showed pulmonary edema. She continues to have right sided abdominal sharp pain that comes and goes and feels better when she applies pressure. She is currently tolerating a full liquid diet. C- reactive protein is elevated at 175.9, sed rate elevated at 60. Other lab work pending. GI has ordered MRI enterography. 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 Evaluation for fistula is markedly limited secondary to extensive patient motion. Foreign body within the distal ileum has retrospectively been present on prior exams dating back to 07/05/2017 and could represent calcified ingested substance or calcified inspissated secretions within the diverticulum. Considering its presence on retrospective exams gallstone ileus is excluded. Dr. Gomez is planning for exploratory laparotomy with resection of the terminal ileum and remove small bowel foreign- body. 03/23: Patient went for surgery yesterday with Dr. Starks ended up having right- sided partial colectomy with mild many adhesion and few complication during surgery. According to him highly suspected for Crohn disease of the biopsies back will continue current management for now. Also patient had acute kidney injury with creatinine climb up through the night will continue hydration continue to watch her urine output for now. 03/24: Patient is feeling slightly but better, much worse kidney function compared to yesterday despite the hydration full catheter she is not making much urine. We'll consult nephrology and if need urology can be involved especially of this is for any reason surgical-related complication. We discussed with Dr. Gomez whether patient need to go for a CAT scan of the abdomen for further diagnosis of the reason why this acute kidney failure to place beside having a prerenal condition with the complication related to sepsis , hypotension and, surgery. Nephrology were notified of the consult and if the general opinion that we need to see urology will do the consult 03/25: BUN 16 and creatinine 0.91, hemoglobin 7.9 and white count is 8.2. Pressure readings are improved from the weekend. Peritoneal fluid is positive for E. coli and pseudomonas. Patient has been seen by Dr. Parker with plan for continued Zosyn. Chest x-ray done on March 24 showed mild cardiomegaly with platelike atelectasis. Patient is using incentive spirometry to but only reaching 500. The abdominal pain that she had prior to the surgery is now gone. She has a epidural in place which she expects to have removed today. She states she ambulated in the hallway twice yesterday. She is passing gas but no bowel movement at this time. NG tube remains in place. Davis catheter in place with adequate output. Levothyroxine changed to IV. Objective - Vital Signs Vital signs: Vital Signs Temp 97.1 F L 03/25/18 05:00 Pulse 77 03/25/18 07:55 Resp 16 03/25/18 07:55 BP 129/62 03/25/18 05:00 Pulse Ox 96 03/25/18 05:00 Intake & Output 03/24/18 03/25/18 03/25/18 18:59 06:59 18:59 Intake Total 1903.2 525 196.8 Output Total 1475 250 Balance 428.2 275 196.8 Weight 65.2 kg 65.2 kg Intake: IV 200 Ampicillin-Sulbactam 3 gm 200 In Sodium Chloride 0.9% 100 ml @ 100 mls/hr IVPB Q6H [facility] Rx#:[id number] Intake, IV Titration 1703.2 525 196.8 Amount D5-0.45% NaCl with KCl 250 20Meq/l 1,000 ml @ 125 mls/hr IV .Q8H [facility] Rx#: [id number] Lactated Ringers 1,000 ml 450 525 @ 150 mls/hr IV .Q6H40M [facility] Rx#:[id number] Ropivacaine 300 mg 3.2 196.8 Hydromorphone (Pf) 5 mg In Sodium Chloride 0.9% 190 ml @ Per Protocol EPIDURAL .Q0M [facility] Rx#: [id number] Sodium Chloride 0.9% 500 1000 ml @ 999 mls/hr IV .Q31M [facility] Rx#:[id number] Output: Gastric Drainage 50 Urine 1475 200 Other: Voiding Method Indwelling Catheter Indwelling Catheter Indwelling Catheter # Voids 1 - Exam Gen: This is a 58-year-old female. Patient walking in her room and appears to be comfortable and in no acute distress. HEENT: Head is atraumatic, normocephalic. Pupils equal, round. Sclerae is anicteric. NG tube is in place. NECK: Supple. No JVD. No lymphadenopathy. No thyromegaly. LUNGS: Clear to auscultation. No wheezes or rhonchi. No intercostal retractions. HEART: Regular rate and rhythm. No murmur. ABDOMEN: Soft. Bowel sounds present. No masses. No significant tenderness. Dressing in place to the midline with dried breakthrough bleeding. This is the initial dressing. No surrounding erythema. Davis catheter in place draining annmarie urine. EXTREMITIES: No pedal edema. No calf tenderness. Dorsalis pedis palpable bilaterally. NEUROLOGICAL: Patient is awake, alert and oriented x3. Cranial nerves 2 through 12 are grossly intact. - Labs CBC & Chem 7: 03/25/18 08:17 03/25/18 08:17 Labs: Abnormal Lab Results - Last 24 Hours (Table) 03/25/18 03/25/18 Range/Units 08:17 08:17 RBC 2.77 L (3.80-5.40) m/uL Hgb 7.9 L (11.4-16.0) gm/dL Hct 24.6 L (34.0-46.0) % Calcium 7.5 L (8.4-10.2) mg/dL Total Bilirubin <0.1 L (0.2-1.3) mg/dL Total Protein 4.4 L (6.3-8.2) g/dL Albumin 2.2 L (3.5-5.0) g/dL Microbiology - Last 24 Hours (Table) 03/22/18 19:00 Gram Stain - Preliminary Peritoneal Fluid Body Fluid Culture - Preliminary Escherichia coli Pseudomonas aeruginosa Assessment and Plan Plan: 1. Severe abdominal pain secondary to small bowel obstructions from adhesions, peritonitis. Patient is status post exploratory laparotomy and lysis of adhesions and resection of the terminal ileum and right colon. NG tube in place , epidural to be removed today, Davis catheter in place. Continue current pain management. Continue incentive spirometry. Patient is currently on Zosyn. Consult with Dr. Parker appreciated. 2. Acute kidney injury secondary to hypotension, recovered. Consult with nephrology is appreciated. 3. Hypotension secondary to hypovolemia. Continue fluid resuscitation for now keep watching the blood pressure, hopefully improving the blood pressure will improve the kidney function as well. 4. Acute blood loss anemia. Continue to monitor. No plan for transfusion at this time. 5. Vitamin B12 deficiency and chronic anemia.. 6. Pulmonary prophylaxis and atelectasis. Incentive spirometry. 7. Hypoxemia secondary to atelectasis and pulmonary edema from IV fluids. No history of heart failure. IV Lasix ordered. 8. Hypothyroidism. Resume levothyroxine 37 g daily IV. 9. GI prophylaxis. Protonix. 10. DVT prophylaxis. Lovenox. CODE STATUS: Full code. Discharge plan: Return home Impression and plan of care have been directed as dictated by the signing physician. Tomasa Chi nurse practitioner acting as scribe for signing physician.
--- NOTE | 2018-03-25 22:26 | P.CON ---
Consult Note - . Consult date: 03/25/18 Assessment/Plan:: This is a 58-year-old female patient who initially was admitted on March 16 with complaints of nausea vomiting, low-grade fever on and off and not passing gas and no bowel movement. She was treated for a small bowel obstruction which was found on CT of the abdomen and pelvis. Patient was treated with conservative management with NG tube and had initially large amount of return of fluid. She was gradually progressed to have NG tube removed and clear liquids were started. She underwent a small bowel follow- through and subsequently an MR enterography to evaluate the terminal ileum and small bowel foreign body. 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 Evaluation for fistula is markedly limited secondary to extensive patient motion. Foreign body within the distal ileum was retrospectively been present on prior exams dating back to 2016 and couldn't represent a calcified ingestion substance patient then went for exploratory laparotomy with extensive lysis of adhesions and resection of the terminal terminal ileum with Dr. Gomez on Sunday, March 22. Over the weekend, patient developed acute kidney injury with a rise in her creatinine to 2.3 and subsequently down to 0.9. She was followed by nephrology. She had hypotension over the weekend as well that is also resolved. Her white count jumped up to 23.7 and repeat today is at 8.2. Chest x-ray done on March 24 showed mild cardiomegaly with platelike atelectasis. She had a drop in her hemoglobin from 14-7.9 and has not been transfused. Patient is using incentive spirometry to but only reaching 500. The abdominal pain that she had prior to the surgery is now gone. She has a epidural in place which she expects to have removed today. She states she ambulated in the hallway twice yesterday. She is passing gas but no bowel movement at this time. As a Davis catheter in place and has been voiding adequately. Antibiotics have been changed from Unasyn to Zosyn. Peritoneal fluid culture is positive for E. coli and Pseudomonas. Please see the consult note as dictated by nurse practitioner Mrs. Tomasa Chi. At this time this pleasant woman has had a significant Occasions during this hospital stay which was Complicated by an acute renal injury and leukocytosis.. She was taken to the operating room where she underwent a lysis of adhesions and resection of the terminal ileum. She is now having some improvement however she's had leukocytosis low-grade temperatures in the peritoneal culture did show evidence of Pseudomonas and constantly anti-antibiotic therapy was altered to Zosyn from Unasyn for further coverage. If she improves we will determine if there are options for transition to oral antibiotic therapy when she has regained bowel function and is able to take in oral medications. She fortunately is quite comfortable at this point in time, and denies new troubles. I evaluation, assessment and plan as dictated by nurse practitioner Mrs. Tomasa Chi.
[2018-03-26] MEDS: MORPHINE SULFATE 4 MG/ML SYRINGE IVP PRN ×4 (01:46→21:06)
[2018-03-26] MEDS: PIPERACILLIN-TAZOBACTAM 3.375 GM in DEXTROSE/WATER 1 50ML.BAG IVPB SCH ×2 (07:38→20:30)
[2018-03-26] MEDS: FUROSEMIDE 10 MG/ML 2 ML VIAL IV SCH ×2 (07:38→20:30)
[2018-03-26] MEDS: LEVOTHYROXINE IVP 100 MCG/5 ML VIAL IV SCH (07:38)
[2018-03-26] MEDS: ENOXAPARIN 40 MG/0.4 ML SYRINGE SQ SCH (07:38)
[2018-03-26 08:03] LABS: HGB 8.5 gm/dL (11.4-16.0); MCH 26.9 pg (25.0-35.0); MCHC 31.6 g/dL (31.0-37.0); MCV 85.3 fL (80.0-100.0); Mean Platelet Volume 6.6; Platelet Count 480 k/uL (150-450); RBC 3.17 m/uL (3.80-5.40); RDW 14.2 % (11.5-15.5); WBC 8.9 k/uL (3.8-10.6)
[2018-03-26 08:18] LABS: Anion Gap 10 mmol/L; Blood Urea Nitrogen 9 mg/dL (7-17); Carbon Dioxide 24 mmol/L (22-30); Chloride 101 mmol/L (98-107); Glucose 86 mg/dL (74-99); Magnesium 1.9 mg/dL (1.6-2.3); Sodium 135 mmol/L (137-145)
[2018-03-26] MEDS: amLODIPine 5 MG TAB PO SCH (09:17)
[2018-03-26] MEDS: FAMOTIDINE 20 MG/2 ML VIAL IV SCH ×2 (10:10→20:29)
[2018-03-26] MEDS: MULTIVITAMINS, THERA 1 EACH TAB PO SCH (11:35)
--- NOTE | 2018-03-26 11:44 | P.PN ---
Subjective Patient is seen in follow-up for acute kidney injury. Renal function is improved with creatinine of 0.8 today. Patient presented with abdominal pain and was noted to have small bowel obstruction. She underwent exploratory laparotomy with resection of terminal ileum and right colon with ileocolostomy in March 22. She still has an NG tube in place. Denies abdominal pain. She is nonoliguric. Still no bowel movement. Vital signs are stable. General: The patient appeared well nourished and normally developed. HEENT: Head exam is unremarkable. Neck is without jugular venous distension. NG tube in place. LUNGS: Lungs are clear to auscultation and percussion. Breath sounds decreased. HEART: Rate and Rhythm are regular. First and second heart sounds normal. No murmurs, rubs or gallops. ABDOMEN: Decreased bowel sounds. EXTREMITITES: No clubbing, cyanosis, or edema. Objective - Vital Signs Vital signs: Vital Signs Temp 97.2 F L 03/26/18 05:15 Pulse 84 03/26/18 05:15 Resp 16 03/26/18 05:15 BP 154/87 03/26/18 05:15 Pulse Ox 93 L 03/26/18 05:15 Intake & Output 03/25/18 03/26/18 03/26/18 18:59 06:59 18:59 Intake Total 1246.8 1225 Output Total 400 1625 1950 Balance 846.8 -400 -1950 Weight 65.2 kg Intake: Intake, IV Titration 1246.8 1175 Amount Lactated Ringers 1,000 ml 1125 @ 0 mls/hr IV .[facility] Rx#:[id number] Lactated Ringers 1,000 ml 1000 @ 100 mls/hr IV .Q10H [facility] Rx#:[id number] Piperacillin-Tazobactam 3 50 50 .375 gm In Dextrose/Water 1 50ml.bag @ 12.5 mls/hr IVPB Q12HR [facility] Rx#: [id number] Ropivacaine 300 mg 196.8 Hydromorphone (Pf) 5 mg In Sodium Chloride 0.9% 190 ml @ Per Protocol EPIDURAL .Q0M PRN Rx#: [id number] Oral 50 Output: Urine 400 1600 1950 Uretheral (Davis) 400 600 Stool 25 Other: Voiding Method Indwelling Catheter Indwelling Catheter Indwelling Catheter - Labs CBC & Chem 7: 03/26/18 07:32 03/26/18 07:32 Labs: Abnormal Lab Results - Last 24 Hours (Table) 03/26/18 03/26/18 Range/Units 07:32 07:32 RBC 3.17 L (3.80-5.40) m/uL Hgb 8.5 L (11.4-16.0) gm/dL Hct 27.0 L (34.0-46.0) % Plt Count 480 H (150-450) k/uL Sodium 135 L (137-145) mmol/L Calcium 8.0 L (8.4-10.2) mg/dL Microbiology - Last 24 Hours (Table) 03/22/18 19:00 Gram Stain - Preliminary Peritoneal Fluid Body Fluid Culture - Preliminary Escherichia coli Pseudomonas aeruginosa Non Hemolytic Strep 03/22/18 19:00 Anaerobic Culture - Final Peritoneal Fluid Anaerobic Gm Negative Bacilli Assessment and Plan Plan: Assessment: 1. Nonoliguric acute kidney injury mostly prerenal secondary to hypotension. Resolved. 2. Small bowel obstruction status post exploratory laparotomy with resection of terminal ileum and right colon with ileocolostomy in March 22. 3. Hypotension related to hypovolemia. Improved with IV fluids. Plan: Decrease rate of LR to 60 mL an hour. Avoid nephrotoxins. Repeat electrolytes in the morning.
[2018-03-26] MEDS: LACTATED RINGERS 1,000 ML IV SCH (12:03)
--- NOTE | 2018-03-26 12:51 | P.PN ---
Subjective Progress Note Date: 03/26/18 Principal diagnosis: Small bowel obstruction Patient doing well today. Still passing flatus. No bowel movement. Pain is well-controlled. Labs are noted. Hemoglobin increased to 8.5. Creatinine now normal. Objective - Vital Signs Vital signs: Vital Signs Temp 97.2 F L 03/26/18 05:15 Pulse 84 03/26/18 05:15 Resp 16 03/26/18 05:15 BP 154/87 03/26/18 05:15 Pulse Ox 93 L 03/26/18 05:15 Intake & Output 03/25/18 03/26/18 03/26/18 18:59 06:59 18:59 Intake Total 1246.8 1225 Output Total 400 1625 1950 Balance 846.8 -400 -1950 Weight 65.2 kg Intake: Intake, IV Titration 1246.8 1175 Amount Lactated Ringers 1,000 ml 1125 @ 0 mls/hr IV .[facility] Rx#:[id number] Lactated Ringers 1,000 ml 1000 @ 100 mls/hr IV .Q10H [facility] Rx#:[id number] Piperacillin-Tazobactam 3 50 50 .375 gm In Dextrose/Water 1 50ml.bag @ 12.5 mls/hr IVPB Q12HR [facility] Rx#: [id number] Ropivacaine 300 mg 196.8 Hydromorphone (Pf) 5 mg In Sodium Chloride 0.9% 190 ml @ Per Protocol EPIDURAL .Q0M PRN Rx#: [id number] Oral 50 Output: Urine 400 1600 1950 Uretheral (Davis) 400 600 Stool 25 Other: Voiding Method Indwelling Catheter Indwelling Catheter Indwelling Catheter - Exam Abdomen: Soft, nondistended, incision with small amount of serosanguineous drainage at beth sites, mild tenderness - Labs CBC & Chem 7: 03/26/18 07:32 03/26/18 07:32 Labs: Abnormal Lab Results - Last 24 Hours (Table) 03/26/18 03/26/18 Range/Units 07:32 07:32 RBC 3.17 L (3.80-5.40) m/uL Hgb 8.5 L (11.4-16.0) gm/dL Hct 27.0 L (34.0-46.0) % Plt Count 480 H (150-450) k/uL Sodium 135 L (137-145) mmol/L Calcium 8.0 L (8.4-10.2) mg/dL Microbiology - Last 24 Hours (Table) 03/22/18 19:00 Gram Stain - Preliminary Peritoneal Fluid Body Fluid Culture - Preliminary Escherichia coli Pseudomonas aeruginosa Non Hemolytic Strep 03/22/18 19:00 Anaerobic Culture - Final Peritoneal Fluid Anaerobic Gm Negative Bacilli Assessment and Plan (1) SBO (small bowel obstruction) Narrative/Plan: Will remove Davis catheter and epidural at this time. Ambulate. Continue local wound care. Current Visit: Yes Status: Acute Code(s): K56.609 - UNSP INTESTNL OBST, UNSP TO PARTIAL VERSUS COMPLETE OBST SNOMED Code(s): 145389125
--- NOTE | 2018-03-26 15:18 | P.PN ---
Subjective Progress Note Date: 03/26/18 This is a 58-year-old female patient of Dr. Cross and also Dr. Gomez with past medical history of hypertension, hypothyroidism, hysterectomy for benign reasons, previous small bowel obstruction secondary to intra- abdominal adhesions status post diagnostic laparoscopic followed by laparotomy and lysis of adhesions in February 2016. She has also had robotic incisional hernia repair done by Dr. Mack at [place] in September. Patient states that she had sudden onset of severe abdominal pain with nausea and vomiting and low- grade fever off and on up to 100.4 since Sunday. She states she was not passing gas and was not having a bowel movement. Patient came into [facility] emergency center for evaluation. She was afebrile, vital signs stable. She presented with leukocytosis of 26.4, creatinine 0.7 and BUN 21. Hemoglobin 14.2. Lactic acid 1.1, troponin negative. Urinalysis was clear with nitrate and leukoesterase negative. She underwent a CAT scan of the abdomen and pelvis with contrast that revealed distal small bowel obstruction, possibility of gallstone ileus, platelike atelectasis in both lung bases, stable cyst in the left kidney, degenerative changes within the spine. Patient was started on Unasyn, Zofran for nausea and morphine for pain control and admitted under the care of Dr. Uriarte. Patient is currently nothing by mouth with NG tube in place with a large amount of return fluid. 03/18: Patient remains with NG tube in place draining dark green liquid. We have asked for repeat abdominal x-ray. Patient is using her incentive spirometry at 1250 ML's. 03/19: Patient has been afebrile. Noted the patient drop her pulse ox in the 80s and is on O2 at 2 L nasal cannula. Patient denies any shortness of breath. She did have a bowel movement this morning. NG tube remains in place with decreased output. IV fluids will be decreased to 75 mL. Patient is stating that she is having trouble using the incentive spirometry. Slight elevated heart rate. She is scheduled for small bowel follow-through today. 03/20: Dr. Gomez has had NG tube removed and started on clear liquids. GI consult was admitted to evaluate for possible Crohn's disease. Tentative plan for outpatient MR enterography to evaluate terminal ileum and reevaluate for small bowel foreign-body. Home medication list reviewed and patient placed back on some of her home meds. Patient has been ambulating well in the hallway. Her pulse ox did drop down to 88%. Her incentive spirometry is only 500 and then she developed pressure in the middle of her abdomen and pain in the right side. Repeat chest x-ray will be ordered. IV fluids have been discontinued and patient will be given 1 dose of IV Lasix. She does not appear to be hypoxic or in any respiratory distress. 03/21: Repeat pulse ox yesterday afternoon from her ear revealed 94-95%. Patient again has no respiratory distress. She states she is using her incentive spirometry but mostly only reaching 500 and sometimes up 1000. Her lower extremity edema is improved. We will continue her on IV Lasix and potassium. Chest x-ray from yesterday showed pulmonary edema. She continues to have right sided abdominal sharp pain that comes and goes and feels better when she applies pressure. She is currently tolerating a full liquid diet. C- reactive protein is elevated at 175.9, sed rate elevated at 60. Other lab work pending. GI has ordered MRI enterography. 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 Evaluation for fistula is markedly limited secondary to extensive patient motion. Foreign body within the distal ileum has retrospectively been present on prior exams dating back to 07/05/2017 and could represent calcified ingested substance or calcified inspissated secretions within the diverticulum. Considering its presence on retrospective exams gallstone ileus is excluded. Dr. Gomez is planning for exploratory laparotomy with resection of the terminal ileum and remove small bowel foreign- body. 03/23: Patient went for surgery yesterday with Dr. Starks ended up having right- sided partial colectomy with mild many adhesion and few complication during surgery. According to him highly suspected for Crohn disease of the biopsies back will continue current management for now. Also patient had acute kidney injury with creatinine climb up through the night will continue hydration continue to watch her urine output for now. 03/24: Patient is feeling slightly but better, much worse kidney function compared to yesterday despite the hydration full catheter she is not making much urine. We'll consult nephrology and if need urology can be involved especially of this is for any reason surgical-related complication. We discussed with Dr. Gomez whether patient need to go for a CAT scan of the abdomen for further diagnosis of the reason why this acute kidney failure to place beside having a prerenal condition with the complication related to sepsis , hypotension and, surgery. Nephrology were notified of the consult and if the general opinion that we need to see urology will do the consult 03/25: BUN 16 and creatinine 0.91, hemoglobin 7.9 and white count is 8.2. Pressure readings are improved from the weekend. Peritoneal fluid is positive for E. coli and pseudomonas. Patient has been seen by Dr. Parker with plan for continued Zosyn. Chest x-ray done on March 24 showed mild cardiomegaly with platelike atelectasis. Patient is using incentive spirometry to but only reaching 500. The abdominal pain that she had prior to the surgery is now gone. She has a epidural in place which she expects to have removed today. She states she ambulated in the hallway twice yesterday. She is passing gas but no bowel movement at this time. NG tube remains in place. Davis catheter in place with adequate output. Levothyroxine changed to IV. 03/26: Patient have NG tube and Davis catheter out today. Epidural was removed yesterday. She states she is passing gas but no bowel movement. I asked is only 500. Hemoglobin is 8.5, BUN 9 and creatinine 0.8. Objective - Vital Signs Vital signs: Vital Signs Temp 97.2 F L 03/26/18 05:15 Pulse 84 03/26/18 05:15 Resp 16 03/26/18 05:15 BP 154/87 03/26/18 05:15 Pulse Ox 93 L 03/26/18 05:15 Intake & Output 03/25/18 03/26/18 03/26/18 18:59 06:59 18:59 Intake Total 1246.8 1225 Output Total 400 1625 1950 Balance 846.8 -400 -1950 Weight 65.2 kg Intake: Intake, IV Titration 1246.8 1175 Amount Lactated Ringers 1,000 ml 1125 @ 0 mls/hr IV .[facility] Rx#:[id number] Lactated Ringers 1,000 ml 1000 @ 100 mls/hr IV .Q10H [facility] Rx#:[id number] Piperacillin-Tazobactam 3 50 50 .375 gm In Dextrose/Water 1 50ml.bag @ 12.5 mls/hr IVPB Q12HR [facility] Rx#: [id number] Ropivacaine 300 mg 196.8 Hydromorphone (Pf) 5 mg In Sodium Chloride 0.9% 190 ml @ Per Protocol EPIDURAL .Q0M PRN Rx#: [id number] Oral 50 Output: Urine 400 1600 1950 Uretheral (Davis) 400 600 Stool 25 Other: Voiding Method Indwelling Catheter Indwelling Catheter Indwelling Catheter - Exam Gen: This is a 58-year-old female. Patient walking in her room and appears to be comfortable and in no acute distress. HEENT: Head is atraumatic, normocephalic. Pupils equal, round. Sclerae is anicteric. NG tube is in place. NECK: Supple. No JVD. No lymphadenopathy. No thyromegaly. LUNGS: Clear to auscultation. No wheezes or rhonchi. No intercostal retractions. HEART: Regular rate and rhythm. No murmur. ABDOMEN: Soft. Bowel sounds present. No masses. No significant tenderness. Dressing in place to the midline with dried breakthrough bleeding. This is the initial dressing. No surrounding erythema. Davis catheter in place draining annmarie urine. EXTREMITIES: No pedal edema. No calf tenderness. Dorsalis pedis palpable bilaterally. NEUROLOGICAL: Patient is awake, alert and oriented x3. Cranial nerves 2 through 12 are grossly intact. - Labs CBC & Chem 7: 03/26/18 07:32 03/26/18 07:32 Labs: Abnormal Lab Results - Last 24 Hours (Table) 03/26/18 03/26/18 Range/Units 07:32 07:32 RBC 3.17 L (3.80-5.40) m/uL Hgb 8.5 L (11.4-16.0) gm/dL Hct 27.0 L (34.0-46.0) % Plt Count 480 H (150-450) k/uL Sodium 135 L (137-145) mmol/L Calcium 8.0 L (8.4-10.2) mg/dL Microbiology - Last 24 Hours (Table) 03/22/18 19:00 Gram Stain - Preliminary Peritoneal Fluid Body Fluid Culture - Preliminary Escherichia coli Pseudomonas aeruginosa Non Hemolytic Strep 03/22/18 19:00 Anaerobic Culture - Final Peritoneal Fluid Anaerobic Gm Negative Bacilli Assessment and Plan Plan: 1. Severe abdominal pain secondary to small bowel obstructions from adhesions, peritonitis. Patient is status post exploratory laparotomy and lysis of adhesions and resection of the terminal ileum and right colon. NG tube and Davis to be removed today, epidural has been removed yesterday. Continue current pain management. Continue incentive spirometry. Patient is currently on Zosyn. Consult with Dr. Parker appreciated. 2. Acute kidney injury secondary to hypotension, recovered. Consult with nephrology is appreciated. 3. Hypotension secondary to hypovolemia. Continue fluid resuscitation for now keep watching the blood pressure, hopefully improving the blood pressure will improve the kidney function as well. 4. Acute blood loss anemia. Continue to monitor. No plan for transfusion at this time. 5. Vitamin B12 deficiency and chronic anemia.. 6. Pulmonary prophylaxis and atelectasis. Incentive spirometry. 7. Hypoxemia secondary to atelectasis and pulmonary edema from IV fluids. No history of heart failure. IV Lasix ordered. 8. Hypothyroidism. Resume levothyroxine 37 g daily IV. 9. GI prophylaxis. Protonix. 10. DVT prophylaxis. Lovenox. CODE STATUS: Full code. Discharge plan: Return home Impression and plan of care have been directed as dictated by the signing physician. Tomasa Chi nurse practitioner acting as scribe for signing physician.
--- NOTE | 2018-03-26 23:31 | P.PN ---
Subjective Progress Note Date: 03/26/18 This is a 58-year-old female patient who initially was admitted on March 16 with complaints of nausea vomiting, low-grade fever on and off and not passing gas and no bowel movement. She was treated for a small bowel obstruction which was found on CT of the abdomen and pelvis. Patient was treated with conservative management with NG tube and had initially large amount of return of fluid. She was gradually progressed to have NG tube removed and clear liquids were started. She underwent a small bowel follow- through and subsequently an MR enterography to evaluate the terminal ileum and small bowel foreign body. 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 Evaluation for fistula is markedly limited secondary to extensive patient motion. Foreign body within the distal ileum was retrospectively been present on prior exams dating back to 2016 and couldn't represent a calcified ingestion substance patient then went for exploratory laparotomy with extensive lysis of adhesions and resection of the terminal terminal ileum with Dr. Gomez on Sunday, March 22. Over the weekend, patient developed acute kidney injury with a rise in her creatinine to 2.3 and subsequently down to 0.9. She was followed by nephrology. She had hypotension over the weekend as well that is also resolved. Her white count jumped up to 23.7 and repeat today is at 8.2. Chest x-ray done on March 24 showed mild cardiomegaly with platelike atelectasis. She had a drop in her hemoglobin from 14-7.9 and has not been transfused. Patient is using incentive spirometry to but only reaching 500. The abdominal pain that she had prior to the surgery is now gone. She has a epidural in place which she expects to have removed today. She states she ambulated in the hallway twice yesterday. She is passing gas but no bowel movement at this time. As a Davis catheter in place and has been voiding adequately. Antibiotics have been changed from Unasyn to Zosyn. Peritoneal fluid culture is positive for E. coli and Pseudomonas. 03/26/2018 patient is feeling better however is getting some of the bowel distention outer NG tube is out. She's had some ice chips to see if this cannot improve her function. She is up and walking and has had in the chair. Struggling with incentive spirometer. Objective - Vital Signs Vital signs: Vital Signs Temp 97.8 F 03/26/18 21:21 Pulse 91 03/26/18 21:21 Resp 18 03/26/18 21:21 BP 185/84 03/26/18 21:21 Pulse Ox 93 L 03/26/18 21:21 Intake & Output 03/26/18 03/26/18 03/27/18 06:59 18:59 06:59 Intake Total 1225 650 Output Total 1625 1950 Balance -400 -1300 Weight 65.2 kg Intake: Intake, IV Titration 1175 650 Amount Lactated Ringers 1,000 ml 1125 @ 0 mls/hr IV .[facility] Rx#:[id number] Lactated Ringers 1,000 ml 600 @ 60 mls/hr IV .[id number] [facility] Rx#:[id number] Piperacillin-Tazobactam 3 50 50 .375 gm In Dextrose/Water 1 50ml.bag @ 12.5 mls/hr IVPB Q12HR [facility] Rx#: [id number] Oral 50 Output: Urine 1600 1950 Uretheral (Davis) 600 Stool 25 Other: Voiding Method Indwelling Catheter Indwelling Catheter # Voids 3 - Exam Gen: This is a 58-year-old female. She is seen in bed and appears to be comfortable and in no acute distress. No respiratory distress is noted. HEENT: Head is atraumatic, normocephalic. Pupils equal, round. Sclerae is anicteric. Conjunctiva pink. Mucous membranes of the mouth are slightly dry. Dentition is in good order. NG tube in place. NECK: Supple. No JVD. No lymphadenopathy. No thyromegaly. LUNGS: Clear to auscultation. No wheezes or rhonchi. No intercostal retractions. HEART: Regular rate and rhythm. No murmur. ABDOMEN: Soft. Distended but not very tender, surgical incision is without significant drainage No surrounding erythema. Davis catheter in place draining annmarie urine. EXTREMITIES: No pedal edema. No calf tenderness. Dorsalis pedis is +2 bilaterally. NEUROLOGICAL: Patient is awake, alert and oriented x3 - Labs CBC & Chem 7: 03/26/18 07:32 03/26/18 07:32 Labs: Abnormal Lab Results - Last 24 Hours (Table) 03/26/18 03/26/18 Range/Units 07:32 07:32 RBC 3.17 L (3.80-5.40) m/uL Hgb 8.5 L (11.4-16.0) gm/dL Hct 27.0 L (34.0-46.0) % Plt Count 480 H (150-450) k/uL Sodium 135 L (137-145) mmol/L Calcium 8.0 L (8.4-10.2) mg/dL Microbiology - Last 24 Hours (Table) 03/22/18 19:00 Gram Stain - Final Peritoneal Fluid Body Fluid Culture - Preliminary Escherichia coli Pseudomonas aeruginosa Non Hemolytic Strep Laboratory Results WBC 8.9 k/uL (3.8-10.6) 03/26/18 07:32 RBC 3.17 m/uL (3.80-5.40) L 03/26/18 07:32 Hgb 8.5 gm/dL (11.4-16.0) L 03/26/18 07:32 Hct 27.0 % (34.0-46.0) L 03/26/18 07:32 MCV 85.3 fL (80.0-100.0) 03/26/18 07:32 MCH 26.9 pg (25.0-35.0) 03/26/18 07:32 MCHC 31.6 g/dL (31.0-37.0) 03/26/18 07:32 RDW 14.2 % (11.5-15.5) 03/26/18 07:32 Plt Count 480 k/uL (150-450) H 03/26/18 07:32 Neutrophils % (Manual) 85 % 03/16/18 12:10 Lymphocytes % (Manual) 8 % 03/16/18 12:10 Monocytes % (Manual) 6 % 03/16/18 12:10 Eosinophils % (Manual) 1 % 03/16/18 12:10 Neutrophils % 73 % 03/25/18 08:17 Lymphocytes % 16 % 03/25/18 08:17 Monocytes % 5 % 03/25/18 08:17 Neutrophils # (Manual) 22.44 k/uL (1.3-7.7) H 03/16/18 12:10 Eosinophils % 2 % 03/25/18 08:17 Basophils % 1 % 03/25/18 08:17 Lymphocytes # (Manual) 2.11 k/uL (1.0-4.8) 03/16/18 12:10 Neutrophils # 6.0 k/uL (1.3-7.7) 03/25/18 08:17 Monocytes # (Manual) 1.58 k/uL (0-1.0) H 03/16/18 12:10 Eosinophils # (Manual) 0.26 k/uL (0-0.7) 03/16/18 12:10 Lymphocytes # 1.3 k/uL (1.0-4.8) 03/25/18 08:17 Monocytes # 0.4 k/uL (0-1.0) 03/25/18 08:17 Eosinophils # 0.2 k/uL (0-0.7) 03/25/18 08:17 Basophils # 0.0 k/uL (0-0.2) 03/25/18 08:17 Nucleated RBCs 0 /100 WBC (0-0) 03/16/18 12:10 Toxic Granulation Present 03/16/18 12:10 Polychromasia Present 03/16/18 12:10 Hypochromasia Slight 03/25/18 08:17 ESR 60 mm/hr (0-20) H 03/20/18 07:34 Sodium 135 mmol/L (137-145) L 03/26/18 07:32 Potassium 4.0 mmol/L (3.5-5.1) 03/26/18 07:32 Chloride 101 mmol/L (98-107) 03/26/18 07:32 Carbon Dioxide 24 mmol/L (22-30) 03/26/18 07:32 Anion Gap 10 mmol/L 03/26/18 07:32 BUN 9 mg/dL (7-17) 03/26/18 07:32 Creatinine 0.80 mg/dL (0.52-1.04) 03/26/18 07:32 Est GFR (CKD-EPI)AfAm >90 (>60 ml/min/1.73 sqM) 03/26/18 07:32 Est GFR (CKD-EPI)NonAf 81 (>60 ml/min/1.73 sqM) 03/26/18 07:32 Glucose 86 mg/dL (74-99) 03/26/18 07:32 Plasma Lactic Acid Adam 1.1 mmol/L (0.7-2.0) 03/16/18 12:10 Calcium 8.0 mg/dL (8.4-10.2) L 03/26/18 07:32 Phosphorus 2.1 mg/dL (2.5-4.5) L 03/18/18 05:37 Magnesium 1.9 mg/dL (1.6-2.3) 03/26/18 07:32 Total Bilirubin <0.1 mg/dL (0.2-1.3) L 03/25/18 08:17 AST 27 U/L (14-36) 03/25/18 08:17 ALT 38 U/L (9-52) 03/25/18 08:17 Alkaline Phosphatase 63 U/L (38-126) 03/25/18 08:17 Total Creatine Kinase 34 U/L (30-135) 03/16/18 12:10 CK-MB (CK-2) 1.2 ng/mL (0.0-2.4) 03/16/18 12:10 CK-MB (CK-2) Rel Index 3.5 03/16/18 12:10 Troponin I <0.012 ng/mL (0.000-0.034) 03/24/18 08:58 C-Reactive Protein 175.9 mg/L (<10.0) H 03/20/18 07:34 Total Protein 4.4 g/dL (6.3-8.2) L 03/25/18 08:17 Albumin 2.2 g/dL (3.5-5.0) L 03/25/18 08:17 Amylase 53 U/L (30-110) 03/16/18 12:10 Lipase 44 U/L (23-300) 03/16/18 12:10 Urine Color Yellow 03/16/18 13:05 Urine Appearance Clear (Clear) 03/16/18 13:05 Urine pH 6.5 (5.0-8.0) 03/16/18 13:05 Ur Specific Smock >1.050 (1.001-1.035) H 03/16/18 13:05 Urine Protein 1+ (Negative) H 03/16/18 13:05 Urine Glucose (UA) Negative (Negative) 03/16/18 13:05 Urine Ketones Trace (Negative) H 03/16/18 13:05 Urine Blood Negative (Negative) 03/16/18 13:05 Urine Nitrite Negative (Negative) 03/16/18 13:05 Urine Bilirubin Negative (Negative) 03/16/18 13:05 Urine Urobilinogen <2.0 mg/dL (<2.0) 03/16/18 13:05 Ur Leukocyte Esterase Negative (Negative) 03/16/18 13:05 Urine RBC 1 /hpf (0-5) 03/16/18 13:05 Urine WBC 5 /hpf (0-5) 03/16/18 13:05 Urine Bacteria Rare /hpf (None) H 03/16/18 13:05 Stool Lactoferrin POSITIVE (NEGATIVE) H 03/20/18 18:00 c-ANCA <1:20 Titer (<1:20) 03/20/18 07:34 p-ANCA <1:20 Titer (<1:20) 03/20/18 07:34 S.cerevisiae IgG Ab 4.2 UNITS (<=20) 03/20/18 07:34 S.cerevisiae IgA Ab 3.2 UNITS (<=20) 03/20/18 07:34 Blood Type A Negative 03/22/18 09:32 Blood Type Recheck No 03/22/18 09:32 Antibody Screen NEGATIVE 03/22/18 09:32 Crossmatch See Detail 03/22/18 09:32 Spec Expiration Date 03/25/2018 - 233103/22/18 09:32 Microbiology 03/22/18 19:00 Peritoneal Fluid Gram Stain - Final 03/22/18 19:00 Peritoneal Fluid Body Fluid Culture - Preliminary Escherichia coli Pseudomonas aeruginosa Non Hemolytic Strep 03/22/18 19:00 Peritoneal Fluid Anaerobic Culture - Final Anaerobic Gm Negative Bacilli 03/16/18 13:05 Urine,Catheterized Urine Culture - Final Assessment and Plan (1) Partial small bowel obstruction Narrative/Plan: At this time this pleasant woman has had a significant Occasions during this hospital stay which was Complicated by an acute renal injury and leukocytosis.. She was taken to the operating room where she underwent a lysis of adhesions and resection of the terminal ileum. She is now having some improvement however she's had leukocytosis low-grade temperatures in the peritoneal culture did show evidence of Pseudomonas and constantly antibiotic therapy was altered to Zosyn from Unasyn for further coverage. If she improves we will determine if there are options for transition to oral antibiotic therapy when she has regained bowel function and is able to take in oral medications. 03/26/2018 she does have some distention. Is working with ambulation to attempt to improve her bowel function. Is also utilizing a few ice cubes to try to help stimulate bowel function. She's also sat in the chair. We'll continue current antibiotic therapy for abdominal cultures that show evidence to pseudomonas, E. coli, as well as anaerobic gram-negative bacilli. When she has return of GI function will consider completion course of antibiotic therapy possibly oral. Current Visit: No Status: Acute Code(s): K56.69 - OTHER INTESTINAL OBSTRUCTION * DO NOT USE * SNOMED Code(s): 756923566
[2018-03-27] MEDS: LACTATED RINGERS 1,000 ML IV SCH ×2 (02:50→13:53)
[2018-03-27] MEDS: MORPHINE SULFATE 4 MG/ML SYRINGE IVP PRN ×4 (02:50→20:43)
[2018-03-27] MEDS: PIPERACILLIN-TAZOBACTAM 3.375 GM in DEXTROSE/WATER 1 50ML.BAG IVPB SCH ×2 (07:36→20:44)
[2018-03-27] MEDS: LEVOTHYROXINE IVP 100 MCG/5 ML VIAL IV SCH (07:36)
[2018-03-27] MEDS: FAMOTIDINE 20 MG/2 ML VIAL IV SCH ×2 (07:36→20:44)
[2018-03-27] MEDS: FUROSEMIDE 10 MG/ML 2 ML VIAL IV SCH ×2 (07:36→20:44)
[2018-03-27] MEDS: amLODIPine 5 MG TAB PO SCH (07:37)
[2018-03-27] MEDS: ENOXAPARIN 40 MG/0.4 ML SYRINGE SQ SCH (07:37)
[2018-03-27 08:32] LABS: Anion Gap 11 mmol/L; Blood Urea Nitrogen 8 mg/dL (7-17); Carbon Dioxide 26 mmol/L (22-30); Chloride 98 mmol/L (98-107); Glucose 95 mg/dL (74-99); Magnesium 1.8 mg/dL (1.6-2.3); Potassium 3.6 mmol/L (3.5-5.1); Sodium 135 mmol/L (137-145)
--- NOTE | 2018-03-27 10:37 | P.PN ---
Subjective Progress Note Date: 03/27/18 Principal diagnosis: PSBO Status post surgery for small bowel obstruction. Feels well. Pain controlled. Afebrile. Surgical pathology no evidence of and plan try bowel disease. Serologic markers for IBD negative. Objective - Vital Signs Vital signs: Vital Signs Temp 98.4 F 03/27/18 05:00 Pulse 82 03/27/18 05:00 Resp 18 03/27/18 05:00 BP 152/80 03/27/18 05:00 Pulse Ox 93 L 03/27/18 05:00 Intake & Output 03/26/18 03/27/18 03/27/18 18:59 06:59 18:59 Intake Total 650 Output Total 1950 Balance -1300 Weight 65.2 kg Intake: Intake, IV Titration 650 Amount Lactated Ringers 1,000 ml 600 @ 60 mls/hr IV .[id number] [facility] Rx#:[id number] Piperacillin-Tazobactam 3 50 .375 gm In Dextrose/Water 1 50ml.bag @ 12.5 mls/hr IVPB Q12HR [facility] Rx#: [id number] Output: Urine 1950 Other: Voiding Method Indwelling Catheter Toilet Toilet # Voids 2 - Exam General appearance: The patient is alert, oriented, in no acute distress. HET: Head is normocephalic and atraumatic. Pupils are equal and reactive. Oropharynx is clear without lesions. Neck: Supple without lymphadenopathy. Trachea midline. Heart: S1 S2. Regular rate and rhythm. Lungs: No crackles or wheezes are heard. Abdomen: Soft, midline dressing intact without drainage bowel sounds positive. Mild tenderness. No peritoneal signs. No palpable organomegaly or masses. Extremities: Normal skin color and turgor. No cyanosis, rash, ulceration, clubbing, or edema. Radial and pedal pulses are 2/4 bilaterally. Neurological: No focal deficits. Strength and sensation are grossly intact. - Labs CBC & Chem 7: 03/26/18 07:32 03/27/18 07:31 Labs: Abnormal Lab Results - Last 24 Hours (Table) 03/27/18 Range/Units 07:31 Sodium 135 L (137-145) mmol/L Calcium 8.0 L (8.4-10.2) mg/dL Microbiology - Last 24 Hours (Table) 03/22/18 19:00 Gram Stain - Final Peritoneal Fluid Body Fluid Culture - Final Escherichia coli Pseudomonas aeruginosa Non Hemolytic Strep Assessment and Plan (1) Abdominal pain Narrative/Plan: Status post exploratory laparotomy extensive lysis of adhesions resection terminal ileum and right colon. Surgical pathology no evidence of inflammatory bowel disease. l Current Visit: Yes Status: Acute Code(s): R10.9 - UNSPECIFIED ABDOMINAL PAIN SNOMED Code(s): 24305755 (2) Partial small bowel obstruction Current Visit: No Status: Acute Code(s): K56.69 - OTHER INTESTINAL OBSTRUCTION * DO NOT USE * SNOMED Code(s): 416997235 (3) Elevated C-reactive protein (CRP) Current Visit: Yes Status: Acute Code(s): R79.82 - ELEVATED C-REACTIVE PROTEIN (CRP) SNOMED Code(s): 491990968800418 Plan: 1. Discharge per surgery and consultants. No further workup from a GI standpoint. We'll follow as needed. Assessment and plan a care discussed with Dr. Arceo
[2018-03-27] MEDS: MULTIVITAMINS, THERA 1 EACH TAB PO SCH (12:41)
--- NOTE | 2018-03-27 13:03 | P.PN ---
Subjective Progress Note Date: 03/27/18 Principal diagnosis: Small bowel obstruction Patient doing well today. Continuing to have flatus. No bowel movement. Denies nausea or vomiting. She is ambulating. Objective - Vital Signs Vital signs: Vital Signs Temp 97.5 F L 03/27/18 12:31 Pulse 92 03/27/18 12:31 Resp 16 03/27/18 12:31 BP 130/81 03/27/18 12:31 Pulse Ox 94 L 03/27/18 12:31 Intake & Output 03/26/18 03/27/18 03/27/18 18:59 06:59 18:59 Intake Total 650 Output Total 1950 Balance -1300 Weight 65.2 kg Intake: Intake, IV Titration 650 Amount Lactated Ringers 1,000 ml 600 @ 60 mls/hr IV .[id number] [facility] Rx#:[id number] Piperacillin-Tazobactam 3 50 .375 gm In Dextrose/Water 1 50ml.bag @ 12.5 mls/hr IVPB Q12HR [facility] Rx#: [id number] Output: Urine 1950 Other: Voiding Method Indwelling Catheter Toilet Toilet # Voids 2 - Exam Abdomen: Soft, mild distention, mild incisional tenderness, small amount of serous sinus drainage - Labs CBC & Chem 7: 03/26/18 07:32 03/27/18 07:31 Labs: Abnormal Lab Results - Last 24 Hours (Table) 03/27/18 Range/Units 07:31 Sodium 135 L (137-145) mmol/L Calcium 8.0 L (8.4-10.2) mg/dL Microbiology - Last 24 Hours (Table) 03/22/18 19:00 Gram Stain - Final Peritoneal Fluid Body Fluid Culture - Final Escherichia coli Pseudomonas aeruginosa Non Hemolytic Strep Assessment and Plan (1) SBO (small bowel obstruction) Narrative/Plan: (Advancing diet as tolerated. Ambulate. Monitor bowel function. Continue IV antibiotics. Current Visit: Yes Status: Acute Code(s): K56.609 - UNSP INTESTNL OBST, UNSP TO PARTIAL VERSUS COMPLETE OBST SNOMED Code(s): 838072351
--- NOTE | 2018-03-27 13:15 | P.PN ---
Subjective Patient is seen in follow-up for acute kidney injury. Renal function is improved with creatinine of 0.71 today. Patient presented with abdominal pain and was noted to have small bowel obstruction. She underwent exploratory laparotomy with resection of terminal ileum and right colon with ileocolostomy this admission. NG tube has been discontinued. Denies abdominal pain. She is nonoliguric. Still no bowel movement. Tolerating liquid diet. Admits to swelling in the legs. Vital signs are stable. General: The patient appeared well nourished and normally developed. HEENT: Head exam is unremarkable. Neck is without jugular venous distension. NG tube in place. LUNGS: Lungs are clear to auscultation and percussion. Breath sounds decreased. HEART: Rate and Rhythm are regular. First and second heart sounds normal. No murmurs, rubs or gallops. ABDOMEN: Decreased bowel sounds. EXTREMITITES: 1+ edema. Objective - Vital Signs Vital signs: Vital Signs Temp 97.5 F L 03/27/18 12:31 Pulse 92 03/27/18 12:31 Resp 16 03/27/18 12:31 BP 130/81 03/27/18 12:31 Pulse Ox 94 L 03/27/18 12:31 Intake & Output 03/26/18 03/27/18 03/27/18 18:59 06:59 18:59 Intake Total 650 Output Total 1950 Balance -1300 Weight 65.2 kg Intake: Intake, IV Titration 650 Amount Lactated Ringers 1,000 ml 600 @ 60 mls/hr IV .[id number] [facility] Rx#:[id number] Piperacillin-Tazobactam 3 50 .375 gm In Dextrose/Water 1 50ml.bag @ 12.5 mls/hr IVPB Q12HR [facility] Rx#: [id number] Output: Urine 1950 Other: Voiding Method Indwelling Catheter Toilet Toilet # Voids 2 - Labs CBC & Chem 7: 03/26/18 07:32 03/27/18 07:31 Labs: Abnormal Lab Results - Last 24 Hours (Table) 03/27/18 Range/Units 07:31 Sodium 135 L (137-145) mmol/L Calcium 8.0 L (8.4-10.2) mg/dL Microbiology - Last 24 Hours (Table) 03/22/18 19:00 Gram Stain - Final Peritoneal Fluid Body Fluid Culture - Final Escherichia coli Pseudomonas aeruginosa Non Hemolytic Strep Assessment and Plan Plan: Assessment: 1. Nonoliguric acute kidney injury mostly prerenal secondary to hypotension. Resolved. 2. Small bowel obstruction status post exploratory laparotomy with resection of terminal ileum and right colon with ileocolostomy in March 22. 3. Hypotension related to hypovolemia. Improved with IV fluids. 4. Lower extremity edema. Plan: Hep-Lock IV fluids. Continue Lasix 20 mg IV twice daily for now. Avoid nephrotoxins. Repeat electrolytes in the morning.
[2018-03-28] MEDS: MORPHINE SULFATE 4 MG/ML SYRINGE IVP PRN ×4 (01:21→22:49)
--- NOTE | 2018-03-28 08:00 | P.PN ---
Subjective Progress Note Date: 03/27/18 This is a 58-year-old female patient of Dr. Cross and also Dr. Gomez with past medical history of hypertension, hypothyroidism, hysterectomy for benign reasons, previous small bowel obstruction secondary to intra- abdominal adhesions status post diagnostic laparoscopic followed by laparotomy and lysis of adhesions in February 2016. She has also had robotic incisional hernia repair done by Dr. Mack at [place] in September. Patient states that she had sudden onset of severe abdominal pain with nausea and vomiting and low- grade fever off and on up to 100.4 since Sunday. She states she was not passing gas and was not having a bowel movement. Patient came into [facility] emergency center for evaluation. She was afebrile, vital signs stable. She presented with leukocytosis of 26.4, creatinine 0.7 and BUN 21. Hemoglobin 14.2. Lactic acid 1.1, troponin negative. Urinalysis was clear with nitrate and leukoesterase negative. She underwent a CAT scan of the abdomen and pelvis with contrast that revealed distal small bowel obstruction, possibility of gallstone ileus, platelike atelectasis in both lung bases, stable cyst in the left kidney, degenerative changes within the spine. Patient was started on Unasyn, Zofran for nausea and morphine for pain control and admitted under the care of Dr. Uriarte. Patient is currently nothing by mouth with NG tube in place with a large amount of return fluid. 03/18: Patient remains with NG tube in place draining dark green liquid. We have asked for repeat abdominal x-ray. Patient is using her incentive spirometry at 1250 ML's. 03/19: Patient has been afebrile. Noted the patient drop her pulse ox in the 80s and is on O2 at 2 L nasal cannula. Patient denies any shortness of breath. She did have a bowel movement this morning. NG tube remains in place with decreased output. IV fluids will be decreased to 75 mL. Patient is stating that she is having trouble using the incentive spirometry. Slight elevated heart rate. She is scheduled for small bowel follow-through today. 03/20: Dr. Gomez has had NG tube removed and started on clear liquids. GI consult was admitted to evaluate for possible Crohn's disease. Tentative plan for outpatient MR enterography to evaluate terminal ileum and reevaluate for small bowel foreign-body. Home medication list reviewed and patient placed back on some of her home meds. Patient has been ambulating well in the hallway. Her pulse ox did drop down to 88%. Her incentive spirometry is only 500 and then she developed pressure in the middle of her abdomen and pain in the right side. Repeat chest x-ray will be ordered. IV fluids have been discontinued and patient will be given 1 dose of IV Lasix. She does not appear to be hypoxic or in any respiratory distress. 03/21: Repeat pulse ox yesterday afternoon from her ear revealed 94-95%. Patient again has no respiratory distress. She states she is using her incentive spirometry but mostly only reaching 500 and sometimes up 1000. Her lower extremity edema is improved. We will continue her on IV Lasix and potassium. Chest x-ray from yesterday showed pulmonary edema. She continues to have right sided abdominal sharp pain that comes and goes and feels better when she applies pressure. She is currently tolerating a full liquid diet. C- reactive protein is elevated at 175.9, sed rate elevated at 60. Other lab work pending. GI has ordered MRI enterography. 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 Evaluation for fistula is markedly limited secondary to extensive patient motion. Foreign body within the distal ileum has retrospectively been present on prior exams dating back to 07/05/2017 and could represent calcified ingested substance or calcified inspissated secretions within the diverticulum. Considering its presence on retrospective exams gallstone ileus is excluded. Dr. Gomez is planning for exploratory laparotomy with resection of the terminal ileum and remove small bowel foreign- body. 03/23: Patient went for surgery yesterday with Dr. Starks ended up having right- sided partial colectomy with mild many adhesion and few complication during surgery. According to him highly suspected for Crohn disease of the biopsies back will continue current management for now. Also patient had acute kidney injury with creatinine climb up through the night will continue hydration continue to watch her urine output for now. 03/24: Patient is feeling slightly but better, much worse kidney function compared to yesterday despite the hydration full catheter she is not making much urine. We'll consult nephrology and if need urology can be involved especially of this is for any reason surgical-related complication. We discussed with Dr. Gomez whether patient need to go for a CAT scan of the abdomen for further diagnosis of the reason why this acute kidney failure to place beside having a prerenal condition with the complication related to sepsis , hypotension and, surgery. Nephrology were notified of the consult and if the general opinion that we need to see urology will do the consult 03/25: BUN 16 and creatinine 0.91, hemoglobin 7.9 and white count is 8.2. Pressure readings are improved from the weekend. Peritoneal fluid is positive for E. coli and pseudomonas. Patient has been seen by Dr. Parker with plan for continued Zosyn. Chest x-ray done on March 24 showed mild cardiomegaly with platelike atelectasis. Patient is using incentive spirometry to but only reaching 500. The abdominal pain that she had prior to the surgery is now gone. She has a epidural in place which she expects to have removed today. She states she ambulated in the hallway twice yesterday. She is passing gas but no bowel movement at this time. NG tube remains in place. Davis catheter in place with adequate output. Levothyroxine changed to IV. 03/26: Patient have NG tube and Davis catheter out today. Epidural was removed yesterday. She states she is passing gas but no bowel movement. I asked is only 500. Hemoglobin is 8.5, BUN 9 and creatinine 0.8. 03/27: Peritoneal fluid culture is positive for E. coli, pseudomonas and nonhemolytic strep and an anaerobic gram-negative bacilli. She has been continued on Zosyn. She remains afebrile. Pulse ox 93% on room air. She has beginning about 750-1000 ML's on incentive spirometry. She states she is passed gas but has not had any bowel movement since surgery. She denies any cough. She is feeling improvement with having NG tube and Davis catheter out. Objective - Vital Signs Vital signs: Vital Signs Temp 98.4 F 03/27/18 05:00 Pulse 82 03/27/18 05:00 Resp 18 03/27/18 05:00 BP 152/80 03/27/18 05:00 Pulse Ox 93 L 03/27/18 05:00 Intake & Output 07/31/18 08/01/18 08/01/18 18:59 06:59 18:59 Intake Total 650 Output Total 1950 Balance -1300 Weight 65.2 kg Intake: Intake, IV Titration 650 Amount Lactated Ringers 1,000 ml 600 @ 60 mls/hr IV .[id number] CATY Rx#:[id number] Piperacillin-Tazobactam 3 50 .375 gm In Dextrose/Water 1 50ml.bag @ 12.5 mls/hr IVPB Q12HR CATY Rx#: [id number] Output: Urine 1950 Other: Voiding Method Indwelling Catheter Toilet Toilet # Voids 2 - Exam Gen: This is a 58-year-old female. Patient walking in her room and appears to be comfortable and in no acute distress. HEENT: Head is atraumatic, normocephalic. Pupils equal, round. Sclerae is anicteric. NECK: Supple. No JVD. No lymphadenopathy. No thyromegaly. LUNGS: Clear to auscultation. No wheezes or rhonchi. No intercostal retractions. HEART: Regular rate and rhythm. No murmur. ABDOMEN: Soft. Bowel sounds present. No masses. No significant tenderness. Dressing in place to the midline with dried breakthrough bleeding at the bottom. No surrounding erythema. EXTREMITIES: No pedal edema. No calf tenderness. Dorsalis pedis palpable bilaterally. NEUROLOGICAL: Patient is awake, alert and oriented x3. Cranial nerves 2 through 12 are grossly intact. - Labs CBC & Chem 7: 03/26/18 07:32 03/27/18 07:31 Labs: Abnormal Lab Results - Last 24 Hours (Table) 03/27/18 Range/Units 07:31 Sodium 135 L (137-145) mmol/L Calcium 8.0 L (8.4-10.2) mg/dL Microbiology - Last 24 Hours (Table) 03/22/18 19:00 Gram Stain - Final Peritoneal Fluid Body Fluid Culture - Final Escherichia coli Pseudomonas aeruginosa Non Hemolytic Strep Assessment and Plan Plan: 1. Severe abdominal pain secondary to small bowel obstructions from adhesions, peritonitis. Patient is status post exploratory laparotomy and lysis of adhesions and resection of the terminal ileum and right colon. NG tube and Davis to be removed today, epidural has been removed yesterday. Continue current pain management. Continue incentive spirometry. Patient is currently on Zosyn. Consult with Dr. Parker appreciated. 2. Acute kidney injury secondary to hypotension, recovered. Consult with nephrology is appreciated. 3. Hypotension secondary to hypovolemia. Continue fluid resuscitation for now keep watching the blood pressure, hopefully improving the blood pressure will improve the kidney function as well. 4. Acute blood loss anemia. Continue to monitor. No plan for transfusion at this time. 5. Vitamin B12 deficiency with chronic anemia. 6. Pulmonary prophylaxis and atelectasis. Incentive spirometry. 7. Hypoxemia secondary to atelectasis and pulmonary edema from IV fluids. No history of heart failure. IV Lasix ordered. Encourage incentive spirometry. 8. Hypothyroidism. Resume levothyroxine 37 g daily IV. 9. GI prophylaxis. Protonix. 10. DVT prophylaxis. Lovenox. CODE STATUS: Full code. Discharge plan: Return home Impression and plan of care have been directed as dictated by the signing physician. Tomasa Chi nurse practitioner acting as scribe for signing physician.
[2018-03-28] MEDS: ENOXAPARIN 40 MG/0.4 ML SYRINGE SQ SCH (08:53)
[2018-03-28] MEDS: PIPERACILLIN-TAZOBACTAM 3.375 GM in DEXTROSE/WATER 1 50ML.BAG IVPB SCH ×2 (08:53→21:25)
[2018-03-28] MEDS: amLODIPine 5 MG TAB PO SCH (08:54)
[2018-03-28] MEDS: FUROSEMIDE 10 MG/ML 2 ML VIAL IV SCH ×2 (08:54→21:25)
[2018-03-28] MEDS: FAMOTIDINE 20 MG/2 ML VIAL IV SCH ×2 (08:54→21:25)
[2018-03-28] MEDS: LEVOTHYROXINE 75 MCG TAB PO SCH (08:55)
--- NOTE | 2018-03-28 09:29 | P.PN ---
Subjective Patient is seen in follow-up for acute kidney injury. Renal function is improved with creatinine of 0.71 as of yesterday. Patient presented with abdominal pain and was noted to have small bowel obstruction. She underwent exploratory laparotomy with resection of terminal ileum and right colon with ileocolostomy this admission. NG tube has been discontinued. Denies abdominal pain. She is nonoliguric. Still no bowel movement. Tolerating liquid diet. Admits to swelling in the legs but overall improving. Vital signs are stable. General: The patient appeared well nourished and normally developed. HEENT: Head exam is unremarkable. Neck is without jugular venous distension. NG tube in place. LUNGS: Lungs are clear to auscultation and percussion. Breath sounds decreased. HEART: Rate and Rhythm are regular. First and second heart sounds normal. No murmurs, rubs or gallops. ABDOMEN: Decreased bowel sounds. EXTREMITITES: 1+ edema. Objective - Vital Signs Vital signs: Vital Signs Temp 97.1 F L 03/28/18 07:23 Pulse 76 03/28/18 07:23 Resp 16 03/28/18 07:23 BP 167/85 03/28/18 07:23 Pulse Ox 93 L 03/28/18 07:23 Intake & Output 03/27/18 03/28/18 03/28/18 18:59 06:59 18:59 Weight 65.2 kg Other: Voiding Method Toilet Toilet # Voids 2 2 - Labs CBC & Chem 7: 03/26/18 07:32 03/27/18 07:31 Assessment and Plan Plan: Assessment: 1. Nonoliguric acute kidney injury mostly prerenal secondary to hypotension. Resolved. 2. Small bowel obstruction status post exploratory laparotomy with resection of terminal ileum and right colon with ileocolostomy in March 22. 3. Hypotension related to hypovolemia. Improved with IV fluids. 4. Lower extremity edema maintained on IV Lasix. Plan: Hep-Lock IV fluids. Continue Lasix 20 mg IV twice daily for now. Avoid nephrotoxins. Repeat electrolytes in the morning. I will sign off at this point. Please feel free to call with any questions or concerns.
[2018-03-28] MEDS: MULTIVITAMINS, THERA 1 EACH TAB PO SCH (13:22)
[2018-03-28] MEDS: LISINOPRIL 10 MG TAB PO SCH (13:22)
--- NOTE | 2018-03-28 13:53 | P.PN ---
Subjective Progress Note Date: 03/28/18 This is a 58-year-old female patient of Dr. Cross and also Dr. Gomez with past medical history of hypertension, hypothyroidism, hysterectomy for benign reasons, previous small bowel obstruction secondary to intra- abdominal adhesions status post diagnostic laparoscopic followed by laparotomy and lysis of adhesions in February 2016. She has also had robotic incisional hernia repair done by Dr. Mack at [place] in September. Patient states that she had sudden onset of severe abdominal pain with nausea and vomiting and low- grade fever off and on up to 100.4 since Sunday. She states she was not passing gas and was not having a bowel movement. Patient came into [facility] emergency center for evaluation. She was afebrile, vital signs stable. She presented with leukocytosis of 26.4, creatinine 0.7 and BUN 21. Hemoglobin 14.2. Lactic acid 1.1, troponin negative. Urinalysis was clear with nitrate and leukoesterase negative. She underwent a CAT scan of the abdomen and pelvis with contrast that revealed distal small bowel obstruction, possibility of gallstone ileus, platelike atelectasis in both lung bases, stable cyst in the left kidney, degenerative changes within the spine. Patient was started on Unasyn, Zofran for nausea and morphine for pain control and admitted under the care of Dr. Uriarte. Patient is currently nothing by mouth with NG tube in place with a large amount of return fluid. 03/18: Patient remains with NG tube in place draining dark green liquid. We have asked for repeat abdominal x-ray. Patient is using her incentive spirometry at 1250 ML's. 03/19: Patient has been afebrile. Noted the patient drop her pulse ox in the 80s and is on O2 at 2 L nasal cannula. Patient denies any shortness of breath. She did have a bowel movement this morning. NG tube remains in place with decreased output. IV fluids will be decreased to 75 mL. Patient is stating that she is having trouble using the incentive spirometry. Slight elevated heart rate. She is scheduled for small bowel follow-through today. 03/20: Dr. Gomez has had NG tube removed and started on clear liquids. GI consult was admitted to evaluate for possible Crohn's disease. Tentative plan for outpatient MR enterography to evaluate terminal ileum and reevaluate for small bowel foreign-body. Home medication list reviewed and patient placed back on some of her home meds. Patient has been ambulating well in the hallway. Her pulse ox did drop down to 88%. Her incentive spirometry is only 500 and then she developed pressure in the middle of her abdomen and pain in the right side. Repeat chest x-ray will be ordered. IV fluids have been discontinued and patient will be given 1 dose of IV Lasix. She does not appear to be hypoxic or in any respiratory distress. 03/21: Repeat pulse ox yesterday afternoon from her ear revealed 94-95%. Patient again has no respiratory distress. She states she is using her incentive spirometry but mostly only reaching 500 and sometimes up 1000. Her lower extremity edema is improved. We will continue her on IV Lasix and potassium. Chest x-ray from yesterday showed pulmonary edema. She continues to have right sided abdominal sharp pain that comes and goes and feels better when she applies pressure. She is currently tolerating a full liquid diet. C- reactive protein is elevated at 175.9, sed rate elevated at 60. Other lab work pending. GI has ordered MRI enterography. 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 Evaluation for fistula is markedly limited secondary to extensive patient motion. Foreign body within the distal ileum has retrospectively been present on prior exams dating back to 07/05/2017 and could represent calcified ingested substance or calcified inspissated secretions within the diverticulum. Considering its presence on retrospective exams gallstone ileus is excluded. Dr. Gomez is planning for exploratory laparotomy with resection of the terminal ileum and remove small bowel foreign- body. 03/23: Patient went for surgery yesterday with Dr. Starks ended up having right- sided partial colectomy with mild many adhesion and few complication during surgery. According to him highly suspected for Crohn disease of the biopsies back will continue current management for now. Also patient had acute kidney injury with creatinine climb up through the night will continue hydration continue to watch her urine output for now. 03/24: Patient is feeling slightly but better, much worse kidney function compared to yesterday despite the hydration full catheter she is not making much urine. We'll consult nephrology and if need urology can be involved especially of this is for any reason surgical-related complication. We discussed with Dr. Gomez whether patient need to go for a CAT scan of the abdomen for further diagnosis of the reason why this acute kidney failure to place beside having a prerenal condition with the complication related to sepsis , hypotension and, surgery. Nephrology were notified of the consult and if the general opinion that we need to see urology will do the consult 03/25: BUN 16 and creatinine 0.91, hemoglobin 7.9 and white count is 8.2. Pressure readings are improved from the weekend. Peritoneal fluid is positive for E. coli and pseudomonas. Patient has been seen by Dr. Parker with plan for continued Zosyn. Chest x-ray done on March 24 showed mild cardiomegaly with platelike atelectasis. Patient is using incentive spirometry to but only reaching 500. The abdominal pain that she had prior to the surgery is now gone. She has a epidural in place which she expects to have removed today. She states she ambulated in the hallway twice yesterday. She is passing gas but no bowel movement at this time. NG tube remains in place. Davis catheter in place with adequate output. Levothyroxine changed to IV. 03/26: Patient have NG tube and Davis catheter out today. Epidural was removed yesterday. She states she is passing gas but no bowel movement. I asked is only 500. Hemoglobin is 8.5, BUN 9 and creatinine 0.8. 03/27: Peritoneal fluid culture is positive for E. coli, pseudomonas and nonhemolytic strep and an anaerobic gram-negative bacilli. She has been continued on Zosyn. She remains afebrile. Pulse ox 93% on room air. She has beginning about 750-1000 ML's on incentive spirometry. She states she is passed gas but has not had any bowel movement since surgery. She denies any cough. She is feeling improvement with having NG tube and Davis catheter out. 03/28: Pathology showed no signs of inflammatory bowel disease and no malignancy. Patient has been walking in the hallway. She is improving on her incentive spirometry. Pulse ox is 93% on room air. Patient is still on clear liquids and tolerating this. She is passing gas but no bowel movement. Blood pressure readings are high for which she will be resumed on benazepril. Amlodipine has also been resumed. Patient has been cleared for discharge by nephrology. We' re also clearing patient for discharge. Patient will need follow-up of Dr. Cross. Objective - Vital Signs Vital signs: Vital Signs Temp 97.1 F L 03/28/18 07:23 Pulse 76 03/28/18 07:23 Resp 16 03/28/18 07:23 BP 167/85 03/28/18 07:23 Pulse Ox 93 L 03/28/18 07:23 Intake & Output 03/27/18 03/28/18 03/28/18 18:59 06:59 18:59 Intake Total 480 Balance 480 Weight 65.2 kg Intake: Oral 480 Other: Voiding Method Toilet Toilet # Voids 2 2 - Exam Gen: This is a 58-year-old female. Patient walking in her room and appears to be comfortable and in no acute distress. HEENT: Head is atraumatic, normocephalic. Pupils equal, round. Sclerae is anicteric. NECK: Supple. No JVD. No lymphadenopathy. No thyromegaly. LUNGS: Clear to auscultation. No wheezes or rhonchi. No intercostal retractions. HEART: Regular rate and rhythm. No murmur. ABDOMEN: Soft. Bowel sounds present. No masses. No significant tenderness. Dressing in place to the midline with dried breakthrough bleeding at the bottom. No surrounding erythema. EXTREMITIES: No pedal edema. No calf tenderness. Dorsalis pedis palpable bilaterally. NEUROLOGICAL: Patient is awake, alert and oriented x3. Cranial nerves 2 through 12 are grossly intact. - Labs CBC & Chem 7: 03/26/18 07:32 03/27/18 07:31 Assessment and Plan Plan: 1. Severe abdominal pain secondary to small bowel obstructions from adhesions, peritonitis. Patient is status post exploratory laparotomy and lysis of adhesions and resection of the terminal ileum and right colon. NG tube and Davis to be removed today, epidural has been removed yesterday. Continue current pain management. Continue incentive spirometry. Patient is currently on Zosyn. Consult with Dr. Parker appreciated. 2. Acute kidney injury secondary to hypotension, recovered. Consult with nephrology is appreciated. 3. Hypotension secondary to hypovolemia. Continue fluid resuscitation for now keep watching the blood pressure, hopefully improving the blood pressure will improve the kidney function as well. 4. Acute blood loss anemia. Continue to monitor. No plan for transfusion at this time. 5. Vitamin B12 deficiency with chronic anemia. 6. Pulmonary prophylaxis and atelectasis. Incentive spirometry. 7. Hypoxemia secondary to atelectasis and pulmonary edema from IV fluids. No history of heart failure. IV Lasix ordered. Encourage incentive spirometry. 8. Hypothyroidism. Resume levothyroxine 37 g daily IV. 9. Retention. Patient resumed on Norvasc and benazepril. Patient can resume Lotrel at home. 10. GI prophylaxis. Protonix. 11. DVT prophylaxis. Lovenox. CODE STATUS: Full code. Discharge plan: Return home Impression and plan of care have been directed as dictated by the signing physician. Tomasa Chi nurse practitioner acting as scribe for signing physician.
--- NOTE | 2018-03-28 14:56 | P.PN ---
Subjective Progress Note Date: 03/28/18 Principal diagnosis: Small bowel obstruction Patient ambulating today once again. No bowel movement. Passing flatus. Denies nausea or vomiting. She states that her pain is no different than it has been since her epidural was removed however she appears slightly more uncomfortable today. Objective - Vital Signs Vital signs: Vital Signs Temp 97.1 F L 03/28/18 07:23 Pulse 76 03/28/18 07:23 Resp 16 03/28/18 07:23 BP 167/85 03/28/18 07:23 Pulse Ox 93 L 03/28/18 07:23 Intake & Output 03/27/18 03/28/18 03/28/18 18:59 06:59 18:59 Intake Total 2400 Balance 2400 Weight 65.2 kg Intake: Oral 2400 Other: Voiding Method Toilet Toilet # Voids 2 2 - Exam Abdomen: Soft, nondistended, mild incisional and right-sided tenderness, incisions with small amount of serosanguineous drainage - Labs CBC & Chem 7: 03/26/18 07:32 03/27/18 07:31 Assessment and Plan (1) SBO (small bowel obstruction) Narrative/Plan: Patient with more abdominal discomfort than anticipated. We will order repeat CAT scan tomorrow to evaluate for possible abscess. Continue liquid diet with ensure. Dietary and I have discussed her case. We were holding off on parenteral nutrition as her diet was being resumed however if we cannot advance her diet tomorrow we'll plan PICC line and TPN. Repeat labs tomorrow as well. Current Visit: Yes Status: Acute Code(s): K56.609 - UNSP INTESTNL OBST, UNSP TO PARTIAL VERSUS COMPLETE OBST SNOMED Code(s): 936421359
[2018-03-28] MEDS: KETOROLAC 30 MG/ML 1 ML VIAL IVP SCH (17:52)
[2018-03-29] MEDS: KETOROLAC 30 MG/ML 1 ML VIAL IVP SCH ×4 (00:16→17:24)
[2018-03-29] MEDS: LEVOTHYROXINE 75 MCG TAB PO SCH (06:01)
[2018-03-29 07:26] LABS: Basophils % (A) 1 %; Eosinophils # (A) 0.3 k/uL (0-0.7); Eosinophils % (A) 5 %; HCT 26.5 % (34.0-46.0); HGB 8.9 gm/dL (11.4-16.0); Lymphocytes # (A) 1.4 k/uL (1.0-4.8); Lymphocytes % (A) 24 %; MCH 28.6 pg (25.0-35.0); MCHC 33.6 g/dL (31.0-37.0); MCV 85.2 fL (80.0-100.0); Mean Platelet Volume 6.3; Monocytes # (A) 0.4 k/uL (0-1.0); Monocytes % (A) 7 %; Neutrophils # (A) 3.5 k/uL (1.3-7.7); Neutrophils % (A) 61 %; Platelet Count 626 k/uL (150-450); RBC 3.11 m/uL (3.80-5.40); RDW 14.6 % (11.5-15.5); WBC 5.8 k/uL (3.8-10.6)
[2018-03-29 07:47] LABS: Anion Gap 7 mmol/L; Blood Urea Nitrogen 6 mg/dL (7-17); Carbon Dioxide 32 mmol/L (22-30); Chloride 100 mmol/L (98-107); Glucose 107 mg/dL (74-99); Magnesium 1.8 mg/dL (1.6-2.3); Phosphorus 3.3 mg/dL (2.5-4.5); Potassium 3.6 mmol/L (3.5-5.1); Sodium 139 mmol/L (137-145)
[2018-03-29] MEDS: IOPAMIDOL-300 CONTRAST 30 ML VIAL (ORAL USE) PO PRN ×2 (07:49→08:55)
[2018-03-29] MEDS: PIPERACILLIN-TAZOBACTAM 3.375 GM in DEXTROSE/WATER 1 50ML.BAG IVPB SCH ×2 (09:55→21:35)
[2018-03-29] MEDS: ENOXAPARIN 40 MG/0.4 ML SYRINGE SQ SCH (09:55)
[2018-03-29] MEDS: LISINOPRIL 10 MG TAB PO SCH (09:55)
[2018-03-29] MEDS: FUROSEMIDE 10 MG/ML 2 ML VIAL IV SCH ×2 (09:55→21:35)
[2018-03-29] MEDS: amLODIPine 5 MG TAB PO SCH (09:55)
[2018-03-29] MEDS: FAMOTIDINE 20 MG/2 ML VIAL IV SCH ×2 (09:56→21:37)
[2018-03-29] MEDS: MORPHINE SULFATE 4 MG/ML SYRINGE IVP PRN ×2 (09:59→21:38)
--- NOTE | 2018-03-29 10:17 | CT ---
EXAMINATION TYPE: CT abdomen pelvis w con DATE OF EXAM: 03/29/2018 HISTORY: S/P bowel resection CT DLP: 1339.4mGycm Automated Exposure Control for Dose Reduction was Utilized. CONTRAST: CT scan of the abdomen and pelvis is performed with IV Contrast, patient injected with 100 mL of Isov ue 300. COMPARISON: None. FINDINGS: LUNG BASES: There is again new small left pleural effusion and associated left basilar atelectasis wi th linear right basilar atelectasis also seen, progressed from the prior. LIVER/GB: Gallbladder is elongated although no cholelithiasis is noted. Liver is grossly unremarkable . PANCREAS: No significant abnormality is seen. SPLEEN: No significant abnormality is seen. ADRENALS: No significant abnormality is seen. KIDNEYS: Left upper pole renal angiomyolipoma is difficult to accurately measure the margins, however no new complicating internal hemorrhage is identified on today's exam. Additional renal cysts and to o small to accurately characterize renal lesions are seen bilaterally. BOWEL: Adjacent to the gallbladder there is an elongated fluid collection superiorly measuring 6.6 x 5.5 cm and inferiorly measuring 5.7 x 3.2 cm along the right paracolic gutter. There is a second flui d collection within the right hemipelvis abutting the distal ileum entering 4.5 x 3.6 cm on series 5 image 63. There is mild peripheral enhancement of these fluid collections, however no air is seen wit hin either the fluid collections. Overall there is decompression of numerous loops of small bowel in comparison to the prior and contra st extends throughout the entirety of the colon therefore previous ileus/small bowel obstruction has resolved. In addition to the fluid collections there is mesenteric congestion and noncircumscribed as cites within the anterior and central abdomen and pelvis. Few foci of pneumoperitoneum are likely pos tsurgical such as on series 5 image 39. Subcutaneous emphysema and ventral abdominal wall monika and inflammatory changes are also stable postsurgical. Terminal ileum known stricture caliber is seen bu t improvement in caliber as it is no longer decompressed containing. UTERUS/ADNEXA: No gross abnormality seen. LYMPH NODES: No greater than 1cm abdominal or pelvic lymph nodes are appreciated. 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 OTHER: Air within the urinary bladder likely relates to recent instrumentation. If there is further c oncern urinalysis could be performed. IMPRESSION: 1. Two new fluid collections near the gallbladder fossa and within the right low hemipelvis may relat e to postsurgical seromas as there are no internal foci internal air at this time. Correlate with CBC . Additionally there is mild abdominal ascites and mesenteric venous congestion. 2. Punctate foci of pneumoperitoneum in combination with a recent postsurgical change in the ventral abdominal wall and subcutaneous emphysema relate to resolving postsurgical sequela. 3. Resolved small bowel obstruction and improved caliber of the no longer decompressed stricture seen on the prior exam at the terminal ileum. 4. New small left pleural effusion and persistent multifocal basilar atelectasis. 5. Other stable findings as described above.
[2018-03-29 12:25] LABS: INR 1.3 (<1.2); Prothrombin Time 12.2 sec (9.0-12.0)
[2018-03-29] MEDS ORDERED: HYDROmorphone 1 MG/ML 1 ML SYRINGE IVP PRN (13:21)
--- NOTE | 2018-03-29 14:20 | P.PN ---
Progress Note - Text Progress Note Date: 03/29/18 Patient is not in the room when I was rounding. She and I had discussed the recent CAT scan findings by phone however. CAT scan shows 2 fluid collections without definite anastomotic leak. Percutaneous drain was advised and scheduled. We will advance her diet to full liquids at this time.
--- NOTE | 2018-03-29 14:28 | CT ---
EXAMINATION TYPE: CT peritoneal fluid drainage DATE OF EXAM: 03/29/2018 COMPARISON: 03/29/2018 HISTORY: Request from referring surgeon is for right lower quadrant drainage tube insertion for possi ble abscess CT DLP: 1132 mGycm The procedure is discussed with the patient, the risks, complications, benefits and alternatives, wer e discussed and any questions were answered. Informed consent was obtained. The patient is placed s upine on the CT table, prepped and draped in the usual sterile fashion. Utilizing a 22-gauge Chiba needle access into the right lower quadrant fluid collection was achieved and there is placement of a guidewire. Conversion to open 0.35 system and serial dilation to 8 [place] with placement of an 8 [place] drainage catheter. Repeat imaging demonstrated ideal placement. Nearly all the contents of the collection were drained by hand and sent to pathology for analysis. All elements of maximal barrier and sterile technique were utilized. The patient remained stable thr oughout the procedure with no immediate postprocedural complication. IMPRESSION: 1. Successful CT guided drainage catheter insertion within the right lower quadrant fluid collectio n.
[2018-03-29] MEDS: MULTIVITAMINS, THERA 1 EACH TAB PO SCH (14:45)
--- NOTE | 2018-03-29 15:16 | P.PN ---
Subjective Progress Note Date: 03/29/18 This is a 58-year-old female patient of Dr. Cross and also Dr. Gomez with past medical history of hypertension, hypothyroidism, hysterectomy for benign reasons, previous small bowel obstruction secondary to intra- abdominal adhesions status post diagnostic laparoscopic followed by laparotomy and lysis of adhesions in February 2016. She has also had robotic incisional hernia repair done by Dr. Mack at [place] in September. Patient states that she had sudden onset of severe abdominal pain with nausea and vomiting and low- grade fever off and on up to 100.4 since Sunday. She states she was not passing gas and was not having a bowel movement. Patient came into [facility] emergency center for evaluation. She was afebrile, vital signs stable. She presented with leukocytosis of 26.4, creatinine 0.7 and BUN 21. Hemoglobin 14.2. Lactic acid 1.1, troponin negative. Urinalysis was clear with nitrate and leukoesterase negative. She underwent a CAT scan of the abdomen and pelvis with contrast that revealed distal small bowel obstruction, possibility of gallstone ileus, platelike atelectasis in both lung bases, stable cyst in the left kidney, degenerative changes within the spine. Patient was started on Unasyn, Zofran for nausea and morphine for pain control and admitted under the care of Dr. Uriarte. Patient is currently nothing by mouth with NG tube in place with a large amount of return fluid. 03/18: Patient remains with NG tube in place draining dark green liquid. We have asked for repeat abdominal x-ray. Patient is using her incentive spirometry at 1250 ML's. 03/19: Patient has been afebrile. Noted the patient drop her pulse ox in the 80s and is on O2 at 2 L nasal cannula. Patient denies any shortness of breath. She did have a bowel movement this morning. NG tube remains in place with decreased output. IV fluids will be decreased to 75 mL. Patient is stating that she is having trouble using the incentive spirometry. Slight elevated heart rate. She is scheduled for small bowel follow-through today. 03/20: Dr. Gomez has had NG tube removed and started on clear liquids. GI consult was admitted to evaluate for possible Crohn's disease. Tentative plan for outpatient MR enterography to evaluate terminal ileum and reevaluate for small bowel foreign-body. Home medication list reviewed and patient placed back on some of her home meds. Patient has been ambulating well in the hallway. Her pulse ox did drop down to 88%. Her incentive spirometry is only 500 and then she developed pressure in the middle of her abdomen and pain in the right side. Repeat chest x-ray will be ordered. IV fluids have been discontinued and patient will be given 1 dose of IV Lasix. She does not appear to be hypoxic or in any respiratory distress. 03/21: Repeat pulse ox yesterday afternoon from her ear revealed 94-95%. Patient again has no respiratory distress. She states she is using her incentive spirometry but mostly only reaching 500 and sometimes up 1000. Her lower extremity edema is improved. We will continue her on IV Lasix and potassium. Chest x-ray from yesterday showed pulmonary edema. She continues to have right sided abdominal sharp pain that comes and goes and feels better when she applies pressure. She is currently tolerating a full liquid diet. C- reactive protein is elevated at 175.9, sed rate elevated at 60. Other lab work pending. GI has ordered MRI enterography. 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 Evaluation for fistula is markedly limited secondary to extensive patient motion. Foreign body within the distal ileum has retrospectively been present on prior exams dating back to 07/05/2017 and could represent calcified ingested substance or calcified inspissated secretions within the diverticulum. Considering its presence on retrospective exams gallstone ileus is excluded. Dr. Gomez is planning for exploratory laparotomy with resection of the terminal ileum and remove small bowel foreign- body. 03/23: Patient went for surgery yesterday with Dr. Starks ended up having right- sided partial colectomy with mild many adhesion and few complication during surgery. According to him highly suspected for Crohn disease of the biopsies back will continue current management for now. Also patient had acute kidney injury with creatinine climb up through the night will continue hydration continue to watch her urine output for now. 03/24: Patient is feeling slightly but better, much worse kidney function compared to yesterday despite the hydration full catheter she is not making much urine. We'll consult nephrology and if need urology can be involved especially of this is for any reason surgical-related complication. We discussed with Dr. Gomez whether patient need to go for a CAT scan of the abdomen for further diagnosis of the reason why this acute kidney failure to place beside having a prerenal condition with the complication related to sepsis , hypotension and, surgery. Nephrology were notified of the consult and if the general opinion that we need to see urology will do the consult 03/25: BUN 16 and creatinine 0.91, hemoglobin 7.9 and white count is 8.2. Pressure readings are improved from the weekend. Peritoneal fluid is positive for E. coli and pseudomonas. Patient has been seen by Dr. Parker with plan for continued Zosyn. Chest x-ray done on March 24 showed mild cardiomegaly with platelike atelectasis. Patient is using incentive spirometry to but only reaching 500. The abdominal pain that she had prior to the surgery is now gone. She has a epidural in place which she expects to have removed today. She states she ambulated in the hallway twice yesterday. She is passing gas but no bowel movement at this time. NG tube remains in place. Davis catheter in place with adequate output. Levothyroxine changed to IV. 03/26: Patient have NG tube and Davis catheter out today. Epidural was removed yesterday. She states she is passing gas but no bowel movement. I asked is only 500. Hemoglobin is 8.5, BUN 9 and creatinine 0.8. 03/27: Peritoneal fluid culture is positive for E. coli, pseudomonas and nonhemolytic strep and an anaerobic gram-negative bacilli. She has been continued on Zosyn. She remains afebrile. Pulse ox 93% on room air. She has beginning about 750-1000 ML's on incentive spirometry. She states she is passed gas but has not had any bowel movement since surgery. She denies any cough. She is feeling improvement with having NG tube and Davis catheter out. 03/28: Pathology showed no signs of inflammatory bowel disease and no malignancy. Patient has been walking in the hallway. She is improving on her incentive spirometry. Pulse ox is 93% on room air. Patient is still on clear liquids and tolerating this. She is passing gas but no bowel movement. Blood pressure readings are high for which she will be resumed on benazepril. Amlodipine has also been resumed. Patient has been cleared for discharge by nephrology. We' re also clearing patient for discharge. Patient will need follow-up of Dr. Cross. 03/29: Patient underwent CT of the abdomen and pelvis that showed 2 new fluid collections near the gallbladder fossa within the right lower hemipelvis may relate to postsurgical seromas. Mild abdominal ascites and mesenteric venous congestion. Punctate foci of pneumoperitoneum in combination with recent post surgical change in the ventral abdominal wall and subcutaneous emphysema related to resolving postsurgical sequelae. Resolved small bowel obstruction and improved caliber of the nose longer decompressed strictures seen on the prior exam at the terminal ileum. New small left effusion and persistent multifocal basilar atelectasis. She then underwent CT-guided drainage catheter insertion with Dr. Caraballo and specimen sent for pathology. Objective - Vital Signs Vital signs: Vital Signs Temp 96.8 F L 03/29/18 05:00 Pulse 73 03/29/18 05:00 Resp 16 03/29/18 05:00 BP 159/69 03/29/18 05:00 Pulse Ox 95 03/29/18 05:00 Intake & Output 03/28/18 03/29/18 03/29/18 18:59 06:59 18:59 Intake Total 5090 1000 Output Total 650 Balance 4440 1000 Intake: Intake, IV Titration 50 50 Amount Piperacillin-Tazobactam 3 50 50 .375 gm In Dextrose/Water 1 50ml.bag @ 12.5 mls/hr IVPB Q12HR CATY Rx#: [id number] Oral 5040 950 Output: Urine 650 Other: Voiding Method Toilet Toilet # Voids 3 2 - Exam Gen: This is a 58-year-old female. Patient walking in her room and appears to be comfortable and in no acute distress. HEENT: Head is atraumatic, normocephalic. Pupils equal, round. Sclerae is anicteric. NECK: Supple. No JVD. No lymphadenopathy. No thyromegaly. LUNGS: Clear to auscultation. No wheezes or rhonchi. No intercostal retractions. HEART: Regular rate and rhythm. No murmur. ABDOMEN: Soft. Bowel sounds present. No masses. No significant tenderness. Dressing in place to the midline with dried breakthrough bleeding at the bottom. No surrounding erythema. EXTREMITIES: No pedal edema. No calf tenderness. Dorsalis pedis palpable bilaterally. NEUROLOGICAL: Patient is awake, alert and oriented x3. Cranial nerves 2 through 12 are grossly intact. - Labs CBC & Chem 7: 03/29/18 06:45 03/29/18 06:45 Labs: Abnormal Lab Results - Last 24 Hours (Table) 03/29/18 03/29/18 Range/Units 06:45 06:45 RBC 3.11 L (3.80-5.40) m/uL Hgb 8.9 L (11.4-16.0) gm/dL Hct 26.5 L (34.0-46.0) % Plt Count 626 H (150-450) k/uL Carbon Dioxide 32 H (22-30) mmol/L BUN 6 L (7-17) mg/dL Glucose 107 H (74-99) mg/dL Calcium 8.0 L (8.4-10.2) mg/dL Assessment and Plan Plan: 1. Severe abdominal pain secondary to small bowel obstructions from adhesions, peritonitis. Patient is status post exploratory laparotomy and lysis of adhesions and resection of the terminal ileum and right colon. NG tube and Davis to be removed today, epidural has been removed yesterday. Continue current pain management. Continue incentive spirometry. Patient is currently on Zosyn. Consult with Dr. Parker appreciated. 2. Acute kidney injury secondary to hypotension, recovered. Consult with nephrology is appreciated. 3. Hypotension secondary to hypovolemia. Continue fluid resuscitation for now keep watching the blood pressure, hopefully improving the blood pressure will improve the kidney function as well. 4. Acute blood loss anemia. Continue to monitor. No plan for transfusion at this time. 5. Possible abdominal abscess in the right lower quadrant status post CT- guided drainage catheter insertion. 6. Vitamin B12 deficiency with chronic anemia. 7. Pulmonary prophylaxis and atelectasis. Incentive spirometry. 8. Hypoxemia secondary to atelectasis and pulmonary edema from IV fluids. No history of heart failure. IV Lasix ordered. Encourage incentive spirometry. 9. Hypothyroidism. Resume levothyroxine 37 g daily IV. 10. Hypertension. Patient resumed on Norvasc and benazepril. Patient can resume Lotrel at home. 11. GI prophylaxis. Protonix. 12. DVT prophylaxis. Lovenox. CODE STATUS: Full code. Discharge plan: Return home Impression and plan of care have been directed as dictated by the signing physician. Tomasa Chi nurse practitioner acting as scribe for signing physician.
[2018-03-30] MEDS: KETOROLAC 30 MG/ML 1 ML VIAL IVP SCH (01:24)
[2018-03-30] MEDS: LEVOTHYROXINE 75 MCG TAB PO SCH (05:21)
[2018-03-30] MEDS: MORPHINE SULFATE 4 MG/ML SYRINGE IVP PRN ×2 (05:22→14:31)
[2018-03-30 07:27] LABS: Basophils % (A) 0 %; Eosinophils # (A) 0.2 k/uL (0-0.7); Eosinophils % (A) 4 %; HCT 25.2 % (34.0-46.0); HGB 8.1 gm/dL (11.4-16.0); Lymphocytes # (A) 1.2 k/uL (1.0-4.8); Lymphocytes % (A) 24 %; MCH 26.7 pg (25.0-35.0); MCV 83.7 fL (80.0-100.0); Mean Platelet Volume 6.3; Monocytes # (A) 0.3 k/uL (0-1.0); Monocytes % (A) 6 %; Neutrophils # (A) 3.2 k/uL (1.3-7.7); Neutrophils % (A) 62 %; Platelet Count 676 k/uL (150-450); RBC 3.02 m/uL (3.80-5.40); RDW 14.7 % (11.5-15.5); WBC 5.1 k/uL (3.8-10.6)
[2018-03-30 07:32] LABS: Anion Gap 5 mmol/L; Blood Urea Nitrogen 7 mg/dL (7-17); Carbon Dioxide 31 mmol/L (22-30); Chloride 101 mmol/L (98-107); Glucose 102 mg/dL (74-99); Potassium 3.2 mmol/L (3.5-5.1); Sodium 137 mmol/L (137-145)
[2018-03-30] MEDS: FAMOTIDINE 20 MG/2 ML VIAL IV SCH (08:37)
[2018-03-30] MEDS: PIPERACILLIN-TAZOBACTAM 3.375 GM in DEXTROSE/WATER 1 50ML.BAG IVPB SCH ×2 (08:37→20:59)
[2018-03-30] MEDS: FUROSEMIDE 10 MG/ML 2 ML VIAL IV SCH ×2 (08:38→20:59)
[2018-03-30] MEDS: ENOXAPARIN 40 MG/0.4 ML SYRINGE SQ SCH (08:38)
[2018-03-30] MEDS: LISINOPRIL 10 MG TAB PO SCH (08:38)
[2018-03-30] MEDS: amLODIPine 5 MG TAB PO SCH (08:38)
--- NOTE | 2018-03-30 10:09 | P.PN ---
Subjective Progress Note Date: 03/30/18 Principal diagnosis: Small bowel obstruction Patient feels better today. She believes her right-sided pain is improved after drainage yesterday. The fluid was serous as described by radiology. White blood cell count remains normal. No fevers. She is having loose liquid stools. Objective - Vital Signs Vital signs: Vital Signs Temp 97.6 F 03/30/18 05:20 Pulse 75 03/30/18 05:20 Resp 16 03/30/18 05:20 BP 138/64 03/30/18 05:20 Pulse Ox 95 03/30/18 09:19 Intake & Output 03/29/18 03/30/18 03/30/18 18:59 06:59 18:59 Intake Total 2400 Output Total 725 10 Balance 1675 -10 Weight 65.2 kg Intake: Oral 2400 Output: Drainage 10 Right 10 Urine 650 Stool 75 Other: Voiding Method Toilet Toilet Toilet # Voids 2 1 - Exam Abdomen: Soft, mild distention, draining serous, small amount of seropurulent drainage from wound sites, no erythema, mild tenderness - Labs CBC & Chem 7: 03/30/18 07:01 03/30/18 07:01 Labs: Abnormal Lab Results - Last 24 Hours (Table) 03/29/18 03/29/18 03/30/18 Range/Units 06:45 12:08 07:01 RBC 3.02 L (3.80-5.40) m/uL Hgb 8.1 L (11.4-16.0) gm/dL Hct 25.2 L (34.0-46.0) % Plt Count 676 H (150-450) k/uL PT 12.2 H (9.0-12.0) sec INR 1.3 H (<1.2) Potassium (3.5-5.1) mmol/L Carbon Dioxide (22-30) mmol/L Glucose (74-99) mg/dL Calcium (8.4-10.2) mg/dL Prealbumin <5.0 L (18.0-42.0) mg/dL 03/30/18 Range/Units 07:01 RBC (3.80-5.40) m/uL Hgb (11.4-16.0) gm/dL Hct (34.0-46.0) % Plt Count (150-450) k/uL PT (9.0-12.0) sec INR (<1.2) Potassium 3.2 L (3.5-5.1) mmol/L Carbon Dioxide 31 H (22-30) mmol/L Glucose 102 H (74-99) mg/dL Calcium 8.0 L (8.4-10.2) mg/dL Prealbumin (18.0-42.0) mg/dL Microbiology - Last 24 Hours (Table) 03/29/18 13:39 Gram Stain - Preliminary Aspirate Body Fluid Culture - Preliminary 03/29/18 13:39 Fungal Culture - Preliminary Abdominal Fluid 03/29/18 13:39 Anaerobic Culture - Preliminary Abdominal Fluid Assessment and Plan (1) SBO (small bowel obstruction) Narrative/Plan: Will advance diet. Continue antibiotics. Ambulate. Keep drain for now. Current Visit: Yes Status: Acute Code(s): K56.609 - UNSP INTESTNL OBST, UNSP TO PARTIAL VERSUS COMPLETE OBST SNOMED Code(s): 428069579
[2018-03-30] MEDS: MULTIVITAMINS, THERA 1 EACH TAB PO SCH (12:31)
--- NOTE | 2018-03-30 14:19 | P.PN ---
Subjective Progress Note Date: 03/30/18 This is a 58-year-old female patient of Dr. Cross and also Dr. Gomez with past medical history of hypertension, hypothyroidism, hysterectomy for benign reasons, previous small bowel obstruction secondary to intra- abdominal adhesions status post diagnostic laparoscopic followed by laparotomy and lysis of adhesions in February 2016. She has also had robotic incisional hernia repair done by Dr. Mack at [place] in September. Patient states that she had sudden onset of severe abdominal pain with nausea and vomiting and low- grade fever off and on up to 100.4 since Sunday. She states she was not passing gas and was not having a bowel movement. Patient came into [facility] emergency center for evaluation. She was afebrile, vital signs stable. She presented with leukocytosis of 26.4, creatinine 0.7 and BUN 21. Hemoglobin 14.2. Lactic acid 1.1, troponin negative. Urinalysis was clear with nitrate and leukoesterase negative. She underwent a CAT scan of the abdomen and pelvis with contrast that revealed distal small bowel obstruction, possibility of gallstone ileus, platelike atelectasis in both lung bases, stable cyst in the left kidney, degenerative changes within the spine. Patient was started on Unasyn, Zofran for nausea and morphine for pain control and admitted under the care of Dr. Uriarte. Patient is currently nothing by mouth with NG tube in place with a large amount of return fluid. 03/18: Patient remains with NG tube in place draining dark green liquid. We have asked for repeat abdominal x-ray. Patient is using her incentive spirometry at 1250 ML's. 03/19: Patient has been afebrile. Noted the patient drop her pulse ox in the 80s and is on O2 at 2 L nasal cannula. Patient denies any shortness of breath. She did have a bowel movement this morning. NG tube remains in place with decreased output. IV fluids will be decreased to 75 mL. Patient is stating that she is having trouble using the incentive spirometry. Slight elevated heart rate. She is scheduled for small bowel follow-through today. 03/20: Dr. Gomez has had NG tube removed and started on clear liquids. GI consult was admitted to evaluate for possible Crohn's disease. Tentative plan for outpatient MR enterography to evaluate terminal ileum and reevaluate for small bowel foreign-body. Home medication list reviewed and patient placed back on some of her home meds. Patient has been ambulating well in the hallway. Her pulse ox did drop down to 88%. Her incentive spirometry is only 500 and then she developed pressure in the middle of her abdomen and pain in the right side. Repeat chest x-ray will be ordered. IV fluids have been discontinued and patient will be given 1 dose of IV Lasix. She does not appear to be hypoxic or in any respiratory distress. 03/21: Repeat pulse ox yesterday afternoon from her ear revealed 94-95%. Patient again has no respiratory distress. She states she is using her incentive spirometry but mostly only reaching 500 and sometimes up 1000. Her lower extremity edema is improved. We will continue her on IV Lasix and potassium. Chest x-ray from yesterday showed pulmonary edema. She continues to have right sided abdominal sharp pain that comes and goes and feels better when she applies pressure. She is currently tolerating a full liquid diet. C- reactive protein is elevated at 175.9, sed rate elevated at 60. Other lab work pending. GI has ordered MRI enterography. 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 Evaluation for fistula is markedly limited secondary to extensive patient motion. Foreign body within the distal ileum has retrospectively been present on prior exams dating back to 07/05/2017 and could represent calcified ingested substance or calcified inspissated secretions within the diverticulum. Considering its presence on retrospective exams gallstone ileus is excluded. Dr. Gomez is planning for exploratory laparotomy with resection of the terminal ileum and remove small bowel foreign- body. 03/23: Patient went for surgery yesterday with Dr. Starks ended up having right- sided partial colectomy with mild many adhesion and few complication during surgery. According to him highly suspected for Crohn disease of the biopsies back will continue current management for now. Also patient had acute kidney injury with creatinine climb up through the night will continue hydration continue to watch her urine output for now. 03/24: Patient is feeling slightly but better, much worse kidney function compared to yesterday despite the hydration full catheter she is not making much urine. We'll consult nephrology and if need urology can be involved especially of this is for any reason surgical-related complication. We discussed with Dr. Gomez whether patient need to go for a CAT scan of the abdomen for further diagnosis of the reason why this acute kidney failure to place beside having a prerenal condition with the complication related to sepsis , hypotension and, surgery. Nephrology were notified of the consult and if the general opinion that we need to see urology will do the consult 03/25: BUN 16 and creatinine 0.91, hemoglobin 7.9 and white count is 8.2. Pressure readings are improved from the weekend. Peritoneal fluid is positive for E. coli and pseudomonas. Patient has been seen by Dr. Parker with plan for continued Zosyn. Chest x-ray done on March 24 showed mild cardiomegaly with platelike atelectasis. Patient is using incentive spirometry to but only reaching 500. The abdominal pain that she had prior to the surgery is now gone. She has a epidural in place which she expects to have removed today. She states she ambulated in the hallway twice yesterday. She is passing gas but no bowel movement at this time. NG tube remains in place. Davis catheter in place with adequate output. Levothyroxine changed to IV. 03/26: Patient have NG tube and Davis catheter out today. Epidural was removed yesterday. She states she is passing gas but no bowel movement. I asked is only 500. Hemoglobin is 8.5, BUN 9 and creatinine 0.8. 03/27: Peritoneal fluid culture is positive for E. coli, pseudomonas and nonhemolytic strep and an anaerobic gram-negative bacilli. She has been continued on Zosyn. She remains afebrile. Pulse ox 93% on room air. She has beginning about 750-1000 ML's on incentive spirometry. She states she is passed gas but has not had any bowel movement since surgery. She denies any cough. She is feeling improvement with having NG tube and Davis catheter out. 03/28: Pathology showed no signs of inflammatory bowel disease and no malignancy. Patient has been walking in the hallway. She is improving on her incentive spirometry. Pulse ox is 93% on room air. Patient is still on clear liquids and tolerating this. She is passing gas but no bowel movement. Blood pressure readings are high for which she will be resumed on benazepril. Amlodipine has also been resumed. Patient has been cleared for discharge by nephrology. We' re also clearing patient for discharge. Patient will need follow-up of Dr. Cross. 03/29: Patient underwent CT of the abdomen and pelvis that showed 2 new fluid collections near the gallbladder fossa within the right lower hemipelvis may relate to postsurgical seromas. Mild abdominal ascites and mesenteric venous congestion. Punctate foci of pneumoperitoneum in combination with recent post surgical change in the ventral abdominal wall and subcutaneous emphysema related to resolving postsurgical sequelae. Resolved small bowel obstruction and improved caliber of the nose longer decompressed strictures seen on the prior exam at the terminal ileum. New small left effusion and persistent multifocal basilar atelectasis. She then underwent CT-guided drainage catheter insertion with Dr. Caraballo and specimen sent for pathology. 03/30 PAtient doing well, denies any abd pain. Patient is walkiing down the burns without any difficult. Drain stays in place today, serous drainage noted. patient tolerated advanced diet without any difficulty. Objective - Vital Signs Vital signs: Vital Signs Temp 97.6 F 03/30/18 05:20 Pulse 75 03/30/18 05:20 Resp 16 03/30/18 05:20 BP 138/64 03/30/18 05:20 Pulse Ox 95 03/30/18 09:19 Intake & Output 03/29/18 03/30/18 03/30/18 18:59 06:59 18:59 Intake Total 2400 50 Output Total 725 10 Balance 1675 -10 50 Weight 65.2 kg Intake: Intake, IV Titration 50 Amount Piperacillin-Tazobactam 3 50 .375 gm In Dextrose/Water 1 50ml.bag @ 12.5 mls/hr IVPB Q12HR CATY Rx#: [id number] Oral 2400 Output: Drainage 10 Right 10 Urine 650 Stool 75 Other: Voiding Method Toilet Toilet Toilet # Voids 2 1 - Exam Gen: This is a 58-year-old female. Patient walking in her room and appears to be comfortable and in no acute distress. HEENT: Head is atraumatic, normocephalic. Pupils equal, round. Sclerae is anicteric. NECK: Supple. No JVD. No lymphadenopathy. No thyromegaly. LUNGS: Clear to auscultation. No wheezes or rhonchi. No intercostal retractions. HEART: Regular rate and rhythm. No murmur. ABDOMEN: Soft. Bowel sounds present. No masses. No significant tenderness. Dressing in place to the midline with dried breakthrough bleeding at the bottom. No surrounding erythema. EXTREMITIES: No pedal edema. No calf tenderness. Dorsalis pedis palpable bilaterally. NEUROLOGICAL: Patient is awake, alert and oriented x3. Cranial nerves 2 through 12 are grossly intact. - Labs CBC & Chem 7: 03/30/18 07:01 03/30/18 07:01 Labs: Abnormal Lab Results - Last 24 Hours (Table) 03/30/18 03/30/18 Range/Units 07:01 07:01 RBC 3.02 L (3.80-5.40) m/uL Hgb 8.1 L (11.4-16.0) gm/dL Hct 25.2 L (34.0-46.0) % Plt Count 676 H (150-450) k/uL Potassium 3.2 L (3.5-5.1) mmol/L Carbon Dioxide 31 H (22-30) mmol/L Glucose 102 H (74-99) mg/dL Calcium 8.0 L (8.4-10.2) mg/dL Microbiology - Last 24 Hours (Table) 03/29/18 13:39 Gram Stain - Preliminary Aspirate Body Fluid Culture - Preliminary 03/29/18 13:39 Fungal Culture - Preliminary Abdominal Fluid 03/29/18 13:39 Anaerobic Culture - Preliminary Abdominal Fluid Assessment and Plan Plan: 1. Severe abdominal pain secondary to small bowel obstructions from adhesions, peritonitis. Patient is status post exploratory laparotomy and lysis of adhesions and resection of the terminal ileum and right colon. NG tube and Davis removed , epidural has been removed yesterday. Continue current pain management. Continue incentive spirometry. Patient is currently on Zosyn. Consult with Dr. Parker appreciated.2 fluid pockets noted on recent CT s/p drain placement 2. Acute kidney injury secondary to hypotension, recovered. Consult with nephrology is appreciated. 3. Hypotension secondary to hypovolemia. Continue fluid resuscitation for now keep watching the blood pressure, hopefully improving the blood pressure will improve the kidney function as well. 4. Acute blood loss anemia. Continue to monitor. No plan for transfusion at this time. 5. Possible abdominal abscess in the right lower quadrant status post CT- guided drainage catheter insertion. 6. Vitamin B12 deficiency with chronic anemia. 7. Pulmonary prophylaxis and atelectasis. Incentive spirometry. 8. Hypoxemia secondary to atelectasis and pulmonary edema from IV fluids. No history of heart failure. IV Lasix ordered. Encourage incentive spirometry. 9. Hypothyroidism. Resume levothyroxine 37 g daily IV. 10. Hypertension. Patient resumed on Norvasc and benazepril. Patient can resume Lotrel at home. 11. GI prophylaxis. Protonix. 12. DVT prophylaxis. Lovenox. CODE STATUS: Full code. Discharge plan: Return home
[2018-03-30] MEDS ORDERED: Potassium Replacement Protocol 1 EACH MISC MISCELLANE PRN (15:59)
[2018-03-30] MEDS: POTASSIUM CHLORIDE ER 20 MEQ TAB.ER PO SCH ×2 (17:24→18:16)
[2018-03-30] MEDS: MORPHINE ORAL SOLN 10 MG/5 ML CUP PO PRN (21:00)
[2018-03-30] MEDS: FAMOTIDINE 20 MG TAB PO SCH (21:00)
[2018-03-31] MEDS: MORPHINE ORAL SOLN 10 MG/5 ML CUP PO PRN ×2 (01:12→06:29)
[2018-03-31] MEDS: LEVOTHYROXINE 75 MCG TAB PO SCH (06:25)
[2018-03-31 08:22] LABS: Basophils % (A) 1 %; Eosinophils # (A) 0.2 k/uL (0-0.7); Eosinophils % (A) 4 %; HCT 26.1 % (34.0-46.0); HGB 8.7 gm/dL (11.4-16.0); Hypochromasia Slight; Lymphocytes # (A) 1.5 k/uL (1.0-4.8); Lymphocytes % (A) 24 %; MCH 28.3 pg (25.0-35.0); MCHC 33.3 g/dL (31.0-37.0); Mean Platelet Volume 6.3; Monocytes # (A) 0.5 k/uL (0-1.0); Monocytes % (A) 7 %; Neutrophils # (A) 4.1 k/uL (1.3-7.7); Neutrophils % (A) 63 %; Platelet Count 697 k/uL (150-450); Poikilocytosis Slight; RBC 3.07 m/uL (3.80-5.40); RDW 14.7 % (11.5-15.5); WBC 6.5 k/uL (3.8-10.6)
[2018-03-31] MEDS: PIPERACILLIN-TAZOBACTAM 3.375 GM in DEXTROSE/WATER 1 50ML.BAG IVPB SCH ×2 (08:25→18:00)
[2018-03-31] MEDS: amLODIPine 5 MG TAB PO SCH (08:28)
[2018-03-31] MEDS: FAMOTIDINE 20 MG TAB PO SCH ×2 (08:28→20:47)
[2018-03-31] MEDS: FUROSEMIDE 10 MG/ML 2 ML VIAL IV SCH ×2 (08:28→20:47)
[2018-03-31] MEDS: LISINOPRIL 10 MG TAB PO SCH (08:28)
[2018-03-31] MEDS: ENOXAPARIN 40 MG/0.4 ML SYRINGE SQ SCH (08:28)
[2018-03-31 08:42] LABS: Anion Gap 7 mmol/L; Blood Urea Nitrogen 8 mg/dL (7-17); Calcium 8.2 mg/dL (8.4-10.2); Carbon Dioxide 28 mmol/L (22-30); Chloride 101 mmol/L (98-107); Glucose 96 mg/dL (74-99); Potassium 4.1 mmol/L (3.5-5.1); Sodium 136 mmol/L (137-145)
--- NOTE | 2018-03-31 09:55 | P.PN ---
Subjective Progress Note Date: 03/31/18 Principal diagnosis: Small bowel obstruction Patient doing well today. Pain improved. Some cramping with her diet. White blood cell count remains normal. She is afebrile. Loose stool yesterday. Drain output serous. Objective - Vital Signs Vital signs: Vital Signs Temp 98.3 F 03/31/18 05:30 Pulse 79 03/31/18 05:30 Resp 16 03/31/18 05:30 BP 121/78 03/31/18 05:30 Pulse Ox 96 03/31/18 05:30 Intake & Output 03/30/18 03/31/18 03/31/18 18:59 06:59 18:59 Intake Total 50 50 Balance 50 50 Intake: Intake, IV Titration 50 50 Amount Piperacillin-Tazobactam 3 50 50 .375 gm In Dextrose/Water 1 50ml.bag @ 12.5 mls/hr IVPB Q12HR CATY Rx#: [id number] Other: Voiding Method Toilet Toilet # Voids 1 - Exam Abdomen: Soft, nondistended, mild incisional and right-sided tenderness, improved - Labs CBC & Chem 7: 03/31/18 06:54 03/31/18 06:54 Labs: Abnormal Lab Results - Last 24 Hours (Table) 03/31/18 03/31/18 Range/Units 06:54 06:54 RBC 3.07 L (3.80-5.40) m/uL Hgb 8.7 L (11.4-16.0) gm/dL Hct 26.1 L (34.0-46.0) % Plt Count 697 H (150-450) k/uL Sodium 136 L (137-145) mmol/L Calcium 8.2 L (8.4-10.2) mg/dL Microbiology - Last 24 Hours (Table) 03/29/18 13:39 Gram Stain - Preliminary Aspirate Body Fluid Culture - Preliminary Assessment and Plan (1) SBO (small bowel obstruction) Narrative/Plan: Continue low fiber diet. Plan removing drain tomorrow. Possible discharge in 24-48 hours. Current Visit: Yes Status: Acute Code(s): K56.609 - UNSP INTESTNL OBST, UNSP TO PARTIAL VERSUS COMPLETE OBST SNOMED Code(s): 793186699
[2018-03-31] MEDS: MULTIVITAMINS, THERA 1 EACH TAB PO SCH (13:28)
[2018-03-31] MEDS: HYDROcodone/APAP 5-325MG 1 EACH TAB PO PRN ×3 (13:48→23:26)
--- NOTE | 2018-03-31 15:27 | P.PN ---
Subjective Progress Note Date: 03/31/18 This is a 58-year-old female patient of Dr. Cross and also Dr. Gomez with past medical history of hypertension, hypothyroidism, hysterectomy for benign reasons, previous small bowel obstruction secondary to intra- abdominal adhesions status post diagnostic laparoscopic followed by laparotomy and lysis of adhesions in February 2016. She has also had robotic incisional hernia repair done by Dr. Mack at [place] in September. Patient states that she had sudden onset of severe abdominal pain with nausea and vomiting and low- grade fever off and on up to 100.4 since Sunday. She states she was not passing gas and was not having a bowel movement. Patient came into [facility] emergency center for evaluation. She was afebrile, vital signs stable. She presented with leukocytosis of 26.4, creatinine 0.7 and BUN 21. Hemoglobin 14.2. Lactic acid 1.1, troponin negative. Urinalysis was clear with nitrate and leukoesterase negative. She underwent a CAT scan of the abdomen and pelvis with contrast that revealed distal small bowel obstruction, possibility of gallstone ileus, platelike atelectasis in both lung bases, stable cyst in the left kidney, degenerative changes within the spine. Patient was started on Unasyn, Zofran for nausea and morphine for pain control and admitted under the care of Dr. Uriarte. Patient is currently nothing by mouth with NG tube in place with a large amount of return fluid. 03/18: Patient remains with NG tube in place draining dark green liquid. We have asked for repeat abdominal x-ray. Patient is using her incentive spirometry at 1250 ML's. 03/19: Patient has been afebrile. Noted the patient drop her pulse ox in the 80s and is on O2 at 2 L nasal cannula. Patient denies any shortness of breath. She did have a bowel movement this morning. NG tube remains in place with decreased output. IV fluids will be decreased to 75 mL. Patient is stating that she is having trouble using the incentive spirometry. Slight elevated heart rate. She is scheduled for small bowel follow-through today. 03/20: Dr. Gomez has had NG tube removed and started on clear liquids. GI consult was admitted to evaluate for possible Crohn's disease. Tentative plan for outpatient MR enterography to evaluate terminal ileum and reevaluate for small bowel foreign-body. Home medication list reviewed and patient placed back on some of her home meds. Patient has been ambulating well in the hallway. Her pulse ox did drop down to 88%. Her incentive spirometry is only 500 and then she developed pressure in the middle of her abdomen and pain in the right side. Repeat chest x-ray will be ordered. IV fluids have been discontinued and patient will be given 1 dose of IV Lasix. She does not appear to be hypoxic or in any respiratory distress. 03/21: Repeat pulse ox yesterday afternoon from her ear revealed 94-95%. Patient again has no respiratory distress. She states she is using her incentive spirometry but mostly only reaching 500 and sometimes up 1000. Her lower extremity edema is improved. We will continue her on IV Lasix and potassium. Chest x-ray from yesterday showed pulmonary edema. She continues to have right sided abdominal sharp pain that comes and goes and feels better when she applies pressure. She is currently tolerating a full liquid diet. C- reactive protein is elevated at 175.9, sed rate elevated at 60. Other lab work pending. GI has ordered MRI enterography. 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 Evaluation for fistula is markedly limited secondary to extensive patient motion. Foreign body within the distal ileum has retrospectively been present on prior exams dating back to 07/05/2017 and could represent calcified ingested substance or calcified inspissated secretions within the diverticulum. Considering its presence on retrospective exams gallstone ileus is excluded. Dr. Gomez is planning for exploratory laparotomy with resection of the terminal ileum and remove small bowel foreign- body. 03/23: Patient went for surgery yesterday with Dr. Starks ended up having right- sided partial colectomy with mild many adhesion and few complication during surgery. According to him highly suspected for Crohn disease of the biopsies back will continue current management for now. Also patient had acute kidney injury with creatinine climb up through the night will continue hydration continue to watch her urine output for now. 03/24: Patient is feeling slightly but better, much worse kidney function compared to yesterday despite the hydration full catheter she is not making much urine. We'll consult nephrology and if need urology can be involved especially of this is for any reason surgical-related complication. We discussed with Dr. Gomez whether patient need to go for a CAT scan of the abdomen for further diagnosis of the reason why this acute kidney failure to place beside having a prerenal condition with the complication related to sepsis , hypotension and, surgery. Nephrology were notified of the consult and if the general opinion that we need to see urology will do the consult 03/25: BUN 16 and creatinine 0.91, hemoglobin 7.9 and white count is 8.2. Pressure readings are improved from the weekend. Peritoneal fluid is positive for E. coli and pseudomonas. Patient has been seen by Dr. Parker with plan for continued Zosyn. Chest x-ray done on March 24 showed mild cardiomegaly with platelike atelectasis. Patient is using incentive spirometry to but only reaching 500. The abdominal pain that she had prior to the surgery is now gone. She has a epidural in place which she expects to have removed today. She states she ambulated in the hallway twice yesterday. She is passing gas but no bowel movement at this time. NG tube remains in place. Davis catheter in place with adequate output. Levothyroxine changed to IV. 03/26: Patient have NG tube and Davis catheter out today. Epidural was removed yesterday. She states she is passing gas but no bowel movement. I asked is only 500. Hemoglobin is 8.5, BUN 9 and creatinine 0.8. 03/27: Peritoneal fluid culture is positive for E. coli, pseudomonas and nonhemolytic strep and an anaerobic gram-negative bacilli. She has been continued on Zosyn. She remains afebrile. Pulse ox 93% on room air. She has beginning about 750-1000 ML's on incentive spirometry. She states she is passed gas but has not had any bowel movement since surgery. She denies any cough. She is feeling improvement with having NG tube and Davis catheter out. 03/28: Pathology showed no signs of inflammatory bowel disease and no malignancy. Patient has been walking in the hallway. She is improving on her incentive spirometry. Pulse ox is 93% on room air. Patient is still on clear liquids and tolerating this. She is passing gas but no bowel movement. Blood pressure readings are high for which she will be resumed on benazepril. Amlodipine has also been resumed. Patient has been cleared for discharge by nephrology. We' re also clearing patient for discharge. Patient will need follow-up of Dr. Cross. 03/29: Patient underwent CT of the abdomen and pelvis that showed 2 new fluid collections near the gallbladder fossa within the right lower hemipelvis may relate to postsurgical seromas. Mild abdominal ascites and mesenteric venous congestion. Punctate foci of pneumoperitoneum in combination with recent post surgical change in the ventral abdominal wall and subcutaneous emphysema related to resolving postsurgical sequelae. Resolved small bowel obstruction and improved caliber of the nose longer decompressed strictures seen on the prior exam at the terminal ileum. New small left effusion and persistent multifocal basilar atelectasis. She then underwent CT-guided drainage catheter insertion with Dr. Caraballo and specimen sent for pathology. 03/30 PAtient doing well, denies any abd pain. Patient is walkiing down the burns without any difficult. Drain stays in place today, serous drainage noted. patient tolerated advanced diet without any difficulty. patient examined bedside. Dressing was changed today appears to be serous but no signs of infection. Patient is able to tolerate some tomato soap .. Diet advance to low fiber diet. Plan to remove drain tomorrow Objective - Vital Signs Vital signs: Vital Signs Temp 98.3 F 03/31/18 05:30 Pulse 79 03/31/18 12:10 Resp 16 03/31/18 12:10 BP 121/78 03/31/18 05:30 Pulse Ox 96 03/31/18 05:30 Intake & Output 03/30/18 03/31/18 03/31/18 18:59 06:59 18:59 Intake Total 50 50 530 Balance 50 50 530 Intake: Intake, IV Titration 50 50 50 Amount Piperacillin-Tazobactam 3 50 50 50 .375 gm In Dextrose/Water 1 50ml.bag @ 12.5 mls/hr IVPB Q12HR CATY Rx#: [id number] Oral 480 Other: Voiding Method Toilet Toilet Toilet # Voids 1 - Exam Gen: This is a 58-year-old female. Patient walking in her room and appears to be comfortable and in no acute distress. HEENT: Head is atraumatic, normocephalic. Pupils equal, round. Sclerae is anicteric. NECK: Supple. No JVD. No lymphadenopathy. No thyromegaly. LUNGS: Clear to auscultation. No wheezes or rhonchi. No intercostal retractions. HEART: Regular rate and rhythm. No murmur. ABDOMEN: Soft. Bowel sounds present. No masses. No significant tenderness. Central incision appears to be healing well, sutures in place, serous drainage from the opening No surrounding erythema. drain in place EXTREMITIES: No pedal edema. No calf tenderness. Dorsalis pedis palpable bilaterally. NEUROLOGICAL: Patient is awake, alert and oriented x3. Cranial nerves 2 through 12 are grossly intact. - Labs CBC & Chem 7: 03/31/18 06:54 03/31/18 06:54 Labs: Abnormal Lab Results - Last 24 Hours (Table) 03/31/18 03/31/18 Range/Units 06:54 06:54 RBC 3.07 L (3.80-5.40) m/uL Hgb 8.7 L (11.4-16.0) gm/dL Hct 26.1 L (34.0-46.0) % Plt Count 697 H (150-450) k/uL Sodium 136 L (137-145) mmol/L Calcium 8.2 L (8.4-10.2) mg/dL Microbiology - Last 24 Hours (Table) 03/29/18 13:39 Gram Stain - Preliminary Aspirate Body Fluid Culture - Preliminary Assessment and Plan Plan: 1. Severe abdominal pain secondary to small bowel obstructions from adhesions, peritonitis. Patient is status post exploratory laparotomy and lysis of adhesions and resection of the terminal ileum and right colon. NG tube and Davis removed , epidural has been removed yesterday. Continue current pain management. Continue incentive spirometry. Patient is currently on Zosyn. Consult with Dr. Parker appreciated.2 fluid pockets noted on recent CT s/p drain placement 2. Acute kidney injury secondary to hypotension, recovered. Consult with nephrology is appreciated. 3. Hypotension secondary to hypovolemia. Continue fluid resuscitation for now keep watching the blood pressure, hopefully improving the blood pressure will improve the kidney function as well. 4. Acute blood loss anemia. Continue to monitor. No plan for transfusion at this time. 5. Possible abdominal abscess in the right lower quadrant status post CT- guided drainage catheter insertion. 6. Vitamin B12 deficiency with chronic anemia. 7. Pulmonary prophylaxis and atelectasis. Incentive spirometry. 8. Hypoxemia secondary to atelectasis and pulmonary edema from IV fluids. No history of heart failure. IV Lasix ordered. Encourage incentive spirometry. 9. Hypothyroidism. Resume levothyroxine 37 g daily IV. 10. Hypertension. Patient resumed on Norvasc and benazepril. Patient can resume Lotrel at home. 11. GI prophylaxis. Protonix. 12. DVT prophylaxis. Lovenox. CODE STATUS: Full code. Discharge plan: Return home
[2018-04-01] MEDS: PIPERACILLIN-TAZOBACTAM 3.375 GM in DEXTROSE/WATER 1 50ML.BAG IVPB SCH ×3 (01:33→17:22)
[2018-04-01] MEDS: LEVOTHYROXINE 75 MCG TAB PO SCH (06:13)
[2018-04-01] MEDS: HYDROcodone/APAP 5-325MG 1 EACH TAB PO PRN (07:30)
[2018-04-01] MEDS: FAMOTIDINE 20 MG TAB PO SCH ×2 (07:30→20:16)
[2018-04-01] MEDS: LISINOPRIL 10 MG TAB PO SCH (07:30)
[2018-04-01] MEDS: ENOXAPARIN 40 MG/0.4 ML SYRINGE SQ SCH (07:31)
[2018-04-01] MEDS: amLODIPine 5 MG TAB PO SCH (07:31)
[2018-04-01] MEDS: FUROSEMIDE 10 MG/ML 2 ML VIAL IV SCH (12:33)
[2018-04-01] MEDS: HYDROcodone/APAP 7.5-325MG 1 EACH TAB PO PRN (13:11)
--- NOTE | 2018-04-01 14:47 | P.PN ---
Subjective Progress Note Date: 04/01/18 Principal diagnosis: Small bowel obstruction Patient is had decreased drain output. Drain remained serous. She is afebrile. No tachycardia. No labs from today. Still having intermittent crampy abdominal pain. She says it relieved with bowel movements. Pain was as high as 10 out of 10 during one episode earlier this morning. Sitting comfortably in a chair currently. Tolerating Mck[place]rick for pain. Dose was recently increased to 7.5 mg. Objective - Vital Signs Vital signs: Vital Signs Temp 98.1 F 04/01/18 07:42 Pulse 82 04/01/18 07:42 Resp 17 04/01/18 07:42 BP 134/73 04/01/18 07:42 Pulse Ox 96 04/01/18 07:42 Intake & Output 03/31/18 04/01/18 04/01/18 18:59 06:59 18:59 Intake Total 530 990 Output Total 25 Balance 530 990 -25 Weight 65.2 kg 65.2 kg Intake: Intake, IV Titration 50 50 Amount Piperacillin-Tazobactam 3 50 .375 gm In Dextrose/Water 1 50ml.bag @ 12.5 mls/hr IVPB Q12HR [facility]Y Rx#: [id number] Piperacillin-Tazobactam 3 50 .375 gm In Dextrose/Water 1 50ml.bag @ 12.5 mls/hr IVPB Q8HR CATY Rx#: [id number] Oral 480 940 Output: Drainage 25 Right 25 Other: Voiding Method Toilet Toilet # Voids 1 - Exam Abdomen: Soft, nondistended, mild incisional tenderness, drain removed - Labs CBC & Chem 7: 03/31/18 06:54 03/31/18 06:54 Labs: Microbiology - Last 24 Hours (Table) 03/29/18 13:39 Anaerobic Culture - Preliminary Abdominal Fluid 03/29/18 13:39 Gram Stain - Preliminary Aspirate Body Fluid Culture - Preliminary Assessment and Plan (1) SBO (small bowel obstruction) Narrative/Plan: Continue IV antibiotics. Continue low fiber diet. Ambulate. Drain removed today. Monitor the patient's complaints of pain. Possible discharge tomorrow. Current Visit: Yes Status: Acute Code(s): K56.609 - UNSP INTESTNL OBST, UNSP TO PARTIAL VERSUS COMPLETE OBST SNOMED Code(s): 615780058
[2018-04-01] MEDS: MULTIVITAMINS, THERA 1 EACH TAB PO SCH (17:07)
--- NOTE | 2018-04-01 19:22 | P.PN ---
Subjective Progress Note Date: 04/01/18 This is a 58-year-old female patient who initially was admitted on March 16 with complaints of nausea vomiting, low-grade fever on and off and not passing gas and no bowel movement. She was treated for a small bowel obstruction which was found on CT of the abdomen and pelvis. Patient was treated with conservative management with NG tube and had initially large amount of return of fluid. She was gradually progressed to have NG tube removed and clear liquids were started. She underwent a small bowel follow- through and subsequently an MR enterography to evaluate the terminal ileum and small bowel foreign body. 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 Evaluation for fistula is markedly limited secondary to extensive patient motion. Foreign body within the distal ileum was retrospectively been present on prior exams dating back to 2016 and couldn't represent a calcified ingestion substance patient then went for exploratory laparotomy with extensive lysis of adhesions and resection of the terminal terminal ileum with Dr. Gomez on Sunday, March 22. Over the weekend, patient developed acute kidney injury with a rise in her creatinine to 2.3 and subsequently down to 0.9. She was followed by nephrology. She had hypotension over the weekend as well that is also resolved. Her white count jumped up to 23.7 and repeat today is at 8.2. Chest x-ray done on March 24 showed mild cardiomegaly with platelike atelectasis. She had a drop in her hemoglobin from 14-7.9 and has not been transfused. Patient is using incentive spirometry to but only reaching 500. The abdominal pain that she had prior to the surgery is now gone. She has a epidural in place which she expects to have removed today. She states she ambulated in the hallway twice yesterday. She is passing gas but no bowel movement at this time. As a Davis catheter in place and has been voiding adequately. Antibiotics have been changed from Unasyn to Zosyn. Peritoneal fluid culture is positive for E. coli and Pseudomonas. 03/26/2018 patient is feeling better however is getting some of the bowel distention outer NG tube is out. She's had some ice chips to see if this cannot improve her function. She is up and walking and has had in the chair. Struggling with incentive spirometer. 04/01/2018 patient is feeling considerably better. But has had some difficulties with crampy abdominal pain that was quite severe sprung a bowel movement. However a few minutes after the bowel movement she's had significant improvement of her pain is better able to ingest some of her meals today. She denying fevers or chills. Has no other new acute complaints. Surgery is following. Objective - Vital Signs Vital signs: Vital Signs Temp 97 F L 04/01/18 16:11 Pulse 73 04/01/18 16:11 Resp 16 04/01/18 16:11 BP 133/81 04/01/18 16:11 Pulse Ox 98 04/01/18 16:11 Intake & Output 04/01/18 04/01/18 04/02/18 06:59 18:59 06:59 Intake Total 990 50 Output Total 50 Balance 990 0 Weight 65.2 kg Intake: Intake, IV Titration 50 50 Amount Piperacillin-Tazobactam 3 50 .375 gm In Dextrose/Water 1 50ml.bag @ 12.5 mls/hr IVPB Q12HR [facility] Rx#: [id number] Piperacillin-Tazobactam 3 50 .375 gm In Dextrose/Water 1 50ml.bag @ 12.5 mls/hr IVPB Q8HR [facility] Rx#: [id number] Oral 940 Output: Drainage 50 Right 50 Other: Voiding Method Toilet Toilet # Voids 1 - Exam Gen: This is a 58-year-old female. She is seen in bed and appears to be comfortable and in no acute distress. No respiratory distress is noted. HEENT: Head is atraumatic, normocephalic. Pupils equal, round. Sclerae is anicteric. Conjunctiva pink. Mucous membranes of the mouth are slightly dry. Dentition is in good order. NG tube in place. NECK: Supple. No JVD. No lymphadenopathy. No thyromegaly. LUNGS: Clear to auscultation. No wheezes or rhonchi. No intercostal retractions. HEART: Regular rate and rhythm. No murmur. ABDOMEN: Soft. Distended but not very tender, surgical incision is without significant drainage No surrounding erythema. Davis catheter in place draining annmarie urine. There are few bowel sounds, no guarding or rebound EXTREMITIES: No pedal edema. No calf tenderness. Dorsalis pedis is +2 bilaterally. NEUROLOGICAL: Patient is awake, alert and oriented x3 - Labs CBC & Chem 7: 03/31/18 06:54 03/31/18 06:54 Labs: Microbiology - Last 24 Hours (Table) 03/29/18 13:39 Gram Stain - Preliminary Aspirate Body Fluid Culture - Preliminary 03/29/18 13:39 Anaerobic Culture - Preliminary Abdominal Fluid Laboratory Results WBC 6.5 k/uL (3.8-10.6) 03/31/18 06:54 RBC 3.07 m/uL (3.80-5.40) L 03/31/18 06:54 Hgb 8.7 gm/dL (11.4-16.0) L 03/31/18 06:54 Hct 26.1 % (34.0-46.0) L 03/31/18 06:54 MCV 85.0 fL (80.0-100.0) 03/31/18 06:54 MCH 28.3 pg (25.0-35.0) 03/31/18 06:54 MCHC 33.3 g/dL (31.0-37.0) 03/31/18 06:54 RDW 14.7 % (11.5-15.5) 03/31/18 06:54 Plt Count 697 k/uL (150-450) H 03/31/18 06:54 Neutrophils % (Manual) 85 % 03/16/18 12:10 Lymphocytes % (Manual) 8 % 03/16/18 12:10 Monocytes % (Manual) 6 % 03/16/18 12:10 Eosinophils % (Manual) 1 % 03/16/18 12:10 Neutrophils % 63 % 03/31/18 06:54 Lymphocytes % 24 % 03/31/18 06:54 Monocytes % 7 % 03/31/18 06:54 Neutrophils # (Manual) 22.44 k/uL (1.3-7.7) H 03/16/18 12:10 Eosinophils % 4 % 03/31/18 06:54 Basophils % 1 % 03/31/18 06:54 Lymphocytes # (Manual) 2.11 k/uL (1.0-4.8) 03/16/18 12:10 Neutrophils # 4.1 k/uL (1.3-7.7) 03/31/18 06:54 Monocytes # (Manual) 1.58 k/uL (0-1.0) H 03/16/18 12:10 Eosinophils # (Manual) 0.26 k/uL (0-0.7) 03/16/18 12:10 Lymphocytes # 1.5 k/uL (1.0-4.8) 03/31/18 06:54 Monocytes # 0.5 k/uL (0-1.0) 03/31/18 06:54 Eosinophils # 0.2 k/uL (0-0.7) 03/31/18 06:54 Basophils # 0.0 k/uL (0-0.2) 03/31/18 06:54 Nucleated RBCs 0 /100 WBC (0-0) 03/16/18 12:10 Toxic Granulation Present 03/16/18 12:10 Polychromasia Present 03/16/18 12:10 Hypochromasia Slight 03/31/18 06:54 Poikilocytosis Slight 03/31/18 06:54 ESR 60 mm/hr (0-20) H 03/20/18 07:34 PT 12.2 sec (9.0-12.0) H 03/29/18 12:08 INR 1.3 (<1.2) H 03/29/18 12:08 Sodium 136 mmol/L (137-145) L 03/31/18 06:54 Potassium 4.1 mmol/L (3.5-5.1) 03/31/18 06:54 Chloride 101 mmol/L (98-107) 03/31/18 06:54 Carbon Dioxide 28 mmol/L (22-30) 03/31/18 06:54 Anion Gap 7 mmol/L 03/31/18 06:54 BUN 8 mg/dL (7-17) 03/31/18 06:54 Creatinine 0.61 mg/dL (0.52-1.04) 03/31/18 06:54 Est GFR (CKD-EPI)AfAm >90 (>60 ml/min/1.73 sqM) 03/31/18 06:54 Est GFR (CKD-EPI)NonAf >90 (>60 ml/min/1.73 sqM) 03/31/18 06:54 Glucose 96 mg/dL (74-99) 03/31/18 06:54 Plasma Lactic Acid Adam 1.1 mmol/L (0.7-2.0) 03/16/18 12:10 Calcium 8.2 mg/dL (8.4-10.2) L 03/31/18 06:54 Phosphorus 3.3 mg/dL (2.5-4.5) 03/29/18 06:45 Magnesium 1.8 mg/dL (1.6-2.3) 03/29/18 06:45 Total Bilirubin <0.1 mg/dL (0.2-1.3) L 03/25/18 08:17 AST 27 U/L (14-36) 03/25/18 08:17 ALT 38 U/L (9-52) 03/25/18 08:17 Alkaline Phosphatase 63 U/L (38-126) 03/25/18 08:17 Total Creatine Kinase 34 U/L (30-135) 03/16/18 12:10 CK-MB (CK-2) 1.2 ng/mL (0.0-2.4) 03/16/18 12:10 CK-MB (CK-2) Rel Index 3.5 03/16/18 12:10 Troponin I <0.012 ng/mL (0.000-0.034) 03/24/18 08:58 C-Reactive Protein 175.9 mg/L (<10.0) H 03/20/18 07:34 Total Protein 4.4 g/dL (6.3-8.2) L 03/25/18 08:17 Albumin 2.2 g/dL (3.5-5.0) L 03/25/18 08:17 Prealbumin <5.0 mg/dL (18.0-42.0) L 03/29/18 06:45 Amylase 53 U/L (30-110) 03/16/18 12:10 Lipase 44 U/L (23-300) 03/16/18 12:10 Urine Color Yellow 03/16/18 13:05 Urine Appearance Clear (Clear) 03/16/18 13:05 Urine pH 6.5 (5.0-8.0) 03/16/18 13:05 Ur Specific [place] >1.050 (1.001-1.035) H 03/16/18 13:05 Urine Protein 1+ (Negative) H 03/16/18 13:05 Urine Glucose (UA) Negative (Negative) 03/16/18 13:05 Urine Ketones Trace (Negative) H 03/16/18 13:05 Urine Blood Negative (Negative) 03/16/18 13:05 Urine Nitrite Negative (Negative) 03/16/18 13:05 Urine Bilirubin Negative (Negative) 03/16/18 13:05 Urine Urobilinogen <2.0 mg/dL (<2.0) 03/16/18 13:05 Ur Leukocyte Esterase Negative (Negative) 03/16/18 13:05 Urine RBC 1 /hpf (0-5) 03/16/18 13:05 Urine WBC 5 /hpf (0-5) 03/16/18 13:05 Urine Bacteria Rare /hpf (None) H 03/16/18 13:05 Stool Lactoferrin POSITIVE (NEGATIVE) H 03/20/18 18:00 c-ANCA <1:20 Titer (<1:20) 03/20/18 07:34 p-ANCA <1:20 Titer (<1:20) 03/20/18 07:34 S.cerevisiae IgG Ab 4.2 UNITS (<=20) 03/20/18 07:34 S.cerevisiae IgA Ab 3.2 UNITS (<=20) 03/20/18 07:34 Blood Type A Negative 03/22/18 09:32 Blood Type Recheck No 03/22/18 09:32 Antibody Screen NEGATIVE 03/22/18 09:32 Crossmatch See Detail 03/22/18 09:32 Spec Expiration Date 03/25/2018 - 2332 03/22/18 09:32 Microbiology 03/29/18 13:39 Aspirate Gram Stain - Preliminary 03/29/18 13:39 Aspirate Body Fluid Culture - Preliminary 03/29/18 13:39 Abdominal Fluid Anaerobic Culture - Preliminary 03/29/18 13:39 Abdominal Fluid Fungal Culture - Preliminary 03/22/18 19:00 Peritoneal Fluid Gram Stain - Final 03/22/18 19:00 Peritoneal Fluid Body Fluid Culture - Final Escherichia coli Pseudomonas aeruginosa Non Hemolytic Strep 03/22/18 19:00 Peritoneal Fluid Anaerobic Culture - Final Anaerobic Gm Negative Bacilli 03/16/18 13:05 Urine,Catheterized Urine Culture - Final Assessment and Plan (1) Partial small bowel obstruction Narrative/Plan: At this time this pleasant woman has had a significant Occasions during this hospital stay which was Complicated by an acute renal injury and leukocytosis.. She was taken to the operating room where she underwent a lysis of adhesions and resection of the terminal ileum. She is now having some improvement however she's had leukocytosis low-grade temperatures in the peritoneal culture did show evidence of Pseudomonas and constantly antibiotic therapy was altered to Zosyn from Unasyn for further coverage. If she improves we will determine if there are options for transition to oral antibiotic therapy when she has regained bowel function and is able to take in oral medications. 03/26/2018 she does have some distention. Is working with ambulation to attempt to improve her bowel function. Is also utilizing a few ice cubes to try to help stimulate bowel function. She's also sat in the chair. We'll continue current antibiotic therapy for abdominal cultures that show evidence to pseudomonas, E. coli, as well as anaerobic gram-negative bacilli. When she has return of GI function will consider completion course of antibiotic therapy possibly oral. 04/01/2018 reveals the patient having some improvement but is still not had complete recovery of her gastrointestinal tract. Although she is feeling better she did have a bout today of severe pain starting a bowel movement. Fortunately she did have an adequate passage of stool and is able to eat modestly well without difficulties such nausea or emesis. For now while she remains hospitalized we'll continue with current antibiotic therapy and will likely be able to transition to oral antibiotic therapy when she has had further improvement. She is much more comfortable this afternoon than earlier. She is not having fever or leukocytosis. Renal function is adequate. Current Visit: No Status: Acute Code(s): K56.69 - OTHER INTESTINAL OBSTRUCTION * DO NOT USE * SNOMED Code(s): 292752107
[2018-04-02] MEDS: PIPERACILLIN-TAZOBACTAM 3.375 GM in DEXTROSE/WATER 1 50ML.BAG IVPB SCH ×4 (00:42→23:49)
[2018-04-02] MEDS: HYDROcodone/APAP 7.5-325MG 1 EACH TAB PO PRN ×3 (05:38→19:27)
[2018-04-02] MEDS: LEVOTHYROXINE 75 MCG TAB PO SCH (06:30)
[2018-04-02 07:45] LABS: Anion Gap 10 mmol/L; Blood Urea Nitrogen 10 mg/dL (7-17); Carbon Dioxide 24 mmol/L (22-30); Chloride 104 mmol/L (98-107); Glucose 95 mg/dL (74-99); Potassium 4.1 mmol/L (3.5-5.1); Sodium 138 mmol/L (137-145)
[2018-04-02] MEDS: ENOXAPARIN 40 MG/0.4 ML SYRINGE SQ SCH (08:31)
[2018-04-02] MEDS: FAMOTIDINE 20 MG TAB PO SCH ×2 (08:32→20:40)
[2018-04-02] MEDS: amLODIPine 5 MG TAB PO SCH (08:32)
[2018-04-02] MEDS: LISINOPRIL 10 MG TAB PO SCH (08:32)
[2018-04-02 08:36] LABS: Basophils # (A) 0.1 k/uL (0-0.2); Basophils % (A) 1 %; Eosinophils # (A) 0.3 k/uL (0-0.7); Eosinophils % (A) 4 %; HCT 29.5 % (34.0-46.0); HGB 9.1 gm/dL (11.4-16.0); Hypochromasia Slight; Lymphocytes % (A) 26 %; MCH 26.8 pg (25.0-35.0); MCV 86.4 fL (80.0-100.0); Mean Platelet Volume 6.2; Monocytes # (A) 0.4 k/uL (0-1.0); Monocytes % (A) 6 %; Neutrophils # (A) 4.6 k/uL (1.3-7.7); Neutrophils % (A) 61 %; Platelet Count 799 k/uL (150-450); Poikilocytosis Slight; RBC 3.42 m/uL (3.80-5.40); WBC 7.6 k/uL (3.8-10.6)
[2018-04-02] MEDS: MULTIVITAMINS, THERA 1 EACH TAB PO SCH (12:59)
--- NOTE | 2018-04-02 14:42 | P.PN ---
Subjective Progress Note Date: 04/01/18 This is a 58-year-old female patient of Dr. Cross and also Dr. Gomez with past medical history of hypertension, hypothyroidism, hysterectomy for benign reasons, previous small bowel obstruction secondary to intra- abdominal adhesions status post diagnostic laparoscopic followed by laparotomy and lysis of adhesions in February 2016. She has also had robotic incisional hernia repair done by Dr. Mack at [place] in September. Patient states that she had sudden onset of severe abdominal pain with nausea and vomiting and low- grade fever off and on up to 100.4 since Sunday. She states she was not passing gas and was not having a bowel movement. Patient came into [facility] emergency center for evaluation. She was afebrile, vital signs stable. She presented with leukocytosis of 26.4, creatinine 0.7 and BUN 21. Hemoglobin 14.2. Lactic acid 1.1, troponin negative. Urinalysis was clear with nitrate and leukoesterase negative. She underwent a CAT scan of the abdomen and pelvis with contrast that revealed distal small bowel obstruction, possibility of gallstone ileus, platelike atelectasis in both lung bases, stable cyst in the left kidney, degenerative changes within the spine. Patient was started on Unasyn, Zofran for nausea and morphine for pain control and admitted under the care of Dr. Uriarte. Patient is currently nothing by mouth with NG tube in place with a large amount of return fluid. 03/18: Patient remains with NG tube in place draining dark green liquid. We have asked for repeat abdominal x-ray. Patient is using her incentive spirometry at 1250 ML's. 03/19: Patient has been afebrile. Noted the patient drop her pulse ox in the 80s and is on O2 at 2 L nasal cannula. Patient denies any shortness of breath. She did have a bowel movement this morning. NG tube remains in place with decreased output. IV fluids will be decreased to 75 mL. Patient is stating that she is having trouble using the incentive spirometry. Slight elevated heart rate. She is scheduled for small bowel follow-through today. 03/20: Dr. Gomez has had NG tube removed and started on clear liquids. GI consult was admitted to evaluate for possible Crohn's disease. Tentative plan for outpatient MR enterography to evaluate terminal ileum and reevaluate for small bowel foreign-body. Home medication list reviewed and patient placed back on some of her home meds. Patient has been ambulating well in the hallway. Her pulse ox did drop down to 88%. Her incentive spirometry is only 500 and then she developed pressure in the middle of her abdomen and pain in the right side. Repeat chest x-ray will be ordered. IV fluids have been discontinued and patient will be given 1 dose of IV Lasix. She does not appear to be hypoxic or in any respiratory distress. 03/21: Repeat pulse ox yesterday afternoon from her ear revealed 94-95%. Patient again has no respiratory distress. She states she is using her incentive spirometry but mostly only reaching 500 and sometimes up 1000. Her lower extremity edema is improved. We will continue her on IV Lasix and potassium. Chest x-ray from yesterday showed pulmonary edema. She continues to have right sided abdominal sharp pain that comes and goes and feels better when she applies pressure. She is currently tolerating a full liquid diet. C- reactive protein is elevated at 175.9, sed rate elevated at 60. Other lab work pending. GI has ordered MRI enterography. 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 Evaluation for fistula is markedly limited secondary to extensive patient motion. Foreign body within the distal ileum has retrospectively been present on prior exams dating back to 07/05/2017 and could represent calcified ingested substance or calcified inspissated secretions within the diverticulum. Considering its presence on retrospective exams gallstone ileus is excluded. Dr. Gomez is planning for exploratory laparotomy with resection of the terminal ileum and remove small bowel foreign- body. 03/23: Patient went for surgery yesterday with Dr. Starks ended up having right- sided partial colectomy with mild many adhesion and few complication during surgery. According to him highly suspected for Crohn disease of the biopsies back will continue current management for now. Also patient had acute kidney injury with creatinine climb up through the night will continue hydration continue to watch her urine output for now. 03/24: Patient is feeling slightly but better, much worse kidney function compared to yesterday despite the hydration full catheter she is not making much urine. We'll consult nephrology and if need urology can be involved especially of this is for any reason surgical-related complication. We discussed with Dr. Gomez whether patient need to go for a CAT scan of the abdomen for further diagnosis of the reason why this acute kidney failure to place beside having a prerenal condition with the complication related to sepsis , hypotension and, surgery. Nephrology were notified of the consult and if the general opinion that we need to see urology will do the consult 03/25: BUN 16 and creatinine 0.91, hemoglobin 7.9 and white count is 8.2. Pressure readings are improved from the weekend. Peritoneal fluid is positive for E. coli and pseudomonas. Patient has been seen by Dr. Parker with plan for continued Zosyn. Chest x-ray done on March 24 showed mild cardiomegaly with platelike atelectasis. Patient is using incentive spirometry to but only reaching 500. The abdominal pain that she had prior to the surgery is now gone. She has a epidural in place which she expects to have removed today. She states she ambulated in the hallway twice yesterday. She is passing gas but no bowel movement at this time. NG tube remains in place. Davis catheter in place with adequate output. Levothyroxine changed to IV. 03/26: Patient have NG tube and Davis catheter out today. Epidural was removed yesterday. She states she is passing gas but no bowel movement. I asked is only 500. Hemoglobin is 8.5, BUN 9 and creatinine 0.8. 03/27: Peritoneal fluid culture is positive for E. coli, pseudomonas and nonhemolytic strep and an anaerobic gram-negative bacilli. She has been continued on Zosyn. She remains afebrile. Pulse ox 93% on room air. She has beginning about 750-1000 ML's on incentive spirometry. She states she is passed gas but has not had any bowel movement since surgery. She denies any cough. She is feeling improvement with having NG tube and Davis catheter out. 03/28: Pathology showed no signs of inflammatory bowel disease and no malignancy. Patient has been walking in the hallway. She is improving on her incentive spirometry. Pulse ox is 93% on room air. Patient is still on clear liquids and tolerating this. She is passing gas but no bowel movement. Blood pressure readings are high for which she will be resumed on benazepril. Amlodipine has also been resumed. Patient has been cleared for discharge by nephrology. We' re also clearing patient for discharge. Patient will need follow-up of Dr. Cross. 03/29: Patient underwent CT of the abdomen and pelvis that showed 2 new fluid collections near the gallbladder fossa within the right lower hemipelvis may relate to postsurgical seromas. Mild abdominal ascites and mesenteric venous congestion. Punctate foci of pneumoperitoneum in combination with recent post surgical change in the ventral abdominal wall and subcutaneous emphysema related to resolving postsurgical sequelae. Resolved small bowel obstruction and improved caliber of the nose longer decompressed strictures seen on the prior exam at the terminal ileum. New small left effusion and persistent multifocal basilar atelectasis. She then underwent CT-guided drainage catheter insertion with Dr. Caraballo and specimen sent for pathology. 03/30 PAtient doing well, denies any abd pain. Patient is walkiing down the burns without any difficult. Drain stays in place today, serous drainage noted. patient tolerated advanced diet without any difficulty. 03/31 patient examined bedside. Dressing was changed today appears to be serous but no signs of infection. Patient is able to tolerate some tomato soap .. Diet advance to low fiber diet. Plan to remove drain tomorrow 04/01: Patient continues to have some abdominal pain. She has had a bowel movement with pain. She is hoping that the drain will be removed today and that she will be able to go home tomorrow. She has tolerating a low fiber diet. She has been afebrile. Objective - Vital Signs Vital signs: Vital Signs Temp 98.1 F 04/01/18 07:42 Pulse 82 04/01/18 07:42 Resp 17 04/01/18 07:42 BP 134/73 04/01/18 07:42 Pulse Ox 96 04/01/18 07:42 Intake & Output 03/31/18 04/01/18 04/01/18 18:59 06:59 18:59 Intake Total 530 990 Balance 530 990 Weight 65.2 kg 65.2 kg Intake: Intake, IV Titration 50 50 Amount Piperacillin-Tazobactam 3 50 .375 gm In Dextrose/Water 1 50ml.bag @ 12.5 mls/hr IVPB Q12HR [facility] Rx#: [id number] Piperacillin-Tazobactam 3 50 .375 gm In Dextrose/Water 1 50ml.bag @ 12.5 mls/hr IVPB Q8HR [facility] Rx#: [id number] Oral 480 940 Other: Voiding Method Toilet Toilet # Voids 1 - Exam Gen: This is a 58-year-old female. Patient walking in her room and appears to be comfortable and in no acute distress. HEENT: Head is atraumatic, normocephalic. Pupils equal, round. Sclerae is anicteric. NECK: Supple. No JVD. No lymphadenopathy. No thyromegaly. LUNGS: Clear to auscultation. No wheezes or rhonchi. No intercostal retractions. HEART: Regular rate and rhythm. No murmur. ABDOMEN: Soft. Bowel sounds present. No masses. No significant tenderness. Dressing in place. No surrounding erythema. Drain in place. EXTREMITIES: No pedal edema. No calf tenderness. Dorsalis pedis palpable bilaterally. NEUROLOGICAL: Patient is awake, alert and oriented x3. Cranial nerves 2 through 12 are grossly intact. - Labs CBC & Chem 7: 04/02/18 07:10 04/02/18 07:10 Labs: Microbiology - Last 24 Hours (Table) 03/29/18 13:39 Anaerobic Culture - Preliminary Abdominal Fluid 03/29/18 13:39 Gram Stain - Preliminary Aspirate Body Fluid Culture - Preliminary Assessment and Plan Plan: 1. Severe abdominal pain secondary to small bowel obstructions from adhesions, peritonitis. Patient is status post exploratory laparotomy and lysis of adhesions and resection of the terminal ileum and right colon. NG tube and Davis to be removed, epidural has been removed. Continue current pain management. Continue incentive spirometry. Patient is currently on Zosyn. Consult with Dr. Parker appreciated. 2. Acute kidney injury secondary to hypotension, recovered. Consult with nephrology is appreciated. 3. Hypotension secondary to hypovolemia. Continue fluid resuscitation for now keep watching the blood pressure, hopefully improving the blood pressure will improve the kidney function as well. 4. Acute blood loss anemia. Continue to monitor. No plan for transfusion at this time. 5. Possible abdominal abscess in the right lower quadrant status post CT- guided drainage catheter insertion. 6. Vitamin B12 deficiency with chronic anemia. 7. Pulmonary prophylaxis and atelectasis. Incentive spirometry. 8. Hypoxemia secondary to atelectasis and pulmonary edema from IV fluids. No history of heart failure. IV Lasix ordered. Encourage incentive spirometry. 9. Hypothyroidism. Resume levothyroxine 37 g daily IV. 10. Hypertension. Patient resumed on Norvasc and benazepril. Patient can resume Lotrel at home. 11. GI prophylaxis. Protonix. 12. DVT prophylaxis. Lovenox. CODE STATUS: Full code. Discharge plan: Return home Impression and plan of care have been directed as dictated by the signing physician. Tomasa Chi nurse practitioner acting as scribe for signing physician.
--- NOTE | 2018-04-02 14:53 | P.PN ---
Subjective Progress Note Date: 04/02/18 This is a 58-year-old female patient of Dr. Cross and also Dr. Gomez with past medical history of hypertension, hypothyroidism, hysterectomy for benign reasons, previous small bowel obstruction secondary to intra- abdominal adhesions status post diagnostic laparoscopic followed by laparotomy and lysis of adhesions in February 2016. She has also had robotic incisional hernia repair done by Dr. Mack at [facility] in September. Patient states that she had sudden onset of severe abdominal pain with nausea and vomiting and low- grade fever off and on up to 100.4 since Sunday. She states she was not passing gas and was not having a bowel movement. Patient came into [facility] emergency center for evaluation. She was afebrile, vital signs stable. She presented with leukocytosis of 26.4, creatinine 0.7 and BUN 21. Hemoglobin 14.2. Lactic acid 1.1, troponin negative. Urinalysis was clear with nitrate and leukoesterase negative. She underwent a CAT scan of the abdomen and pelvis with contrast that revealed distal small bowel obstruction, possibility of gallstone ileus, platelike atelectasis in both lung bases, stable cyst in the left kidney, degenerative changes within the spine. Patient was started on Unasyn, Zofran for nausea and morphine for pain control and admitted under the care of Dr. Uriarte. Patient is currently nothing by mouth with NG tube in place with a large amount of return fluid. 03/18: Patient remains with NG tube in place draining dark green liquid. We have asked for repeat abdominal x-ray. Patient is using her incentive spirometry at 1250 ML's. 03/19: Patient has been afebrile. Noted the patient drop her pulse ox in the 80s and is on O2 at 2 L nasal cannula. Patient denies any shortness of breath. She did have a bowel movement this morning. NG tube remains in place with decreased output. IV fluids will be decreased to 75 mL. Patient is stating that she is having trouble using the incentive spirometry. Slight elevated heart rate. She is scheduled for small bowel follow-through today. 03/20: Dr. Gomez has had NG tube removed and started on clear liquids. GI consult was admitted to evaluate for possible Crohn's disease. Tentative plan for outpatient MR enterography to evaluate terminal ileum and reevaluate for small bowel foreign-body. Home medication list reviewed and patient placed back on some of her home meds. Patient has been ambulating well in the hallway. Her pulse ox did drop down to 88%. Her incentive spirometry is only 500 and then she developed pressure in the middle of her abdomen and pain in the right side. Repeat chest x-ray will be ordered. IV fluids have been discontinued and patient will be given 1 dose of IV Lasix. She does not appear to be hypoxic or in any respiratory distress. 03/21: Repeat pulse ox yesterday afternoon from her ear revealed 94-95%. Patient again has no respiratory distress. She states she is using her incentive spirometry but mostly only reaching 500 and sometimes up 1000. Her lower extremity edema is improved. We will continue her on IV Lasix and potassium. Chest x-ray from yesterday showed pulmonary edema. She continues to have right sided abdominal sharp pain that comes and goes and feels better when she applies pressure. She is currently tolerating a full liquid diet. C- reactive protein is elevated at 175.9, sed rate elevated at 60. Other lab work pending. GI has ordered MRI enterography. 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 Evaluation for fistula is markedly limited secondary to extensive patient motion. Foreign body within the distal ileum has retrospectively been present on prior exams dating back to 07/05/2017 and could represent calcified ingested substance or calcified inspissated secretions within the diverticulum. Considering its presence on retrospective exams gallstone ileus is excluded. Dr. Gomez is planning for exploratory laparotomy with resection of the terminal ileum and remove small bowel foreign- body. 03/23: Patient went for surgery yesterday with Dr. Starks ended up having right- sided partial colectomy with mild many adhesion and few complication during surgery. According to him highly suspected for Crohn disease of the biopsies back will continue current management for now. Also patient had acute kidney injury with creatinine climb up through the night will continue hydration continue to watch her urine output for now. 03/24: Patient is feeling slightly but better, much worse kidney function compared to yesterday despite the hydration full catheter she is not making much urine. We'll consult nephrology and if need urology can be involved especially of this is for any reason surgical-related complication. We discussed with Dr. Gomez whether patient need to go for a CAT scan of the abdomen for further diagnosis of the reason why this acute kidney failure to place beside having a prerenal condition with the complication related to sepsis , hypotension and, surgery. Nephrology were notified of the consult and if the general opinion that we need to see urology will do the consult 03/25: BUN 16 and creatinine 0.91, hemoglobin 7.9 and white count is 8.2. Pressure readings are improved from the weekend. Peritoneal fluid is positive for E. coli and pseudomonas. Patient has been seen by Dr. Parker with plan for continued Zosyn. Chest x-ray done on March 24 showed mild cardiomegaly with platelike atelectasis. Patient is using incentive spirometry to but only reaching 500. The abdominal pain that she had prior to the surgery is now gone. She has a epidural in place which she expects to have removed today. She states she ambulated in the hallway twice yesterday. She is passing gas but no bowel movement at this time. NG tube remains in place. Davis catheter in place with adequate output. Levothyroxine changed to IV. 03/26: Patient have NG tube and Davis catheter out today. Epidural was removed yesterday. She states she is passing gas but no bowel movement. I asked is only 500. Hemoglobin is 8.5, BUN 9 and creatinine 0.8. 03/27: Peritoneal fluid culture is positive for E. coli, pseudomonas and nonhemolytic strep and an anaerobic gram-negative bacilli. She has been continued on Zosyn. She remains afebrile. Pulse ox 93% on room air. She has beginning about 750-1000 ML's on incentive spirometry. She states she is passed gas but has not had any bowel movement since surgery. She denies any cough. She is feeling improvement with having NG tube and Davis catheter out. 03/28: Pathology showed no signs of inflammatory bowel disease and no malignancy. Patient has been walking in the hallway. She is improving on her incentive spirometry. Pulse ox is 93% on room air. Patient is still on clear liquids and tolerating this. She is passing gas but no bowel movement. Blood pressure readings are high for which she will be resumed on benazepril. Amlodipine has also been resumed. Patient has been cleared for discharge by nephrology. We' re also clearing patient for discharge. Patient will need follow-up of Dr. Cross. 03/29: Patient underwent CT of the abdomen and pelvis that showed 2 new fluid collections near the gallbladder fossa within the right lower hemipelvis may relate to postsurgical seromas. Mild abdominal ascites and mesenteric venous congestion. Punctate foci of pneumoperitoneum in combination with recent post surgical change in the ventral abdominal wall and subcutaneous emphysema related to resolving postsurgical sequelae. Resolved small bowel obstruction and improved caliber of the nose longer decompressed strictures seen on the prior exam at the terminal ileum. New small left effusion and persistent multifocal basilar atelectasis. She then underwent CT-guided drainage catheter insertion with Dr. Caraballo and specimen sent for pathology. 03/30 PAtient doing well, denies any abd pain. Patient is walkiing down the burns without any difficult. Drain stays in place today, serous drainage noted. patient tolerated advanced diet without any difficulty. 03/31 patient examined bedside. Dressing was changed today appears to be serous but no signs of infection. Patient is able to tolerate some tomato soap .. Diet advance to low fiber diet. Plan to remove drain tomorrow 04/01: Patient continues to have some abdominal pain. She has had a bowel movement with pain. She is hoping that the drain will be removed today and that she will be able to go home tomorrow. She has tolerating a low fiber diet. She has been afebrile. 04/02: Patient states the plan is to monitor for the next 1-2 days and possibly repeat CAT scan. Drain has been removed. Patient is now having diarrhea. She is continued on Zosyn and also followed by Dr. Parker. Objective - Vital Signs Vital signs: Vital Signs Temp 97.1 F L 04/02/18 08:29 Pulse 83 04/02/18 08:32 Resp 16 04/02/18 08:32 BP 139/79 04/02/18 08:29 Pulse Ox 96 04/02/18 08:29 Intake & Output 04/01/18 04/02/18 04/02/18 18:59 06:59 18:59 Intake Total 150 200 Output Total 50 Balance 100 200 Weight 65.2 kg Intake: Intake, IV Titration 50 Amount Piperacillin-Tazobactam 3 50 .375 gm In Dextrose/Water 1 50ml.bag @ 12.5 mls/hr IVPB Q12HR [facility] Rx#: [id number] Oral 100 200 Output: Drainage 50 Right 50 Other: Voiding Method Toilet Toilet Toilet # Voids 1 # Bowel Movements 1 - Exam Gen: This is a 58-year-old female. Patient walking in her room and appears to be comfortable and in no acute distress. HEENT: Head is atraumatic, normocephalic. Pupils equal, round. Sclerae is anicteric. NECK: Supple. No JVD. No lymphadenopathy. No thyromegaly. LUNGS: Clear to auscultation. No wheezes or rhonchi. No intercostal retractions. HEART: Regular rate and rhythm. No murmur. ABDOMEN: Soft. Bowel sounds present. No masses. No significant tenderness. Dressing in place. No surrounding erythema. Drain in place. EXTREMITIES: No pedal edema. No calf tenderness. Dorsalis pedis palpable bilaterally. NEUROLOGICAL: Patient is awake, alert and oriented x3. Cranial nerves 2 through 12 are grossly intact. - Labs CBC & Chem 7: 04/02/18 07:10 04/02/18 07:10 Labs: Abnormal Lab Results - Last 24 Hours (Table) 04/02/18 Range/Units 07:10 RBC 3.42 L (3.80-5.40) m/uL Hgb 9.1 L (11.4-16.0) gm/dL Hct 29.5 L (34.0-46.0) % Plt Count 799 H (150-450) k/uL Microbiology - Last 24 Hours (Table) 03/29/18 13:39 Gram Stain - Preliminary Aspirate Body Fluid Culture - Preliminary Assessment and Plan Plan: 1. Severe abdominal pain secondary to small bowel obstructions from adhesions, peritonitis. Patient is status post exploratory laparotomy and lysis of adhesions and resection of the terminal ileum and right colon. NG tube, Davis, epidural has been removed. Continue current pain management. Continue incentive spirometry. Patient is currently on Zosyn. Consult with Dr. Parker appreciated. 2. Acute kidney injury secondary to hypotension, recovered. Consult with nephrology is appreciated. 3. Hypotension secondary to hypovolemia. Continue fluid resuscitation for now keep watching the blood pressure, hopefully improving the blood pressure will improve the kidney function as well. 4. Acute blood loss anemia. Continue to monitor. No plan for transfusion at this time. 5. Abdominal abscess in the right lower quadrant status post CT-guided drainage catheter insertion. 6. Vitamin B12 deficiency with chronic anemia. 7. Pulmonary prophylaxis and atelectasis. Incentive spirometry. 8. Hypoxemia secondary to atelectasis and pulmonary edema from IV fluids. No history of heart failure. IV Lasix ordered. Encourage incentive spirometry. 9. Hypothyroidism. Resume levothyroxine 37 g daily IV. 10. Hypertension. Patient resumed on Norvasc and benazepril. Patient can resume Lotrel at home. 11. GI prophylaxis. Protonix. 12. DVT prophylaxis. Lovenox. CODE STATUS: Full code. Discharge plan: Return home Impression and plan of care have been directed as dictated by the signing physician. Tomasa Chi nurse practitioner acting as scribe for signing physician.
--- NOTE | 2018-04-02 17:39 | P.PN ---
Subjective Progress Note Date: 04/02/18 Principal diagnosis: Small bowel obstruction Overall patient doing better today. She is still having moderate pain with bowel movements. Between the bowel movements the pain is down to a 4-5 or less. Currently has 0 pain. She is afebrile. White blood cell count remains normal. Objective - Vital Signs Vital signs: Vital Signs Temp 98.1 F 04/02/18 14:56 Pulse 82 04/02/18 14:56 Resp 16 04/02/18 14:56 BP 132/81 04/02/18 14:56 Pulse Ox 98 04/02/18 14:56 Intake & Output 04/01/18 04/02/18 04/02/18 18:59 06:59 18:59 Intake Total 150 200 50 Output Total 50 Balance 100 200 50 Weight 65.2 kg Intake: Intake, IV Titration 50 50 Amount Piperacillin-Tazobactam 3 50 .375 gm In Dextrose/Water 1 50ml.bag @ 12.5 mls/hr IVPB Q12HR [facility] Rx#: [id number] Piperacillin-Tazobactam 3 50 .375 gm In Dextrose/Water 1 50ml.bag @ 12.5 mls/hr IVPB Q8HR [facility] Rx#: [id number] Oral 100 200 Output: Drainage 50 Right 50 Other: Voiding Method Toilet Toilet Toilet # Voids 1 # Bowel Movements 1 - Exam Abdomen: Soft, nondistended, incisions with serous drainage at wick sites, mild incisional tenderness - Labs CBC & Chem 7: 04/02/18 07:10 04/02/18 07:10 Labs: Abnormal Lab Results - Last 24 Hours (Table) 04/02/18 Range/Units 07:10 RBC 3.42 L (3.80-5.40) m/uL Hgb 9.1 L (11.4-16.0) gm/dL Hct 29.5 L (34.0-46.0) % Plt Count 799 H (150-450) k/uL Microbiology - Last 24 Hours (Table) 03/29/18 13:39 Gram Stain - Preliminary Aspirate Body Fluid Culture - Preliminary Assessment and Plan (1) SBO (small bowel obstruction) Narrative/Plan: Continue low fiber diet. Continue IV antibiotics. If patient's pain continues to improve overnight we'll discharge tomorrow. Otherwise would consider repeating CAT scan. Current Visit: Yes Status: Acute Code(s): K56.609 - UNSP INTESTNL OBST, UNSP TO PARTIAL VERSUS COMPLETE OBST SNOMED Code(s): 829313101
--- NOTE | 2018-04-02 23:12 | P.PN ---
Subjective Progress Note Date: 04/02/18 This is a 58-year-old female patient who initially was admitted on March 16 with complaints of nausea vomiting, low-grade fever on and off and not passing gas and no bowel movement. She was treated for a small bowel obstruction which was found on CT of the abdomen and pelvis. Patient was treated with conservative management with NG tube and had initially large amount of return of fluid. She was gradually progressed to have NG tube removed and clear liquids were started. She underwent a small bowel follow- through and subsequently an MR enterography to evaluate the terminal ileum and small bowel foreign body. 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 Evaluation for fistula is markedly limited secondary to extensive patient motion. Foreign body within the distal ileum was retrospectively been present on prior exams dating back to 2016 and couldn't represent a calcified ingestion substance patient then went for exploratory laparotomy with extensive lysis of adhesions and resection of the terminal terminal ileum with Dr. Gomez on Sunday, March 22. Over the weekend, patient developed acute kidney injury with a rise in her creatinine to 2.3 and subsequently down to 0.9. She was followed by nephrology. She had hypotension over the weekend as well that is also resolved. Her white count jumped up to 23.7 and repeat today is at 8.2. Chest x-ray done on March 24 showed mild cardiomegaly with platelike atelectasis. She had a drop in her hemoglobin from 14-7.9 and has not been transfused. Patient is using incentive spirometry to but only reaching 500. The abdominal pain that she had prior to the surgery is now gone. She has a epidural in place which she expects to have removed today. She states she ambulated in the hallway twice yesterday. She is passing gas but no bowel movement at this time. As a Davis catheter in place and has been voiding adequately. Antibiotics have been changed from Unasyn to Zosyn. Peritoneal fluid culture is positive for E. coli and Pseudomonas. 03/26/2018 patient is feeling better however is getting some of the bowel distention outer NG tube is out. She's had some ice chips to see if this cannot improve her function. She is up and walking and has had in the chair. Struggling with incentive spirometer. 04/01/2018 patient is feeling considerably better. But has had some difficulties with crampy abdominal pain that was quite severe sprung a bowel movement. However a few minutes after the bowel movement she's had significant improvement of her pain is better able to ingest some of her meals today. She denying fevers or chills. Has no other new acute complaints. Surgery is following. 04/02/2018 [patient up and walking in hallway today. Pain is improved. Objective - Vital Signs Vital signs: Vital Signs Temp 97.9 F 04/02/18 20:55 Pulse 82 04/02/18 20:55 Resp 18 04/02/18 20:55 BP 151/77 04/02/18 20:55 Pulse Ox 96 04/02/18 20:55 Intake & Output 04/02/18 04/02/18 04/03/18 06:59 18:59 06:59 Intake Total 200 50 Balance 200 50 Intake: Intake, IV Titration 50 Amount Piperacillin-Tazobactam 3 50 .375 gm In Dextrose/Water 1 50ml.bag @ 12.5 mls/hr IVPB Q8HR [facility] Rx#: [id number] Oral 200 Other: Voiding Method Toilet Toilet # Voids 1 1 # Bowel Movements 1 - Exam Gen: This is a 58-year-old female. She is seen in bed and appears to be comfortable and in no acute distress. No respiratory distress is noted. HEENT: Head is atraumatic, normocephalic. Pupils equal, round. Sclerae is anicteric. Conjunctiva pink. Mucous membranes of the mouth are slightly dry. Dentition is in good order. NG tube in place. NECK: Supple. No JVD. No lymphadenopathy. No thyromegaly. LUNGS: Clear to auscultation. No wheezes or rhonchi. No intercostal retractions. HEART: Regular rate and rhythm. No murmur. ABDOMEN: Soft. Distended but not very tender, surgical incision is without significant drainage No surrounding erythema. Davis catheter in place draining annmarie urine. There are few bowel sounds, no guarding or rebound EXTREMITIES: No pedal edema. No calf tenderness. Dorsalis pedis is +2 bilaterally. NEUROLOGICAL: Patient is awake, alert and oriented x3 - Labs CBC & Chem 7: 04/02/18 07:10 08/07/18 07:10 Labs: Abnormal Lab Results - Last 24 Hours (Table) 04/02/18 Range/Units 07:10 RBC 3.42 L (3.80-5.40) m/uL Hgb 9.1 L (11.4-16.0) gm/dL Hct 29.5 L (34.0-46.0) % Plt Count 799 H (150-450) k/uL Microbiology - Last 24 Hours (Table) 03/29/18 13:39 Anaerobic Culture - Final Abdominal Fluid 03/29/18 13:39 Gram Stain - Final Aspirate Body Fluid Culture - Final Laboratory Results WBC 7.6 k/uL (3.8-10.6) 04/02/18 07:10 RBC 3.42 m/uL (3.80-5.40) L 04/02/18 07:10 Hgb 9.1 gm/dL (11.4-16.0) L 04/02/18 07:10 Hct 29.5 % (34.0-46.0) L 04/02/18 07:10 MCV 86.4 fL (80.0-100.0) 04/02/18 07:10 MCH 26.8 pg (25.0-35.0) 04/02/18 07:10 MCHC 31.0 g/dL (31.0-37.0) 04/02/18 07:10 RDW 15.0 % (11.5-15.5) 04/02/18 07:10 Plt Count 799 k/uL (150-450) H 04/02/18 07:10 Neutrophils % (Manual) 85 % 03/16/18 12:10 Lymphocytes % (Manual) 8 % 03/16/18 12:10 Monocytes % (Manual) 6 % 03/16/18 12:10 Eosinophils % (Manual) 1 % 03/16/18 12:10 Neutrophils % 61 % 04/02/18 07:10 Lymphocytes % 26 % 04/02/18 07:10 Monocytes % 6 % 04/02/18 07:10 Neutrophils # (Manual) 22.44 k/uL (1.3-7.7) H 03/16/18 12:10 Eosinophils % 4 % 04/02/18 07:10 Basophils % 1 % 04/02/18 07:10 Lymphocytes # (Manual) 2.11 k/uL (1.0-4.8) 03/16/18 12:10 Neutrophils # 4.6 k/uL (1.3-7.7) 04/02/18 07:10 Monocytes # (Manual) 1.58 k/uL (0-1.0) H 03/16/18 12:10 Eosinophils # (Manual) 0.26 k/uL (0-0.7) 03/16/18 12:10 Lymphocytes # 2.0 k/uL (1.0-4.8) 04/02/18 07:10 Monocytes # 0.4 k/uL (0-1.0) 04/02/18 07:10 Eosinophils # 0.3 k/uL (0-0.7) 04/02/18 07:10 Basophils # 0.1 k/uL (0-0.2) 04/02/18 07:10 Nucleated RBCs 0 /100 WBC (0-0) 03/16/18 12:10 Toxic Granulation Present 03/16/18 12:10 Polychromasia Present 03/16/18 12:10 Hypochromasia Slight 04/02/18 07:10 Poikilocytosis Slight 04/02/18 07:10 ESR 60 mm/hr (0-20) H 03/20/18 07:34 PT 12.2 sec (9.0-12.0) H 03/29/18 12:08 INR 1.3 (<1.2) H 03/29/18 12:08 Sodium 138 mmol/L (137-145) 04/02/18 07:10 Potassium 4.1 mmol/L (3.5-5.1) 04/02/18 07:10 Chloride 104 mmol/L (98-107) 04/02/18 07:10 Carbon Dioxide 24 mmol/L (22-30) 04/02/18 07:10 Anion Gap 10 mmol/L 04/02/18 07:10 BUN 10 mg/dL (7-17) 04/02/18 07:10 Creatinine 0.56 mg/dL (0.52-1.04) 04/02/18 07:10 Est GFR (CKD-EPI)AfAm >90 (>60 ml/min/1.73 sqM) 04/02/18 07:10 Est GFR (CKD-EPI)NonAf >90 (>60 ml/min/1.73 sqM) 04/02/18 07:10 Glucose 95 mg/dL (74-99) 04/02/18 07:10 Plasma Lactic Acid Adam 1.1 mmol/L (0.7-2.0) 03/16/18 12:10 Calcium 9.0 mg/dL (8.4-10.2) 04/02/18 07:10 Phosphorus 3.3 mg/dL (2.5-4.5) 03/29/18 06:45 Magnesium 1.8 mg/dL (1.6-2.3) 03/29/18 06:45 Total Bilirubin <0.1 mg/dL (0.2-1.3) L 03/25/18 08:17 AST 27 U/L (14-36) 03/25/18 08:17 ALT 38 U/L (9-52) 03/25/18 08:17 Alkaline Phosphatase 63 U/L (38-126) 03/25/18 08:17 Total Creatine Kinase 34 U/L (30-135) 03/16/18 12:10 CK-MB (CK-2) 1.2 ng/mL (0.0-2.4) 03/16/18 12:10 CK-MB (CK-2) Rel Index 3.5 03/16/18 12:10 Troponin I <0.012 ng/mL (0.000-0.034) 03/24/18 08:58 C-Reactive Protein 175.9 mg/L (<10.0) H 03/20/18 07:34 Total Protein 4.4 g/dL (6.3-8.2) L 03/25/18 08:17 Albumin 2.2 g/dL (3.5-5.0) L 03/25/18 08:17 Prealbumin <5.0 mg/dL (18.0-42.0) L 03/29/18 06:45 Amylase 53 U/L (30-110) 03/16/18 12:10 Lipase 44 U/L (23-300) 03/16/18 12:10 Urine Color Yellow 03/16/18 13:05 Urine Appearance Clear (Clear) 03/16/18 13:05 Urine pH 6.5 (5.0-8.0) 03/16/18 13:05 Ur Specific Shirley >1.050 (1.001-1.035) H 03/16/18 13:05 Urine Protein 1+ (Negative) H 03/16/18 13:05 Urine Glucose (UA) Negative (Negative) 03/16/18 13:05 Urine Ketones Trace (Negative) H 03/16/18 13:05 Urine Blood Negative (Negative) 03/16/18 13:05 Urine Nitrite Negative (Negative) 03/16/18 13:05 Urine Bilirubin Negative (Negative) 03/16/18 13:05 Urine Urobilinogen <2.0 mg/dL (<2.0) 03/16/18 13:05 Ur Leukocyte Esterase Negative (Negative) 03/16/18 13:05 Urine RBC 1 /hpf (0-5) 03/16/18 13:05 Urine WBC 5 /hpf (0-5) 03/16/18 13:05 Urine Bacteria Rare /hpf (None) H 03/16/18 13:05 Stool Lactoferrin POSITIVE (NEGATIVE) H 03/20/18 18:00 c-ANCA <1:20 Titer (<1:20) 03/20/18 07:34 p-ANCA <1:20 Titer (<1:20) 03/20/18 07:34 S.cerevisiae IgG Ab 4.2 UNITS (<=20) 03/20/18 07:34 S.cerevisiae IgA Ab 3.2 UNITS (<=20) 03/20/18 07:34 Blood Type A Negative 03/22/18 09:32 Blood Type Recheck No 03/22/18 09:32 Antibody Screen NEGATIVE 03/22/18 09:32 Crossmatch See Detail 03/22/18 09:32 Spec Expiration Date 03/25/2018 - 2332 03/22/18 09:32 Microbiology 03/29/18 13:39 Abdominal Fluid Anaerobic Culture - Final 03/29/18 13:39 Aspirate Gram Stain - Final 03/29/18 13:39 Aspirate Body Fluid Culture - Final 03/29/18 13:39 Abdominal Fluid Fungal Culture - Preliminary 03/22/18 19:00 Peritoneal Fluid Gram Stain - Final 03/22/18 19:00 Peritoneal Fluid Body Fluid Culture - Final Escherichia coli Pseudomonas aeruginosa Non Hemolytic Strep 03/22/18 19:00 Peritoneal Fluid Anaerobic Culture - Final Anaerobic Gm Negative Bacilli 03/16/18 13:05 Urine,Catheterized Urine Culture - Final Assessment and Plan (1) Partial small bowel obstruction Narrative/Plan: At this time this pleasant woman has had a significant Occasions during this hospital stay which was Complicated by an acute renal injury and leukocytosis.. She was taken to the operating room where she underwent a lysis of adhesions and resection of the terminal ileum. She is now having some improvement however she's had leukocytosis low-grade temperatures in the peritoneal culture did show evidence of Pseudomonas and constantly antibiotic therapy was altered to Zosyn from Unasyn for further coverage. If she improves we will determine if there are options for transition to oral antibiotic therapy when she has regained bowel function and is able to take in oral medications. 03/26/2018 she does have some distention. Is working with ambulation to attempt to improve her bowel function. Is also utilizing a few ice cubes to try to help stimulate bowel function. She's also sat in the chair. We'll continue current antibiotic therapy for abdominal cultures that show evidence to pseudomonas, E. coli, as well as anaerobic gram-negative bacilli. When she has return of GI function will consider completion course of antibiotic therapy possibly oral. 04/01/2018 reveals the patient having some improvement but is still not had complete recovery of her gastrointestinal tract. Although she is feeling better she did have a bout today of severe pain starting a bowel movement. Fortunately she did have an adequate passage of stool and is able to eat modestly well without difficulties such nausea or emesis. For now while she remains hospitalized we'll continue with current antibiotic therapy and will likely be able to transition to oral antibiotic therapy when she has had further improvement. She is much more comfortable this afternoon than earlier. She is not having fever or leukocytosis. Renal function is adequate. 04/02/2018 further improvement occurring will be able to discharge on oral antibiotic when ready for discharge. Current Visit: No Status: Acute Code(s): K56.69 - OTHER INTESTINAL OBSTRUCTION * DO NOT USE * SNOMED Code(s): 626675813
[2018-04-03] MEDS: HYDROcodone/APAP 7.5-325MG 1 EACH TAB PO PRN ×4 (02:05→20:26)
[2018-04-03] MEDS: LEVOTHYROXINE 75 MCG TAB PO SCH (06:11)
[2018-04-03] MEDS: PIPERACILLIN-TAZOBACTAM 3.375 GM in DEXTROSE/WATER 1 50ML.BAG IVPB SCH ×2 (07:40→17:38)
[2018-04-03] MEDS: amLODIPine 5 MG TAB PO SCH (07:41)
[2018-04-03] MEDS: ENOXAPARIN 40 MG/0.4 ML SYRINGE SQ SCH (07:41)
[2018-04-03] MEDS: FAMOTIDINE 20 MG TAB PO SCH ×2 (07:41→20:26)
[2018-04-03] MEDS: LISINOPRIL 10 MG TAB PO SCH (07:41)
--- NOTE | 2018-04-03 10:09 | P.PN ---
Subjective Progress Note Date: 04/03/18 Principal diagnosis: Small bowel obstruction Patient states she doesn't feel as well as she did yesterday. Pain 4-10. She is afebrile with stable vital signs. Last bowel movement yesterday. No nausea or vomiting. Objective - Vital Signs Vital signs: Vital Signs Temp 97.4 F L 04/03/18 06:03 Pulse 79 04/03/18 06:03 Resp 18 04/03/18 06:03 BP 122/58 04/03/18 06:03 Pulse Ox 96 04/03/18 06:03 Intake & Output 04/02/18 04/03/18 04/03/18 18:59 06:59 18:59 Intake Total 50 360 Balance 50 360 Intake: Intake, IV Titration 50 Amount Piperacillin-Tazobactam 3 50 .375 gm In Dextrose/Water 1 50ml.bag @ 12.5 mls/hr IVPB Q8HR [facility] Rx#: [id number] Oral 360 Other: Voiding Method Toilet Toilet # Voids 1 - Exam Abdomen: Soft, mild diffuse tenderness, incision with scant drainage - Labs CBC & Chem 7: 04/02/18 07:10 04/02/18 07:10 Labs: Microbiology - Last 24 Hours (Table) 03/29/18 13:39 Anaerobic Culture - Final Abdominal Fluid 03/29/18 13:39 Gram Stain - Final Aspirate Body Fluid Culture - Final Assessment and Plan (1) SBO (small bowel obstruction) Narrative/Plan: Will check repeat follow-up CAT scan today. This will allow us to evaluate the small right pelvic fluid collection and evaluate for other potential sources of pain. If that CAT scan looks clear would consider discharge later today on oral antibiotics. Current Visit: Yes Status: Acute Code(s): K56.609 - UNSP INTESTNL OBST, UNSP TO PARTIAL VERSUS COMPLETE OBST SNOMED Code(s): 510170035
[2018-04-03] MEDS: IOPAMIDOL-300 CONTRAST 30 ML VIAL (ORAL USE) PO PRN ×2 (11:09→12:06)
[2018-04-03] MEDS: MULTIVITAMINS, THERA 1 EACH TAB PO SCH (11:11)
--- NOTE | 2018-04-03 14:10 | CT ---
EXAMINATION TYPE: CT abdomen pelvis w con DATE OF EXAM: 04/03/2018 HISTORY: Abdominal pain post right colectomy/SBO CT DLP: 1207mGycm Automated Exposure Control for Dose Reduction was Utilized. CONTRAST: CT scan of the abdomen and pelvis is performed with oral and with IV Contrast, patient injected with 100 mL of Isovue 300. COMPARISON: CT abdomen pelvis from 5 days ago. FINDINGS: LUNG BASES: There is interval resolution of small left pleural effusion. There is persistent left bas ilar scarring and/or atelectasis with less prominent central left basilar consolidation. LIVER/GB: Gallbladder is more contracted on current study. Adjacent fluid filled bowel loop is redemo nstrated. PANCREAS: No significant abnormality is seen. SPLEEN: No significant abnormality is seen. ADRENALS: No significant abnormality is seen. 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 There is stable 2.0 cm cyst lower pole level posteriorly left kidney. There a re a few subcentimeter low dense lesions bilaterally that are too small to further characterize but s table and presumed benign. BOWEL: Oral contrast is seen in mildly prominent stomach less prominent versus prior. Contrast is see n in nondistended duodenal sweep. Contrast is noted in nondistended small bowel loops throughout the abdomen. Surgical changes from right-sided partial colectomy are felt present. Contrast is seen in no ndistended colon. Contrast extends to rectum. Occasional colonic diverticula is present. No CT eviden ce for acute diverticulitis. UTERUS/ADNEXA: Uterus is surgically absent or markedly atrophic. New small amount of free fluid left pelvis axial image 61. Probable remnant ovaries bilaterally axial image 67. LYMPH NODES: No greater than 1cm abdominal or pelvic lymph nodes are appreciated. OSSEOUS STRUCTURES: Moderate to advanced disc space narrowing L4-L5 level is redemonstrated. Segmenta l anomalies involving T10 and T11 vertebra causing levoconvex scoliosis and disc space narrowing with ossific fusion is redemonstrated. OTHER: Nondependent air in bladder remains present axial image 64 diminished in prominence from prior likely product of recent surgery. Other etiologies not excluded. Thin-walled fluid collection right paracolic gutter is diminished in size measuring 3.6 x 1.6 cm axia l image 45 versus prior. Second fluid collection in the right pelvis also diminished in size measurin g 2.8 x 1.8 cm axial image 61. Mild peripheral enhancement remains present. No new fluid collections identified. Redemonstration of vertical skin and subcutaneous scar with vertical skin monika. Stable perhaps tin y rim-enhancing fluid just superior to rectus muscles axial image 54 versus prior study axial image 5 7. Resolution of subcutaneous anterior edema. Stable small amount of fluid anterior left upper pelvis axial image 59. Improving mild mesenteric congestion most prominent right lower quadrant current sang dy. No pneumoperitoneum identified currently. IMPRESSION: Diminished size to known to right-sided thin-walled fluid collections with improving mese nteric congestion and/or edema felt to reflect resolving inflammation. No new fluid collection or abs cess is identified.
--- NOTE | 2018-04-03 17:03 | P.PN ---
Subjective Progress Note Date: 04/03/18 This is a 58-year-old female patient of Dr. Cross and also Dr. Gomez with past medical history of hypertension, hypothyroidism, hysterectomy for benign reasons, previous small bowel obstruction secondary to intra- abdominal adhesions status post diagnostic laparoscopic followed by laparotomy and lysis of adhesions in February 2016. She has also had robotic incisional hernia repair done by Dr. Mack at [place] in September. Patient states that she had sudden onset of severe abdominal pain with nausea and vomiting and low- grade fever off and on up to 100.4 since Sunday. She states she was not passing gas and was not having a bowel movement. Patient came into [facility] emergency center for evaluation. She was afebrile, vital signs stable. She presented with leukocytosis of 26.4, creatinine 0.7 and BUN 21. Hemoglobin 14.2. Lactic acid 1.1, troponin negative. Urinalysis was clear with nitrate and leukoesterase negative. She underwent a CAT scan of the abdomen and pelvis with contrast that revealed distal small bowel obstruction, possibility of gallstone ileus, platelike atelectasis in both lung bases, stable cyst in the left kidney, degenerative changes within the spine. Patient was started on Unasyn, Zofran for nausea and morphine for pain control and admitted under the care of Dr. Uriarte. Patient is currently nothing by mouth with NG tube in place with a large amount of return fluid. 03/18: Patient remains with NG tube in place draining dark green liquid. We have asked for repeat abdominal x-ray. Patient is using her incentive spirometry at 1250 ML's. 03/19: Patient has been afebrile. Noted the patient drop her pulse ox in the 80s and is on O2 at 2 L nasal cannula. Patient denies any shortness of breath. She did have a bowel movement this morning. NG tube remains in place with decreased output. IV fluids will be decreased to 75 mL. Patient is stating that she is having trouble using the incentive spirometry. Slight elevated heart rate. She is scheduled for small bowel follow-through today. 03/20: Dr. Gomez has had NG tube removed and started on clear liquids. GI consult was admitted to evaluate for possible Crohn's disease. Tentative plan for outpatient MR enterography to evaluate terminal ileum and reevaluate for small bowel foreign-body. Home medication list reviewed and patient placed back on some of her home meds. Patient has been ambulating well in the hallway. Her pulse ox did drop down to 88%. Her incentive spirometry is only 500 and then she developed pressure in the middle of her abdomen and pain in the right side. Repeat chest x-ray will be ordered. IV fluids have been discontinued and patient will be given 1 dose of IV Lasix. She does not appear to be hypoxic or in any respiratory distress. 03/21: Repeat pulse ox yesterday afternoon from her ear revealed 94-95%. Patient again has no respiratory distress. She states she is using her incentive spirometry but mostly only reaching 500 and sometimes up 1000. Her lower extremity edema is improved. We will continue her on IV Lasix and potassium. Chest x-ray from yesterday showed pulmonary edema. She continues to have right sided abdominal sharp pain that comes and goes and feels better when she applies pressure. She is currently tolerating a full liquid diet. C- reactive protein is elevated at 175.9, sed rate elevated at 60. Other lab work pending. GI has ordered MRI enterography. 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 Evaluation for fistula is markedly limited secondary to extensive patient motion. Foreign body within the distal ileum has retrospectively been present on prior exams dating back to 07/05/2017 and could represent calcified ingested substance or calcified inspissated secretions within the diverticulum. Considering its presence on retrospective exams gallstone ileus is excluded. Dr. Gomez is planning for exploratory laparotomy with resection of the terminal ileum and remove small bowel foreign- body. 03/23: Patient went for surgery yesterday with Dr. Starks ended up having right- sided partial colectomy with mild many adhesion and few complication during surgery. According to him highly suspected for Crohn disease of the biopsies back will continue current management for now. Also patient had acute kidney injury with creatinine climb up through the night will continue hydration continue to watch her urine output for now. 03/24: Patient is feeling slightly but better, much worse kidney function compared to yesterday despite the hydration full catheter she is not making much urine. We'll consult nephrology and if need urology can be involved especially of this is for any reason surgical-related complication. We discussed with Dr. Gomez whether patient need to go for a CAT scan of the abdomen for further diagnosis of the reason why this acute kidney failure to place beside having a prerenal condition with the complication related to sepsis , hypotension and, surgery. Nephrology were notified of the consult and if the general opinion that we need to see urology will do the consult 03/25: BUN 16 and creatinine 0.91, hemoglobin 7.9 and white count is 8.2. Pressure readings are improved from the weekend. Peritoneal fluid is positive for E. coli and pseudomonas. Patient has been seen by Dr. Parker with plan for continued Zosyn. Chest x-ray done on March 24 showed mild cardiomegaly with platelike atelectasis. Patient is using incentive spirometry to but only reaching 500. The abdominal pain that she had prior to the surgery is now gone. She has a epidural in place which she expects to have removed today. She states she ambulated in the hallway twice yesterday. She is passing gas but no bowel movement at this time. NG tube remains in place. Davis catheter in place with adequate output. Levothyroxine changed to IV. 03/26: Patient have NG tube and Davis catheter out today. Epidural was removed yesterday. She states she is passing gas but no bowel movement. I asked is only 500. Hemoglobin is 8.5, BUN 9 and creatinine 0.8. 03/27: Peritoneal fluid culture is positive for E. coli, pseudomonas and nonhemolytic strep and an anaerobic gram-negative bacilli. She has been continued on Zosyn. She remains afebrile. Pulse ox 93% on room air. She has beginning about 750-1000 ML's on incentive spirometry. She states she is passed gas but has not had any bowel movement since surgery. She denies any cough. She is feeling improvement with having NG tube and Davis catheter out. 03/28: Pathology showed no signs of inflammatory bowel disease and no malignancy. Patient has been walking in the hallway. She is improving on her incentive spirometry. Pulse ox is 93% on room air. Patient is still on clear liquids and tolerating this. She is passing gas but no bowel movement. Blood pressure readings are high for which she will be resumed on benazepril. Amlodipine has also been resumed. Patient has been cleared for discharge by nephrology. We' re also clearing patient for discharge. Patient will need follow-up of Dr. Cross. 03/29: Patient underwent CT of the abdomen and pelvis that showed 2 new fluid collections near the gallbladder fossa within the right lower hemipelvis may relate to postsurgical seromas. Mild abdominal ascites and mesenteric venous congestion. Punctate foci of pneumoperitoneum in combination with recent post surgical change in the ventral abdominal wall and subcutaneous emphysema related to resolving postsurgical sequelae. Resolved small bowel obstruction and improved caliber of the nose longer decompressed strictures seen on the prior exam at the terminal ileum. New small left effusion and persistent multifocal basilar atelectasis. She then underwent CT-guided drainage catheter insertion with Dr. Caraballo and specimen sent for pathology. 03/30 PAtient doing well, denies any abd pain. Patient is walkiing down the burns without any difficult. Drain stays in place today, serous drainage noted. patient tolerated advanced diet without any difficulty. 03/31 patient examined bedside. Dressing was changed today appears to be serous but no signs of infection. Patient is able to tolerate some tomato soap .. Diet advance to low fiber diet. Plan to remove drain tomorrow 04/01: Patient continues to have some abdominal pain. She has had a bowel movement with pain. She is hoping that the drain will be removed today and that she will be able to go home tomorrow. She has tolerating a low fiber diet. She has been afebrile. 04/02: Patient states the plan is to monitor for the next 1-2 days and possibly repeat CAT scan. Drain has been removed. Patient is now having diarrhea. She is continued on Zosyn and also followed by Dr. Parker. 04/03: underwent CAT scan of the abdomen and pelvis today showed diminished size to known right-sided thin-walled fluid collections with improving mesenteric congestion and/or edema felt to reflect resolving inflammation. No new fluid collection or abscess is identified. Patient has been afebrile. Vital signs are stable. She is hoping to go home today. No nausea or vomiting. She does continue to have some pain on the right side. Dr. Parker has changed her to oral ciprofloxacin and Flagyl in preparation for discharge home Objective - Vital Signs Vital signs: Vital Signs Temp 97.4 F L 04/03/18 06:03 Pulse 79 04/03/18 06:03 Resp 18 04/03/18 06:03 BP 122/58 04/03/18 06:03 Pulse Ox 96 04/03/18 06:03 Intake & Output 04/02/18 04/03/18 04/03/18 18:59 06:59 18:59 Intake Total 50 360 Balance 50 360 Intake: Intake, IV Titration 50 Amount Piperacillin-Tazobactam 3 50 .375 gm In Dextrose/Water 1 50ml.bag @ 12.5 mls/hr IVPB Q8HR [facility] Rx#: [id number] Oral 360 Other: Voiding Method Toilet Toilet # Voids 1 - Exam Gen: This is a 58-year-old female. Patient walking in her room and appears to be comfortable and in no acute distress. HEENT: Head is atraumatic, normocephalic. Pupils equal, round. Sclerae is anicteric. NECK: Supple. No JVD. No lymphadenopathy. No thyromegaly. LUNGS: Clear to auscultation. No wheezes or rhonchi. No intercostal retractions. HEART: Regular rate and rhythm. No murmur. ABDOMEN: Soft. Bowel sounds present. No masses. No significant tenderness. Dressing in place. No surrounding erythema. Drain in place. EXTREMITIES: No pedal edema. No calf tenderness. Dorsalis pedis palpable bilaterally. NEUROLOGICAL: Patient is awake, alert and oriented x3. Cranial nerves 2 through 12 are grossly intact. - Labs CBC & Chem 7: 04/02/18 07:10 04/02/18 07:10 Labs: Microbiology - Last 24 Hours (Table) 03/29/18 13:39 Anaerobic Culture - Final Abdominal Fluid 03/29/18 13:39 Gram Stain - Final Aspirate Body Fluid Culture - Final Assessment and Plan Plan: 1. Severe abdominal pain secondary to small bowel obstructions from adhesions, peritonitis. Patient is status post exploratory laparotomy and lysis of adhesions and resection of the terminal ileum and right colon. NG tube, Davis, epidural has been removed. Continue current pain management. Continue incentive spirometry. Patient is currently on Zosyn and changed to ciprofloxacin and Flagyl. Repeat CT as above. Consult with Dr. Parker appreciated. 2. Acute kidney injury secondary to hypotension, recovered. Consult with nephrology is appreciated. 3. Hypotension secondary to hypovolemia. Continue fluid resuscitation for now keep watching the blood pressure, hopefully improving the blood pressure will improve the kidney function as well. 4. Acute blood loss anemia. Continue to monitor. No plan for transfusion at this time. 5. Abdominal abscess in the right lower quadrant status post CT-guided drainage catheter insertion. 6. Vitamin B12 deficiency with chronic anemia. 7. Pulmonary prophylaxis and atelectasis. Incentive spirometry. 8. Hypoxemia secondary to atelectasis and pulmonary edema from IV fluids. No history of heart failure. IV Lasix ordered. Encourage incentive spirometry. 9. Hypothyroidism. Resume levothyroxine 37 g daily IV. 10. Hypertension. Patient resumed on Norvasc and benazepril. Patient can resume Lotrel at home. 11. GI prophylaxis. Protonix. 12. DVT prophylaxis. Lovenox. CODE STATUS: Full code. Discharge plan: Return home Impression and plan of care have been directed as dictated by the signing physician. Tomasa Chi nurse practitioner acting as scribe for signing physician.
[2018-04-03] MEDS: CIPROFLOXACIN HCL 500 MG TAB PO SCH (20:26)
[2018-04-03] MEDS: metroNIDAZOLE 500 MG TAB PO SCH (21:54)
[2018-04-04] MEDS: HYDROcodone/APAP 7.5-325MG 1 EACH TAB PO PRN ×3 (04:12→16:32)
[2018-04-04] MEDS: LEVOTHYROXINE 75 MCG TAB PO SCH (06:02)
[2018-04-04 06:28] VITALS: RESP 16
[2018-04-04] MEDS: metroNIDAZOLE 500 MG TAB PO SCH ×2 (08:08→16:32)
[2018-04-04] MEDS: amLODIPine 5 MG TAB PO SCH (08:08)
[2018-04-04] MEDS: LISINOPRIL 10 MG TAB PO SCH (08:08)
[2018-04-04] MEDS: FAMOTIDINE 20 MG TAB PO SCH (08:08)
[2018-04-04] MEDS: CIPROFLOXACIN HCL 500 MG TAB PO SCH (08:09)
[2018-04-04] MEDS: ENOXAPARIN 40 MG/0.4 ML SYRINGE SQ SCH (08:09)
[2018-04-04] MEDS: MULTIVITAMINS, THERA 1 EACH TAB PO SCH (10:56)
--- NOTE | 2018-04-04 13:30 | P.PN ---
Subjective Progress Note Date: 04/04/18 This is a 58-year-old female patient of Dr. Cross and also Dr. Gomez with past medical history of hypertension, hypothyroidism, hysterectomy for benign reasons, previous small bowel obstruction secondary to intra- abdominal adhesions status post diagnostic laparoscopic followed by laparotomy and lysis of adhesions in February 2016. She has also had robotic incisional hernia repair done by Dr. Mack at [facility] in September. Patient states that she had sudden onset of severe abdominal pain with nausea and vomiting and low- grade fever off and on up to 100.4 since Sunday. She states she was not passing gas and was not having a bowel movement. Patient came into emergency center for evaluation. She was afebrile, vital signs stable. She presented with leukocytosis of 26.4, creatinine 0.7 and BUN 21. Hemoglobin 14.2. Lactic acid 1.1, troponin negative. Urinalysis was clear with nitrate and leukoesterase negative. She underwent a CAT scan of the abdomen and pelvis with contrast that revealed distal small bowel obstruction, possibility of gallstone ileus, platelike atelectasis in both lung bases, stable cyst in the left kidney, degenerative changes within the spine. Patient was started on Unasyn, Zofran for nausea and morphine for pain control and admitted under the care of Dr. Uriarte. Patient is currently nothing by mouth with NG tube in place with a large amount of return fluid. 03/18: Patient remains with NG tube in place draining dark green liquid. We have asked for repeat abdominal x-ray. Patient is using her incentive spirometry at 1250 ML's. 03/19: Patient has been afebrile. Noted the patient drop her pulse ox in the 80s and is on O2 at 2 L nasal cannula. Patient denies any shortness of breath. She did have a bowel movement this morning. NG tube remains in place with decreased output. IV fluids will be decreased to 75 mL. Patient is stating that she is having trouble using the incentive spirometry. Slight elevated heart rate. She is scheduled for small bowel follow-through today. 03/20: Dr. Gomez has had NG tube removed and started on clear liquids. GI consult was admitted to evaluate for possible Crohn's disease. Tentative plan for outpatient MR enterography to evaluate terminal ileum and reevaluate for small bowel foreign-body. Home medication list reviewed and patient placed back on some of her home meds. Patient has been ambulating well in the hallway. Her pulse ox did drop down to 88%. Her incentive spirometry is only 500 and then she developed pressure in the middle of her abdomen and pain in the right side. Repeat chest x-ray will be ordered. IV fluids have been discontinued and patient will be given 1 dose of IV Lasix. She does not appear to be hypoxic or in any respiratory distress. 03/21: Repeat pulse ox yesterday afternoon from her ear revealed 94-95%. Patient again has no respiratory distress. She states she is using her incentive spirometry but mostly only reaching 500 and sometimes up 1000. Her lower extremity edema is improved. We will continue her on IV Lasix and potassium. Chest x-ray from yesterday showed pulmonary edema. She continues to have right sided abdominal sharp pain that comes and goes and feels better when she applies pressure. She is currently tolerating a full liquid diet. C- reactive protein is elevated at 175.9, sed rate elevated at 60. Other lab work pending. GI has ordered MRI enterography. 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 Evaluation for fistula is markedly limited secondary to extensive patient motion. Foreign body within the distal ileum has retrospectively been present on prior exams dating back to 07/05/2017 and could represent calcified ingested substance or calcified inspissated secretions within the diverticulum. Considering its presence on retrospective exams gallstone ileus is excluded. Dr. Gomez is planning for exploratory laparotomy with resection of the terminal ileum and remove small bowel foreign- body. 03/23: Patient went for surgery yesterday with Dr. Starks ended up having right- sided partial colectomy with mild many adhesion and few complication during surgery. According to him highly suspected for Crohn disease of the biopsies back will continue current management for now. Also patient had acute kidney injury with creatinine climb up through the night will continue hydration continue to watch her urine output for now. 03/24: Patient is feeling slightly but better, much worse kidney function compared to yesterday despite the hydration full catheter she is not making much urine. We'll consult nephrology and if need urology can be involved especially of this is for any reason surgical-related complication. We discussed with Dr. Gomez whether patient need to go for a CAT scan of the abdomen for further diagnosis of the reason why this acute kidney failure to place beside having a prerenal condition with the complication related to sepsis , hypotension and, surgery. Nephrology were notified of the consult and if the general opinion that we need to see urology will do the consult 03/25: BUN 16 and creatinine 0.91, hemoglobin 7.9 and white count is 8.2. Pressure readings are improved from the weekend. Peritoneal fluid is positive for E. coli and pseudomonas. Patient has been seen by Dr. Parker with plan for continued Zosyn. Chest x-ray done on March 24 showed mild cardiomegaly with platelike atelectasis. Patient is using incentive spirometry to but only reaching 500. The abdominal pain that she had prior to the surgery is now gone. She has a epidural in place which she expects to have removed today. She states she ambulated in the hallway twice yesterday. She is passing gas but no bowel movement at this time. NG tube remains in place. Davis catheter in place with adequate output. Levothyroxine changed to IV. 03/26: Patient have NG tube and Davis catheter out today. Epidural was removed yesterday. She states she is passing gas but no bowel movement. I asked is only 500. Hemoglobin is 8.5, BUN 9 and creatinine 0.8. 03/27: Peritoneal fluid culture is positive for E. coli, pseudomonas and nonhemolytic strep and an anaerobic gram-negative bacilli. She has been continued on Zosyn. She remains afebrile. Pulse ox 93% on room air. She has beginning about 750-1000 ML's on incentive spirometry. She states she is passed gas but has not had any bowel movement since surgery. She denies any cough. She is feeling improvement with having NG tube and Davis catheter out. 03/28: Pathology showed no signs of inflammatory bowel disease and no malignancy. Patient has been walking in the hallway. She is improving on her incentive spirometry. Pulse ox is 93% on room air. Patient is still on clear liquids and tolerating this. She is passing gas but no bowel movement. Blood pressure readings are high for which she will be resumed on benazepril. Amlodipine has also been resumed. Patient has been cleared for discharge by nephrology. We' re also clearing patient for discharge. Patient will need follow-up of Dr. Cross. 03/29: Patient underwent CT of the abdomen and pelvis that showed 2 new fluid collections near the gallbladder fossa within the right lower hemipelvis may relate to postsurgical seromas. Mild abdominal ascites and mesenteric venous congestion. Punctate foci of pneumoperitoneum in combination with recent post surgical change in the ventral abdominal wall and subcutaneous emphysema related to resolving postsurgical sequelae. Resolved small bowel obstruction and improved caliber of the nose longer decompressed strictures seen on the prior exam at the terminal ileum. New small left effusion and persistent multifocal basilar atelectasis. She then underwent CT-guided drainage catheter insertion with Dr. Caraballo and specimen sent for pathology. 03/30 PAtient doing well, denies any abd pain. Patient is walkiing down the burns without any difficult. Drain stays in place today, serous drainage noted. patient tolerated advanced diet without any difficulty. 03/31 patient examined bedside. Dressing was changed today appears to be serous but no signs of infection. Patient is able to tolerate some tomato soap .. Diet advance to low fiber diet. Plan to remove drain tomorrow 04/01: Patient continues to have some abdominal pain. She has had a bowel movement with pain. She is hoping that the drain will be removed today and that she will be able to go home tomorrow. She has tolerating a low fiber diet. She has been afebrile. 04/02: Patient states the plan is to monitor for the next 1-2 days and possibly repeat CAT scan. Drain has been removed. Patient is now having diarrhea. She is continued on Zosyn and also followed by Dr. Parker. 04/03: Patient underwent CAT scan of the abdomen and pelvis today showed diminished size to known right-sided thin-walled fluid collections with improving mesenteric congestion and/or edema felt to reflect resolving inflammation. No new fluid collection or abscess is identified. Patient has been afebrile. Vital signs are stable. She is hoping to go home today. No nausea or vomiting. She does continue to have some pain on the right side. Dr. Parker has changed her to oral ciprofloxacin and Flagyl in preparation for discharge home 04/04: She was noted to have a low pulse ox reading but no respiratory distress. She is using incentive spirometry but only reaching 750 ML's. Patient is ambulating throughout the day to help with her pulse ox. Patient is anticipating discharge home today. She is on ciprofloxacin and has tolerated that through the night. She had her breakfast fine this morning. She did have a small bowel movement this morning as well. [facility] care is in place for dressing changes. Objective - Vital Signs Vital signs: Vital Signs Temp 97.9 F 04/04/18 05:00 Pulse 82 04/04/18 05:00 Resp 16 04/04/18 05:00 BP 125/64 04/04/18 05:00 Pulse Ox 82 L 04/04/18 05:00 Intake & Output 04/03/18 04/04/18 04/04/18 18:59 06:59 18:59 Intake Total 50 600 Output Total 50 Balance 50 550 Intake: Intake, IV Titration 50 Amount Piperacillin-Tazobactam 3 50 .375 gm In Dextrose/Water 1 50ml.bag @ 12.5 mls/hr IVPB Q8HR CATY Rx#: [id number] Oral 600 Output: Stool 50 Other: Voiding Method Toilet Toilet # Voids 1 - Exam Gen: This is a 58-year-old female. Patient walking in her room and appears to be comfortable and in no acute distress. HEENT: Head is atraumatic, normocephalic. Pupils equal, round. Sclerae is anicteric. NECK: Supple. No JVD. No lymphadenopathy. No thyromegaly. LUNGS: Clear to auscultation. No wheezes or rhonchi. No intercostal retractions. HEART: Regular rate and rhythm. No murmur. ABDOMEN: Soft. Bowel sounds present. No masses. No significant tenderness. Dressing in place. No surrounding erythema. EXTREMITIES: No pedal edema. No calf tenderness. Dorsalis pedis palpable bilaterally. NEUROLOGICAL: Patient is awake, alert and oriented x3. Cranial nerves 2 through 12 are grossly intact. - Labs CBC & Chem 7: 04/02/18 07:10 04/02/18 07:10 Assessment and Plan Plan: 1. Severe abdominal pain secondary to small bowel obstructions from adhesions, peritonitis. Patient is status post exploratory laparotomy and lysis of adhesions and resection of the terminal ileum and right colon. NG tube, Davis, epidural has been removed. Continue current pain management. Continue incentive spirometry. Patient is currently on Zosyn and changed to ciprofloxacin and Flagyl. Repeat CT as above. Consult with Dr. Parker appreciated. 2. Acute kidney injury secondary to hypotension, recovered. Consult with nephrology is appreciated. 3. Hypotension secondary to hypovolemia. Continue fluid resuscitation for now keep watching the blood pressure, hopefully improving the blood pressure will improve the kidney function as well. 4. Acute blood loss anemia. Continue to monitor. No plan for transfusion at this time. 5. Abdominal abscess in the right lower quadrant status post CT-guided drainage catheter insertion. 6. Vitamin B12 deficiency with chronic anemia. 7. Pulmonary prophylaxis and atelectasis. Incentive spirometry. 8. Hypoxemia secondary to atelectasis and pulmonary edema from IV fluids. No history of heart failure. IV Lasix ordered. Encourage incentive spirometry. 9. Hypothyroidism. Resume levothyroxine 37 g daily IV. 10. Hypertension. Patient resumed on Norvasc and benazepril. Patient can resume Lotrel at home. 11. GI prophylaxis. Protonix. 12. DVT prophylaxis. Lovenox. CODE STATUS: Full code. Discharge plan: Return home with [facility] Impression and plan of care have been directed as dictated by the signing physician. Tomasa Chi nurse practitioner acting as scribe for signing physician.
--- NOTE | 2018-04-04 14:53 | P.DS ---
Providers Date of admission: 03/16/18 13:40 Expected date of discharge: 04/04/18 Attending physician: Bertin Gomez Consults: 03/16/18 13:40 Consult Physician Routine Consulting Provider: Ever Zarco Consult Reason/Comments: known - medical management Do you want consulting provider notified?: Yes 03/24/18 08:17 Consult Physician Routine Consulting Provider: Marie Soliz Consult Reason/Comments: AKF Do you want consulting provider notified?: Yes 03/24/18 18:03 Consult Physician Routine Consulting Provider: Junaid Parker Consult Reason/Comments: infection in peritineum Do you want consulting provider notified?: Yes Primary care physician: Ever Zarco - Discharge Diagnosis(es) (1) SBO (small bowel obstruction) Please refer to history and physical as well as hospital chart for full details as this was a lengthy hospitalization for this patient. Patient was initially admitted by Dr. Uriarte for a small bowel obstruction. I resumed care after I returned home in the patient's admission was switched to myself. The patient had progress abdominal films showing SBO. Small bowel series was then ordered which showed resolution of the bowel obstruction. The patient had a foreign body identified in the bowel proximal to the stricture location on CAT scan and for that reason an MRI was obtained. GI was also seeing the patient as well as internal medicine. MRI showed persistent stricture formation with foreign body proximal to the stricture and this is thought to be contributing to the patient' s intermittent obstruction. At that time the patient's symptoms of pain and nausea with bloating had increased and we decided to proceed with exploratory laparotomy. At the time of exploratory laparotomy the patient was found to have an abscess in the right hemipelvis. Severe intra-abdominal adhesions were also identified. The patient's terminal ileum revealed a large area of perforation and stricture formation. Resection of the terminal ileum and right colon took place. An ileocolonic anastomosis took place. The patient was seen by infectious disease postoperatively. Cultures were obtained from the intra- abdominal purulence. Postoperatively the patient has done fairly well. She has had intermittent episodes unfortunately of nausea, distention, and ongoing pain. She had a CAT scan performed last week and she was found have a fluid collection in the right mid abdomen. This was drained and revealed serous fluid. An additional small fluid collection in the right hemipelvis was not aspirated given its location. This was smaller in nature. Follow-up films done yesterday show gradual improvement. She is doing better today. Her 3 abdominal incision wounds from her wick sites are draining a small amount of seropurulent fluid. She is afebrile. White blood cell count remains normal when last checked. She is hoping to go home today. Plans are discharge at this time on oral antibiotics and oral analgesics. Patient will follow-up in 1 week. Home care to be arranged for [employer] silver rope dressings to be performed every 2-3 days. May shower. Current Visit: Yes Status: Acute Patient Condition at Discharge: Good Plan - Discharge Summary New Discharge Prescriptions: New Ciprofloxacin HCl [Cipro] 500 mg PO BID #14 tab metroNIDAZOLE [Flagyl] 500 mg PO TID #21 tab Continue Cyanocobalamin [Vitamin B-12] 500 mcg PO DAILY Levothyroxine Sodium [Synthroid] 75 mcg PO DAILY amLODIPine BESYLATE/BENAZEPRIL [Lotrel 5-10 mg Capsule] 1 cap PO DAILY Potassium Gluconate 99 mg PO DAILY [place]-3 Fatty Acids/Fish Oil [Fish Oil 1,000 mg Softgel] 1 cap PO DAILY Multivitamins, Thera [Multivitamin (formulary)] 1 tab PO DAILY Hydrochlorothiazide [Hydrodiuril] 25 mg PO DAILY L.acidoph,Paracasei, B.lactis [Probiotic] 1 cap PO DAILY Discharge Medication List Cyanocobalamin [Vitamin B-12] 500 mcg PO DAILY 01/06/15 [History] Levothyroxine Sodium [Synthroid] 75 mcg PO DAILY 01/06/15 [History] Multivitamins, Thera [Multivitamin (formulary)] 1 tab PO DAILY 01/06/15 [History ] [place]-3 Fatty Acids/Fish Oil [Fish Oil 1,000 mg Softgel] 1 cap PO DAILY [History] Potassium Gluconate 99 mg PO DAILY 01/06/15 [History] amLODIPine BESYLATE/BENAZEPRIL [Lotrel 5-10 mg Capsule] 1 cap PO DAILY 01/06/15 [History] Hydrochlorothiazide [Hydrodiuril] 25 mg PO DAILY 08/29/16 [History] L.acidoph,Paracasei, B.lactis [Probiotic] 1 cap PO DAILY 08/29/16 [History] Ciprofloxacin HCl [Cipro] 500 mg PO BID #14 tab 08/09/18 [Rx] metroNIDAZOLE [Flagyl] 500 mg PO TID #21 tab 04/04/18 [Rx] Follow up Appointment(s)/Referral(s): Bertin Gomez MD [Medical Doctor] - 04/11/18 9:00 am Edmar Cross DO [STAFF PHYSICIAN] - 1 Week (Dr. Cross's office will call patient with an appointment date and time. ) Patient Instructions/Handouts: Ciprofloxacin (By mouth), Hydrocodone/ Acetaminophen (By mouth), Metronidazole (By mouth), Low Fiber Diet (DC), Laparoscopic Bowel Resection (DC), Acute Abdominal Pain (DC), Bowel Obstruction (DC) Discharge Disposition: HOME WITH HOME HEALTH SERVICES
[2018-04-04 16:07] VITALS: BP 156/86; PULSE 89; TEMP 98.2
== END 2018-04-04 16:45 | disposition home health service (06) | DRG 329 ==
LOC: EC 10:57 → 5MS5E 13:40
PROVIDERS: ADMIT Surgery; ATTEND Surgery
PROC: 0DBB0ZZ Excision of Ileum, Open Approach (ICD-10-PCS; principal; 2018-03-16)
PROC: 0DBF0ZZ Excision of Right Large Intestine, Open Approach (ICD-10-PCS; principal; 2018-03-16)
PROC: 0DN80ZZ Release Small Intestine, Open Approach (ICD-10-PCS; principal; 2018-03-16)
PROC: 0DNE0ZZ Release Large Intestine, Open Approach (ICD-10-PCS; principal; 2018-03-16)
DX: K56.50 Intestinal adhesions [bands], unspecified as to partial versus complete obstruction (principal); K65.1 Peritoneal abscess; K63.1 Perforation of intestine (nontraumatic); J81.1 Chronic pulmonary edema; J98.11 Atelectasis; N17.9 Acute kidney failure, unspecified; R18.8 Other ascites; D64.9 Anemia, unspecified; E03.9 Hypothyroidism, unspecified; E53.8 Deficiency of other specified B group vitamins; E86.1 Hypovolemia; I11.9 Hypertensive heart disease without heart failure; K21.9 Gastro-esophageal reflux disease without esophagitis; Z79.899 Other long term (current) drug therapy; Z82.49 Family history of ischemic heart disease and other diseases of the circulatory system; Z90.710 Acquired absence of both cervix and uterus; Z83.3 Family history of diabetes mellitus; Z93.3 Colostomy status; Z98.1 Arthrodesis status; Z79.890 Hormone replacement therapy; Z79.891 Long term (current) use of opiate analgesic; B96.20 Unspecified Escherichia coli [E. coli] as the cause of diseases classified elsewhere; B96.5 Pseudomonas (aeruginosa) (mallei) (pseudomallei) as the cause of diseases classified elsewhere; B95.4 Other streptococcus as the cause of diseases classified elsewhere
CPT/HCPCS: 36415; 49406; 71045; 71046; 72197; 74018; 74177; 74183; 74250; 77012; 80048; 80053; 81001; 81025; 82150; 82550; 82553; 83605; 83630; 83690; 83735; 84100; 84134; 84484; 85025; 85027; 85610; 85652; 86140; 86255; 86671; 86850; 86900; 86901; 86920; 87070; 87075; 87077; 87086; 87102; 87186; 87205; 88307; 94760; 96365; 96366; 96375; 99285

== ENCOUNTER 2018-04-10 13:57 | Inpatient (IN) | payer BC ==
[2018-04-10] MEDS ORDERED: NALOXONE 0.4 MG/ML 1 ML VIAL IV PRN (15:20)
[2018-04-10 15:52] VITALS: BMI 29.2
[2018-04-10 15:56] LABS: Basophils # (A) 0.1 k/uL (0-0.2); Basophils % (A) 1 %; Eosinophils # (A) 0.1 k/uL (0-0.7); Eosinophils % (A) 0 %; HCT 34.3 % (34.0-46.0); HGB 11.3 gm/dL (11.4-16.0); Hypochromasia Slight; Lymphocytes # (A) 1.9 k/uL (1.0-4.8); Lymphocytes % (A) 18 %; MCH 27.9 pg (25.0-35.0); MCHC 32.8 g/dL (31.0-37.0); MCV 84.8 fL (80.0-100.0); Mean Platelet Volume 6.3; Monocytes # (A) 0.7 k/uL (0-1.0); Monocytes % (A) 6 %; Neutrophils # (A) 7.7 k/uL (1.3-7.7); Neutrophils % (A) 73 %; Platelet Count 455 k/uL (150-450); RBC 4.05 m/uL (3.80-5.40); RDW 15.2 % (11.5-15.5); WBC 10.6 k/uL (3.8-10.6)
[2018-04-10] MEDS ORDERED: ACETAMINOPHEN IV (For NPO) 1,000 MG in EMPTY BAG 1 BAG IVPB ONE (16:00)
[2018-04-10 16:09] LABS: Albumin 3.9 g/dL (3.5-5.0); Calcium 9.5 mg/dL (8.4-10.2); Potassium 4.3 mmol/L (3.5-5.1); Total Bilirubin 0.2 mg/dL (0.2-1.3); Total Protein 7.1 g/dL (6.3-8.2)
[2018-04-10] MEDS: ONDANSETRON 4 MG/2 ML VIAL IVP PRN (16:20)
[2018-04-10] MEDS: PANTOPRAZOLE 40 MG/10 ML VIAL IVP SCH ×2 (16:37→21:47)
[2018-04-10] MEDS: KETOROLAC 30 MG/ML 1 ML VIAL IVP SCH ×2 (16:43→22:51)
[2018-04-10] MEDS: HEPARIN SODIUM,PORCINE 5,000 UNIT/ML 1 ML VIAL SQ SCH ×2 (16:46→23:35)
[2018-04-10] MEDS: SODIUM CHLORIDE 0.9% 1,000 ML IV SCH (16:48)
[2018-04-10] MEDS: IOPAMIDOL-300 CONTRAST 30 ML VIAL (ORAL USE) PO PRN ×2 (18:17→19:26)
[2018-04-10] MEDS: HYDROmorphone 1 MG/ML 1 ML SYRINGE IVP PRN ×2 (18:34→21:50)
[2018-04-10] MEDS: PIPERACILLIN-TAZOBACTAM 3.375 GM in DEXTROSE/WATER 1 50ML.BAG IVPB SCH ×2 (18:38→23:35)
--- NOTE | 2018-04-10 21:00 | CT ---
EXAMINATION TYPE: CT abdomen pelvis w con DATE OF EXAM: 04/10/2018 COMPARISON: 04/03/2018 HISTORY: Abdominal pain, nausea and vomiting today. Bowel resection 03-22-18. CT DLP: 524.4 mGycm Automated exposure control for dose reduction was used. TECHNIQUE: Helical acquisition of images was performed from the lung bases through the pelvis. CONTRAST: Performed with Oral Contrast and with IV Contrast, patient injected with 100 mL of Isovue 300. FINDINGS: There is some linear density at the lung bases. There is no pleural effusion. Liver and spleen appear normal. Bile ducts are not dilated. Pancreas appears normal. Gallbladder appears normal. There is increased density in the subcutaneous fat at the umbilicus with skin monika. There are air bubbles. This measures 4 x 2.5 cm. There is no adrenal mass. There is fat density tumor on the lateral left kidney. Kidneys show satisfa ctory contrast opacification with no hydronephrosis. There is 2.5 cm cortical cyst on the lower pole left kidney. There is no retroperitoneal adenopathy. Bladder distends smoothly. There is no pelvic mass. I see no free air. There is minimal fat stranding in the omentum in the anterior abdomen. There is small fluid collection in the pelvis on the right side posteriorly that measures 2.3 cm. IMPRESSION: THERE IS CLEARING OF THE SMALL FLUID COLLECTION IN THE RIGHT PARACOLIC GUTTER COMPARED TO LAST EXAM. 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 THIS IS UNCHANGE D. THERE IS INCREASING MIXED DENSITY IN THE SUBCUTANEOUS FAT AT THE SURGERY SITE ANTERIORLY CONSISTEN T WITH SUBCUTANEOUS ABSCESS THAT IS ENLARGED COMPARED TO LAST EXAM. THERE IS A 1.5 CM THICK WALLED FL UID DENSITY AREA IN THE PELVIS ON THE RIGHT SIDE CONSISTENT WITH SMALL HEMATOMA OR ABSCESS THAT IS SL IGHTLY SMALLER THAN LAST CT SCAN. There is some atelectasis at the lung bases unchanged.
[2018-04-10] MEDS: METOCLOPRAMIDE 5 MG/ML 2 ML VIAL IVP PRN (22:44)
[2018-04-11] MEDS: SODIUM CHLORIDE 0.9% 1,000 ML IV SCH ×2 (06:53→07:22)
[2018-04-11] MEDS: KETOROLAC 30 MG/ML 1 ML VIAL IVP SCH ×3 (06:53→14:34)
[2018-04-11] MEDS: HYDROmorphone 1 MG/ML 1 ML SYRINGE IVP PRN ×2 (07:04→17:29)
[2018-04-11] MEDS: HEPARIN SODIUM,PORCINE 5,000 UNIT/ML 1 ML VIAL SQ SCH ×2 (07:09→15:06)
[2018-04-11] MEDS: PIPERACILLIN-TAZOBACTAM 3.375 GM in DEXTROSE/WATER 1 50ML.BAG IVPB SCH ×2 (07:10→15:06)
[2018-04-11] MEDS: PANTOPRAZOLE 40 MG/10 ML VIAL IVP SCH ×2 (07:16→20:47)
[2018-04-11 07:32] LABS: Basophils # (A) 0.1 k/uL (0-0.2); Basophils % (A) 1 %; Eosinophils # (A) 0.1 k/uL (0-0.7); Eosinophils % (A) 1 %; HCT 28.7 % (34.0-46.0); HGB 9.5 gm/dL (11.4-16.0); Lymphocytes # (A) 2.4 k/uL (1.0-4.8); Lymphocytes % (A) 35 %; MCH 27.8 pg (25.0-35.0); MCV 84.4 fL (80.0-100.0); Mean Platelet Volume 6.5; Monocytes # (A) 0.6 k/uL (0-1.0); Monocytes % (A) 8 %; Neutrophils # (A) 3.6 k/uL (1.3-7.7); Neutrophils % (A) 53 %; Platelet Count 395 k/uL (150-450); RDW 15.4 % (11.5-15.5); WBC 6.8 k/uL (3.8-10.6)
[2018-04-11 07:34] LABS: Calcium 8.6 mg/dL (8.4-10.2); Potassium 4.1 mmol/L (3.5-5.1)
[2018-04-11] MEDS ORDERED: IV FLUID CONTINUATION 1,000 ML IV ONE (11:51)
[2018-04-11] MEDS: ONDANSETRON 4 MG/2 ML VIAL IVP PRN (12:04)
--- NOTE | 2018-04-11 12:31 | P.GSHP ---
History of Present Illness H&P Date: 04/11/18 Chief Complaint: Abdominal pain Patient seen in the office yesterday. She is 2-3 weeks post exploratory laparotomy with right colectomy for bowel obstruction and pelvic abscess. Postoperatively the patient had a long inpatient stay and had 2 CAT scans performed because of ongoing complaints of discomfort and ileus. Yesterday was seen in the office stating that she was having recurrent nausea with some vomiting. Her pain had been increasing over the preceding few days. She was not complaining of fevers. She appeared somewhat ill. She was admitted to the hospital for further evaluation. A third postoperative CAT scan was obtained yesterday which showed generalized improvement of the intra-abdominal inflammatory changes and fluid collections. No obvious leak from the anastomotic site is seen. There is however an increase in the subcutaneous fluid and air component. The patient had 3 areas of her midline incision left open after her initial surgery. These were being packed with iodophor and subsequently Aquacel silver gauze. 2 of the areas have sealed up and are no longer being packed. The superior one is still being packed with some seropurulent drainage. The CAT scan findings reveal increased nondraining subcutaneous fluid suspicious for subcutaneous abscess. The patient has been afebrile since arrival. White blood cell count is normal. Consult infectious diseases pending. - Review of Systems Comment: The patient denies any acute changes in vision or hearing, no dysphagia or odynophagia, no chest pain or shortness of breath, no dysuria or hematuria, no headache, no runny nose, no rectal bleeding or melena, no unexplained weight loss Past Medical History Past Medical History: GERD/Reflux, Hypertension, Osteoarthritis (OA), Thyroid Disorder Additional Past Medical History / Comment(s): murmur,Small bowel obstruction February 2016 and February 2018. History of Any Multi-Drug Resistant Organisms: None Reported Past Surgical History: Back Surgery, Breast Surgery, Hysterectomy Additional Past Surgical History / Comment(s): 03/22/18 "bowel resection",neck surgery cervical decompression and neck fusion, lumbar laminectomy right breast lumpectomy benign , colonoscopy at age 44 complete hysterectomy, laparoscopic followed by laparotomy and lysis of adhesions by Dr. Gomez in February 2016, robotic incisional hernia repair done by Dr. Mack at [place] in September Past Anesthesia/Blood Transfusion Reactions: Postoperative Nausea & Vomiting ( PONV) Past Psychological History: No Psychological Hx Reported Smoking Status: Never smoker Past Alcohol Use History: None Reported Past Drug Use History: None Reported - Past Family History Mother Family Medical History: GI Bleed, Hypertension, Thyroid Disorder Additional Family Medical History / Comment(s): Mother has history of diverticular disease. Father Family Medical History: Cancer, Coronary Artery Disease (CAD), CVA/TIA, Diabetes Mellitus, Neurologic Disorder Additional Family Medical History / Comment(s): Other has history of prostate cancer and previous CVA and neuropathy. Brother(s) Family Medical History: Hypertension Sister(s) Family Medical History: Hypertension, Thyroid Disorder Daughter(s) Family Medical History: No Reported History Additional Family Medical History / Comment(s): Obstructive sleep apnea Son(s) Family Medical History: No Reported History Medications and Allergies Home Medications Medication Instructions Recorded Confirmed Type Levothyroxine Sodium [Synthroid] 75 mcg PO DAILY 01/06/15 04/11/18 History Multivitamins, Thera [Multivitamin 1 tab PO DAILY 01/06/15 04/11/18 History (formulary)] [place]-3 Fatty Acids/Fish Oil [Fish 1 cap PO DAILY 01/06/15 04/11/18 History Oil 1,000 mg Softgel] Potassium Gluconate 99 mg PO DAILY 01/06/15 04/11/18 History amLODIPine BESYLATE/BENAZEPRIL 1 cap PO DAILY 01/06/15 04/11/18 History [Lotrel 5-10 mg Capsule] Hydrochlorothiazide [Hydrodiuril] 25 mg PO DAILY 08/29/16 04/11/18 History L.acidoph,Paracasei, B.lactis 1 cap PO DAILY 08/29/16 04/11/18 History [Probiotic] Ciprofloxacin HCl [Cipro] 500 mg PO BID #14 tab 04/04/18 04/11/18 Rx metroNIDAZOLE [Flagyl] 500 mg PO TID #21 tab 04/04/18 04/11/18 Rx Allergies Allergy/AdvReac Type Severity Reaction Status Date / Time No Known Allergies Allergy Verified 04/11/18 11:46 Surgical - Exam Vital Signs Temp Pulse Resp Pulse Ox 98.3 F 85 12 96 04/10/18 15:00 04/10/18 15:00 04/10/18 15:00 04/10/18 15:00 Physical exam: General: Well-developed, well-nourished HEENT: Normocephalic, sclerae nonicteric Abdomen: Mild diffuse tenderness, increased along the midline, open wound with seropurulent drainage Extremities: No edema Neuro: Alert and oriented Results - Labs 04/11/18 06:15 04/11/18 06:15 Abnormal Lab Results - Last 24 Hours (Table) 04/10/18 04/10/18 04/11/18 Range/Units 15:44 15:45 06:15 RBC 3.40 L (3.80-5.40) m/uL Hgb 11.3 L 9.5 L D (11.4-16.0) gm/dL Hct 28.7 L (34.0-46.0) % Plt Count 455 H (150-450) k/uL Sodium (137-145) mmol/L BUN 22 H (7-17) mg/dL Creatinine 1.27 H (0.52-1.04) mg/dL Glucose 118 H (74-99) mg/dL AST 55 H (14-36) U/L ALT 54 H (9-52) U/L 04/11/18 Range/Units 06:15 RBC (3.80-5.40) m/uL Hgb (11.4-16.0) gm/dL Hct (34.0-46.0) % Plt Count (150-450) k/uL Sodium 135 L (137-145) mmol/L BUN 21 H (7-17) mg/dL Creatinine 1.42 H (0.52-1.04) mg/dL Glucose (74-99) mg/dL AST (14-36) U/L ALT (9-52) U/L Diabetes panel 04/10/18 04/11/18 Range/Units 15:44 06:15 Sodium 139 135 L (137-145) mmol/L Potassium 4.3 4.1 (3.5-5.1) mmol/L Chloride 104 103 (98-107) mmol/L Carbon Dioxide 24 24 (22-30) mmol/L BUN 22 H 21 H (7-17) mg/dL Creatinine 1.27 H 1.42 H (0.52-1.04) mg/dL Glucose 118 H 90 (74-99) mg/dL Calcium 9.5 8.6 (8.4-10.2) mg/dL AST 55 H (14-36) U/L ALT 54 H (9-52) U/L Alkaline Phosphatase 125 (38-126) U/L Total Protein 7.1 (6.3-8.2) g/dL Albumin 3.9 (3.5-5.0) g/dL Calcium panel 04/10/18 04/11/18 Range/Units 15:44 06:15 Calcium 9.5 8.6 (8.4-10.2) mg/dL Albumin 3.9 (3.5-5.0) g/dL Pituitary panel 04/10/18 04/11/18 Range/Units 15:44 06:15 Sodium 139 135 L (137-145) mmol/L Potassium 4.3 4.1 (3.5-5.1) mmol/L Chloride 104 103 (98-107) mmol/L Carbon Dioxide 24 24 (22-30) mmol/L BUN 22 H 21 H (7-17) mg/dL Creatinine 1.27 H 1.42 H (0.52-1.04) mg/dL Glucose 118 H 90 (74-99) mg/dL Calcium 9.5 8.6 (8.4-10.2) mg/dL Adrenal panel 04/10/18 04/11/18 Range/Units 15:44 06:15 Sodium 139 135 L (137-145) mmol/L Potassium 4.3 4.1 (3.5-5.1) mmol/L Chloride 104 103 (98-107) mmol/L Carbon Dioxide 24 24 (22-30) mmol/L BUN 22 H 21 H (7-17) mg/dL Creatinine 1.27 H 1.42 H (0.52-1.04) mg/dL Glucose 118 H 90 (74-99) mg/dL Calcium 9.5 8.6 (8.4-10.2) mg/dL Total Bilirubin 0.2 (0.2-1.3) mg/dL AST 55 H (14-36) U/L ALT 54 H (9-52) U/L Alkaline Phosphatase 125 (38-126) U/L Total Protein 7.1 (6.3-8.2) g/dL Albumin 3.9 (3.5-5.0) g/dL Assessment and Plan (1) Abdominal pain Narrative/Plan: Continue antibiotics. Await infectious disease evaluation. Clinical scenario discussed in detail with the patient. We'll proceed with incision and drainage of the midline infection. We do not have plans currently to enter through the peritoneum. We are keeping in mind and we have discussed with the patient the concerns we have regarding her sub-fascial mesh that was divided at the time of her initial operative exploration. This may be a nidus for future infection. This could require surgical excision at some point in the future. Current Visit: No Status: Acute Code(s): R10.9 - UNSPECIFIED ABDOMINAL PAIN SNOMED Code(s): 24713615
[2018-04-11] MEDS ORDERED: PROPOFOL 10 MG/ML 20 ML VIAL IV ONE (12:55)
[2018-04-11] MEDS ORDERED: MIDAZOLAM 2 MG/2 ML VIAL ONE (12:55)
[2018-04-11] MEDS ORDERED: fentaNYL (PF) 50 MCG/ML 2 ML AMP ONE (12:55)
[2018-04-11] MEDS: HYDROmorphone 1 MG/ML 1 ML SYRINGE IVP ONE ×2 (13:40→13:50)
--- NOTE | 2018-04-11 13:47 | P.OP ---
Date of Procedure: 04/11/18 Procedure(s) Performed: PREOPERATIVE DIAGNOSIS: Postop wound infection POSTOPERATIVE DIAGNOSIS: Same PROCEDURE: Incision and drainage postoperative wound infection SURGEON: Jason EBL: Minimal ANESTHESIA: Sedation plus local COMPLICATIONS: None OPERATIVE PROCEDURE: Patient placed in the operating table in the supine position. The patient was sedated per anesthesia. The abdomen was prepped and draped in usual sterile fashion. The previous monika were completely removed. Of the 3 previous wick sites only the supraumbilical site was still open. Digitally I palpated the tract which went deep into the right upper quadrant. The incision was opened from that point up to the top of the scar. The subcutaneous tissues were divided using electrocautery and blunt dissection. Entrance into a subcutaneous abscess cavity that measured approximately [address] Purulent fluid was evacuated and cultures were obtained. This was anterior to the fascial closure. The sutures on the fascia remained intact. The fascia did have some friability. There was no evidence of drainage through the fascial closure. The area was irrigated with saline after cultures were obtained. The wound was then packed with Hannah roll gauze lightly soaked in Betadine and saline. A sterile dressing and abdominal binder was applied. DISPOSITION: Stable to recovery room
--- NOTE | 2018-04-11 15:02 | P.CONS ---
History of Present Illness - Reason for Consult Consult date: 04/11/18 Medical management - History of Present Illness This is a 58-year-old female patient of Dr. Cross and also Dr. Gomez with past medical history of hypertension, hypothyroidism, hysterectomy for benign reasons, previous small bowel obstruction secondary to intra- abdominal adhesions status post diagnostic laparoscopic followed by laparotomy and lysis of adhesions in February 2016. She has also had robotic incisional hernia repair done by Dr. Mack at [place] in September. Patient had recent hospitalization at [facility] March 16 through March 8 4 small bowel obstruction status post right-sided partial colectomy suspicious for Crohn disease which was ruled out. Patient had a lengthy hospitalization as she initially failed conservative management, following surgery she developed acute kidney injury and hypotension which were successfully treated and resolved. Nephrology was on consult. Peritoneal fluid is positive for E. coli and pseudomonas managed by Dr. Parker with Zosyn and discharged home on ciprofloxacin and Flagyl. Patient left with open surgical wound and wound care in the form of Aquasol Silver. Patient states that she was doing well at home and walking and having bowel movements. She then developed vomiting and worsening abdominal pain over the last couple days. Her bowel movements have been Sunday from diarrhea to formed stools. She was seen by Dr. Gomez and directly admitted to the hospital. She has received Zofran with improvement of the vomiting and also started on IV antibiotics and incentive spirometry. Patient is scheduled for I&D this afternoon with Dr. Gomez. CT of the abdomen and pelvis revealed small fluid collection in the right paracolic gutter compared to last exam. 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 This is unchanged. Increased mixed density in the subcutaneous fat at the surgery site anteriorly consistent with subcutaneous abscess that is enlarged compared to last exam. 1.5 cm thick- walled fluid density area in the pelvis on the right side consistent with small hematoma or abscess that is slightly smaller than last CAT scan. Atelectasis at the lung bases unchanged. Patient co Review of Systems All systems: negative Constitutional: Reports poor appetite, Denies chills, Denies fever, Denies weight loss Eyes: denies blurred vision, denies pain Ears, nose, mouth and throat: Denies dysphagia, Denies headache, Denies sore throat, Denies vertigo Cardiovascular: Denies chest pain, Denies decreased exercise tolerance, Denies dyspnea on exertion, Denies leg edema, Denies shortness of breath, Denies syncope Respiratory: Denies cough, Denies cough with sputum, Denies dyspnea, Denies excessive sputum, Denies hemoptysis, Denies home oxygen, Denies wheezing Gastrointestinal: Reports abdominal pain, Reports diarrhea, Reports loss of appetite, Reports nausea, Reports vomiting Genitourinary: Denies dysuria, Denies hematuria Musculoskeletal: Denies myalgias Integumentary: Denies pruritus, Denies rash Neurological: Denies numbness, Denies weakness Psychiatric: Denies anxiety, Denies depression Endocrine: Denies fatigue, Denies weight change Past Medical History Past Medical History: GERD/Reflux, Hypertension, Osteoarthritis (OA), Thyroid Disorder Additional Past Medical History / Comment(s): murmur,Small bowel obstruction February 2016 and February 2018. History of Any Multi-Drug Resistant Organisms: None Reported Past Surgical History: Back Surgery, Breast Surgery, Hysterectomy Additional Past Surgical History / Comment(s): 03/22/18 "bowel resection",neck surgery cervical decompression and neck fusion, lumbar laminectomy right breast lumpectomy benign , colonoscopy at age 44 complete hysterectomy, laparoscopic followed by laparotomy and lysis of adhesions by Dr. Gomez in February 2016, robotic incisional hernia repair done by Dr. Mack at [place] in September, right-sided partial colectomy 03/2018 Past Anesthesia/Blood Transfusion Reactions: Postoperative Nausea & Vomiting ( PONV) Past Psychological History: No Psychological Hx Reported Smoking Status: Never smoker Past Alcohol Use History: None Reported Past Drug Use History: None Reported - Past Family History Mother Family Medical History: GI Bleed, Hypertension, Thyroid Disorder Additional Family Medical History / Comment(s): Mother has history of diverticular disease. Father Family Medical History: Cancer, Coronary Artery Disease (CAD), CVA/TIA, Diabetes Mellitus, Neurologic Disorder Additional Family Medical History / Comment(s): Father has history of prostate cancer and previous CVA and neuropathy. Brother(s) Family Medical History: Hypertension Sister(s) Family Medical History: Hypertension, Thyroid Disorder Daughter(s) Family Medical History: No Reported History Additional Family Medical History / Comment(s): Obstructive sleep apnea Son(s) Family Medical History: No Reported History Medications and Allergies Home Medications Medication Instructions Recorded Confirmed Type Levothyroxine Sodium [Synthroid] 75 mcg PO DAILY 01/06/15 04/11/18 History Multivitamins, Thera [Multivitamin 1 tab PO DAILY 01/06/15 04/11/18 History (formulary)] [place]-3 Fatty Acids/Fish Oil [Fish 1 cap PO DAILY 01/06/15 04/11/18 History Oil 1,000 mg Softgel] Potassium Gluconate 99 mg PO DAILY 01/06/15 04/11/18 History amLODIPine BESYLATE/BENAZEPRIL 1 cap PO DAILY 01/06/15 04/11/18 History [Lotrel 5-10 mg Capsule] Hydrochlorothiazide [Hydrodiuril] 25 mg PO DAILY 08/29/16 04/11/18 History L.acidoph,Paracasei, B.lactis 1 cap PO DAILY 08/29/16 04/11/18 History [Probiotic] Ciprofloxacin HCl [Cipro] 500 mg PO BID #14 tab 04/04/18 04/11/18 Rx metroNIDAZOLE [Flagyl] 500 mg PO TID #21 tab 04/04/18 04/11/18 Rx Allergies Allergy/AdvReac Type Severity Reaction Status Date / Time No Known Allergies Allergy Verified 04/11/18 11:46 Physical Exam Vitals: Vital Signs Temp Pulse Resp BP Pulse Ox 04/11/18 06:59 98.1 F 67 16 128/79 95 04/11/18 00:45 16 04/11/18 00:10 97.7 F 67 16 103/62 99 04/10/18 20:45 67 16 04/10/18 20:41 98.0 F 73 16 114/76 97 04/10/18 15:00 98.3 F 85 12 96 Intake and Output 04/10/18 04/11/18 04/11/18 22:59 06:59 14:59 Intake Total 900 740 Balance 900 740 Intake: Intake, IV Titration 850 690 Amount Piperacillin-Tazobactam 3 50 50 .375 gm In Dextrose/Water 1 50ml.bag @ 12.5 mls/hr IVPB Q8HR [facility] Rx#: [id number] Sodium Chloride 0.9% 1, 800 640 000 ml @ 100 mls/hr IV . Q10H [facility] Rx#:[id number] Oral 50 50 Other: Voiding Method Toilet # Voids 2 2 1 Gen: This is a 58-year-old female. Patient sitting in a chair at her bedside and appears to be in no acute distress. HEENT: Head is atraumatic, normocephalic. Pupils equal, round. Sclerae is anicteric. NECK: Supple. No JVD. No lymphadenopathy. No thyromegaly. LUNGS: Clear to auscultation. No wheezes or rhonchi. No intercostal retractions. HEART: Regular rate and rhythm. No murmur. ABDOMEN: Soft. Bowel sounds present. No masses. Mild diffuse tenderness. Dressing in place over her previous surgical wound. EXTREMITIES: No pedal edema. No calf tenderness. Dorsalis pedis palpable bilaterally. NEUROLOGICAL: Patient is awake, alert and oriented x3. Cranial nerves 2 through 12 are grossly intact. Results CBC & Chem 7: 04/11/18 06:15 04/11/18 06:15 Labs: Abnormal Lab Results - Last 24 Hours (Table) 04/10/18 04/10/18 04/11/18 Range/Units 15:44 15:45 06:15 RBC 3.40 L (3.80-5.40) m/uL Hgb 11.3 L 9.5 L D (11.4-16.0) gm/dL Hct 28.7 L (34.0-46.0) % Plt Count 455 H (150-450) k/uL Sodium (137-145) mmol/L BUN 22 H (7-17) mg/dL Creatinine 1.27 H (0.52-1.04) mg/dL Glucose 118 H (74-99) mg/dL AST 55 H (14-36) U/L ALT 54 H (9-52) U/L 04/11/18 Range/Units 06:15 RBC (3.80-5.40) m/uL Hgb (11.4-16.0) gm/dL Hct (34.0-46.0) % Plt Count (150-450) k/uL Sodium 135 L (137-145) mmol/L BUN 21 H (7-17) mg/dL Creatinine 1.42 H (0.52-1.04) mg/dL Glucose (74-99) mg/dL AST (14-36) U/L ALT (9-52) U/L Assessment and Plan Plan: 1. Abdominal pain secondary to post op wound infection secondary to recent small bowel obstruction from adhesions, peritonitis. Patient is status post exploratory laparotomy and lysis of adhesions and resection of the terminal ileum and right colon. Patient was discharged on ciprofloxacin and Flagyl. Repeat CT as above. Consult with Dr. Parker. She is currently on Zosyn. I&D with Dr. Gomez this afternoon. 2. Acute kidney injury secondary to dehydration from vomiting. Continue IV fluids at 100 mL per hour. Avoid nephrotoxic agents. Toradol will be discontinued. Patient will not be resumed on LANDON inhibitor or hydrochlorothiazide. 3. Hypertension. Patient will be resumed on amlodipine 5 mg daily and hold for systolic blood pressure less than 110. LANDON inhibitor and hydrochlorothiazide on hold. 4. Recent acute blood loss anemia. Hemoglobin is stable. Continue to monitor closely. 5. Recent treatment for abdominal abscess in the right lower quadrant status post CT-guided drainage catheter insertion. 6. Vitamin B12 deficiency with chronic anemia. 7. Pulmonary prophylaxis and atelectasis. Incentive spirometry. 8. Hypothyroidism. Resume levothyroxine 75 g daily. 9. GI prophylaxis. Protonix. 10. DVT prophylaxis. Heparin subcu. CODE STATUS: Full code. Discharge plan: Return home with [facility] Impression and plan of care have been directed as dictated by the signing physician. Tomasa Chi nurse practitioner acting as scribe for signing physician.
[2018-04-11] MEDS: HYDROcodone/APAP 5-325MG 1 EACH TAB PO PRN (20:47)
[2018-04-12] MEDS: HEPARIN SODIUM,PORCINE 5,000 UNIT/ML 1 ML VIAL SQ SCH ×3 (00:12→15:00)
[2018-04-12] MEDS: PIPERACILLIN-TAZOBACTAM 3.375 GM in DEXTROSE/WATER 1 50ML.BAG IVPB SCH ×3 (00:12→14:59)
[2018-04-12] MEDS: HYDROmorphone 1 MG/ML 1 ML SYRINGE IVP PRN ×5 (01:41→22:32)
[2018-04-12] MEDS: LEVOTHYROXINE 75 MCG TAB PO SCH (06:12)
[2018-04-12] MEDS: SODIUM CHLORIDE 0.9% 1,000 ML IV SCH ×3 (06:53→16:11)
[2018-04-12] MEDS: PANTOPRAZOLE 40 MG/10 ML VIAL IVP SCH ×2 (07:07→22:32)
[2018-04-12] MEDS: amLODIPine 5 MG TAB PO SCH (07:08)
[2018-04-12] MEDS: LACTOBACILLUS ACIDOPH & BULGAR 1 EACH PACKET PO SCH (07:08)
[2018-04-12 07:55] LABS: Basophils # (A) 0.1 k/uL (0-0.2); Basophils % (A) 1 %; Eosinophils # (A) 0.2 k/uL (0-0.7); Eosinophils % (A) 3 %; HCT 27.8 % (34.0-46.0); HGB 9.1 gm/dL (11.4-16.0); Hypochromasia Slight; Lymphocytes # (A) 2.3 k/uL (1.0-4.8); Lymphocytes % (A) 40 %; MCH 27.8 pg (25.0-35.0); MCHC 32.9 g/dL (31.0-37.0); MCV 84.6 fL (80.0-100.0); Mean Platelet Volume 6.2; Monocytes # (A) 0.4 k/uL (0-1.0); Monocytes % (A) 6 %; Neutrophils # (A) 2.6 k/uL (1.3-7.7); Neutrophils % (A) 47 %; Platelet Count 363 k/uL (150-450); Poikilocytosis Slight; RBC 3.28 m/uL (3.80-5.40); RDW 15.2 % (11.5-15.5); WBC 5.6 k/uL (3.8-10.6)
--- NOTE | 2018-04-12 08:09 | P.CONS ---
History of Present Illness - Reason for Consult Consult date: 04/12/18 - History of Present Illness This is a 58-year-old female patient recently hospitalized at [facility] March 16 through April 03 4 small bowel obstruction status post right-sided partial colectomy suspicious for Crohn disease which was ruled out. Patient had a lengthy hospitalization as she initially failed conservative management, following surgery she developed acute kidney injury and hypotension which were successfully treated and resolved. Nephrology was on consult. Peritoneal fluid is positive for E. coli and pseudomonas treated with Zosyn and discharged home on ciprofloxacin and Flagyl. Patient left with open surgical wound and wound care in the form of Aquasol Silver. Patient states that she was doing well at home and walking and having bowel movements. She then developed vomiting and worsening abdominal pain over the last couple days. Her bowel movements have been Sunday from diarrhea to formed stools. She was seen by Dr. Gomez and directly admitted to the hospital. She has received Zofran with improvement of the vomiting and also started on IV antibiotics and incentive spirometry. CT of the abdomen and pelvis revealed small fluid collection in the right paracolic gutter compared to last exam. 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 This is unchanged. Increased mixed density in the subcutaneous fat at the surgery site anteriorly consistent with subcutaneous abscess that is enlarged compared to last exam. 1.5 cm thick-walled fluid density area in the pelvis on the right side consistent with small hematoma or abscess that is slightly smaller than last CAT scan. Atelectasis at the lung bases unchanged. Patient underwent incision and drainage postop wound infection with Dr. Gomez yesterday afternoon. Cultures obtained in or are currently preliminary. Review of Systems All systems: negative Constitutional: Reports poor appetite, Denies chills, Denies fever Eyes: denies blurred vision, denies pain Ears, nose, mouth and throat: Denies dysphagia, Denies headache, Denies sore throat, Denies vertigo Cardiovascular: Denies chest pain, Denies decreased exercise tolerance, Denies dyspnea on exertion, Denies edema, Denies leg edema, Denies lightheadedness, Denies shortness of breath, Denies syncope Respiratory: Denies cough, Denies cough with sputum, Denies dyspnea, Denies excessive sputum, Denies hemoptysis, Denies home oxygen, Denies wheezing Gastrointestinal: Reports abdominal pain, Reports diarrhea, Reports loss of appetite, Reports nausea, Reports vomiting Genitourinary: Denies dysuria, Denies hematuria, Denies urgency, Denies urinary frequency Musculoskeletal: Denies myalgias Integumentary: Reports wounds, Denies pruritus, Denies rash Neurological: Denies numbness, Denies weakness Psychiatric: Denies anxiety, Denies depression Endocrine: Denies fatigue, Denies weight change Past Medical History Past Medical History: GERD/Reflux, Hypertension, Osteoarthritis (OA), Thyroid Disorder Additional Past Medical History / Comment(s): murmur,Small bowel obstruction February 2016 and February 2018. History of Any Multi-Drug Resistant Organisms: None Reported Past Surgical History: Back Surgery, Breast Surgery, Hysterectomy Additional Past Surgical History / Comment(s): 03/22/18 "bowel resection",neck surgery cervical decompression and neck fusion, lumbar laminectomy right breast lumpectomy benign , colonoscopy at age 44 complete hysterectomy, laparoscopic followed by laparotomy and lysis of adhesions by Dr. Gomez in February 2016, robotic incisional hernia repair done by Dr. Mack at [facility] in September, right-sided partial colectomy 03/2018 Past Anesthesia/Blood Transfusion Reactions: Postoperative Nausea & Vomiting ( PONV) Past Psychological History: No Psychological Hx Reported Smoking Status: Never smoker Past Alcohol Use History: None Reported Past Drug Use History: None Reported - Past Family History Mother Family Medical History: GI Bleed, Hypertension, Thyroid Disorder Additional Family Medical History / Comment(s): Mother has history of diverticular disease. Father Family Medical History: Cancer, Coronary Artery Disease (CAD), CVA/TIA, Diabetes Mellitus, Neurologic Disorder Additional Family Medical History / Comment(s): Father has history of prostate cancer and previous CVA and neuropathy. Brother(s) Family Medical History: Hypertension Sister(s) Family Medical History: Hypertension, Thyroid Disorder Daughter(s) Family Medical History: No Reported History Additional Family Medical History / Comment(s): Obstructive sleep apnea Son(s) Family Medical History: No Reported History Medications and Allergies Home Medications Medication Instructions Recorded Confirmed Type Levothyroxine Sodium [Synthroid] 75 mcg PO DAILY 01/06/15 04/11/18 History Multivitamins, Thera [Multivitamin 1 tab PO DAILY 01/06/15 04/11/18 History (formulary)] Edison-3 Fatty Acids/Fish Oil [Fish 1 cap PO DAILY 01/06/15 04/11/18 History Oil 1,000 mg Softgel] Potassium Gluconate 99 mg PO DAILY 01/06/15 04/11/18 History amLODIPine BESYLATE/BENAZEPRIL 1 cap PO DAILY 01/06/15 04/11/18 History [Lotrel 5-10 mg Capsule] Hydrochlorothiazide [Hydrodiuril] 25 mg PO DAILY 08/29/16 04/11/18 History L.acidoph,Paracasei, B.lactis 1 cap PO DAILY 08/29/16 04/11/18 History [Probiotic] Ciprofloxacin HCl [Cipro] 500 mg PO BID #14 tab 04/04/18 04/11/18 Rx metroNIDAZOLE [Flagyl] 500 mg PO TID #21 tab 04/04/18 04/11/18 Rx Allergies Allergy/AdvReac Type Severity Reaction Status Date / Time No Known Allergies Allergy Verified 04/11/18 11:46 Physical Exam Vitals: Vital Signs Temp Pulse Resp BP Pulse Ox 04/12/18 06:59 17 04/12/18 06:58 98.3 F 74 17 142/61 93 L 04/12/18 00:59 97.6 F 75 15 132/78 97 04/12/18 00:30 16 04/11/18 20:25 70 16 04/11/18 19:00 97.9 F 70 16 132/63 98 04/11/18 15:00 98.1 F 81 16 131/77 91 L 04/11/18 13:58 72 16 126/65 94 L 04/11/18 13:43 71 16 117/63 95 04/11/18 13:28 97.4 F L 84 16 113/59 95 04/11/18 11:43 98.0 F 79 16 150/67 97 Intake and Output 04/11/18 04/12/18 04/12/18 22:59 06:59 14:59 Intake Total 1850 530 Balance 1850 530 Intake: Intake, IV Titration 850 50 Amount Piperacillin-Tazobactam 3 50 50 .375 gm In Dextrose/Water 1 50ml.bag @ 12.5 mls/hr IVPB Q8HR [facility] Rx#: [id number] Sodium Chloride 0.9% 1, 800 000 ml @ 100 mls/hr IV . Q10H [facility] Rx#:[id number] Oral 1000 480 Other: Voiding Method Toilet Toilet # Voids 3 Gen: This is a 58-year-old female. Patient appears to be in no acute distress. HEENT: Head is atraumatic, normocephalic. Pupils equal, round. Sclerae is anicteric. NECK: Supple. No JVD. No lymphadenopathy. No thyromegaly. LUNGS: Clear to auscultation. No wheezes or rhonchi. No intercostal retractions. HEART: Regular rate and rhythm. No murmur. ABDOMEN: Soft. Bowel sounds present. No masses. Mild diffuse tenderness. Dressing in place over surgical wound. EXTREMITIES: No pedal edema. No calf tenderness. Dorsalis pedis palpable bilaterally. NEUROLOGICAL: Patient is awake, alert and oriented x3. Cranial nerves 2 through 12 are grossly intact. Results Results: Laboratory Results WBC 6.8 k/uL (3.8-10.6) 04/11/18 06:15 RBC 3.40 m/uL (3.80-5.40) L 04/11/18 06:15 Hgb 9.5 gm/dL (11.4-16.0) L D 04/11/18 06:15 Hct 28.7 % (34.0-46.0) L 04/11/18 06:15 MCV 84.4 fL (80.0-100.0) 04/11/18 06:15 MCH 27.8 pg (25.0-35.0) 04/11/18 06:15 MCHC 33.0 g/dL (31.0-37.0) 04/11/18 06:15 RDW 15.4 % (11.5-15.5) 04/11/18 06:15 Plt Count 395 k/uL (150-450) 04/11/18 06:15 Neutrophils % 53 % 04/11/18 06:15 Lymphocytes % 35 % 04/11/18 06:15 Monocytes % 8 % 04/11/18 06:15 Eosinophils % 1 % 04/11/18 06:15 Basophils % 1 % 04/11/18 06:15 Neutrophils # 3.6 k/uL (1.3-7.7) 04/11/18 06:15 Lymphocytes # 2.4 k/uL (1.0-4.8) 04/11/18 06:15 Monocytes # 0.6 k/uL (0-1.0) 04/11/18 06:15 Eosinophils # 0.1 k/uL (0-0.7) 04/11/18 06:15 Basophils # 0.1 k/uL (0-0.2) 04/11/18 06:15 Hypochromasia Slight 04/10/18 15:45 Sodium 135 mmol/L (137-145) L 04/11/18 06:15 Potassium 4.1 mmol/L (3.5-5.1) 04/11/18 06:15 Chloride 103 mmol/L (98-107) 04/11/18 06:15 Carbon Dioxide 24 mmol/L (22-30) 04/11/18 06:15 Anion Gap 8 mmol/L 04/11/18 06:15 BUN 21 mg/dL (7-17) H 04/11/18 06:15 Creatinine 1.42 mg/dL (0.52-1.04) H 04/11/18 06:15 Est GFR (CKD-EPI)AfAm 47 (>60 ml/min/1.73 sqM) 04/11/18 06:15 Est GFR (CKD-EPI)NonAf 41 (>60 ml/min/1.73 sqM) 04/11/18 06:15 Glucose 90 mg/dL (74-99) 04/11/18 06:15 Calcium 8.6 mg/dL (8.4-10.2) 04/11/18 06:15 Total Bilirubin 0.2 mg/dL (0.2-1.3) 04/10/18 15:44 AST 55 U/L (14-36) H 04/10/18 15:44 ALT 54 U/L (9-52) H 04/10/18 15:44 Alkaline Phosphatase 125 U/L (38-126) 04/10/18 15:44 Total Protein 7.1 g/dL (6.3-8.2) 04/10/18 15:44 Albumin 3.9 g/dL (3.5-5.0) 04/10/18 15:44 CBC & Chem 7: 04/11/18 06:15 04/11/18 06:15 Labs: Microbiology - Last 24 Hours (Table) 04/11/18 13:20 Gram Stain - Preliminary Abdomen Wound Culture - Preliminary 04/11/18 13:20 Fungal Culture - Preliminary Abdomen 04/11/18 13:20 Anaerobic Culture - Preliminary Abdomen Assessment and Plan Plan: Is a 58-year-old female who presented to the hospital recently with small bowel obstruction and is now returned status post I&D of a postoperative wound infection. Patient is currently on Zosyn which will be continued. Multiple cultures obtained in OMR are in progress and we await results. Continue supportive care. Further recommendations as patient regresses. The above dictated assessment and findings were discussed with Dr. Parker. The impression and plan of care have been directed as dictated. Tomasa Chi nurse practitioner acting as scribe for Dr. Parker.
[2018-04-12 08:16] LABS: Calcium 8.6 mg/dL (8.4-10.2); Potassium 3.6 mmol/L (3.5-5.1)
--- NOTE | 2018-04-12 11:08 | P.PN ---
<Abbie Cadet M - Last Filed: 04/12/18 10:53> Subjective Progress Note Date: 04/12/18 58-year-old female seen up ambulating in the hallway. Patient states is passing gas had 1 loose stool this morning reports no nausea vomiting. Abdominal binder in place surgical dressing site dry white count down 5.6 electrolytes within normal limits afebrile patient states less surgical pain Status post April 11 Incision and drainage postoperative wound infection Objective - Vital Signs Vital signs: Vital Signs Temp 98.3 F 04/12/18 06:58 Pulse 74 04/12/18 06:58 Resp 17 04/12/18 06:59 BP 142/61 04/12/18 06:58 Pulse Ox 93 L 04/12/18 06:58 Intake & Output 04/11/18 04/12/18 04/12/18 18:59 06:59 18:59 Intake Total 500 2380 236 Output Total 1 Balance 499 2380 236 Intake: IV 500 Intake, IV Titration 900 Amount Piperacillin-Tazobactam 3 100 .375 gm In Dextrose/Water 1 50ml.bag @ 12.5 mls/hr IVPB Q8HR [facility] Rx#: [id number] Sodium Chloride 0.9% 1, 800 000 ml @ 100 mls/hr IV . Q10H [facility] Rx#:[id number] Oral 1480 236 Output: Estimated Blood Loss 1 Other: Voiding Method Toilet Toilet # Voids 1 3 - Exam Physical exam 58-year-old female pleasant cooperative oriented 3 ambulating in the hallway Lungs adequate air movement bilaterally on room air Heart S1-S2 audible regular Abdomen abdominal binder removed to inspect surgical incision site dressing dry soft surgical tenderness appropriate active bowel tones one bowel movement this morning loose states tolerating diet no nausea no vomiting urinating no difficulty Extremities no edema noted - Labs CBC & Chem 7: 04/12/18 06:38 04/12/18 06:38 Labs: Abnormal Lab Results - Last 24 Hours (Table) 04/12/18 Range/Units 06:38 RBC 3.28 L (3.80-5.40) m/uL Hgb 9.1 L (11.4-16.0) gm/dL Hct 27.8 L (34.0-46.0) % Microbiology - Last 24 Hours (Table) 04/11/18 13:20 Gram Stain - Preliminary Abdomen Wound Culture - Preliminary Gram Neg Bacilli 04/11/18 13:20 Fungal Culture - Preliminary Abdomen 04/11/18 13:20 Anaerobic Culture - Preliminary Abdomen Assessment and Plan Assessment: Impression Status post 2-3 weeks prior right colectomy for bowel obstruction and pelvic abscess Reoccurring nausea vomiting with abdominal pain persist prior to omission Status post incision and drainage wound infection April 11 2018 Present on admission abdominal pain likely due to postop wound infection secondary to recent small bowel obstruction peritonitis Plan Continue postop surgical care Continue recommendations by infectious disease IV Zosyn per infectious disease Protonic 40 IV twice a day as ordered DVT and GI prophylaxis The above impression and plan of care have been discussed and directed by signing physician. Abbie Cadet nurse practitioner acting as scribe for signing physician. <Bertin Gomez - Last Filed: 04/12/18 14:59> Objective - Vital Signs Vital signs: Vital Signs Temp 98.3 F 04/12/18 06:58 Pulse 74 04/12/18 06:58 Resp 17 04/12/18 06:59 BP 142/61 04/12/18 06:58 Pulse Ox 93 L 04/12/18 06:58 Intake & Output 04/11/18 04/12/18 04/12/18 18:59 06:59 18:59 Intake Total 500 2380 236 Output Total 1 Balance 499 2380 236 Intake: IV 500 Intake, IV Titration 900 Amount Piperacillin-Tazobactam 3 100 .375 gm In Dextrose/Water 1 50ml.bag @ 12.5 mls/hr IVPB Q8HR [facility] Rx#: [id number] Sodium Chloride 0.9% 1, 800 000 ml @ 100 mls/hr IV . Q10H [facility] Rx#:[id number] Oral 1480 236 Output: Estimated Blood Loss 1 Other: Voiding Method Toilet Toilet # Voids 1 3 1 - Labs CBC & Chem 7: 04/12/18 06:38 04/12/18 06:38 Labs: Abnormal Lab Results - Last 24 Hours (Table) 04/12/18 Range/Units 06:38 RBC 3.28 L (3.80-5.40) m/uL Hgb 9.1 L (11.4-16.0) gm/dL Hct 27.8 L (34.0-46.0) % Microbiology - Last 24 Hours (Table) 04/11/18 13:20 Gram Stain - Preliminary Abdomen Wound Culture - Preliminary Gram Neg Bacilli 04/11/18 13:20 Fungal Culture - Preliminary Abdomen 04/11/18 13:20 Anaerobic Culture - Preliminary Abdomen Assessment and Plan Assessment: As above. Patient doing much better today. Her dressing was removed and changed. The wound is clean. Overall pain and nausea improved. She is afebrile. White blood cell count is normal. Will discuss with infectious disease regarding possible discharge tomorrow with home wound care. Will need to be sure the patient is able to tolerate her diet. (1) Abdominal pain Current Visit: No Status: Acute Code(s): R10.9 - UNSPECIFIED ABDOMINAL PAIN SNOMED Code(s): 05370800
--- NOTE | 2018-04-12 14:49 | P.PN ---
Subjective Progress Note Date: 04/12/18 This is a 58-year-old female patient recently hospitalized at [facility] March 16 through April 03 4 small bowel obstruction status post right-sided partial colectomy suspicious for Crohn disease which was ruled out. Patient had a lengthy hospitalization as she initially failed conservative management, following surgery she developed acute kidney injury and hypotension which were successfully treated and resolved. Nephrology was on consult. Peritoneal fluid is positive for E. coli and pseudomonas treated with Zosyn and discharged home on ciprofloxacin and Flagyl. Patient left with open surgical wound and wound care in the form of Aquasol Silver. Patient states that she was doing well at home and walking and having bowel movements. She then developed vomiting and worsening abdominal pain over the last couple days. Her bowel movements have been Sunday from diarrhea to formed stools. She was seen by Dr. Gomez and directly admitted to the hospital. She has received Zofran with improvement of the vomiting and also started on IV antibiotics and incentive spirometry. CT of the abdomen and pelvis revealed small fluid collection in the right paracolic gutter compared to last exam. 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 This is unchanged. Increased mixed density in the subcutaneous fat at the surgery site anteriorly consistent with subcutaneous abscess that is enlarged compared to last exam. 1.5 cm thick-walled fluid density area in the pelvis on the right side consistent with small hematoma or abscess that is slightly smaller than last CAT scan. Atelectasis at the lung bases unchanged. Patient underwent incision and drainage postop wound infection with Dr. Gomez yesterday afternoon. Cultures obtained in or are currently preliminary. 04/12: Patient is currently on a ground diet. She denies any nausea vomiting today. She is status post I&D of a postop wound infection and abscess. Dr. Parker is following. She is currently on IV Zosyn. She is using incentive spirometry and getting between 3430-1258 ML's. She is ambulating in the hallway. Vital signs are stable. Pulse ox is 93% on room air. Hemoglobin today is at 9.1 and renal function is improved was BUN of 13 and creatinine 0.84. IV fluids will be decreased to 50 mL per hour. Objective - Vital Signs Vital signs: Vital Signs Temp 98.3 F 04/12/18 06:58 Pulse 74 04/12/18 06:58 Resp 17 04/12/18 06:59 BP 142/61 04/12/18 06:58 Pulse Ox 93 L 04/12/18 06:58 Intake & Output 04/11/18 04/12/18 04/12/18 18:59 06:59 18:59 Intake Total 500 2380 236 Output Total 1 Balance 499 2380 236 Intake: IV 500 Intake, IV Titration 900 Amount Piperacillin-Tazobactam 3 100 .375 gm In Dextrose/Water 1 50ml.bag @ 12.5 mls/hr IVPB Q8HR [facility] Rx#: [id number] Sodium Chloride 0.9% 1, 800 000 ml @ 100 mls/hr IV . Q10H [facility] Rx#:[id number] Oral 1480 236 Output: Estimated Blood Loss 1 Other: Voiding Method Toilet Toilet # Voids 1 3 - Exam Gen: This is a 58-year-old female. Patient appears to be in no acute distress. HEENT: Head is atraumatic, normocephalic. Pupils equal, round. Sclerae is anicteric. NECK: Supple. No JVD. No lymphadenopathy. No thyromegaly. LUNGS: Clear to auscultation. No wheezes or rhonchi. No intercostal retractions. HEART: Regular rate and rhythm. No murmur. ABDOMEN: Soft. Bowel sounds present. No masses. Mild diffuse tenderness. Dressing in place over surgical wound. EXTREMITIES: No pedal edema. No calf tenderness. Dorsalis pedis palpable bilaterally. NEUROLOGICAL: Patient is awake, alert and oriented x3. Cranial nerves 2 through 12 are grossly intact. - Labs CBC & Chem 7: 04/12/18 06:38 04/12/18 06:38 Labs: Abnormal Lab Results - Last 24 Hours (Table) 04/12/18 Range/Units 06:38 RBC 3.28 L (3.80-5.40) m/uL Hgb 9.1 L (11.4-16.0) gm/dL Hct 27.8 L (34.0-46.0) % Microbiology - Last 24 Hours (Table) 04/11/18 13:20 Gram Stain - Preliminary Abdomen Wound Culture - Preliminary 04/11/18 13:20 Fungal Culture - Preliminary Abdomen 04/11/18 13:20 Anaerobic Culture - Preliminary Abdomen Assessment and Plan Plan: 1. Abdominal pain secondary to post op wound infection and abscess secondary to recent small bowel obstruction from adhesions, peritonitis. Patient is status post exploratory laparotomy and lysis of adhesions and resection of the terminal ileum and right colon on previous admission. Patient was discharged on ciprofloxacin and Flagyl. Repeat CT as above. Consult with Dr. Parker. She is currently on Zosyn. I&D with Dr. Gomez. Ground foods diet. 2. Acute kidney injury secondary to dehydration from vomiting. Decrease IV fluids to 50 mL per hour. Avoid nephrotoxic agents. Toradol will be discontinued. Patient will not be resumed on LANDON inhibitor or hydrochlorothiazide. 3. Hypertension. Patient will be resumed on amlodipine 5 mg daily and hold for systolic blood pressure less than 110. LANDON inhibitor and hydrochlorothiazide on hold. 4. Recent acute blood loss anemia. Hemoglobin is stable. Continue to monitor closely. 5. Recent treatment for abdominal abscess in the right lower quadrant status post CT-guided drainage catheter insertion. 6. Vitamin B12 deficiency with chronic anemia. 7. Pulmonary prophylaxis and atelectasis. Incentive spirometry. 8. Hypothyroidism. Resume levothyroxine 75 g daily. 9. GI prophylaxis. Protonix. 10. DVT prophylaxis. Heparin subcu. CODE STATUS: Full code. Discharge plan: Return home with [facility] Impression and plan of care have been directed as dictated by the signing physician. Tomasa Chi nurse practitioner acting as scribe for signing physician.
--- NOTE | 2018-04-12 22:21 | P.CON ---
Consult Note - . Consult date: 04/12/18 Assessment/Plan:: This is a 58-year-old female patient recently hospitalized at [facility] March 16 through April 03 4 small bowel obstruction status post right-sided partial colectomy suspicious for Crohn disease which was ruled out. Patient had a lengthy hospitalization as she initially failed conservative management, following surgery she developed acute kidney injury and hypotension which were successfully treated and resolved. Nephrology was on consult. Peritoneal fluid is positive for E. coli and pseudomonas treated with Zosyn and discharged home on ciprofloxacin and Flagyl. Patient left with open surgical wound and wound care in the form of Aquasol Silver. Patient states that she was doing well at home and walking and having bowel movements. She then developed vomiting and worsening abdominal pain over the last couple days. Her bowel movements have been Sunday from diarrhea to formed stools. She was seen by Dr. Gomez and directly admitted to the hospital. She has received Zofran with improvement of the vomiting and also started on IV antibiotics and incentive spirometry. CT of the abdomen and pelvis revealed small fluid collection in the right paracolic gutter compared to last exam. 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 This is unchanged. Increased mixed density in the subcutaneous fat at the surgery site anteriorly consistent with subcutaneous abscess that is enlarged compared to last exam. 1.5 cm thick-walled fluid density area in the pelvis on the right side consistent with small hematoma or abscess that is slightly smaller than last CAT scan. Atelectasis at the lung bases unchanged. Patient underwent incision and drainage postop wound infection with Dr. Gomez yesterday afternoon. Cultures obtained in or are currently preliminary. Please see the consult note is dictated by nurse practitioner Mrs. Tomasa Chi. This pleasant woman has a complex recent history and was hospitalized, there was evidence of pseudomonal infection and was treated with antibiotic therapy. She had slow but steady improvement was discharged home on oral antibiotic therapy. She over has failed therapy she presents back with nausea emesis abdominal pain and soft stools that appear to have a mildly melanotic appearance. Consequently antibiotic therapy has been altered to Zosyn which based on prior cultures would give coverage of all isolated pathogens. She's been taking the operating room for drainage of abscess and does feel better at this time. If possible be planning on outpatient intravenous antibiotic therapy to complete her course of therapy with failure of oral antibiotic therapy. If she improves we'll place an IV with a PICC line and plan on Zosyn in the home setting. The culture of 03/22/2018 has been reviewed with the microbiology laboratory and does appear to have some difficulty with this interpretation. Hopefully the new cultures will give clarity and help with the choice of outpatient antibiotic therapy. I agree with evaluation, assessment and plan as dictated by nurse practitioner Mrs. Tomasa Chi.
[2018-04-13] MEDS: PIPERACILLIN-TAZOBACTAM 3.375 GM in DEXTROSE/WATER 1 50ML.BAG IVPB SCH ×4 (00:18→23:40)
[2018-04-13] MEDS: HEPARIN SODIUM,PORCINE 5,000 UNIT/ML 1 ML VIAL SQ SCH ×4 (00:18→23:40)
[2018-04-13] MEDS: HYDROmorphone 1 MG/ML 1 ML SYRINGE IVP PRN ×5 (05:21→23:40)
[2018-04-13] MEDS: SODIUM CHLORIDE 0.9% 1,000 ML IV SCH (05:22)
[2018-04-13] MEDS: LEVOTHYROXINE 75 MCG TAB PO SCH (05:22)
[2018-04-13] MEDS: METOCLOPRAMIDE 5 MG/ML 2 ML VIAL IVP PRN (05:26)
[2018-04-13 07:24] LABS: Basophils % (A) 1 %; Eosinophils # (A) 0.2 k/uL (0-0.7); Eosinophils % (A) 5 %; Hypochromasia Slight; Lymphocytes # (A) 1.9 k/uL (1.0-4.8); Lymphocytes % (A) 41 %; MCH 27.9 pg (25.0-35.0); MCHC 33.2 g/dL (31.0-37.0); Mean Platelet Volume 6.3; Monocytes # (A) 0.3 k/uL (0-1.0); Monocytes % (A) 7 %; Neutrophils % (A) 44 %; Platelet Count 319 k/uL (150-450); Poikilocytosis Slight; RBC 3.21 m/uL (3.80-5.40); RDW 15.2 % (11.5-15.5); WBC 4.6 k/uL (3.8-10.6)
[2018-04-13 07:37] LABS: Anion Gap 6 mmol/L; Blood Urea Nitrogen 8 mg/dL (7-17); Calcium 8.5 mg/dL (8.4-10.2); Carbon Dioxide 26 mmol/L (22-30); Chloride 107 mmol/L (98-107); Glucose 96 mg/dL (74-99); Potassium 3.6 mmol/L (3.5-5.1); Sodium 139 mmol/L (137-145)
[2018-04-13] MEDS: LACTOBACILLUS ACIDOPH & BULGAR 1 EACH PACKET PO SCH (08:59)
[2018-04-13] MEDS: amLODIPine 5 MG TAB PO SCH (08:59)
[2018-04-13] MEDS: PANTOPRAZOLE 40 MG/10 ML VIAL IVP SCH ×2 (09:00→23:04)
--- NOTE | 2018-04-13 10:36 | P.PN ---
Subjective Progress Note Date: 04/13/18 Principal diagnosis: Postoperative wound infection Patient denies any hand pain. Still requiring oral and IV analgesics. She is afebrile. White blood cell count was normal. Tolerating diet with some cramping and overall diminished appetite Objective - Vital Signs Vital signs: Vital Signs Temp 97.9 F 04/13/18 07:50 Pulse 85 04/13/18 07:50 Resp 14 04/13/18 07:50 BP 150/69 04/13/18 07:50 Pulse Ox 96 04/13/18 07:50 Intake & Output 04/12/18 04/13/18 04/13/18 18:59 06:59 18:59 Intake Total 536 1090 Balance 536 1090 Intake: Intake, IV Titration 890 Amount Piperacillin-Tazobactam 3 50 .375 gm In Dextrose/Water 1 50ml.bag @ 12.5 mls/hr IVPB Q8HR [facility] Rx#: [id number] Sodium Chloride 0.9% 1, 840 000 ml @ 50 mls/hr IV . Q20H [facility] Rx#:[id number] Oral 536 200 Other: Voiding Method Toilet # Voids 1 3 # Bowel Movements 3 - Exam Abdomen: Soft, nondistended, mild incisional tenderness, small amount of drainage from wound - Labs CBC & Chem 7: 04/13/18 06:24 04/13/18 06:24 Labs: Abnormal Lab Results - Last 24 Hours (Table) 04/13/18 Range/Units 06:24 RBC 3.21 L (3.80-5.40) m/uL Hgb 9.0 L (11.4-16.0) gm/dL Hct 27.0 L (34.0-46.0) % Microbiology - Last 24 Hours (Table) 04/11/18 13:20 Gram Stain - Preliminary Abdomen Wound Culture - Preliminary Gram Neg Bacilli Assessment and Plan (1) Abdominal pain Narrative/Plan: Appreciate ID input. Tentatively plan PICC line Sunday with outpatient IV antibiotics. Continue local wound care. Patient will shower today. Current Visit: No Status: Acute Code(s): R10.9 - UNSPECIFIED ABDOMINAL PAIN SNOMED Code(s): 97458159
--- NOTE | 2018-04-13 16:34 | P.PN ---
Subjective Progress Note Date: 04/13/18 This is a 58-year-old female patient recently hospitalized at [facility] March 16 through April 03 4 small bowel obstruction status post right-sided partial colectomy suspicious for Crohn disease which was ruled out. Patient had a lengthy hospitalization as she initially failed conservative management, following surgery she developed acute kidney injury and hypotension which were successfully treated and resolved. Nephrology was on consult. Peritoneal fluid is positive for E. coli and pseudomonas treated with Zosyn and discharged home on ciprofloxacin and Flagyl. Patient left with open surgical wound and wound care in the form of Aquasol Silver. Patient states that she was doing well at home and walking and having bowel movements. She then developed vomiting and worsening abdominal pain over the last couple days. Her bowel movements have been Sunday from diarrhea to formed stools. She was seen by Dr. Gomez and directly admitted to the hospital. She has received Zofran with improvement of the vomiting and also started on IV antibiotics and incentive spirometry. CT of the abdomen and pelvis revealed small fluid collection in the right paracolic gutter compared to last exam. 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 This is unchanged. Increased mixed density in the subcutaneous fat at the surgery site anteriorly consistent with subcutaneous abscess that is enlarged compared to last exam. 1.5 cm thick-walled fluid density area in the pelvis on the right side consistent with small hematoma or abscess that is slightly smaller than last CAT scan. Atelectasis at the lung bases unchanged. Patient underwent incision and drainage postop wound infection with Dr. Gomez yesterday afternoon. Cultures obtained in or are currently preliminary. 04/12: Patient is currently on a ground diet. She denies any nausea vomiting today. She is status post I&D of a postop wound infection and abscess. Dr. Parker is following. She is currently on IV Zosyn. She is using incentive spirometry and getting between 1473-4335 ML's. She is ambulating in the hallway. Vital signs are stable. Pulse ox is 93% on room air. Hemoglobin today is at 9.1 and renal function is improved was BUN of 13 and creatinine 0.84. IV fluids will be decreased to 50 mL per hour. 04/13: Patient is laying down in bed in no apparent distress, she denies any chest pain, shortness breath, her dressing is going to be changed today, patient will have a PICC line and hopefully home a Sunday morning. Objective - Vital Signs Vital signs: Vital Signs Temp 97.6 F 04/13/18 00:56 Pulse 65 04/13/18 00:56 Resp 16 04/13/18 00:56 BP 135/81 04/13/18 00:56 Pulse Ox 94 L 04/13/18 00:56 Intake & Output 04/12/18 04/13/18 04/13/18 18:59 06:59 18:59 Intake Total 536 1090 Balance 536 1090 Intake: Intake, IV Titration 890 Amount Piperacillin-Tazobactam 3 50 .375 gm In Dextrose/Water 1 50ml.bag @ 12.5 mls/hr IVPB Q8HR [facility] Rx#: [id number] Sodium Chloride 0.9% 1, 840 000 ml @ 50 mls/hr IV . Q20H [facility] Rx#:[id number] Oral 536 200 Other: Voiding Method Toilet # Voids 1 3 # Bowel Movements 3 - Exam - Exam Gen: This is a 58-year-old female. Patient appears to be in no acute distress. HEENT: Head is atraumatic, normocephalic. Pupils equal, round. Sclerae is anicteric. NECK: Supple. No JVD. No lymphadenopathy. No thyromegaly. LUNGS: Clear to auscultation. No wheezes or rhonchi. No intercostal retractions. HEART: Regular rate and rhythm. No murmur. ABDOMEN: Soft. Bowel sounds present. No masses. Mild diffuse tenderness. Dressing in place over surgical wound. EXTREMITIES: No pedal edema. No calf tenderness. Dorsalis pedis palpable bilaterally. NEUROLOGICAL: Patient is awake, alert and oriented x3. Cranial nerves 2 through 12 are grossly intact. - Labs CBC & Chem 7: 04/13/18 06:24 04/13/18 06:24 Labs: Abnormal Lab Results - Last 24 Hours (Table) 04/13/18 Range/Units 06:24 RBC 3.21 L (3.80-5.40) m/uL Hgb 9.0 L (11.4-16.0) gm/dL Hct 27.0 L (34.0-46.0) % Microbiology - Last 24 Hours (Table) 04/11/18 13:20 Gram Stain - Preliminary Abdomen Wound Culture - Preliminary Gram Neg Bacilli Assessment and Plan Assessment: Assessment and Plan Plan: 1. Abdominal pain secondary to post op wound infection and abscess secondary to recent small bowel obstruction from adhesions, peritonitis. Patient is status post exploratory laparotomy and lysis of adhesions and resection of the terminal ileum and right colon on previous admission. Patient was discharged on ciprofloxacin and Flagyl. Repeat CT as above. Consult with Dr. Parker. She is currently on Zosyn. I&D with Dr. Gomez. Ground foods diet. 2. Acute kidney injury secondary to dehydration from vomiting. Decrease IV fluids to 50 mL per hour. Avoid nephrotoxic agents. Toradol will be discontinued. Patient will not be resumed on LANDON inhibitor or hydrochlorothiazide. 3. Hypertension. Patient will be resumed on amlodipine 5 mg daily and hold for systolic blood pressure less than 110. LANDON inhibitor and hydrochlorothiazide on hold. 4. Recent acute blood loss anemia. Hemoglobin is stable. Continue to monitor closely. 5. Recent treatment for abdominal abscess in the right lower quadrant status post CT-guided drainage catheter insertion. 6. Vitamin B12 deficiency with chronic anemia. 7. Pulmonary prophylaxis and atelectasis. Incentive spirometry. 8. Hypothyroidism. Resume levothyroxine 75 g daily. 9. GI prophylaxis. Protonix. 10. DVT prophylaxis. Heparin subcu.
[2018-04-14] MEDS: HYDROmorphone 1 MG/ML 1 ML SYRINGE IVP PRN (03:52)
[2018-04-14] MEDS: LEVOTHYROXINE 75 MCG TAB PO SCH (05:47)
[2018-04-14 06:57] LABS: Basophils # (A) 0.1 k/uL (0-0.2); Basophils % (A) 1 %; Eosinophils # (A) 0.3 k/uL (0-0.7); Eosinophils % (A) 5 %; HCT 27.5 % (34.0-46.0); HGB 9.1 gm/dL (11.4-16.0); Lymphocytes # (A) 2.1 k/uL (1.0-4.8); Lymphocytes % (A) 38 %; MCH 27.9 pg (25.0-35.0); MCHC 33.2 g/dL (31.0-37.0); MCV 84.2 fL (80.0-100.0); Mean Platelet Volume 6.9; Monocytes # (A) 0.5 k/uL (0-1.0); Monocytes % (A) 9 %; Neutrophils # (A) 2.5 k/uL (1.3-7.7); Neutrophils % (A) 46 %; Platelet Count 305 k/uL (150-450); Poikilocytosis Slight; RBC 3.27 m/uL (3.80-5.40); RDW 15.2 % (11.5-15.5); WBC 5.6 k/uL (3.8-10.6)
[2018-04-14 07:17] LABS: ALT 74 U/L (9-52); AST 106 U/L (14-36); Albumin 3.1 g/dL (3.5-5.0); Alkaline Phosphatase 122 U/L (38-126); Anion Gap 5 mmol/L; Blood Urea Nitrogen 7 mg/dL (7-17); Calcium 8.6 mg/dL (8.4-10.2); Carbon Dioxide 29 mmol/L (22-30); Chloride 105 mmol/L (98-107); Glucose 94 mg/dL (74-99); Sodium 139 mmol/L (137-145); Total Bilirubin 0.2 mg/dL (0.2-1.3); Total Protein 5.8 g/dL (6.3-8.2)
[2018-04-14] MEDS: LACTOBACILLUS ACIDOPH & BULGAR 1 EACH PACKET PO SCH (07:44)
[2018-04-14] MEDS: amLODIPine 5 MG TAB PO SCH (07:44)
[2018-04-14] MEDS: PANTOPRAZOLE 40 MG/10 ML VIAL IVP SCH ×2 (07:44→19:58)
[2018-04-14] MEDS: HEPARIN SODIUM,PORCINE 5,000 UNIT/ML 1 ML VIAL SQ SCH ×2 (07:44→15:46)
[2018-04-14] MEDS: PIPERACILLIN-TAZOBACTAM 3.375 GM in DEXTROSE/WATER 1 50ML.BAG IVPB SCH ×2 (07:44→15:46)
--- NOTE | 2018-04-14 08:06 | P.PN ---
<HelioPrincessAbbie M - Last Filed: 04/14/18 08:01> Subjective Progress Note Date: 04/14/18 58-year-old female sitting up in a chair states ambulating in the hallway. States tolerating a diet surgical dressing dry abdominal binder in place states still has abdominal cramping requiring IV dilaudid to be given at 4 in the morning. Temp 99 this morning with a white count 5.6 Patient's to be scheduled for PICC line tomorrow with IV antibiotics per infectious disease Status post April 11 Incision and drainage postoperative wound infection Objective - Vital Signs Vital signs: Vital Signs Temp 99.0 F 04/14/18 07:35 Pulse 79 04/14/18 07:35 Resp 14 04/14/18 07:35 BP 175/91 04/14/18 07:35 Pulse Ox 93 L 04/14/18 07:35 Intake & Output 04/13/18 04/14/18 04/14/18 18:59 06:59 18:59 Intake Total 550 750 Balance 550 750 Weight 61.235 kg Intake: Intake, IV Titration 350 750 Amount IV Fluid Continuation 1, 700 000 ml @ 0 mls/hr IV .[facility] Rx#:[id number] Piperacillin-Tazobactam 3 50 .375 gm In Dextrose/Water 1 50ml.bag @ 12.5 mls/hr IVPB Q8HR [facility] Rx#: [id number] Sodium Chloride 0.9% 1, 350 000 ml @ 50 mls/hr IV . Q20H [facility] Rx#:[id number] Oral 200 Other: Voiding Method Bedside Commode # Voids 2 - Exam Physical exam Sitting up in a chair currently taking a diet reports no nausea vomiting does report having episode of abdominal cramping Lungs adequate air movement bilaterally on room air Heart S1-S2 audible regular Abdomen abdominal binder in place removed to inspect abdominal incision surgical dressing dry soft surgical tenderness appropriate states no bowel movement no nausea no vomiting passing gas Extremities no edema - Labs CBC & Chem 7: 04/14/18 06:26 04/14/18 06:26 Labs: Abnormal Lab Results - Last 24 Hours (Table) 04/14/18 04/14/18 Range/Units 06:26 06:26 RBC 3.27 L (3.80-5.40) m/uL Hgb 9.1 L (11.4-16.0) gm/dL Hct 27.5 L (34.0-46.0) % AST 106 H (14-36) U/L ALT 74 H (9-52) U/L Total Protein 5.8 L (6.3-8.2) g/dL Albumin 3.1 L (3.5-5.0) g/dL Microbiology - Last 24 Hours (Table) 04/11/18 13:20 Gram Stain - Final Abdomen Wound Culture - Final Escherichia coli 04/11/18 13:20 Anaerobic Culture - Preliminary Abdomen Assessment and Plan Assessment: Impression Status post 2-3 weeks prior right colectomy for bowel obstruction and pelvic abscess Reoccurring nausea vomiting with abdominal pain persist prior to omission Status post incision and drainage wound infection April 11 2018 Present on admission abdominal pain likely due to postop wound infection secondary to recent small bowel obstruction peritonitis Plan Scheduled for a PICC line tomorrow with anticipation discharge to follow Continue postop surgical care Continue recommendations by infectious disease IV Zosyn per infectious disease Protonic 40 IV twice a day as ordered DVT and GI prophylaxis The above impression and plan of care have been discussed and directed by signing physician. Abbie Cadet nurse practitioner acting as scribe for signing physician. <Bertin Gomez - Last Filed: 04/14/18 10:35> Objective - Vital Signs Vital signs: Vital Signs Temp 99.0 F 04/14/18 07:35 Pulse 79 04/14/18 07:35 Resp 14 04/14/18 07:35 BP 175/91 04/14/18 07:35 Pulse Ox 93 L 04/14/18 07:35 Intake & Output 04/13/18 04/14/18 04/14/18 18:59 06:59 18:59 Intake Total 550 750 Balance 550 750 Weight 61.235 kg Intake: Intake, IV Titration 350 750 Amount IV Fluid Continuation 1, 700 000 ml @ 0 mls/hr IV .[facility] Rx#:[id number] Piperacillin-Tazobactam 3 50 .375 gm In Dextrose/Water 1 50ml.bag @ 12.5 mls/hr IVPB Q8HR [facility] Rx#: [id number] Sodium Chloride 0.9% 1, 350 000 ml @ 50 mls/hr IV . Q20H [facility] Rx#:[id number] Oral 200 Other: Voiding Method Bedside Commode # Voids 2 - Labs CBC & Chem 7: 04/14/18 06:26 04/14/18 06:26 Labs: Abnormal Lab Results - Last 24 Hours (Table) 04/14/18 04/14/18 Range/Units 06:26 06:26 RBC 3.27 L (3.80-5.40) m/uL Hgb 9.1 L (11.4-16.0) gm/dL Hct 27.5 L (34.0-46.0) % AST 106 H (14-36) U/L ALT 74 H (9-52) U/L Total Protein 5.8 L (6.3-8.2) g/dL Albumin 3.1 L (3.5-5.0) g/dL Microbiology - Last 24 Hours (Table) 04/11/18 13:20 Gram Stain - Final Abdomen Wound Culture - Final Escherichia coli 04/11/18 13:20 Anaerobic Culture - Preliminary Abdomen Assessment and Plan Assessment: As above. Patient doing well. Pain is improving. Aquacel silver was used at the wound site with some seropurulent drainage. Tolerating a proximally 60% of her meals. We'll plan PICC line placement tomorrow with scheduled home IV antibiotics and home wound care. Possible discharge tomorrow evening or Sunday. (1) Abdominal pain Current Visit: No Status: Acute Code(s): R10.9 - UNSPECIFIED ABDOMINAL PAIN SNOMED Code(s): 18766388
[2018-04-14] MEDS: HYDROcodone/APAP 5-325MG 1 EACH TAB PO PRN (08:12)
[2018-04-14] MEDS: HYDROcodone/APAP 10-325MG 1 EACH TAB PO PRN ×2 (13:38→19:26)
--- NOTE | 2018-04-14 14:15 | P.PN ---
Subjective Progress Note Date: 04/14/18 This is a 58-year-old female patient recently hospitalized at [facility] March 16 through April 03 4 small bowel obstruction status post right-sided partial colectomy suspicious for Crohn disease which was ruled out. Patient had a lengthy hospitalization as she initially failed conservative management, following surgery she developed acute kidney injury and hypotension which were successfully treated and resolved. Nephrology was on consult. Peritoneal fluid is positive for E. coli and pseudomonas treated with Zosyn and discharged home on ciprofloxacin and Flagyl. Patient left with open surgical wound and wound care in the form of Aquasol Silver. Patient states that she was doing well at home and walking and having bowel movements. She then developed vomiting and worsening abdominal pain over the last couple days. Her bowel movements have been Sunday from diarrhea to formed stools. She was seen by Dr. Gomez and directly admitted to the hospital. She has received Zofran with improvement of the vomiting and also started on IV antibiotics and incentive spirometry. CT of the abdomen and pelvis revealed small fluid collection in the right paracolic gutter compared to last exam. 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 This is unchanged. Increased mixed density in the subcutaneous fat at the surgery site anteriorly consistent with subcutaneous abscess that is enlarged compared to last exam. 1.5 cm thick-walled fluid density area in the pelvis on the right side consistent with small hematoma or abscess that is slightly smaller than last CAT scan. Atelectasis at the lung bases unchanged. Patient underwent incision and drainage postop wound infection with Dr. Gomez yesterday afternoon. Cultures obtained in or are currently preliminary. 04/12: Patient is currently on a ground diet. She denies any nausea vomiting today. She is status post I&D of a postop wound infection and abscess. Dr. Parker is following. She is currently on IV Zosyn. She is using incentive spirometry and getting between 1007-6769 ML's. She is ambulating in the hallway. Vital signs are stable. Pulse ox is 93% on room air. Hemoglobin today is at 9.1 and renal function is improved was BUN of 13 and creatinine 0.84. IV fluids will be decreased to 50 mL per hour. 04/13: Patient is laying down in bed in no apparent distress, she denies any chest pain, shortness breath, her dressing is going to be changed today, patient will have a PICC line and hopefully home a Sunday morning. 04/14: Patient had her dressing changes with Dr. Gomez today she denies any chest pain or short of breath, she can use to have some loose stool, she will get her PICC line tomorrow morning, dressing was changed by general surgery and we are awaiting the final disposition but the patient likely will be discharged home in the next 1 or 2 days. Objective - Vital Signs Vital signs: Vital Signs Temp 99.0 F 04/14/18 07:35 Pulse 79 04/14/18 07:35 Resp 14 04/14/18 07:35 BP 175/91 04/14/18 07:35 Pulse Ox 93 L 04/14/18 07:35 Intake & Output 04/13/18 04/14/18 04/14/18 18:59 06:59 18:59 Intake Total 550 750 Balance 550 750 Weight 61.235 kg Intake: Intake, IV Titration 350 750 Amount IV Fluid Continuation 1, 700 000 ml @ 0 mls/hr IV .[facility] Rx#:[id number] Piperacillin-Tazobactam 3 50 .375 gm In Dextrose/Water 1 50ml.bag @ 12.5 mls/hr IVPB Q8HR [facility] Rx#: [id number] Sodium Chloride 0.9% 1, 350 000 ml @ 50 mls/hr IV . Q20H [facility] Rx#:[id number] Oral 200 Other: Voiding Method Bedside Commode # Voids 2 - Exam - Exam Gen: This is a 58-year-old female. Patient appears to be in no acute distress. HEENT: Head is atraumatic, normocephalic. Pupils equal, round. Sclerae is anicteric. NECK: Supple. No JVD. No lymphadenopathy. No thyromegaly. LUNGS: Clear to auscultation. No wheezes or rhonchi. No intercostal retractions. HEART: Regular rate and rhythm. No murmur. ABDOMEN: Soft. Bowel sounds present. No masses. Mild diffuse tenderness. Dressing in place over surgical wound. EXTREMITIES: No pedal edema. No calf tenderness. Dorsalis pedis palpable bilaterally. NEUROLOGICAL: Patient is awake, alert and oriented x3. Cranial nerves 2 through 12 are grossly intact. - Labs CBC & Chem 7: 04/14/18 06:26 04/14/18 06:26 Labs: Abnormal Lab Results - Last 24 Hours (Table) 04/14/18 04/14/18 Range/Units 06:26 06:26 RBC 3.27 L (3.80-5.40) m/uL Hgb 9.1 L (11.4-16.0) gm/dL Hct 27.5 L (34.0-46.0) % AST 106 H (14-36) U/L ALT 74 H (9-52) U/L Total Protein 5.8 L (6.3-8.2) g/dL Albumin 3.1 L (3.5-5.0) g/dL Microbiology - Last 24 Hours (Table) 04/11/18 13:20 Gram Stain - Final Abdomen Wound Culture - Final Escherichia coli 04/11/18 13:20 Anaerobic Culture - Preliminary Abdomen Assessment and Plan Assessment: Assessment and Plan Plan: 1. Abdominal pain secondary to post op wound infection and abscess secondary to recent small bowel obstruction from adhesions, peritonitis. Patient is status post exploratory laparotomy and lysis of adhesions and resection of the terminal ileum and right colon on previous admission. Patient was discharged on ciprofloxacin and Flagyl. Repeat CT as above. Consult with Dr. Parker. She is currently on Zosyn. I&D with Dr. Gomez. Ground foods diet. 2. Acute kidney injury secondary to dehydration from vomiting. Decrease IV fluids to 50 mL per hour. Avoid nephrotoxic agents. Toradol will be discontinued. Patient will not be resumed on LANDON inhibitor or hydrochlorothiazide. 3. Hypertension. Patient will be resumed on amlodipine 5 mg daily and hold for systolic blood pressure less than 110. LANDON inhibitor and hydrochlorothiazide on hold. 4. Recent acute blood loss anemia. Hemoglobin is stable. Continue to monitor closely. 5. Recent treatment for abdominal abscess in the right lower quadrant status post CT-guided drainage catheter insertion. 6. Vitamin B12 deficiency with chronic anemia. 7. Pulmonary prophylaxis and atelectasis. Incentive spirometry. 8. Hypothyroidism. Resume levothyroxine 75 g daily. 9. GI prophylaxis. Protonix. 10. DVT prophylaxis. Heparin subcu. 11. PICC line tomorrow morning and hopefully home in 1 or 2 days.
[2018-04-14] MEDS: SODIUM CHLORIDE 0.9% 1,000 ML IV SCH ×2 (14:17→17:48)
[2018-04-15] MEDS: HYDROcodone/APAP 10-325MG 1 EACH TAB PO PRN ×5 (00:04→20:00)
[2018-04-15] MEDS: PIPERACILLIN-TAZOBACTAM 3.375 GM in DEXTROSE/WATER 1 50ML.BAG IVPB SCH ×2 (00:04→08:47)
[2018-04-15] MEDS: HEPARIN SODIUM,PORCINE 5,000 UNIT/ML 1 ML VIAL SQ SCH ×3 (00:04→15:21)
[2018-04-15] MEDS: LEVOTHYROXINE 75 MCG TAB PO SCH (05:45)
[2018-04-15 06:55] LABS: Basophils # (A) 0.1 k/uL (0-0.2); Basophils % (A) 1 %; Eosinophils # (A) 0.3 k/uL (0-0.7); Eosinophils % (A) 4 %; HCT 27.9 % (34.0-46.0); HGB 9.4 gm/dL (11.4-16.0); Lymphocytes # (A) 2.4 k/uL (1.0-4.8); Lymphocytes % (A) 38 %; MCH 28.7 pg (25.0-35.0); MCHC 33.9 g/dL (31.0-37.0); MCV 84.6 fL (80.0-100.0); Mean Platelet Volume 6.5; Monocytes # (A) 0.4 k/uL (0-1.0); Monocytes % (A) 7 %; Neutrophils # (A) 3.1 k/uL (1.3-7.7); Neutrophils % (A) 48 %; Platelet Count 304 k/uL (150-450); Poikilocytosis Slight; RDW 15.5 % (11.5-15.5); WBC 6.4 k/uL (3.8-10.6)
[2018-04-15 07:03] LABS: Prothrombin Time 9.8 sec (9.0-12.0)
[2018-04-15 07:11] LABS: ALT 99 U/L (9-52); AST 129 U/L (14-36); Albumin 3.2 g/dL (3.5-5.0); Alkaline Phosphatase 130 U/L (38-126); Anion Gap 6 mmol/L; Blood Urea Nitrogen 8 mg/dL (7-17); Calcium 8.9 mg/dL (8.4-10.2); Carbon Dioxide 29 mmol/L (22-30); Chloride 103 mmol/L (98-107); Glucose 93 mg/dL (74-99); Potassium 3.8 mmol/L (3.5-5.1); Sodium 138 mmol/L (137-145); Total Bilirubin 0.3 mg/dL (0.2-1.3); Total Protein 5.8 g/dL (6.3-8.2)
[2018-04-15] MEDS: amLODIPine 5 MG TAB PO SCH (08:47)
[2018-04-15] MEDS: LACTOBACILLUS ACIDOPH & BULGAR 1 EACH PACKET PO SCH (08:47)
[2018-04-15] MEDS: PANTOPRAZOLE 40 MG/10 ML VIAL IVP SCH ×2 (08:47→20:01)
[2018-04-15] MEDS ORDERED: IV FLUID CONTINUATION 1,000 ML IV ONE (13:05)
[2018-04-15] MEDS ORDERED: LIDOCAINE 1% INJ 10MG/ML (20 ML MDV) SQ ONE (13:15)
--- NOTE | 2018-04-15 14:21 | IR ---
EXAMINATION TYPE: IR cvc insert >=5 years DATE OF EXAM: 04/15/2018 COMPARISON: NONE CLINICAL HISTORY: Infection Needs long-term intravenous access for antibiotics. PROCEDURE: After informed consent, the skin overlying the left basilic vein was localized with ultrasound and no tatiana to be compressible and patent. An ultrasound image was obtained and submitted on the patient's c blair. The overlying skin was prepped and draped and Lidocaine was used for local anesthesia. A skin dilan was made with a scalpel. Access was gained to the vein under ultrasound guidance with a 21 gau ge needle and a 0.018 inch wire was advanced. Access site was dilated with Peel-Away sheath and cath eter tailored to the appropriate length and advanced such that the distal tip is at the cavoatrial ju nction. Spot image was obtained verifying placement. Catheter was fixed to the skin and a sterile d ressing was placed following hemostasis. Catheter was aspirated and flushed with saline. Patient wa s discharged in stable condition without complication. Maximal barrier technique is utilized. Ultras ound image is documented on the chart. Ultrasound used with sterile technique. Fluoro time and fluoroscopic images submitted to document procedure: 301 intraoperative C-arm images, 0.8 minutes fluoroscopy time IMPRESSION: STATUS POST ULTRASOUND AND FLUOROSCOPIC GUIDED PICC LINE PLACEMENT, READY FOR USE. THIS PROCEDURE WAS PERFORMED BY THE UNDERSIGNED.
--- NOTE | 2018-04-15 15:16 | P.PN ---
Subjective Progress Note Date: 04/15/18 This is a 58-year-old female patient recently hospitalized at [facility] March 16 through April 03 4 small bowel obstruction status post right-sided partial colectomy suspicious for Crohn disease which was ruled out. Patient had a lengthy hospitalization as she initially failed conservative management, following surgery she developed acute kidney injury and hypotension which were successfully treated and resolved. Nephrology was on consult. Peritoneal fluid is positive for E. coli and pseudomonas treated with Zosyn and discharged home on ciprofloxacin and Flagyl. Patient left with open surgical wound and wound care in the form of Aquasol Silver. Patient states that she was doing well at home and walking and having bowel movements. She then developed vomiting and worsening abdominal pain over the last couple days. Her bowel movements have been Sunday from diarrhea to formed stools. She was seen by Dr. Gomez and directly admitted to the hospital. She has received Zofran with improvement of the vomiting and also started on IV antibiotics and incentive spirometry. CT of the abdomen and pelvis revealed small fluid collection in the right paracolic gutter compared to last exam. 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 This is unchanged. Increased mixed density in the subcutaneous fat at the surgery site anteriorly consistent with subcutaneous abscess that is enlarged compared to last exam. 1.5 cm thick-walled fluid density area in the pelvis on the right side consistent with small hematoma or abscess that is slightly smaller than last CAT scan. Atelectasis at the lung bases unchanged. Patient underwent incision and drainage postop wound infection with Dr. Gomez yesterday afternoon. Cultures obtained in or are currently preliminary. 04/12: Patient is currently on a ground diet. She denies any nausea vomiting today. She is status post I&D of a postop wound infection and abscess. Dr. Parker is following. She is currently on IV Zosyn. She is using incentive spirometry and getting between 2861-2381 ML's. She is ambulating in the hallway. Vital signs are stable. Pulse ox is 93% on room air. Hemoglobin today is at 9.1 and renal function is improved was BUN of 13 and creatinine 0.84. IV fluids will be decreased to 50 mL per hour. 04/13: Patient is laying down in bed in no apparent distress, she denies any chest pain, shortness breath, her dressing is going to be changed today, patient will have a PICC line and hopefully home a Sunday morning. 04/14: Patient had her dressing changes with Dr. Gomez today she denies any chest pain or short of breath, she can use to have some loose stool, she will get her PICC line tomorrow morning, dressing was changed by general surgery and we are awaiting the final disposition but the patient likely will be discharged home in the next 1 or 2 days. 04/15: Patient is scheduled for PICC line placement today. Antibiotics have been clarified with Dr. Parker for Invanz as an outpatient. Blood pressure is running high for which lisinopril will be resumed. Her kidney function is currently stable with BUN of 8 and creatinine 0.61. White count is normal, hemoglobin 9.4. Currently AST 129, ALT 99, ALT 1:30 slightly higher from yesterday. Objective - Vital Signs Vital signs: Vital Signs Temp 98.2 F 04/15/18 07:00 Pulse 74 04/15/18 07:00 Resp 12 04/15/18 07:00 BP 172/85 04/15/18 07:00 Pulse Ox 94 L 04/15/18 07:00 Intake & Output 04/14/18 04/15/18 04/15/18 18:59 06:59 18:59 Intake Total 640 750 400 Balance 640 750 400 Intake: Intake, IV Titration 400 600 Amount Piperacillin-Tazobactam 3 50 .375 gm In Dextrose/Water 1 50ml.bag @ 12.5 mls/hr IVPB Q8HR [facility] Rx#: [id number] Sodium Chloride 0.9% 1, 350 600 000 ml @ 50 mls/hr IV . Q20H [facility] Rx#:[id number] Oral 240 150 400 Other: Voiding Method Toilet - Exam Gen: This is a 58-year-old female. Patient appears to be in no acute distress. HEENT: Head is atraumatic, normocephalic. Pupils equal, round. Sclerae is anicteric. NECK: Supple. No JVD. No lymphadenopathy. No thyromegaly. LUNGS: Clear to auscultation. No wheezes or rhonchi. No intercostal retractions. HEART: Regular rate and rhythm. No murmur. ABDOMEN: Soft. Bowel sounds present. No masses. Mild diffuse tenderness. Dressing in place over surgical wound. EXTREMITIES: No pedal edema. No calf tenderness. Dorsalis pedis palpable bilaterally. NEUROLOGICAL: Patient is awake, alert and oriented x3. Cranial nerves 2 through 12 are grossly intact. - Labs CBC & Chem 7: 04/15/18 06:25 04/15/18 06:25 Labs: Abnormal Lab Results - Last 24 Hours (Table) 04/15/18 04/15/18 Range/Units 06:25 06:25 RBC 3.30 L (3.80-5.40) m/uL Hgb 9.4 L (11.4-16.0) gm/dL Hct 27.9 L (34.0-46.0) % AST 129 H (14-36) U/L ALT 99 H (9-52) U/L Alkaline Phosphatase 130 H (38-126) U/L Total Protein 5.8 L (6.3-8.2) g/dL Albumin 3.2 L (3.5-5.0) g/dL Microbiology - Last 24 Hours (Table) 04/11/18 13:20 Anaerobic Culture - Final Abdomen Assessment and Plan Plan: 1. Abdominal pain secondary to post op wound infection and abscess secondary to recent small bowel obstruction from adhesions, peritonitis. Patient is status post exploratory laparotomy and lysis of adhesions and resection of the terminal ileum and right colon on previous admission. Patient was discharged on ciprofloxacin and Flagyl. Repeat CT as above. Consult with Dr. Parker. She is currently on Zosyn and switched to ertapenem. I&D completed by Dr. Gomez. Ground foods diet. 2. Acute kidney injury secondary to dehydration from vomiting. Decrease IV fluids to 50 mL per hour. Avoid nephrotoxic agents. Toradol will be discontinued. Patient will not be resumed on LANDON inhibitor or hydrochlorothiazide. 3. Hypertension. Patient will be resumed on amlodipine 5 mg daily and hold for systolic blood pressure less than 110. LANDON inhibitor resumed with lisinopril 10 mg daily and hydrochlorothiazide on hold. 4. Recent acute blood loss anemia. Hemoglobin is stable. Continue to monitor closely. 5. Recent treatment for abdominal abscess in the right lower quadrant status post CT-guided drainage catheter insertion. 6. Vitamin B12 deficiency with chronic anemia. 7. Pulmonary prophylaxis and atelectasis. Incentive spirometry. 8. Hypothyroidism. Resume levothyroxine 75 g daily. 9. GI prophylaxis. Protonix. 10. DVT prophylaxis. Heparin subcu. CODE STATUS: Full code. Discharge plan: Return home with [facility] or IV antibiotics at [facility] Impression and plan of care have been directed as dictated by the signing physician. Tomasa Chi nurse practitioner acting as scribe for signing physician.
[2018-04-15] MEDS: LISINOPRIL 10 MG TAB PO SCH (15:21)
[2018-04-15] MEDS: ERTAPENEM 1 GM in SODIUM CHLORIDE 0.9% 50 ML IVPB SCH (15:21)
--- NOTE | 2018-04-15 16:28 | P.PN ---
Progress Note - Text Progress Note Date: 04/15/18 The patient is a bleeding the hallway. She states she feels well. She has some minimal incisional pain. On exam her vital signs are stable. Her abdomen soft. Her wound is clean. Status post incision and drainage of abdominal wound. Patient is doing well. We dissected discharged next 24-48 hours.
--- NOTE | 2018-04-15 20:45 | P.PN ---
Subjective Progress Note Date: 04/15/18 This is a 58-year-old female patient recently hospitalized at [facility] March 16 through April 03 4 small bowel obstruction status post right-sided partial colectomy suspicious for Crohn disease which was ruled out. Patient had a lengthy hospitalization as she initially failed conservative management, following surgery she developed acute kidney injury and hypotension which were successfully treated and resolved. Nephrology was on consult. Peritoneal fluid is positive for E. coli and pseudomonas treated with Zosyn and discharged home on ciprofloxacin and Flagyl. Patient left with open surgical wound and wound care in the form of Aquasol Silver. Patient states that she was doing well at home and walking and having bowel movements. She then developed vomiting and worsening abdominal pain over the last couple days. Her bowel movements have been Sunday from diarrhea to formed stools. She was seen by Dr. Gomez and directly admitted to the hospital. She has received Zofran with improvement of the vomiting and also started on IV antibiotics and incentive spirometry. CT of the abdomen and pelvis revealed small fluid collection in the right paracolic gutter compared to last exam. 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 This is unchanged. Increased mixed density in the subcutaneous fat at the surgery site anteriorly consistent with subcutaneous abscess that is enlarged compared to last exam. 1.5 cm thick-walled fluid density area in the pelvis on the right side consistent with small hematoma or abscess that is slightly smaller than last CAT scan. Atelectasis at the lung bases unchanged. Patient underwent incision and drainage postop wound infection with Dr. Gomez yesterday afternoon. Cultures obtained in or are currently preliminary 2018 patient is feeling better. There are no plans for her to be discharged home and outpatient intravenous antibiotic therapy. Objective - Vital Signs Vital signs: Vital Signs Temp 99.9 F H 04/15/18 15:00 Pulse 97 04/15/18 15:00 Resp 12 04/15/18 15:00 BP 111/74 04/15/18 15:00 Pulse Ox 94 L 04/15/18 15:00 Intake & Output 04/15/18 04/15/18 04/16/18 06:59 18:59 06:59 Intake Total 750 1237 Balance 750 1237 Intake: Intake, IV Titration 600 Amount Sodium Chloride 0.9% 1, 600 000 ml @ 50 mls/hr IV . Q20H [facility] Rx#:[id number] Oral 150 1237 Other: # Voids 2 - Exam Gen: This is a 58-year-old female. Patient appears to be in no acute distress. HEENT: Head is atraumatic, normocephalic. Pupils equal, round. Sclerae is anicteric. NECK: Supple. No JVD. No lymphadenopathy. No thyromegaly. LUNGS: Clear to auscultation. No wheezes or rhonchi. No intercostal retractions. HEART: Regular rate and rhythm. No murmur. ABDOMEN: Soft. Bowel sounds present. No masses. Mild diffuse tenderness. Dressing in place over surgical wound. will be reevaluated EXTREMITIES: No pedal edema. No calf tenderness. Dorsalis pedis palpable bilaterally. NEUROLOGICAL: Patient is awake, alert and oriented x3 - Labs CBC & Chem 7: 04/15/18 06:25 04/15/18 06:25 Labs: Abnormal Lab Results - Last 24 Hours (Table) 04/15/18 04/15/18 Range/Units 06:25 06:25 RBC 3.30 L (3.80-5.40) m/uL Hgb 9.4 L (11.4-16.0) gm/dL Hct 27.9 L (34.0-46.0) % AST 129 H (14-36) U/L ALT 99 H (9-52) U/L Alkaline Phosphatase 130 H (38-126) U/L Total Protein 5.8 L (6.3-8.2) g/dL Albumin 3.2 L (3.5-5.0) g/dL Microbiology - Last 24 Hours (Table) 04/11/18 13:20 Anaerobic Culture - Final Abdomen Laboratory Results WBC 6.4 k/uL (3.8-10.6) 04/15/18 06:25 RBC 3.30 m/uL (3.80-5.40) L 04/15/18 06:25 Hgb 9.4 gm/dL (11.4-16.0) L 04/15/18 06:25 Hct 27.9 % (34.0-46.0) L 04/15/18 06:25 MCV 84.6 fL (80.0-100.0) 04/15/18 06:25 MCH 28.7 pg (25.0-35.0) 04/15/18 06:25 MCHC 33.9 g/dL (31.0-37.0) 04/15/18 06:25 RDW 15.5 % (11.5-15.5) 04/15/18 06:25 Plt Count 304 k/uL (150-450) 04/15/18 06:25 Neutrophils % 48 % 04/15/18 06:25 Lymphocytes % 38 % 04/15/18 06:25 Monocytes % 7 % 04/15/18 06:25 Eosinophils % 4 % 04/15/18 06:25 Basophils % 1 % 04/15/18 06:25 Neutrophils # 3.1 k/uL (1.3-7.7) 04/15/18 06:25 Lymphocytes # 2.4 k/uL (1.0-4.8) 04/15/18 06:25 Monocytes # 0.4 k/uL (0-1.0) 04/15/18 06:25 Eosinophils # 0.3 k/uL (0-0.7) 04/15/18 06:25 Basophils # 0.1 k/uL (0-0.2) 04/15/18 06:25 Hypochromasia Slight 04/13/18 06:24 Poikilocytosis Slight 04/15/18 06:25 PT 9.8 sec (9.0-12.0) 04/15/18 06:25 INR 1.0 (<1.2) 04/15/18 06:25 Sodium 138 mmol/L (137-145) 04/15/18 06:25 Potassium 3.8 mmol/L (3.5-5.1) 04/15/18 06:25 Chloride 103 mmol/L (98-107) 04/15/18 06:25 Carbon Dioxide 29 mmol/L (22-30) 04/15/18 06:25 Anion Gap 6 mmol/L 04/15/18 06:25 BUN 8 mg/dL (7-17) 04/15/18 06:25 Creatinine 0.61 mg/dL (0.52-1.04) 04/15/18 06:25 Est GFR (CKD-EPI)AfAm >90 (>60 ml/min/1.73 sqM) 04/15/18 06:25 Est GFR (CKD-EPI)NonAf >90 (>60 ml/min/1.73 sqM) 04/15/18 06:25 Glucose 93 mg/dL (74-99) 04/15/18 06:25 Calcium 8.9 mg/dL (8.4-10.2) 04/15/18 06:25 Total Bilirubin 0.3 mg/dL (0.2-1.3) 04/15/18 06:25 AST 129 U/L (14-36) H 04/15/18 06:25 ALT 99 U/L (9-52) H 04/15/18 06:25 Alkaline Phosphatase 130 U/L (38-126) H 04/15/18 06:25 Total Protein 5.8 g/dL (6.3-8.2) L 04/15/18 06:25 Albumin 3.2 g/dL (3.5-5.0) L 04/15/18 06:25 Microbiology 04/11/18 13:20 Abdomen Anaerobic Culture - Final 04/11/18 13:20 Abdomen Gram Stain - Final 04/11/18 13:20 Abdomen Wound Culture - Final Escherichia coli 04/11/18 13:20 Abdomen Fungal Culture - Preliminary Assessment and Plan (1) Abdominal pain Current Visit: No Status: Acute Code(s): R10.9 - UNSPECIFIED ABDOMINAL PAIN SNOMED Code(s): 32243724 (2) Abdominal wall abscess at site of surgical wound Narrative/Plan: pleasant 58-year-old woman with very complex past medical historywho is now developed a significant abscess to the abdominal wall status post incision and drainage from the surgeon. Culture reveals evidence of Escherichia coli prior cultures revealed evidence of anaerobic gram-negative bacilli also. With this the patient will be discharged home on intravenous antibiotic therapy with Invanz given the failure of the oral ciprofloxacin and Flagyl that was attempted.local wound care will be arranged in the outpatient setting over the surgeon will allow the wound center. May be a candidate for negative pressure system if infection comes under control quickly. Pain control is somewhat adequate. PICC line placed and will follow in the outpatient setting. Current Visit: Yes Status: Acute Code(s): T81.4XXA - INFECTION FOLLOWING A PROCEDURE, INITIAL ENCOUNTER SNOMED Code(s): 767276909
[2018-04-16] MEDS: HEPARIN SODIUM,PORCINE 5,000 UNIT/ML 1 ML VIAL SQ SCH ×3 (00:11→17:09)
[2018-04-16] MEDS: HYDROcodone/APAP 10-325MG 1 EACH TAB PO PRN ×4 (00:14→17:11)
[2018-04-16] MEDS: LEVOTHYROXINE 75 MCG TAB PO SCH (06:18)
[2018-04-16 07:40] LABS: ALT 107 U/L (9-52); AST 101 U/L (14-36); Albumin 3.4 g/dL (3.5-5.0); Alkaline Phosphatase 138 U/L (38-126); Anion Gap 7 mmol/L; Blood Urea Nitrogen 12 mg/dL (7-17); Calcium 9.1 mg/dL (8.4-10.2); Carbon Dioxide 27 mmol/L (22-30); Chloride 105 mmol/L (98-107); Glucose 83 mg/dL (74-99); Potassium 4.2 mmol/L (3.5-5.1); Sodium 139 mmol/L (137-145); Total Bilirubin 0.2 mg/dL (0.2-1.3); Total Protein 6.2 g/dL (6.3-8.2)
[2018-04-16] MEDS: LISINOPRIL 10 MG TAB PO SCH (09:09)
[2018-04-16] MEDS: PANTOPRAZOLE 40 MG/10 ML VIAL IVP SCH (09:09)
[2018-04-16] MEDS: amLODIPine 5 MG TAB PO SCH (09:09)
[2018-04-16] MEDS: LACTOBACILLUS ACIDOPH & BULGAR 1 EACH PACKET PO SCH (09:09)
[2018-04-16] MEDS: ERTAPENEM 1 GM in SODIUM CHLORIDE 0.9% 50 ML IVPB SCH (10:01)
--- NOTE | 2018-04-16 11:54 | P.PN ---
Subjective Progress Note Date: 04/16/18 58-year-old female sitting up has been up ambulating in the [place] states anxious to be discharged. Currently discharge antibiotics have been directed by infectious disease outpatient Invanz set up patient has a PICC line in place. Currently has abdominal binder in place surgical dressing dry Dr. Parker at the bedside inspecting surgical incision on the upper part of the incision open no redness no drainage per Dr. Parker packing is been applied .Status post April 11 Incision and drainage postoperative wound infection Objective - Vital Signs Vital signs: Vital Signs Temp 98.0 F 04/16/18 09:06 Pulse 97 04/16/18 09:06 Resp 17 04/16/18 09:06 BP 156/83 04/16/18 09:06 Pulse Ox 96 04/16/18 09:06 Intake & Output 04/15/18 04/16/18 04/16/18 18:59 06:59 18:59 Intake Total 1237 1680 200 Balance 1237 1680 200 Intake: Intake, IV Titration 600 Amount Sodium Chloride 0.9% 1, 600 000 ml @ 50 mls/hr IV . Q20H [facility] Rx#:[id number] Oral 1237 1080 200 Other: Voiding Method Toilet Toilet # Voids 2 2 # Bowel Movements 1 - Exam Physical exam Sitting up in a chair currently taking a diet reports no nausea vomiting Lungs adequate air movement bilaterally on room air Heart S1-S2 audible regular Abdomen abdominal binder in place removed to inspect abdominal incision surgical dressing dry soft surgical tenderness appropriate states no bowel movement no nausea no vomiting passing gas Dr. Parker at bedtime dressing removed inspected upper part of the incision open wound edges no redness no drainage no older packing applied per Dr. Parker Extremities no edema - Labs CBC & Chem 7: 04/15/18 06:25 04/16/18 06:30 Labs: Abnormal Lab Results - Last 24 Hours (Table) 04/16/18 Range/Units 06:30 AST 101 H (14-36) U/L ALT 107 H (9-52) U/L Alkaline Phosphatase 138 H (38-126) U/L Total Protein 6.2 L (6.3-8.2) g/dL Albumin 3.4 L (3.5-5.0) g/dL Microbiology - Last 24 Hours (Table) 04/11/18 13:20 Anaerobic Culture - Final Abdomen Assessment and Plan Assessment: Impression Status post 2-3 weeks prior right colectomy for bowel obstruction and pelvic abscess Reoccurring nausea vomiting with abdominal pain persist prior to omission Status post incision and drainage wound infection April 11 2018 Present on admission abdominal pain likely due to postop wound infection secondary to recent small bowel obstruction peritonitis Plan Anticipate discharge when binder caser pursues insurance coverage for home care and Invanz Continue postop surgical care Continue recommendations by infectious disease IV Invanz per infectious disease Anticipate discharge today DVT and GI prophylaxis Progress note dictated for Dr. gilmore running on behalf of Dr. Gomez The above impression and plan of care have been discussed and directed by signing physician. Abbie Cadet nurse practitioner acting as scribe for signing physician.
--- NOTE | 2018-04-16 14:47 | P.DS ---
Providers Date of admission: 04/11/18 16:08 Expected date of discharge: 04/16/18 Attending physician: Bertin Gomez Consults: 04/10/18 15:24 Consult Physician Routine Consulting Provider: Ever Zarco Consult Reason/Comments: Medical management Do you want consulting provider notified?: Yes 04/11/18 13:45 Consult Physician Routine Consulting Provider: Junaid Parker Consult Reason/Comments: Postoperative wound infection Do you want consulting provider notified?: Yes Primary care physician: [facility] Course: 58-year-old female was seen in Dr. Bolton's office with reported having recurrent nausea with vomiting. Increase pain. Patient is postop 2-3 weeks exploratory laparotomy right colectomy for bowel obstruction in the pelvic mass. The pelvic mass was seen on the CAT scan of the abdomen and had increased nondraining subcutaneous fluid suspicious for an abscess. On admission the white count was normal patient was afebrile infectious disease consultation requested patient on April 11 underwent incision and drainage of postoperative wound infection cultures were obtained patient was left with an open surgical wound care was in the form of Aquasol silver per infectious diseases recommendations. was set up by infectious disease for Invanz IV antibiotics after PICC line was placed home care was set up wound care would be given as directed on the day of discharge patient was ambulatory on the unit Dr. Parker had repacked the surgical incision. The surgical incision was opened upper aspect of the suture line no redness packing placed without difficulty by Dr. Parker Patient was felt to be hemodynamically stable and appropriate proceed with a discharge to home Impression discharge diagnosis Status post April 11 Incision and drainage postoperative wound infection Status post 2-3 weeks prior right colectomy for bowel obstruction and pelvic abscess Reoccurring nausea vomiting with abdominal pain persist prior to admission Status post incision and drainage wound infection April 11 2018 Present on admission abdominal pain likely due to postop wound infection secondary to recent small bowel obstruction peritonitis Abdominal wall abscess at site of surgical wound failed outpatient treatment Wound cultures showed evidence of E. coli Discharge summary dictated for dr mando harper on behalf of Dr. Gomez The above impression and plan of care have been discussed and directed by signing physician. Abbie Cadet nurse practitioner acting as scribe for signing physician. Plan - Discharge Summary Discharge Rx Participant: Yes New Discharge Prescriptions: New Ertapenem [INVanz] 1 gm IVPB Q24H #21 bag HYDROcodone/APAP 10-325MG [[place] 10-325] 1 each PO Q4H PRN #18 tab PRN Reason: Mild To Moderate Pain Continue Levothyroxine Sodium [Synthroid] 75 mcg PO DAILY amLODIPine BESYLATE/BENAZEPRIL [Lotrel 5-10 mg Capsule] 1 cap PO DAILY Potassium Gluconate 99 mg PO DAILY [place]-3 Fatty Acids/Fish Oil [Fish Oil 1,000 mg Softgel] 1 cap PO DAILY Multivitamins, Thera [Multivitamin (formulary)] 1 tab PO DAILY Hydrochlorothiazide [Hydrodiuril] 25 mg PO DAILY L.acidoph,Paracasei, B.lactis [Probiotic] 1 cap PO DAILY Discontinued Ciprofloxacin HCl [Cipro] 500 mg PO BID #14 tab metroNIDAZOLE [Flagyl] 500 mg PO TID #21 tab Discharge Medication List Levothyroxine Sodium [Synthroid] 75 mcg PO DAILY 01/06/15 [History] Multivitamins, Thera [Multivitamin (formulary)] 1 tab PO DAILY 01/06/15 [History ] [place]-3 Fatty Acids/Fish Oil [Fish Oil 1,000 mg Softgel] 1 cap PO DAILY [History] Potassium Gluconate 99 mg PO DAILY 01/06/15 [History] amLODIPine BESYLATE/BENAZEPRIL [Lotrel 5-10 mg Capsule] 1 cap PO DAILY 01/06/15 [History] Hydrochlorothiazide [Hydrodiuril] 25 mg PO DAILY 08/29/16 [History] L.acidoph,Paracasei, B.lactis [Probiotic] 1 cap PO DAILY 08/29/16 [History] Ertapenem [INVanz] 1 gm IVPB Q24H #21 bag 04/15/18 [Rx] HYDROcodone/APAP 10-325MG [[place] 10-325] 1 each PO Q4H PRN #18 tab 04/16/18 [Rx] Follow up Appointment(s)/Referral(s): Bertin Gomez MD [Medical Doctor] - 1 Week Junaid Parker MD [STAFF PHYSICIAN] - 2 Weeks [facility], [NON-STAFF] - Edmar Cross DO [Primary Care Provider] - 1 Week Activity/Diet/Wound Care/Special Instructions: IV infusions at Dr. Parker's office through [facility] - first appointment 04/17/18 at 11:00 a.m. Phone #: [phone], Address: [address], [address], [place] [address] Care Plan Goals (MU): No tub bath for six weeks. Shower daily. No lifting over 10 pounds for the next 6 weeks. Invanz IV antibiotic daily as directed May use ice packs to surgical site. No driving while taking narcotic for pain. Wound care as directed Discharge Disposition: HOME WITH HOME HEALTH SERVICES
[2018-04-16 15:46] VITALS: BP 128/78; PULSE 89; RESP 12; TEMP 98.3
--- NOTE | 2018-04-16 16:26 | P.PN ---
Subjective Progress Note Date: 04/16/18 This is a 58-year-old female patient recently hospitalized at [facility] March 16 through April 03 4 small bowel obstruction status post right-sided partial colectomy suspicious for Crohn disease which was ruled out. Patient had a lengthy hospitalization as she initially failed conservative management, following surgery she developed acute kidney injury and hypotension which were successfully treated and resolved. Nephrology was on consult. Peritoneal fluid is positive for E. coli and pseudomonas treated with Zosyn and discharged home on ciprofloxacin and Flagyl. Patient left with open surgical wound and wound care in the form of Aquasol Silver. Patient states that she was doing well at home and walking and having bowel movements. She then developed vomiting and worsening abdominal pain over the last couple days. Her bowel movements have been Sunday from diarrhea to formed stools. She was seen by Dr. Gomez and directly admitted to the hospital. She has received Zofran with improvement of the vomiting and also started on IV antibiotics and incentive spirometry. CT of the abdomen and pelvis revealed small fluid collection in the right paracolic gutter compared to last exam. 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 This is unchanged. Increased mixed density in the subcutaneous fat at the surgery site anteriorly consistent with subcutaneous abscess that is enlarged compared to last exam. 1.5 cm thick-walled fluid density area in the pelvis on the right side consistent with small hematoma or abscess that is slightly smaller than last CAT scan. Atelectasis at the lung bases unchanged. Patient underwent incision and drainage postop wound infection with Dr. Gomez yesterday afternoon. Cultures obtained in or are currently preliminary. 04/12: Patient is currently on a ground diet. She denies any nausea vomiting today. She is status post I&D of a postop wound infection and abscess. Dr. Parker is following. She is currently on IV Zosyn. She is using incentive spirometry and getting between 3751-0013 ML's. She is ambulating in the hallway. Vital signs are stable. Pulse ox is 93% on room air. Hemoglobin today is at 9.1 and renal function is improved was BUN of 13 and creatinine 0.84. IV fluids will be decreased to 50 mL per hour. 04/13: Patient is laying down in bed in no apparent distress, she denies any chest pain, shortness breath, her dressing is going to be changed today, patient will have a PICC line and hopefully home a Sunday morning. 04/14: Patient had her dressing changes with Dr. Gomez today she denies any chest pain or short of breath, she can use to have some loose stool, she will get her PICC line tomorrow morning, dressing was changed by general surgery and we are awaiting the final disposition but the patient likely will be discharged home in the next 1 or 2 days. 04/15: Patient is scheduled for PICC line placement today. Antibiotics have been clarified with Dr. Parker for Invanz as an outpatient. Blood pressure is running high for which lisinopril will be resumed. Her kidney function is currently stable with BUN of 8 and creatinine 0.61. White count is normal, hemoglobin 9.4. Currently AST 129, ALT 99, ALT 1:30 slightly higher from yesterday. 04/16: Patient is waiting for arrangement of IV abx which will be provided at [facility]. Dr Parker will be addressing wound care. Patient is cleared for discharge from medicine. Objective - Vital Signs Vital signs: Vital Signs Temp 98.0 F 04/16/18 09:06 Pulse 97 04/16/18 09:06 Resp 17 04/16/18 09:06 BP 156/83 04/16/18 09:06 Pulse Ox 96 04/16/18 09:06 Intake & Output 04/15/18 04/16/18 04/16/18 18:59 06:59 18:59 Intake Total 1237 1680 200 Balance 1237 1680 200 Intake: Intake, IV Titration 600 Amount Sodium Chloride 0.9% 1, 600 000 ml @ 50 mls/hr IV . Q20H [facility] Rx#:[id number] Oral 1237 1080 200 Other: Voiding Method Toilet Toilet # Voids 2 2 # Bowel Movements 1 - Exam Gen: This is a 58-year-old female. Patient appears to be in no acute distress. HEENT: Head is atraumatic, normocephalic. Pupils equal, round. Sclerae is anicteric. NECK: Supple. No JVD. No lymphadenopathy. No thyromegaly. LUNGS: Clear to auscultation. No wheezes or rhonchi. No intercostal retractions. HEART: Regular rate and rhythm. No murmur. ABDOMEN: Soft. Bowel sounds present. No masses. Mild tenderness. Dressing in place over surgical wound. EXTREMITIES: No pedal edema. No calf tenderness. Dorsalis pedis palpable bilaterally. NEUROLOGICAL: Patient is awake, alert and oriented x3. Cranial nerves 2 through 12 are grossly intact. - Labs CBC & Chem 7: 04/15/18 06:25 04/16/18 06:30 Labs: Abnormal Lab Results - Last 24 Hours (Table) 04/16/18 Range/Units 06:30 AST 101 H (14-36) U/L ALT 107 H (9-52) U/L Alkaline Phosphatase 138 H (38-126) U/L Total Protein 6.2 L (6.3-8.2) g/dL Albumin 3.4 L (3.5-5.0) g/dL Microbiology - Last 24 Hours (Table) 04/11/18 13:20 Anaerobic Culture - Final Abdomen Assessment and Plan Plan: 1. Abdominal pain secondary to post op wound infection and abscess secondary to recent small bowel obstruction from adhesions, peritonitis. Patient is status post exploratory laparotomy and lysis of adhesions and resection of the terminal ileum and right colon on previous admission. Patient was discharged on ciprofloxacin and Flagyl. Repeat CT as above. Consult with Dr. Parker. She is currently on Zosyn and switched to ertapenem. I&D completed by Dr. Gomez. Ground foods diet. 2. Acute kidney injury secondary to dehydration from vomiting. Decrease IV fluids to 50 mL per hour. Avoid nephrotoxic agents. Toradol will be discontinued. Patient will not be resumed on LANDON inhibitor or hydrochlorothiazide. 3. Hypertension. Patient will be resumed on amlodipine 5 mg daily and hold for systolic blood pressure less than 110. LANDON inhibitor resumed with lisinopril 10 mg daily and hydrochlorothiazide on hold. 4. Recent acute blood loss anemia. Hemoglobin is stable. Continue to monitor closely. 5. Recent treatment for abdominal abscess in the right lower quadrant status post CT-guided drainage catheter insertion. 6. Vitamin B12 deficiency with chronic anemia. 7. Pulmonary prophylaxis and atelectasis. Incentive spirometry. 8. Hypothyroidism. Resume levothyroxine 75 g daily. 9. GI prophylaxis. Protonix. 10. DVT prophylaxis. Heparin subcu. CODE STATUS: Full code. Discharge plan: Return home with IV antibiotics at [facility] Impression and plan of care have been directed as dictated by the signing physician. Tomasa Chi nurse practitioner acting as scribe for signing physician.
--- NOTE | 2018-04-17 01:06 | P.PN ---
Subjective Progress Note Date: 04/16/18 This is a 58-year-old female patient recently hospitalized at [facility] March 16 through April 03 4 small bowel obstruction status post right-sided partial colectomy suspicious for Crohn disease which was ruled out. Patient had a lengthy hospitalization as she initially failed conservative management, following surgery she developed acute kidney injury and hypotension which were successfully treated and resolved. Nephrology was on consult. Peritoneal fluid is positive for E. coli and pseudomonas treated with Zosyn and discharged home on ciprofloxacin and Flagyl. Patient left with open surgical wound and wound care in the form of Aquasol Silver. Patient states that she was doing well at home and walking and having bowel movements. She then developed vomiting and worsening abdominal pain over the last couple days. Her bowel movements have been Sunday from diarrhea to formed stools. She was seen by Dr. Gomez and directly admitted to the hospital. She has received Zofran with improvement of the vomiting and also started on IV antibiotics and incentive spirometry. CT of the abdomen and pelvis revealed small fluid collection in the right paracolic gutter compared to last exam. 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 This is unchanged. Increased mixed density in the subcutaneous fat at the surgery site anteriorly consistent with subcutaneous abscess that is enlarged compared to last exam. 1.5 cm thick-walled fluid density area in the pelvis on the right side consistent with small hematoma or abscess that is slightly smaller than last CAT scan. Atelectasis at the lung bases unchanged. Patient underwent incision and drainage postop wound infection with Dr. Gomez yesterday afternoon. Cultures obtained in or are currently preliminary April 15 2018 patient is feeling better. There are no plans for her to be discharged home and outpatient intravenous antibiotic therapy. 04/16/2018 patient has further improvement. She is tolerating her diet without difficulties. The wound is evaluated impact this morning. Objective - Vital Signs Vital signs: Vital Signs Temp 98.3 F 04/16/18 15:00 Pulse 89 04/16/18 15:00 Resp 12 04/16/18 15:00 BP 128/78 04/16/18 15:00 Pulse Ox 96 04/16/18 15:00 Intake & Output 04/16/18 04/16/18 04/17/18 06:59 18:59 06:59 Intake Total 1680 600 Balance 1680 600 Intake: Intake, IV Titration 600 Amount Sodium Chloride 0.9% 1, 600 000 ml @ 50 mls/hr IV . Q20H [facility] Rx#:[id number] Oral 1080 600 Other: Voiding Method Toilet Toilet # Voids 2 1 # Bowel Movements 1 - Exam Gen: This is a 58-year-old female. Patient appears to be in no acute distress. HEENT: Head is atraumatic, normocephalic. Pupils equal, round. Sclerae is anicteric. NECK: Supple. No JVD. No lymphadenopathy. No thyromegaly. LUNGS: Clear to auscultation. No wheezes or rhonchi. No intercostal retractions. HEART: Regular rate and rhythm. No murmur. ABDOMEN: Soft. Bowel sounds present. No masses. Mild diffuse tenderness. The wound is unpacked. It is cleansed with saline. Excellent granulation is seen at the base. It is repacked with rolled gauze. EXTREMITIES: No pedal edema. No calf tenderness. Dorsalis pedis palpable bilaterally. NEUROLOGICAL: Patient is awake, alert and oriented x3 - Labs CBC & Chem 7: 04/15/18 06:25 04/16/18 06:30 Labs: Abnormal Lab Results - Last 24 Hours (Table) 04/16/18 Range/Units 06:30 AST 101 H (14-36) U/L ALT 107 H (9-52) U/L Alkaline Phosphatase 138 H (38-126) U/L Total Protein 6.2 L (6.3-8.2) g/dL Albumin 3.4 L (3.5-5.0) g/dL Laboratory Results WBC 6.4 k/uL (3.8-10.6) 04/15/18 06:25 RBC 3.30 m/uL (3.80-5.40) L 04/15/18 06:25 Hgb 9.4 gm/dL (11.4-16.0) L 04/15/18 06:25 Hct 27.9 % (34.0-46.0) L 04/15/18 06:25 MCV 84.6 fL (80.0-100.0) 04/15/18 06:25 MCH 28.7 pg (25.0-35.0) 04/15/18 06:25 MCHC 33.9 g/dL (31.0-37.0) 04/15/18 06:25 RDW 15.5 % (11.5-15.5) 04/15/18 06:25 Plt Count 304 k/uL (150-450) 04/15/18 06:25 Neutrophils % 48 % 04/15/18 06:25 Lymphocytes % 38 % 04/15/18 06:25 Monocytes % 7 % 04/15/18 06:25 Eosinophils % 4 % 04/15/18 06:25 Basophils % 1 % 04/15/18 06:25 Neutrophils # 3.1 k/uL (1.3-7.7) 04/15/18 06:25 Lymphocytes # 2.4 k/uL (1.0-4.8) 04/15/18 06:25 Monocytes # 0.4 k/uL (0-1.0) 04/15/18 06:25 Eosinophils # 0.3 k/uL (0-0.7) 04/15/18 06:25 Basophils # 0.1 k/uL (0-0.2) 04/15/18 06:25 Hypochromasia Slight 04/13/18 06:24 Poikilocytosis Slight 04/15/18 06:25 PT 9.8 sec (9.0-12.0) 04/15/18 06:25 INR 1.0 (<1.2) 04/15/18 06:25 Sodium 139 mmol/L (137-145) 04/16/18 06:30 Potassium 4.2 mmol/L (3.5-5.1) 04/16/18 06:30 Chloride 105 mmol/L (98-107) 04/16/18 06:30 Carbon Dioxide 27 mmol/L (22-30) 04/16/18 06:30 Anion Gap 7 mmol/L 04/16/18 06:30 BUN 12 mg/dL (7-17) 04/16/18 06:30 Creatinine 0.57 mg/dL (0.52-1.04) 04/16/18 06:30 Est GFR (CKD-EPI)AfAm >90 (>60 ml/min/1.73 sqM) 04/16/18 06:30 Est GFR (CKD-EPI)NonAf >90 (>60 ml/min/1.73 sqM) 04/16/18 06:30 Glucose 83 mg/dL (74-99) 04/16/18 06:30 Calcium 9.1 mg/dL (8.4-10.2) 04/16/18 06:30 Total Bilirubin 0.2 mg/dL (0.2-1.3) 04/16/18 06:30 AST 101 U/L (14-36) H 04/16/18 06:30 ALT 107 U/L (9-52) H 04/16/18 06:30 Alkaline Phosphatase 138 U/L (38-126) H 04/16/18 06:30 Total Protein 6.2 g/dL (6.3-8.2) L 04/16/18 06:30 Albumin 3.4 g/dL (3.5-5.0) L 04/16/18 06:30 Microbiology 04/11/18 13:20 Abdomen Anaerobic Culture - Final 04/11/18 13:20 Abdomen Gram Stain - Final 04/11/18 13:20 Abdomen Wound Culture - Final Escherichia coli 04/11/18 13:20 Abdomen Fungal Culture - Preliminary Assessment and Plan (1) Abdominal pain Status: Acute Code(s): R10.9 - UNSPECIFIED ABDOMINAL PAIN SNOMED Code(s): 96882885 (2) Abdominal wall abscess at site of surgical wound Narrative/Plan: pleasant 58-year-old woman with very complex past medical historywho is now developed a significant abscess to the abdominal wall status post incision and drainage from the surgeon. Culture reveals evidence of Escherichia coli prior cultures revealed evidence of anaerobic gram-negative bacilli also. With this the patient will be discharged home on intravenous antibiotic therapy with Invanz given the failure of the oral ciprofloxacin and Flagyl that was attempted.local wound care will be arranged in the outpatient setting over the surgeon will allow the wound center. May be a candidate for negative pressure system if infection comes under control quickly. Pain control is somewhat adequate. PICC line placed and will follow in the outpatient setting. 04/16/2018 patient is now much improved. PICC line is in place. Arrangements for outpatient intravenous antibiotic therapy with Invanz have been made which would give us coverage for E. coli as well as anaerobic gram-negative bacilli. She will have home care as well as outpatient intravenous antibiotic therapy. We'll reassess the ulceration consider negative pressure therapy if needed in the next short period of time. She is for discharge home today. Status: Acute Code(s): T81.4XXA - INFECTION FOLLOWING A PROCEDURE, INITIAL ENCOUNTER SNOMED Code(s): 507985951
== END 2018-04-16 18:55 | disposition home health service (06) | DRG 857 ==
LOC: EDSTATUS 14:17 → 3SUR 14:57 → OBSVTOIN 04-11 16:08
PROVIDERS: ADMIT Surgery; ATTEND Surgery
PROC: 0J980ZZ Drainage of Abdomen Subcutaneous Tissue and Fascia, Open Approach (ICD-10-PCS; principal; 2018-04-11 08:55)
PROC: 02HV33Z Insertion of Infusion Device into Superior Vena Cava, Percutaneous Approach (ICD-10-PCS; 2018-04-15 12:50)
DX: T81.4XXA Infection following a procedure, initial encounter (principal); L02.211 Cutaneous abscess of abdominal wall; N17.9 Acute kidney failure, unspecified; D62 Acute posthemorrhagic anemia; E03.9 Hypothyroidism, unspecified; Z79.890 Hormone replacement therapy; I10 Essential (primary) hypertension; K21.9 Gastro-esophageal reflux disease without esophagitis; Z79.899 Other long term (current) drug therapy; Z82.49 Family history of ischemic heart disease and other diseases of the circulatory system; Z83.3 Family history of diabetes mellitus; Z90.49 Acquired absence of other specified parts of digestive tract; Z90.710 Acquired absence of both cervix and uterus; Z98.1 Arthrodesis status; D17.71 Benign lipomatous neoplasm of kidney; Z82.3 Family history of stroke; Z80.9 Family history of malignant neoplasm, unspecified; Z83.79 Family history of other diseases of the digestive system; Z82.0 Family history of epilepsy and other diseases of the nervous system; E86.0 Dehydration; D51.9 Vitamin B12 deficiency anemia, unspecified; Z79.2 Long term (current) use of antibiotics; M19.90 Unspecified osteoarthritis, unspecified site
CPT/HCPCS: 36569; 74177; 76937; 77001; 80048; 80053; 85025; 85610; 87070; 87075; 87077; 87102; 87186; 87205

== ENCOUNTER → 2018-07-25 | Outpatient (CLI) | payer BC ==
[2018-07-25 10:30] LABS: HCT 38.1 % (34.0-46.0); HGB 12.7 gm/dL (11.4-16.0); MCH 27.7 pg (25.0-35.0); MCHC 33.4 g/dL (31.0-37.0); MCV 82.9 fL (80.0-100.0); Mean Platelet Volume 6.2; Platelet Count 384 k/uL (150-450); RBC 4.59 m/uL (3.80-5.40); RDW 15.2 % (11.5-15.5); WBC 7.2 k/uL (3.8-10.6)
--- NOTE | 2018-07-25 14:18 | MM ---
Reason for exam: screening (asymptomatic). Last mammogram was performed 1 year ago. History: Patient is postmenopausal. Family history of breast cancer in paternal grandmother at age 65. Reductions of both breasts, February 2005. Benign excisional biopsy of the right breast, 1979. Took estrogen for 9 years 7 months beginning at age 41. Physical Findings: A clinical breast exam by your physician is recommended on an annual basis and results should be correlated with mammographic findings. MG 3D Screening Mammo W/Cad Bilateral CC and MLO view(s) were taken. Prior study comparison: July 12, 2017, bilateral MG 3d screening mammo w/cad. April 14, 2016, bilateral MG 3d screening mammo w/cad. The breast tissue is heterogeneously dense. This may lower the sensitivity of mammography. There are benign appearing round calcifications bilaterally. There is no discrete abnormality. ASSESSMENT: Benign, BI-RAD 2 RECOMMENDATION: Routine screening mammogram of both breasts in 1 year.
== END | disposition home or self-care (01) ==
LOC: RADMAMWWP 09:04
PROVIDERS: ATTEND Family Medicine
DX: Z12.31 Encounter for screening mammogram for malignant neoplasm of breast (principal); D72.829 Elevated white blood cell count, unspecified
CPT/HCPCS: 36415; 77063; 77067; 85027

== ENCOUNTER → 2018-11-15 | Outpatient (CLI) | payer BC ==
--- NOTE | 2018-11-15 12:30 | CT ---
EXAMINATION TYPE: CT abdomen pelvis w con DATE OF EXAM: 11/15/2018 COMPARISON: April 03, 2018 HISTORY: RUQ pain CT DLP: 418.7 mGycm CONTRAST: CT scan of the abdomen and pelvis is performed with Oral Contrast and with IV Contrast, patient injec tatiana with 100 mL of Isovue 300. FINDINGS: LUNG BASES-: No visible nodule. No infiltrate. LIVER/GB: No calcified gallstones. Hepatic steatosis noted. No space occupying hepatic lesion. Apolinar iary tree is of normal caliber. PANCREAS: No inflammation. No distinct mass. SPLEEN: No splenic enlargement. No lesion seen. ADRENALS: No nodule. No thickening. KIDNEYS/BLADDER: No hydronephrosis. No nephrolithiasis. Stable renal cystic changes noted. Urinary bladder grossly unremarkable. Angiomyolipoma left upper pleural remains unchanged. BOWEL: Normal appendix. Normal bowel caliber. No inflammation. Postsurgical change right partial he micolectomy. GENITAL ORGANS: No gross abnormality. LYMPH NODES: No greater than 1cm abdominal or pelvic lymph nodes are appreciated. AORTA: No significant abnormality. OSSEOUS STRUCTURES: No significant abnormality is seen. OTHER: No significant additional abnormality is seen. IMPRESSION: 1. Stable angiomyolipoma of the left kidney. 2. Hepatic steatosis. 3. No acute inflammatory process is appreciated. Postsurgical changes of partial right hemicolectomy.
== END | disposition home or self-care (01) ==
LOC: RADCTMAIN 10:20
PROVIDERS: ATTEND Surgery
DX: D17.71 Benign lipomatous neoplasm of kidney (principal); K76.0 Fatty (change of) liver, not elsewhere classified; Z98.890 Other specified postprocedural states
CPT/HCPCS: 74177; Q9967

== ENCOUNTER → 2018-12-13 | Outpatient (CLI) | payer BC ==
[2018-12-13 11:01] LABS: HCT 38.7 % (34.0-46.0); HGB 12.7 gm/dL (11.4-16.0); MCHC 32.8 g/dL (31.0-37.0); MCV 85.4 fL (80.0-100.0); Mean Platelet Volume 6.4; Platelet Count 364 k/uL (150-450); RBC 4.53 m/uL (3.80-5.40); RDW 13.7 % (11.5-15.5); WBC 6.8 k/uL (3.8-10.6)
[2018-12-13 17:13] LABS: Albumin 4.8 g/dL (3.80-4.90); Albumin/Globulin Ratio 2.29 (1.60-3.17); Anion Gap 9.4 mmol/L (4.00-12.00); Calcium 9.4 mg/dL (8.7-10.3); Carbon Dioxide 27.6 mmol/L (21.6-31.8); Globulin 2.1 g/dL (1.6-3.3); Potassium 3.8 mmol/L (3.5-5.5); Total Bilirubin 0.4 mg/dL (0.3-1.2); Total Protein 6.9 g/dL (6.2-8.2)
[2018-12-13 17:14] LABS: T4, Free (Free Thyroxine) 1.4 ng/dL (0.80-1.80)
[2018-12-13 19:10] LABS: Hemoglobin A1C 5.9 % (4.0-6.0)
== END | disposition home or self-care (01) ==
LOC: LABWHC1 09:26
PROVIDERS: ATTEND Family Medicine
DX: Z00.00 Encounter for general adult medical examination without abnormal findings (principal); I10 Essential (primary) hypertension; M62.542 Muscle wasting and atrophy, not elsewhere classified, left hand
CPT/HCPCS: 36415; 80053; 83036; 84439; 84443; 85027

== ENCOUNTER → 2019-01-16 | Outpatient (CLI) | payer BC ==
--- NOTE | 2019-01-16 08:51 | US ---
EXAMINATION TYPE: US abdomen limited DATE OF EXAM: 01/16/2019 COMPARISON: None CLINICAL HISTORY: Z98.890 POST PROCEDURAL STATE. Abdomen wall. In Mar 2018 patient had procedure for bowel resection. R/O Hernia per order. RUQ pain. Assess for hernia at location of: RUQ and ML at incision Area of concern and midline incision area scanned. No prominent break in muscle wall visualized. Va lsalva performed. No prominent masses or fluid collections seen. IMPRESSION: Midline scar from prior incision site in the subcutaneous tissues and abdominal wall thi ckening representing fibrosis without focal fluid collection or recurrent hernia. If there is further concern for subtle desmoid tumor or endometrial implant of endometriosis, that both can also occur a t the site of prior surgery and the sonographically occult, CT with contrast could be performed. Real-time scanning was performed by the brake press operator utilizing Valsalva and additional dynamic maneuve rs to assess for hernia. Images of the contralateral side were also acquired for direct comparison.
== END ==
LOC: RADUSWWP 07:26
PROVIDERS: ATTEND Family Medicine
DX: K92.89 Other specified diseases of the digestive system (principal); Z98.890 Other specified postprocedural states
CPT/HCPCS: 76705

== ENCOUNTER → 2019-02-14 | Outpatient (CLI) | payer BC ==
[2019-02-14 11:32] LABS: African American GFR (CKD) 109.9 (60.0-200.0); Anion Gap 12.1 mmol/L (4.00-12.00); BUN/Creat Ratio 28.57 Ratio (12.00-20.00); Calcium 9.3 mg/dL (8.7-10.3); Carbon Dioxide 25.9 mmol/L (21.6-31.8); Potassium 3.7 mmol/L (3.5-5.5)
== END | disposition home or self-care (01) ==
LOC: LABWHC1 07:07
PROVIDERS: ATTEND Internal Medicine
DX: I11.0 Hypertensive heart disease with heart failure (principal); I50.32 Chronic diastolic (congestive) heart failure
CPT/HCPCS: 36415; 80048

== ENCOUNTER → 2019-08-13 | Outpatient (CLI) | payer BC ==
--- NOTE | 2019-08-14 13:44 | MM ---
Reason for exam: screening (asymptomatic). Last mammogram was performed 1 year and 1 month ago. History: Patient is postmenopausal. Family history of breast cancer in paternal grandmother at age 65. Reductions of both breasts, February 2005. Benign excisional biopsy of the right breast, 1979. Took estrogen for 9 years 7 months beginning at age 41. Physical Findings: A clinical breast exam by your physician is recommended on an annual basis and results should be correlated with mammographic findings. MG 3D Screening Mammo W/Cad Bilateral CC and MLO view(s) were taken. Prior study comparison: July 25, 2018, bilateral MG 3d screening mammo w/cad. July 12, 2017, bilateral MG 3d screening mammo w/cad. There are scattered fibroglandular densities. No significant changes when compared with prior studies. ASSESSMENT: Benign, BI-RAD 2 RECOMMENDATION: Routine screening mammogram of both breasts in 1 year.
== END | disposition home or self-care (01) ==
LOC: RADMAMWWP 06:59
PROVIDERS: ATTEND Family Medicine
DX: Z12.31 Encounter for screening mammogram for malignant neoplasm of breast (principal); Z80.3 Family history of malignant neoplasm of breast
CPT/HCPCS: 77063; 77067

== ENCOUNTER → 2020-03-19 | Outpatient (CLI) | payer BC ==
--- NOTE | 2020-03-19 20:15 | NM ---
Nuclear medicine hepatobiliary scan. HISTORY: Pain. DOSAGE: The patient received 8 ounces of ensure plus and 4.4 mCi of Technetium 99m Choletec. FINDINGS: There is normal hepatic extraction. The gallbladder is seen by 15 minutes. There is bilia ry to bowel clearance by 60 minutes. Ejection fraction is 89%. IMPRESSION: 1. Normal filling of the gallbladder with radiotracer and no diagnostic evidence of cholecystitis. 2. Ejection fraction of 89% can occasionally be seen with hyperdynamic gallbladder.
== END ==
LOC: RADNMMAIN 15:14
PROVIDERS: ATTEND Family Medicine
DX: R10.11 Right upper quadrant pain (principal)
CPT/HCPCS: 78226; A9537

== ENCOUNTER → 2020-06-24 | Outpatient (CLI) | payer BC ==
--- NOTE | 2020-06-25 09:16 | XR ---
EXAMINATION TYPE: XR foot complete RT DATE OF EXAM: 06/24/2020 CLINICAL HISTORY: Lump on instep and base of right great toe. TECHNIQUE: Frontal, lateral, and oblique images of the right foot are obtained. COMPARISON: None FINDINGS: There is no acute fracture/dislocation evident in the right foot. The medial cuneiform fir st metatarsal joint demonstrates degenerative spurring and overlying lump which likely corresponds wi th patient's region of concern. No evidence of osseous erosion. Remaining joint spaces are maintained . The overlying soft tissue appears unremarkable. IMPRESSION: 1. No acute fracture dislocation of the right foot. 2. Degenerative spurring at the medial cuneiform first metatarsal joint likely corresponds with patie nt's sensation of lump on instep.
== END | disposition home or self-care (01) ==
LOC: RAD 15:41
PROVIDERS: ATTEND Family Medicine
DX: M79.671 Pain in right foot (principal)

== ENCOUNTER → 2020-09-03 | Outpatient (CLI) | payer BC ==
--- NOTE | 2020-09-03 10:45 | MM ---
Reason for exam: additional evaluation requested from prior study. Last mammogram was performed 1 year and 1 month ago. History: Patient is postmenopausal. Family history of breast cancer in paternal grandmother at age 65. Reductions of both breasts, February 2005. Benign excisional biopsy of the right breast, 1979. Took estrogen for 9 years 7 months beginning at age 41. Physical Findings: Nurse did not find any significant physical abnormalities on exam. MG 3D Diag Mammo W/Cad MORRIS Bilateral CC and MLO view(s) were taken. Prior study comparison: August 13, 2019, bilateral MG 3d screening mammo w/cad. July 25, 2018, bilateral MG 3d screening mammo w/cad. There are scattered fibroglandular densities. These results were verbally communicated with the patient and result sheet given to the patient on 09/03/20. ASSESSMENT: Benign, BI-RAD 2 RECOMMENDATION: Routine screening mammogram of both breasts in 1 year. Manage patient on a clinical basis.
== END | disposition home or self-care (01) ==
LOC: RADMAMWWP 08:47
PROVIDERS: ATTEND Family Medicine
DX: R92.0 Mammographic microcalcification found on diagnostic imaging of breast (principal)
CPT/HCPCS: 77062; 77066

== ENCOUNTER → 2020-09-07 | Outpatient (CLI) | payer BC ==
--- NOTE | 2020-09-07 14:15 | EST ---
EXERCISE STRESS DATE OF SERVICE: 09/07/2020 AGE: 60 SEX: Female HT: 4'9" WT: 132 PROTOCOL: Cardiolite Ricardo STAGE: IV DURATION OF EXERCISE: 10 minutes HEART RATE REST: 100 BLOOD PRESSURE REST: 127/81 MAXIMUM HEART RATE ACHIEVED: 155 MAXIMUM BLOOD PRESSURE: 164/77 85% MPHR: 135 100% MPHR: 159 METS: 11.7 INDICATIONS: Chest pain. CLINICAL INFORMATION: STRESS DATA: Heart rate is 100, pressure is 127/81 mmHg. Baseline EKG showed sinus mechanism. The patient exercised on the treadmill according to Ricardo protocol for a total of 10 minutes and achieved 11. METs. Max heart rate was 155, which is about 97% of maximum predicted heart rate. Maximum blood pressure was 164/77 mmHg. Clinically, the patient did not have any symptoms and the EKG did not show any significant ST or T-wave abnormalities concerning for ischemia. CONCLUSION: 1. Good exercise tolerance. 2. Normal EKG in response to exercise. MMODL / IJN: [id number] /
--- NOTE | 2020-09-07 15:30 | NM ---
EXAMINATION TYPE: NM stress cardiolite complete DATE OF EXAM: 09/07/2020 COMPARISON: NONE HISTORY: 60-year-old female dyspnea on exertion, shortness of breath, hypertension, family history of cardiovascular disease. TECHNIQUE: After the intravenous administration of 10.1 mCi Tc 99m Sestamibi - Rest images obtained 45 minutes post injection. The patient exercised using a TAYLOR protocol and 1 minute prior to peak exercise was injected with 24.3 mCi Tc 99m Sestamibi - Stress images obtained 20 minutes post injecti on. FINDINGS: Targeted heart rate was achieved during performance of the study (97% heart rate achieved). Total exe rcise time 10 minutes. There is relatively small size to the LV chamber. This likely accounts for the very high estimated LVEF of 100%. The computer had difficulty tracking the left ventricular apex on the rest images, again, due to overall small chamber size. Review of stress and rest SPECT images dem onstrates decreased perfusion along the anterior wall on rest images suggesting attenuation artifact. No discrete reversibility is seen. TID is calculated at 0.29 which is within normal limits. IMPRESSION: Small chamber size limits the exam. It also accounts for the very high estimated LVEF of 100%. There is inferior wall attenuation artifact on rest images. No definite reversibility is seen.
== END | disposition home or self-care (01) ==
LOC: RADNMMAIN 09-03 08:52
PROVIDERS: ATTEND Internal Medicine
DX: R06.00 Dyspnea, unspecified (principal)
CPT/HCPCS: 93017; 78452; A9500

== ENCOUNTER 2020-10-05 09:44 | Day surgery (SDC) | payer BC ==
[2020-10-01 14:10] VITALS: BMI 28.0
[2020-10-05 10:37] VITALS: RESP 16; TEMP 98.3
[2020-10-05] MEDS ORDERED: LIDOCAINE 1% (10MG/ML) FOR IV START INTRADERMA ONE (10:41)
[2020-10-05] MEDS ORDERED: ONDANSETRON 4 MG/2 ML VIAL ONE (10:42)
[2020-10-05] MEDS ORDERED: PROPOFOL 10 MG/ML 20 ML VIAL IV ONE (11:02)
--- NOTE | 2020-10-05 11:36 | P.PCN ---
Date of Procedure: 10/05/20 Procedure(s) Performed: PREOPERATIVE DIAGNOSIS: Epigastric pain, change in bowel habits POSTOPERATIVE DIAGNOSIS: Mild gastritis, tortuous colon, mild diverticulosis PROCEDURE: 1. EGD with biopsy 2. Colonoscopy ANESTHESIA: MAC SURGEON: Bertin Gomez M.D. SPECIMENS: Antrum ENDOSCOPIC PROCEDURE: The patient was on the endoscopy table in the left decubitus position. The Olympus gastroscope was inserted into the oropharynx and passed under direct visualization to the region of the third portion of the duodenum. From that point the scope was slowly withdrawn inspecting all surfaces carefully. There were no neoplastic inflammatory or polypoid lesions throughout the duodenum. The pylorus was widely patent. The stomach was carefully inspected. There was mild gastritis present. A biopsy of the antrum took place to rule out H. pylori. Retroflexion revealed a normal hiatus. The esophagus was then carefully examined. There were no neoplastic inflammatory or polypoid lesions throughout the visualized esophagus. The patient was kept on the endoscopy table in the left decubitus position. The Olympus colonoscope was inserted into the anus and passed under direct visualization to the ileocolonic anastomosis. The anastomosis was widely patent. From that point the scope was slowly withdrawn. There were no neoplastic inflammatory or polypoid lesions throughout the transverse, descending, sigmoid and rectum. There was mild left-sided diverticulosis noted. Digital rectal examination was normal. The patient was taken to the recovery room in stable condition per anesthesia guidelines. RECOMMENDATIONS: Resume diet. Follow-up colonoscopy 5-10 years.
[2020-10-05 12:02] VITALS: BP 136/70; PULSE 66
== END 2020-10-05 12:26 | disposition home or self-care (01) ==
LOC: ORWHC2ENDO 09:44
PROVIDERS: ATTEND Surgery
DX: K29.50 Unspecified chronic gastritis without bleeding (principal); Z90.49 Acquired absence of other specified parts of digestive tract; Z98.0 Intestinal bypass and anastomosis status; K57.30 Diverticulosis of large intestine without perforation or abscess without bleeding; Q43.8 Other specified congenital malformations of intestine; I49.3 Ventricular premature depolarization; I49.8 Other specified cardiac arrhythmias; K21.9 Gastro-esophageal reflux disease without esophagitis; I10 Essential (primary) hypertension; M19.90 Unspecified osteoarthritis, unspecified site; Z79.891 Long term (current) use of opiate analgesic; E07.9 Disorder of thyroid, unspecified; Z90.710 Acquired absence of both cervix and uterus; Z98.890 Other specified postprocedural states; Z79.890 Hormone replacement therapy; Z79.899 Other long term (current) drug therapy
CPT/HCPCS: 88305; 45378; 43239; J2405; J2704

== ENCOUNTER → 2020-10-12 | Outpatient (CLI) | payer BC ==
--- NOTE | 2020-10-12 11:15 | USB ---
Reason for exam: clinical finding. History: Patient is postmenopausal. Family history of breast cancer in paternal grandmother at age 65. Reductions of both breasts, February 2005. Benign excisional biopsy of the right breast, 1979. Took estrogen for 9 years 7 months beginning at age 41. Physical Findings: Nurse did not find any significant physical abnormalities on exam. US Breast BILAT Right complete breast ultrasound includes all four quadrants, the retroareolar region and axilla. Finding demonstrates including area of concern. Left complete breast ultrasound includes all four quadrants, the retroareolar region and axilla. Finding demonstrates no cystic or solid lesion seen. These results were verbally communicated with the patient and result sheet given to the patient on 10/12/20. ASSESSMENT: Negative, BI-RAD 1 RECOMMENDATION: Routine screening mammogram of both breasts in 1 year. Back on schedule. Manage patient on a clinical basis.
== END | disposition home or self-care (01) ==
LOC: RADUSWWP 10:12
PROVIDERS: ATTEND Family Medicine
DX: N64.52 Nipple discharge (principal)

== ENCOUNTER → 2020-12-23 | Outpatient (CLI) | payer BC ==
[2020-12-23 07:59] LABS: Amorphous Sediment,Urine Moderate /hpf; Appearance,Urine Turbid (Clear); Bilirubin,Urine Negative (Negative); Blood,Urine Negative (Negative); Color,Urine Light Yellow; Glucose,Urine (UA) Negative (Negative); Ketones,Urine Negative (Negative); Leukocyte Esterase,Urine Negative (Negative); Nitrite,Urine Negative (Negative); Protein,Urine Negative (Negative); Specific Gravity,Urine 1.011 (1.001-1.035); Urobilinogen,Urine <2.0 mg/dL (<2.0)
[2020-12-23 10:33] LABS: HCT 38.1 % (37.2-46.3); HGB 12.9 g/dL (12.0-15.0); MCH 28.4 pg (27.0-32.0); MCHC 33.9 g/dL (32.0-37.0); MCV 83.9 fL (80.0-97.0); Mean Platelet Volume 9.7 fL (9.5-12.2); Platelet Count 313 X 10*3/uL (140-440); RBC 4.54 X 10*6/uL (4.10-5.20); RDW 14.2 % (11.5-14.5); WBC 6.65 X 10*3/uL (4.50-10.00)
[2020-12-23 14:36] LABS: Hemoglobin A1C 5.3 % (4.0-6.0)
[2020-12-23 20:43] LABS: African American GFR (CKD) 108.4 (60.0-200.0); Albumin 4.9 g/dL (3.80-4.90); Albumin/Globulin Ratio 2.33 (1.60-3.17); Anion Gap 13.9 mmol/L (4.00-12.00); Calcium 9.8 mg/dL (8.7-10.3); Carbon Dioxide 25.1 mmol/L (21.6-31.8); Chol/HDL Ratio 2.37; Globulin 2.1 g/dL (1.6-3.3); LDL Cholesterol,Calculated 89.4 mg/dL (0.0-131.0); Non-African American GFR(CKD) 93.5 (60.0-200.0); Total Bilirubin 0.4 mg/dL (0.3-1.2); VLDL Calculation 21.6 mg/dL (5.00-40.00)
[2020-12-23 20:51] LABS: T4, Free (Free Thyroxine) 1.4 ng/dL (0.80-1.80)
== END | disposition home or self-care (01) ==
LOC: LABWHC1 07:12
PROVIDERS: ATTEND Family Medicine
DX: Z00.00 Encounter for general adult medical examination without abnormal findings (principal)
CPT/HCPCS: 36415; 80053; 80061; 81001; 82306; 83036; 84439; 84443; 85027

== ENCOUNTER → 2021-02-16 | Outpatient (CLI) | payer BC ==
[2021-02-16 16:03] LABS: Non-African American GFR(CKD) 98.4 (60.0-200.0)
== END | disposition home or self-care (01) ==
LOC: LABWHC1 07:00
PROVIDERS: ATTEND Radiology Vascular & Interventional Radiology
DX: N28.89 Other specified disorders of kidney and ureter (principal)
CPT/HCPCS: 36415; 82565; 84520

== ENCOUNTER → 2021-03-17 | Outpatient (CLI) | payer BC ==
--- NOTE | 2021-03-17 09:24 | XR ---
EXAMINATION TYPE: XR shoulder complete LT DATE OF EXAM: 03/17/2021 CLINICAL HISTORY: Left acromioclavicular impingement. TECHNIQUE: Three views of the left shoulder are obtained. COMPARISON: None. FINDINGS: There is no acute fracture/dislocation evident in the left shoulder. The acromioclavicula r and glenohumeral joint spaces appear within normal limits. The visualized ribs are intact and unre markable. IMPRESSION: There is no acute fracture or dislocation in the left shoulder.
== END | disposition home or self-care (01) ==
LOC: RADXRMAIN 07:30
PROVIDERS: ATTEND Family Medicine
DX: M25.512 Pain in left shoulder (principal)

== ENCOUNTER → 2021-05-07 | Outpatient (CLI) | payer BC ==
--- NOTE | 2021-05-08 02:49 | MR ---
EXAMINATION TYPE: MR shoulder LT wo con DATE OF EXAM: 05/07/2021 COMPARISON: None HISTORY: L shoulder pain Multiplanar multiecho imaging of the left shoulder without contrast. There is narrowing of the shoulder joint space. The biceps tendon is intact. Exam limited slightly by motion. Subscapularis tendon is intact. Glenoid kash appear intact. The supraspinatus tendon is intact. There is no retraction. There is small shoulder joint effusion. T he AC joint is intact. There is minor spurring on the AC joint with no significant subacromial imping ement. I see no bony destructive process. There is no evidence of a fracture. There is no evidence of a soft tissue mass. IMPRESSION: Small shoulder joint effusion consistent with a nonspecific mild synovitis. 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 No fracture. No evidence of rotator cuff tear.
== END | disposition home or self-care (01) ==
LOC: RADMRIMAIN 11:55
PROVIDERS: ATTEND Orthopaedic Surgery
DX: M19.012 Primary osteoarthritis, left shoulder (principal)

== ENCOUNTER → 2021-11-09 | Outpatient (CLI) | payer BC ==
[2021-11-10 01:27] LABS: African American GFR (CKD) 115.8 (60.0-200.0); Blood Urea Nitrogen 16.9 mg/dL (9.0-27.0); Non-African American GFR(CKD) 99.9 (60.0-200.0)
== END | disposition home or self-care (01) ==
LOC: LABWHC1 07:37
PROVIDERS: ATTEND Radiology Vascular & Interventional Radiology
DX: D17.71 Benign lipomatous neoplasm of kidney (principal)
CPT/HCPCS: 36415; 82565; 84520

== ENCOUNTER → 2021-12-27 | Outpatient (CLI) | payer BC ==
--- NOTE | 2021-12-28 11:35 | MM ---
Reason for exam: screening (asymptomatic). Last mammogram was performed 1 year and 4 months ago. History: Patient is postmenopausal. Family history of breast cancer in paternal grandmother at age 65. Reductions of both breasts, February 2005. Benign excisional biopsy of the right breast, 1979. Took estrogen for 9 years 7 months beginning at age 41. Physical Findings: A clinical breast exam by your physician is recommended on an annual basis and results should be correlated with mammographic findings. MG 3D Screening Mammo W/Cad Bilateral CC and MLO view(s) were taken. Prior study comparison: September 03, 2020, bilateral MG 3d diag mammo w/cad [facility]. August 13, 2019, bilateral MG 3d screening mammo w/cad. There are scattered fibroglandular densities. There is no discrete abnormality. No significant changes when compared with prior studies. ASSESSMENT: Negative, BI-RAD 1 RECOMMENDATION: Routine screening mammogram of both breasts in 1 year.
== END | disposition home or self-care (01) ==
LOC: RADMAMWWP 07:21
PROVIDERS: ATTEND Family Medicine
DX: Z12.31 Encounter for screening mammogram for malignant neoplasm of breast (principal); Z78.0 Asymptomatic menopausal state; Z80.3 Family history of malignant neoplasm of breast
CPT/HCPCS: 77063; 77067

== ENCOUNTER → 2022-01-19 | Outpatient (CLI) | payer BC ==
[2022-01-19 14:42] LABS: HCT 41.2 % (34.0-46.0); HGB 13.5 gm/dL (11.4-16.0); MCH 29.3 pg (25.0-35.0); MCHC 32.8 g/dL (31.0-37.0); MCV 89.4 fL (80.0-100.0); Mean Platelet Volume 7.3; Platelet Count 312 k/uL (150-450); RBC 4.61 m/uL (3.80-5.40); WBC 6.6 k/uL (3.8-10.6)
[2022-01-19 14:45] LABS: ALT 30 U/L (4-34); AST 40 U/L (14-36); African American GFR (CKD) >90 (>60 ml/min/1.73 sqM); Albumin 4.8 g/dL (3.5-5.0); Alkaline Phosphatase 109 U/L (38-126); Anion Gap 8 mmol/L; Blood Urea Nitrogen 18 mg/dL (7-17); Calcium 9.4 mg/dL (8.4-10.2); Carbon Dioxide 31 mmol/L (22-30); Chloride 100 mmol/L (98-107); Glucose 99 mg/dL (74-99); Non-African American GFR(CKD) >90 (>60 ml/min/1.73 sqM); Potassium 4.8 mmol/L (3.5-5.1); Sodium 139 mmol/L (137-145); T4, Free (Free Thyroxine) 1.37 ng/dL (0.78-2.19); Total Bilirubin 0.3 mg/dL (0.2-1.3); Total Protein 7.9 g/dL (6.3-8.2)
[2022-01-20 03:08] LABS: Chol/HDL Ratio 2.35 Ratio; LDL Cholesterol,Calculated 115.2 mg/dL (0.0-131.0)
--- NOTE | 2022-01-20 07:58 | BD ---
EXAMINATION TYPE: Axial Bone Density DATE OF EXAM: 01/19/2022 COMPARISON: NONE CLINICAL HISTORY: 61 year old Female. ICD-10 CODE: N95.1 MENOPAUSAL AND FEMALE CLIMACTERIC STATES Height: 4FT 9IN Weight: 125.3 FRAX RISK QUESTIONS: Alcohol (3 or more units per day): no Family History (Parent hip fracture): no Glucocorticoids (More than 3mos): no (Ex: prednisone, prednisolone, methylprednisolone, dexamethasone, and hydrocortisone). History of Fracture in Adulthood: yes Secondary Osteoporosis: 1. Type 1 Diabetes: no 2. Hyperthyroidism: no 3. Menopause before 45: yes 4. Malnutrition: no 5. Chronic liver disease: no Rheumatoid Arthritis: no Current Tobacco Use: no RISK FACTORS HISTORY OF: History of Wrist Fracture: left wrist When: 4 years ago Surgery to Spine/Hip(right/left)/Wrist (right/left): left wrist When: 4 years/ Family History of Osteoporosis: no Active: yes Diet low in dairy products/other sources of calcium: no Postmenopausal woman: yes Lost more than 2 inches in height since high school: yes MEDICATIONS: synthroid Thyroid Medications: How Lon years Additional History: EXAM MEASUREMENTS: Bone mineral densitometry was performed using the [employer] System. Bone mineral density as measured about the Lumbar spine is: ----- L1-L4(G/cm2): 1.160 T Score Values are as follows: ----- L1: 0.4 ----- L2: -0.1 ----- L3: 0.2 ----- L4: -1.5 ----- L1-L4: -0.2 Bone mineral density has: decreased -5.3 % since study of: 02.23.2015 Bone mineral density about the R hip (g/cm2): 0.804 Bone mineral density about the L hip (g/cm2): 0.759 T Score values are as follows: -----R Neck: -1.7 -----L Neck: -2.0 -----R Total: -1.7 -----L Total: -2.0 Bone mineral density has: decreased -8.6 % since study of: 02.23.2015 FRAX%s: The graph provided illustrates a 17.2% chance for a major osteoporotic fx and a 2.5% chance f or the hips probability for fx in 10 years time. IMPRESSION: Osteopenia (T Score between -2.5 and -1). There is slightly increased risk of fracture and the patient may be considered for treatment. Re-Screen 2-5 years. NOTE: T-SCORE=SD OF THE YOUNG ADULT MEAN.
== END | disposition home or self-care (01) ==
LOC: RADBDWWP 08:27
PROVIDERS: ATTEND Family Medicine
DX: Z00.00 Encounter for general adult medical examination without abnormal findings (principal); M85.89 Other specified disorders of bone density and structure, multiple sites
CPT/HCPCS: 77080; 80053; 80061; 82306; 83036; 84439; 84443; 85027

== ENCOUNTER → 2022-07-04 | Outpatient (CLI) | payer BC ==
--- NOTE | 2022-07-04 09:36 | XR ---
EXAMINATION TYPE: XR cervical spine comp DATE OF EXAM: 07/04/2022 COMPARISON: None HISTORY: Neck pain TECHNIQUE: 5 view cervical spine FINDINGS: There is anterior cervical fusion. Foraminal stenosis present on the right C3-4 and mildly C6-7. On the left there is severe foraminal stenosis C3-4. Mild foraminal narrowing is present on the left and C6-7. Prevertebral space is normal. Vertebral body heights are preserved. Disc spaces are utilized through the anterior cervical fusion level. Posterior spinal lamellar line is intact. IMPRESSION: 1. 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 2 mild foraminal narrowing is present C6-7 bilaterally.
== END | disposition home or self-care (01) ==
LOC: RADXRMAIN 08:36
PROVIDERS: ATTEND Family Medicine
DX: M54.2 Cervicalgia (principal)
CPT/HCPCS: 72050

== ENCOUNTER → 2023-02-14 | Outpatient (CLI) | payer BC ==
--- NOTE | 2023-02-15 20:22 | MM ---
Reason for Exam: Screening (asymptomatic). Last mammogram was performed 1 year(s) and 1 month(s) ago. Patient History: Menarche at age 12. First Full-Term at age 19. Left ovary removed at age 39. Right ovary removed at age 39. Hysterectomy at age 39. Postmenopausal. Estrogen, from age 41 until age 48. 02/2005, Bilateral Reduction. 1979, Benign Excisional Biopsy on the right side. Paternal grandmother had breast cancer, age 65. Risk Values: Marisol 5 year model risk: 1.7%. NCI Lifetime model risk: 7.1%. Prior Study Comparison: 08/13/2019 Bilateral Screening Mammogram, [facility]. 09/03/2020 Bilateral Diagnostic Mammogram, [facility]. 12/27/2021 Bilateral Screening Mammogram, [facility]. Tissue Density: There are scattered fibroglandular densities. Findings: Analyzed By CAD. Bilateral reduction mammoplasty changes. There is no suspicious group of microcalcifications or new suspicious mass in either breast. Overall Assessment: Benign, BI-RAD 2 Management: Screening Mammogram of both breasts in 1 year. . Patient should continue monthly self-breast exams. A clinical breast exam by your physician is recommended on an annual basis. This exam should not preclude additional follow-up of suspicious palpable abnormalities. Note on Marisol scores and lifetime risk: 1. A Marisol score greater than 3% is considered moderate risk. If this is the case, consider specialist referral to assess eligibility for a risk reducing agent. 2. If overall lifetime risk for the development of breast cancer is 20% or higher, the patient may qualify for future screening with alternating mammogram and breast MRI. Electronically signed and approved by: Olga Vivar M.D. Radiologist
== END | disposition home or self-care (01) ==
LOC: RADMAMWWP 08:21
PROVIDERS: ATTEND Family Medicine
DX: Z12.31 Encounter for screening mammogram for malignant neoplasm of breast (principal); Z78.0 Asymptomatic menopausal state; Z80.3 Family history of malignant neoplasm of breast
CPT/HCPCS: 77063; 77067

== ENCOUNTER → 2023-05-01 | Outpatient (CLI) | payer BC ==
--- NOTE | 2023-05-02 09:12 | XR ---
EXAMINATION TYPE: XR chest 2V DATE OF EXAM: 05/01/2023 COMPARISON: 03/24/2018 INDICATION: Abdominal pain, pneumonitis TECHNIQUE: Frontal and lateral views of the chest are obtained. FINDINGS: The heart size is normal. The pulmonary vasculature is normal. The lungs are clear. IMPRESSION: 1. No acute pulmonary process.
--- NOTE | 2023-05-02 09:17 | XR ---
EXAMINATION TYPE: XR abdomen 1V DATE OF EXAM: 05/01/2023 COMPARISON: None INDICATION: Abdominal pain, cough TECHNIQUE: Single view abdomen upright view FINDINGS: There is a nonspecific bowel gas pattern. Couple of scattered air-fluid levels are within the mid abd omen. Air is within the nondilated colon. Nonspecific small bowel gas within the pelvis. No mass effe ct is evident. Psoas margins are normal. No organomegaly is present. IMPRESSION: 1. Nonspecific abdomen. Correlate for ileus. Follow-up can be performed as clinically indicated.
== END | disposition home or self-care (01) ==
LOC: RADXRMAIN 17:54
PROVIDERS: ATTEND Family Medicine
DX: R10.84 Generalized abdominal pain (principal); R05.3 Chronic cough
CPT/HCPCS: 71046; 74018

== ENCOUNTER → 2023-05-16 | Outpatient (CLI) | payer BC ==
--- NOTE | 2023-05-17 08:37 | CT ---
EXAMINATION TYPE: CT abdomen pelvis wo con DATE OF EXAM: 05/16/2023 COMPARISON: 11/15/2018 HISTORY: abdominal distention and pain x months CT DLP: 287.5 mGycm Automated exposure control for dose reduction was used. TECHNIQUE: Helical acquisition of images was performed from the lung bases through the pelvis. FINDINGS: LUNG BASES: Bibasilar atelectasis. LIVER/GB: Evidence of gallstones. PANCREAS: No significant abnormality is seen. SPLEEN: Splenic granuloma noted. ADRENALS: No significant abnormality is seen. KIDNEYS: No hydronephrosis or nephrolithiasis. Lower pole left renal lesion measures 9 [place] uni ts. Low density lower pole fat lesion is compatible with a benign lipoma FREE AIR: No free air is visualized RETROPERITONEAL ADENOPATHY: None visualized REPRODUCTIVE ORGANS: No significant abnormality is seen URINARY BLADDER: No significant abnormality is seen. PELVIC ADENOPATHY: None visualized. 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 Congenital vertebral anomalies are similar to prior exam. BOWEL: No significant abnormality is seen. OTHER: Aorta of normal caliber. No free fluid. Correlate for prior hysterectomy. Bladder is somewhat low in position. Small cystocele in the differential diagnosis. IMPRESSION: 1. CHOLELITHIASIS. 2. POST HYSTERECTOMY, LOW-LYING POSITION OF THE BLADDER MAY REPRESENT A SMALL CYSTOCELE CORRELATE FOR URINARY SYMPTOMS.
== END | disposition home or self-care (01) ==
LOC: RADCTMAIN 16:35
PROVIDERS: ATTEND Family Medicine
DX: K80.00 Calculus of gallbladder with acute cholecystitis without obstruction (principal); R19.4 Change in bowel habit; Z90.710 Acquired absence of both cervix and uterus
CPT/HCPCS: 74176

== ENCOUNTER → 2024-01-31 | Outpatient (CLI) | payer BC ==
--- NOTE | 2024-01-31 20:10 | BD ---
EXAMINATION TYPE: Axial Bone Density DATE OF EXAM: 01/31/2024 CLINICAL HISTORY: 63 years old Female. ICD-10 CODE: M81.0 AGE-RELATED OSTEOPOROSIS W/O CURRENT PATHO LO Height: 56.7 in Weight: 127 lbs FRAX RISK QUESTIONS: History of Fracture in Adulthood: lt ankle fx age 39; lt wrist age 60 Secondary Osteoporosis: 3. Menopause before 45: total hyst age 39 HISTORY OF: History of Wrist Fracture: lt wrist fx age 60 Surgery to Wrist (left): lt wrist age 60 MEDICATIONS: Thyroid Medications: yes Which medication: Synthroid How Lon+ years EXAM MEASUREMENTS: Bone mineral densitometry was performed using the [employer] System. Bone mineral density as measured about the Lumbar spine is: ----- L1-L4(G/cm2): 1.159 T Score Values are as follows: ----- L1: 0.5 ----- L2: 0.3 ----- L3: 0.3 ----- L4: -1.8 ----- L1-L4: -0.2 Z Score Values are as follows: ----- L1: 2.3 ----- L2: 2.1 ----- L3: 2.1 ----- L4: 0.0 ----- L1-L4: 1.6 Bone mineral density has: Decreased -0.1% since study of: 01/19/2022 Bone mineral density about the R hip (g/cm2): 0.818 Bone mineral density about the L hip (g/cm2): 0.761 T Score values are as follows: -----R Neck: -1.9 -----L Neck: -2.1 -----R Total: -1.5 -----L Total: -2.0 Z Score values are as follows: -----R Neck: -0.3 -----L Neck: -0.5 -----R Total: -0.1 -----L Total: -0.6 Bone mineral density has: Increased 2.2% since study of: 01/19/2022 FRAX%s: The graph provided illustrates a 17.9% chance for a major osteoporotic fx and a 2.9% chance f or the hips probability for fx in 10 years time. IMPRESSION: Osteopenia (T Score between -2.5 and -1). There is slightly increased risk of fracture and the patient may be considered for treatment. Re-Screen 2-5 years. NOTE: T-SCORE=SD OF THE YOUNG ADULT MEAN.
== END | disposition home or self-care (01) ==
LOC: RADBDWWP 15:15
PROVIDERS: ATTEND Family Medicine
DX: M85.89 Other specified disorders of bone density and structure, multiple sites (principal); M81.0 Age-related osteoporosis without current pathological fracture; Z78.0 Asymptomatic menopausal state
CPT/HCPCS: 77080